=== PATIENT | female | born 1985 | race Two or more races ===

== ENCOUNTER 2023-03-06 15:50 | Outpatient (OUT) | payer OTHER, MEDICAID, SELFPAY ==
--- NOTE | 2023-03-06 16:04 | XR_ITS ---
The [address] [address] Patient Name: AMRIE SHARMA MRN: [id number] date: 1985 Sex: F Assigned Patient Location: [facility] Current Patient Location: [facility] Accession/Order Number: [id number] Exam Date: 03/06/2023 16:05 Report Date: 03/06/2023 16:34 At the request of: [facility] STAFFORD Procedure: XR ankle RT min 3V EXAM: XR ankle RT min 3V HISTORY: RT ANKLE PAIN M25.471 . The patient fell yesterday. COMPARISON: None. TECHNIQUE: 3 views of the right ankle were obtained. FINDINGS: There is no evidence of an acute fracture or dislocation. The mortise is intact and no osteochondral injury is identified. The subtalar joints are intact. A small soft tissue calcification adjacent to the cuboid bone is probably tendinous in nature. Mild soft tissue swelling laterally is noted. IMPRESSION: No acute fracture or dislocation. No significant osseous abnormality is identified. Mild soft tissue swelling laterally is noted. Electronically authenticated by: STEPHANI STEWART Date: 03/06/2023 16:34
== END 2023-03-06 15:51 | disposition home or self-care (01) ==
LOC: RAD 15:56
PROVIDERS: PCP Nurse Practitioner Family; Visit Provider Nurse Practitioner Family
DX: M25.471 Effusion, right ankle (principal); M25.571 Pain in right ankle and joints of right foot; M79.89 Other specified soft tissue disorders
CPT/HCPCS: 73610

== ENCOUNTER 2023-03-07 10:13 | Outpatient (OUT) | payer OTHER, MEDICAID, SELFPAY ==
[2023-03-07 10:36] LABS: Basophils Percent Auto 0.4 % (0.2-2.0); Eosinophils Absolute Auto 0.1 10^3/uL (0.0-0.7); Eosinophils Percent Auto 1.7 % (0.9-7.0); Hemoglobin 12.1 g/dL (12.0-16.0); Lymphocytes Absolute Auto 3.3 10^3/uL (1.2-3.8); Lymphocytes Percent Auto 47.8 % (20.5-60.0); Mean Corpuscular HGB Conc 32.7 g/dL (29.9-35.2); Mean Corpuscular Hemoglobin 31.3 pg (26.7-34.0); Mean Corpuscular Volume 95.6 fL (81.0-99.0); Mean Platelet Volume 9.1 fL (9.5-13.5); Monocytes Absolute Auto 0.9 10^3/uL (0.3-0.8); Monocytes Percent Auto 12.7 % (1.7-12.0); Neutrophils Absolute Auto 2.6 10^3/uL (1.4-6.5); Neutrophils Percent Auto 37.4 % (43.0-75.0); Platelet Count 287 10^3/uL (150-450); Red Blood Count 3.87 10^6/uL (4.20-5.40); Red Cell Distribution Width 12.7 % (11.0-15.0); White Blood Count 6.9 10^3/uL (4.0-11.0)
[2023-03-07 11:44] LABS: Alanine Aminotransferase 26 U/L (14-59); Albumin Globulin Ratio 1.2; Albumin Level 3.8 g/dL (3.4-5.0); Alkaline Phosphatase 73 U/L (46-116); Anion Gap 8.8; Aspartate Amino Transferase 17 U/L (15-37); BUN Creatinine Ratio 13.3; Bilirubin Total 0.2 mg/dL (0.2-1.0); Calcium 9.1 mg/dL (8.5-10.1); Chloride 104 mmol/L (98-107); Chol HDL Ratio 2.8; Cholesterol 216 mg/dL (<=200); Estimated GFR (African America >60 (>=60); Estimated GFR (Non-African Ame >60 (>=60); Globulin 3.3 g/dL; Glucose 92 mg/dL (74-106); HDL Cholesterol 78 mg/dL (40-60); Potassium 3.8 mmol/L (3.5-5.1); Sodium 139 mmol/L (136-145); Total Protein 7.1 g/dL (6.4-8.2); Triglycerides 77 mg/dL (<=150); VLDL CHOLESTEROL 15.4 mg/dL
[2023-03-07 13:28] LABS: Percent Iron Saturation 11.6 %
== END 2023-03-07 10:14 | disposition home or self-care (01) ==
LOC: LAB 10:14
PROVIDERS: PCP Nurse Practitioner Family; Visit Provider Nurse Practitioner Family
DX: R23.3 Spontaneous ecchymoses (principal); E61.1 Iron deficiency; R63.4 Abnormal weight loss; E55.9 Vitamin D deficiency, unspecified; E78.2 Mixed hyperlipidemia
CPT/HCPCS: 36415; 80053; 80061; 82306; 82728; 83540; 83550; 85025

== ENCOUNTER 2023-04-26 02:58 | Emergency (ER) | payer MEDICAID, SELFPAY ==
[2023-04-26 03:02] VITALS: BP 149/89; PULSE 96; RESP 16; TEMP 36.9; O2SAT 99; BMI 21.7
--- NOTE | 2023-04-26 03:21 | CT_ITS ---
The [address] [address] Patient Name: MARIE SHARMA MRN: [id number] date: 1985 Sex: F Assigned Patient Location: ER Current Patient Location: ER Accession/Order Number: [id number] Exam Date: 04/26/2023 03:38 Report Date: 04/26/2023 04:05 At the request of: MONICA RAMOS Procedure: CT abdomen pelvis wo con EXAM: CT abdomen pelvis wo con HISTORY: Right flank pain , also reports nausea and diarrhea. COMPARISON: CT abdomen pelvis 04/24/2017 TECHNIQUE: Multiple axial views CT abdomen pelvis without IV contrast. Coronal sagittal reformats. FINDINGS: Visualized lung bases and cardiac apex are unremarkable. Visualized portions of the liver demonstrate a 1.6 cm oval low density structure at the left hepatic lobe (image 18 series 3), probably a hemangioma. Gallbladder, pancreas, spleen, adrenal glands, kidneys, urinary bladder, and appendix are unremarkable by noncontrast CT exam. Uterus is surgically absent. Moderate amount of liquid stool within the right large bowel and mild amount of liquid within the nondilated right lower quadrant small bowel. Stomach is underdistended. No perigastric inflammatory stranding. No evidence for small bowel obstruction, large ascites, or free air. No acute bony abnormality. CT/CT abdomen pelvis wo con IMPRESSION: No radiopaque renal/ureteral/urinary bladder stone, hydronephrosis, or perinephric fluid collection. No evidence for appendicitis. Appendix is unremarkable. Moderate amount of liquid stool within the right large bowel and mild amount of liquid within the nondilated right lower quadrant small bowel. Constellation of findings likely reflect underlying enteritis/diarrhea in the proper clinical setting. Correlate clinically. 1.6 cm oval low density structure at the left hepatic lobe (image 18 series 3), probably a hemangioma. Nonemergency CT or MRI multiphase contrast can further evaluate to confirm. Electronically authenticated by: OLIVIA TRAN Date: 04/26/2023 04:05
[2023-04-26 03:25] LABS: Bilirubin Urine NEGATIVE (NEGATIVE); Blood Urine NEGATIVE (NEGATIVE); Clarity Urine CLEAR (CLEAR); Color Urine LT. YELLOW (YELLOW); Glucose Urine UA NEGATIVE (NEGATIVE); Ketones Urine NEGATIVE (NEGATIVE); Leukocyte Esterase Urine NEGATIVE (NEGATIVE); Nitrite Urine NEGATIVE (NEGATIVE); Protein Urine NEGATIVE (NEG/TRACE); Specific Gravity Urine <=1.005 (1.005-1.025); Urobilinogen Urine 0.2 EU/dL (0.2-1.0)
[2023-04-26 03:29] LABS: Basophils Percent Auto 0.3 % (0.2-2.0); Eosinophils Percent Auto 0.5 % (0.9-7.0); Hematocrit 39.9 % (36.0-48.0); Hemoglobin 13.3 g/dL (12.0-16.0); Immature Granulocytes Abs Auto 0.03 10^3/uL (0.00-0.03); Immature Granulocytes Pct Auto 0.3 % (0.0-0.5); Lymphocytes Percent Auto 34.1 % (20.5-60.0); Mean Corpuscular HGB Conc 33.3 g/dL (29.9-35.2); Mean Corpuscular Hemoglobin 30.9 pg (26.7-34.0); Mean Corpuscular Volume 92.8 fL (81.0-99.0); Monocytes Absolute Auto 0.6 10^3/uL (0.3-0.8); Monocytes Percent Auto 7.1 % (1.7-12.0); Neutrophils Percent Auto 57.7 % (43.0-75.0); Platelet Count 309 10^3/uL (150-450); Red Cell Distribution Width 12.1 % (11.0-15.0); Urine Microscopic Indicated NO; White Blood Count 8.7 10^3/uL (4.0-11.0)
[2023-04-26 03:32] LABS: HCG Qualitative NEGATIVE (NEGATIVE)
[2023-04-26 03:40] LABS: Alanine Aminotransferase 32 U/L (14-59); Albumin Globulin Ratio 1.4; Albumin Level 4.8 g/dL (3.4-5.0); Alkaline Phosphatase 96 U/L (46-116); Anion Gap 11.3; Aspartate Amino Transferase 25 U/L (15-37); Bilirubin Total 0.5 mg/dL (0.2-1.0); Calcium 9.6 mg/dL (8.5-10.1); Carbon Dioxide 30.1 mmol/L (21.0-32.0); Chloride 102 mmol/L (98-107); Estimated GFR (African America >60 (>=60); Estimated GFR (Non-African Ame >60 (>=60); Globulin 3.5 g/dL; Glucose 108 mg/dL (74-106); Potassium 3.4 mmol/L (3.5-5.1); Sodium 140 mmol/L (136-145); Total Protein 8.3 g/dL (6.4-8.2)
[2023-04-26] MEDS: KETOROLAC TROMETHAMINE 30 MG/ML VIAL 15 MG IVP (03:54)
[2023-04-26] MEDS: 0.9 % SODIUM CHLORIDE 1,000 ML 1000 ML IV (03:54)
--- NOTE | 2023-04-26 04:27 | ED.ABDPAIN1 ---
HPI - Abdominal Pain General Chief Complaint: Abdominal Pain Stated Complaint: ABD BACK PAIN Time Seen by Provider: 04/26/23 03:10 History of Present Illness HPI narrative: Presented to us with right-sided more of mid abdominal pain that is radiating to the flank associated with frequency of urination she did mention that she have a history of kidney stone before although she denies any fever chills or any other concern, the patient also has been feeling tired for the last few hours There was no nausea no vomiting and the patient did not take anything for the pain she was at work when this started The pain was crampy-like and radiating to the flank associated with no other symptoms Related Data Home Medications Medication Instructions Recorded Confirmed cholecalciferol (vitamin D3) 10 10 mcg PO DAILY 04/26/23 04/26/23 mcg (400 unit) capsule iron 18 mg tablet 18 mg PO DAILY 04/26/23 04/26/23 tizanidine 2 mg capsule 2 mg PRN muscle spasticity 04/26/23 venlafaxine 37.5 mg tablet 37.5 mg PO DAILY 04/26/23 04/26/23 Previous Rx's Medication Instructions Recorded dicyclomine 20 mg tablet 20 mg PO QID PRN abdominal pain 04/26/23 #10 tabs Allergies Allergy/AdvReac Type Severity Reaction Status Date / Time pregabalin [From Lyrica] Allergy Verified 04/26/23 03:06 topiramate [From Topamax] Allergy Verified 04/26/23 03:06 Review of Systems ROS Status of ROS 10 or more systems reviewed and unremarkable except as noted in history and below PFSH PFS Social History Smoking status: Former smoker Exam Narrative Exam Narrative: Nurses notes and vital signs reviewed and patient is not hypoxic. General: Well-appearing and in no apparent distress. Skin: Warm, dry, no pallor noted. No rash. Head: Normocephalic, atraumatic. Neck: Supple, non-tender. Eye: Pupils are equal, round and EOMI. No scleral icterus. Ears, Nose, Mouth, and Throat: TM are clear, no nasal mucosal hypertrophy. Oral mucosa is moist, no posterior oropharynx erythema, uvula is mid-line Cardiovascular: Regular Rate and Rhythm without murmur, gallop or rub. Respiratory: No accessory muscle use or respiratory distress. Lungs are clear to auscultation, no wheezing, rales or rhonchi Chest Wall: no tenderness Back: No midline thoracic or lumbar vertebral tenderness. No CVA tenderness Musculoskeletal: normal ROM, no calf or popliteal tenderness, no lower extremity edema/swelling GI: Abdomen is soft, non-distended. Normal bowel sounds. No masses appreciated. Mild tenderness upon palpation of the mid right abdomen there is no right lower quadrant tenderness Neurological: A&O x4. No cranial nerve dysfunction observed. No truncal ataxia. Moves all extremities. Sensation intact. Psychiatric: Cooperative and interactive. Normal mood and affect. Constitutional Vital Signs, click to edit/add: Last Vital Signs Temp 98.4 F 04/26/23 03:02 Pulse 96 H 04/26/23 03:02 Resp 16 04/26/23 03:02 BP 149/89 H 04/26/23 03:02 Pulse Ox 99 04/26/23 03:02 Course Vital Signs Vital signs: Vital Signs Temperature 98.4 F 04/26/23 03:02 Pulse Rate 96 H 04/26/23 03:02 Respiratory Rate 16 04/26/23 03:02 Blood Pressure 149/89 H 04/26/23 03:02 Pulse Oximetry 99 04/26/23 03:02 Temperature 98.4 F 04/26/23 03:02 Pulse Rate 96 H 04/26/23 03:02 Respiratory Rate 16 04/26/23 03:02 Blood Pressure 149/89 H 04/26/23 03:02 Pulse Oximetry 99 04/26/23 03:02 MDM - Abdominal Pain MDM Narrative Medical decision making narrative: The patient CBC and chemistry showed no acute significant pathology her urinalysis also was within normal and her test was negative And the patient CAT scan shows a significant amount of stool in the colon with possible enteritis The patient to continue supportive care at home she was feeling better after being treated with Toradol in the ER She is also was instructed to come back to us in case of any new symptoms including increasing pain The patient is to follow up with primary care physician in next 2-3 days or to return to the emergency department should any of the signs or symptoms worsen or new symptoms develop. The patient agrees with the following Diagnosis and Treatment plan and the patient will be discharged home. Lab Data Labs: Lab Results 04/26/23 Range/Units 03:10 WBC 8.7 (4.0-11.0) 10^3/uL RBC 4.30 (4.20-5.40) 10^6/uL Hgb 13.3 (12.0-16.0) g/dL Hct 39.9 (36.0-48.0) % MCV 92.8 (81.0-99.0) fL MCH 30.9 (26.7-34.0) pg MCHC 33.3 (29.9-35.2) g/dL RDW 12.1 (11.0-15.0) % Plt Count 309 (150-450) 10^3/uL MPV 9.0 L (9.5-13.5) fL Neut % (Auto) 57.7 (43.0-75.0) % Lymph % (Auto) 34.1 (20.5-60.0) % [place] % (Auto) 7.1 (1.7-12.0) % Eos % (Auto) 0.5 L (0.9-7.0) % Baso % (Auto) 0.3 (0.2-2.0) % Neut # (Auto) 5.0 (1.4-6.5) 10^3/uL Lymph # (Auto) 3.0 (1.2-3.8) 10^3/uL [place] # (Auto) 0.6 (0.3-0.8) 10^3/uL Eos # (Auto) 0.0 (0.0-0.7) 10^3/uL Baso # (Auto) 0.0 (0.0-0.1) 10^3/uL Abs Immat Gran (auto) 0.03 (0.00-0.03) 10^3/uL Imm/Tot Granulo (auto) 0.3 (0.0-0.5) % Sodium 140 (136-145) mmol/L Potassium 3.4 L (3.5-5.1) mmol/L Chloride 102 (98-107) mmol/L Carbon Dioxide 30.1 (21.0-32.0) mmol/L Anion Gap 11.3 BUN 7.0 (7.0-18.0) mg/dL Creatinine 0.88 (0.55-1.02) mg/dL Est GFR ( Amer) >60 (>=60) Est GFR (Non-Af Amer) >60 (>=60) BUN/Creatinine Ratio 8.0 Glucose 108 H (74-106) mg/dL Calcium 9.6 (8.5-10.1) mg/dL Total Bilirubin 0.5 (0.2-1.0) mg/dL AST 25 (15-37) U/L ALT 32 (14-59) U/L Alkaline Phosphatase 96 (46-116) U/L Troponin I High Sens 4.0 (4.0-51.3) pg/mL Total Protein 8.3 H (6.4-8.2) g/dL Albumin 4.8 (3.4-5.0) g/dL Globulin 3.5 g/dL Albumin/Globulin Ratio 1.4 Serum HCG, Qual Negative (NEGATIVE) Urine Color Lt. yellow (YELLOW) Urine Clarity Clear (CLEAR) Urine pH 6.0 (5.0-9.0) Ur Specific [place] <=1.005 A (1.005-1.025) Urine Protein Negative (NEG/TRACE) mg/dL Urine Glucose (UA) Negative (NEGATIVE) mg/dL Urine Ketones Negative (NEGATIVE) mg/dL Urine Occult Blood Negative (NEGATIVE) Urine Nitrite Negative (NEGATIVE) Urine Bilirubin Negative (NEGATIVE) Urine Urobilinogen 0.2 (0.2-1.0) EU/dL Ur Leukocyte Esterase Negative (NEGATIVE) Discharge Plan Discharge Chief Complaint: Abdominal Pain Clinical Impression: Gastroenteritis Patient Disposition: Home, Self-Care Time of Disposition Decision: 04:30 Condition: Good Prescriptions / Home Meds: New dicyclomine 20 mg tablet 20 mg PO QID PRN (Reason: abdominal pain) Qty: 10 0RF No Action venlafaxine 37.5 mg tablet 37.5 mg PO DAILY tizanidine 2 mg capsule 2 mg PRN (Reason: muscle spasticity) iron 18 mg tablet 18 mg PO DAILY cholecalciferol (vitamin D3) 10 mcg (400 unit) capsule 10 mcg PO DAILY Instructions: Gastroenteritis (ED) Stand Alone Forms: Portal Instructions Referrals: E[facility] STAFFORD [Primary Care Provider] - 1 week
== END 2023-04-26 04:43 | disposition home or self-care (01) ==
PROVIDERS: Emergency Provider Emergency Medicine; PCP Nurse Practitioner Family
DX: K52.9 Noninfective gastroenteritis and colitis, unspecified (principal); Z87.442 Personal history of urinary calculi; Z79.899 Other long term (current) drug therapy; Z87.891 Personal history of nicotine dependence
CPT/HCPCS: 36415; 74176; 80053; 81003; 84484; 84703; 85025; 96361; 96374; 99285

== ENCOUNTER 2023-07-10 09:42 | Outpatient (REF) | payer MEDICAID, SELFPAY ==
[2023-07-10 10:19] LABS: SARS-CoV-2 Ag NEGATIVE (NEGATIVE)
[2023-07-10 16:20] LABS: SARS-CoV-2 NAA NOT DETECTED (NOT DETECTE)
== END 2023-07-10 09:43 | disposition home or self-care (01) ==
LOC: LAB 09:42
PROVIDERS: PCP Nurse Practitioner Family; Visit Provider Nurse Practitioner Family
DX: Z20.822 Contact with and (suspected) exposure to COVID-19 (principal)
CPT/HCPCS: 87635; 87811

== ENCOUNTER 2023-08-29 07:49 | Emergency (ER) | payer MEDICAID, SELFPAY ==
[2023-08-29 07:52] VITALS: BP 153/79; PULSE 83; RESP 18; TEMP 36.6; O2SAT 100; BMI 20.7
--- NOTE | 2023-08-29 08:03 | ED.DENTAL1 ---
HPI - Dental/Oral General Chief complaint: Dental/Oral Stated complaint: DENTAL PAIN Time Seen by Provider: 08/29/23 07:58 Source: patient Mode of arrival: walk-in Limitations: no limitations History of Present Illness HPI Narrative: 37-year-old female presents for dental pain. She is complaining of pain to the right lower dentition. She is seeing a dentist for this issue. The pain is throbbing in continuous and severe. No fever or difficulty breathing or swallowing. This has been an ongoing issue but worse in the last few days. Related Data Home Medications Medication Instructions Recorded Confirmed cholecalciferol (vitamin D3) 10 10 mcg PO DAILY 04/26/23 04/26/23 mcg (400 unit) capsule iron 18 mg tablet 18 mg PO DAILY 04/26/23 04/26/23 tizanidine 2 mg capsule 2 mg PRN muscle spasticity 04/26/23 venlafaxine 37.5 mg tablet 37.5 mg PO DAILY 04/26/23 04/26/23 Previous Rx's Medication Instructions Recorded dicyclomine 20 mg tablet 20 mg PO QID PRN abdominal pain 04/26/23 #10 tabs acetaminophen 300 mg-codeine 30 mg 1 tab PO Q6H PRN pain #20 tabs 08/29/23 tablet ibuprofen 800 mg tablet 800 mg PO Q8H PRN pain #20 tabs 08/29/23 penicillin V potassium 250 mg 250 mg PO QID 10 days #40 tabs 08/29/23 tablet Allergies Allergy/AdvReac Type Severity Reaction Status Date / Time pregabalin [From Lyrica] Allergy Verified 04/26/23 03:06 topiramate [From Topamax] Allergy Verified 04/26/23 03:06 Review of Systems ROS Narrative A ten point review of systems is negative except as noted above. PFSH PFSH Social History Smoking status: Current every day smoker Exam Narrative Exam Narrative: Nurses note and vital signs reviewed and patient is not hypoxic. General: The patient appears well and in no apparent distress. Patient is resting comfortably on cart. Skin: Warm, dry, no pallor noted. There is no rash noted. Head: Normocephalic, atraumatic Eye: Normal conjunctiva, no drainage Ears, Nose, Mouth, and Throat: oral mucosa is moist. Nares patent. blackened teeth which are quite eroded are present in the right lower dentition. No bleeding or pus present and no swelling to the floor of her mouth. No facial swelling or erythema. Cardiovascular: Regular Rate and Rhythm Respiratory: Patient is in no distress, no accessory muscle use, lungs are clear to auscultation, no wheezing, rales or rhonchi Back: non-tender GI: nontender Musculoskeletal: The patient has no evidence of calf tenderness, no pitting edema, symmetrical pulses noted bilaterally Neurological: A&O, normal speech Psychiatric: Cooperative Constitutional Vital Signs, click to edit/add: Last Vital Signs Temp 97.8 F 08/29/23 07:52 Pulse 83 08/29/23 07:52 Resp 18 08/29/23 07:52 BP 153/79 H 08/29/23 07:52 Pulse Ox 100 08/29/23 07:52 O2 Del Method Room Air 08/29/23 07:52 Course Vital Signs Vital signs: Vital Signs Temperature 97.8 F 08/29/23 07:52 Pulse Rate 83 08/29/23 07:52 Respiratory Rate 18 08/29/23 07:52 Blood Pressure 153/79 H 08/29/23 07:52 Pulse Oximetry 100 08/29/23 07:52 Oxygen Delivery Method Room Air 08/29/23 07:52 Temperature 97.8 F 08/29/23 07:52 Pulse Rate 83 08/29/23 07:52 Respiratory Rate 18 08/29/23 07:52 Blood Pressure 153/79 H 08/29/23 07:52 Pulse Oximetry 100 08/29/23 07:52 Oxygen Delivery Method Room Air 08/29/23 07:52 Discharge Plan Discharge Chief Complaint: Dental/Oral Clinical Impression: Dental caries, Toothache Patient Disposition: Home, Self-Care Time of Disposition Decision: 08:01 Condition: Good Mode of Transportation: Private Vehicle Prescriptions / Home Meds: New penicillin V potassium 250 mg tablet 250 mg PO QID 10 Days Qty: 40 0RF ibuprofen 800 mg tablet 800 mg PO Q8H PRN (Reason: pain) Qty: 20 0RF acetaminophen-codeine 300-30 mg tablet 1 tab PO Q6H PRN (Reason: pain) Qty: 20 0RF No Action venlafaxine 37.5 mg tablet 37.5 mg PO DAILY tizanidine 2 mg capsule 2 mg PRN (Reason: muscle spasticity) iron 18 mg tablet 18 mg PO DAILY cholecalciferol (vitamin D3) 10 mcg (400 unit) capsule 10 mcg PO DAILY dicyclomine 20 mg tablet 20 mg PO QID PRN (Reason: abdominal pain) Qty: 10 0RF Instructions: Toothache (ED) Stand Alone Forms: Portal Instructions Referrals: EH STAFFORD [Primary Care Provider] - 1 week
--- OUTSIDE RECORDS SUMMARY | 2023-08-29 10:32 | XMS_ITS | CCD ---
Author Name Unknown Address [address] [place] [address] Organization [facility] Care Team Providers Care Electric Fan Assembler Name Role Phone Paul Levi Unavailable Ragini Riley Unavailable [phone] GOKUL Riley Primary Care Provider MD Paul Levi Attending Provider GOKUL Riley Attending Provider [phone] GOKUL Riley Primary Care Provider MD Paul Levi Attending Provider Alysa Mariscal Unavailable RAGINI RILEY Primary Care Unavailab le PAY, DR BELLO Admitting Unavailable CHRISTIAN BELL Consulting Unavailable PAY, DR BELLO Attending Unavailable RAGINI RILEY Consulting Unavailab RAGINI Samson Attending Unavailab le RAGINI RILEY Admitting Unavailab SULY Aranda Attending Unavailable SULY CAROLINA Admitting Unavailable MELISSA CALVILLO Consulting Unavailable RAGINI RILEY Primary Care Unavailab KRISTIN Hanson Consulting Unavailable SULY CAROLINA Consulting Unavailable GOKUL Riley Primary Care Provider GOKUL Riley Attending Provider [phone] MD Paul Levi Attending Provider Jyoti Jama Unavailable GOKUL Riley Primary Care Provider MD Paul Levi Attending Provider ANGEL Jama Attending Provider [phone] Luigi Schaefer Unavailable ANGEL Jama Attending Provider [phone] NON STAFF Primary Care Provider Unavailabl e GOKUL Schaefer Attending Provider GOKUL Riley Ragini Primary Care Provider Jyoti Jama Admitting Unavailable Jyoti Jama Attending Unavailable NON STAFF Primary Care Unavailable ScfrancisnerLuigi Admitting Unavailable Scovanner, Luigi M Attending Unavailable Rohrbacher, Ragini Primary Care Unavailable Paul Levi Admitting Unavailable Paul Levi Attending Unavailable Rohrbacher, Ragini Primary Care Unavailable Paul Levi Admitting Unavailable Paul Levi Attending Unavailable Rohrbacher, [facility] Primary Care Unavailable Amita, Paul Attending Unavailable Rohrbacher, Ragini Primary Care Unavailable Paul Levi Admitting Unavailable Paul Levi Attending Unavailable Paul Levi Admitting Unavailable Rohrbacher, Ragini Primary Care Unavailable Rohrbacher, Ragini Primary Care Unavailable Scovanner, Luigi M Admitting Unavailable Scovanner, Luigi M Attending Unavailable Rohrbacher, Ragini Attending Unavailable Rohrbacher, Ragini Admitting Unavailable Rohrbacher, [facility] Primary Care Unavailable Emre Guzman Attending Unavaila ble Emre Guzman Admitting Unavaila ble Rohrbacher, [facility] Primary Care Unavailable Allergies Allergy Classification Reported Allergen(s) Allergy Type Date of Onset Reaction(s) Facility (20 sources) celecoxib; Translations: [celecoxib] Drug Allergy 3 Unknown, Unknown Reaction [facility] (20 sources) pregabalin Drug Allergy 1 dizziness/ headache, Difficulty Breathing, Fatigued [facility] (20 sources) topiramate Drug Allergy 1 Unknown, Shakiness, Fatigued [facility] (2 sources) pregabalin; Translations: [Lyrica] Drug Allergy 2 [facility] Repository (2 sources) topiramate; Translations: [Topamax] Drug Allergy 2 [facility] Repository (1 source) celecoxib Drug Allergy 3 [facility] Repository (1 source) pregabalin Drug Allergy 3 [facility] Repository (1 source) topiramate Drug Allergy 3 [facility] Repository (1 source) flu vaccines; Translations: [flu vaccines] Propensity to adverse reactions to drug (disorder) [facility] Repository Medications Current Medications Medication Drug Class(es) Dates Sig (Normalized) Sig (Original) [id number] actuat albuterol 0.09 mg/actuat metered dose inhaler (20 sources) beta2-Adrenergic Agonist Start: 07-10-2023 take 2 puff(s) by inhalation four times daily as needed Albuterol Sulfate HFA 108 (90 Base) MCG/ACT 2 puffs Inhalation 4 times a day prn Jul, Active Start: 07-10-2023 take 2 puff(s) by in halation four times daily as needed Albuterol Sulfate HFA 108 (90 Base) MCG/ACT 2 puffs Inhalation 4 times a day prn Jul, Active Start: 07-09-2022 take 2 puff(s) by in halation every four hours as needed Albuterol Sulfate HFA 108 (90 Base) MCG/ACT 2 puffs as needed Inhalation every 4 hrs Jun, Active Start: 07-09-2022 Albuterol Sulf ate (2.5 MG/3ML) 0.083% 1 dose as directed Inhalation every 6 hrs Jun, Not-Taking Start: 07-09-2022 take 2 puff(s) by in halation every four hours as needed Albuterol Sulfate HFA 108 (90 Base) MCG/ACT 2 puffs as needed Inhalation every 4 hrs Jun, Not-Taking Start: 11-10-2020 Albuterol Sulf ate Active 1 PUFF INHALATION As Directed November 10, 2020 1:00am Start: 08-08-2020 Albuterol Sulf ate HFA 108 (90 Base) MCG/ACT 1 or 2 puff as needed Inhalation every 4 hrs for 30 day(s) Jul, Active Start: 08-08-2020 Albuterol Sulf ate HFA 108 (90 Base) MCG/ACT 1 or 2 puff as needed Inhalation every 4 hrs for 30 day(s) Jul, Active amoxicillin 875 mg oral tablet (1 source) Penicillin-class Antibacterial Start: 07-25-2021 take 1 tablet by mouth every twelve hours Amoxicillin 875 MG 1 tablet Orally Twice a day for 10 day(s) Jul, Active amoxicillin 875 mg / clavulanate 125 mg oral tablet (7 sources) Penicillin-class Antibacterial Start: 07-10-2023 take 1 tablet by mouth every twelve hours Amoxicillin-Pot Clavulanate 875-125 MG 1 tablet Orally every 12 hrs for 10 day(s) Jul, Active Start: 01-22-2022 take 1 tablet by glen th every twelve hours Amoxicillin-Pot Clavulanate 875-125 MG 1 tablet Orally every 12 hrs for 10 day(s) January, Active amylase 346125 unt / lipase 80282 unt / protease [id number] unt delayed release oral capsule (7 sources) Start: 05-27-2023 Creon 22424-04 4000 UNIT 2 CAPSULES WITH MEALS. 1 WITH SNACKS Orally 5 TIMES DAILY (ALLOW FOR 3 MEALS AND 2 SNACKS. for 30 days May, Active atorvastatin 10 mg oral tablet (20 sources) HMG-CoA Reductase Inhibitor Start: 02-17-2021 take 10 mg by mouth once daily Atorvastatin Active 10 MG PO Daily April 10, 2021 12:00am busPIRone hydrochloride 5 mg oral tablet (20 sources) Start: 06-26-2021 take 10 mg by mouth twice daily Buspirone Active 10 MG PO Twice daily June 26, 2021 12:00am Start: 05-10-2021 take 1 tablet by glen th every twenty-four hours busPIRone HCl 5 MG 1 tablet Orally daily for 30 days May, Active take 1 tablet by glen th every twelve hours busPIRone HCl 10 MG 1 tablet Orally Twice a day for 90 day(s) PRN Active take 1 tablet by glen th every twelve hours busPIRone HCl 15 MG 1 tablet Orally Twice a day for 30 day(s) Active take 1 tablet by glen th every twelve hours busPIRone HCl 5 MG 1 tablet Orally Twice a day for 30 day(s) Active ciprofloxacin 500 mg oral tablet (2 sources) Quinolone Antimicrobial Start: 02-25-2023 take 1 tablet by mouth every twelve hours Cipro 500 MG 1 tablet Orally every 12 hrs for 5 day(s) Feb, Active diclofenac sodium 75 mg delayed release oral tablet (16 sources) Nonsteroidal Anti-inflammatory Drug Start: 06-05-2022 take 75 mg by mouth twice daily Diclofenac Sodium Active 75 MG PO Twice daily June 19, 2022 12:00am Start: 10-03-2020 End: 04-10-2021 take 75 mg by mouth twice daily Diclofenac Sodium Discontinued 75 MG PO Twice daily October 03, 2020 1:00am April 10, 2021 2:53pm doxycycline monohydrate 100 mg oral tablet (9 sources) Tetracycline-class Drug Start: 10-15-2022 take 1 tablet by mouth every twelve hours Doxycycline Monohydrate 100 MG 1 tablet Orally Twice a day for 10 day(s) Oct, Active fluconazole 150 mg oral tablet (2 sources) Azole Antifungal Start: 07-10-2023 Diflucan 150 MG 1 tablet Orally once for 2 days Take the first tablet at the first onset of symptoms of vaginal yeast infection. Take the second tablet in 3 days. Jul, Active fluticasone propionate 0.05 mg/actuat metered dose nasal spray (20 sources) Corticosteroid Start: 07-10-2023 take 2 spray(s) nasal route once daily Fluticasone Propionate 50 MCG/ACT 2 sprays Nasally Once a day for 14 day(s) Jul, Active Start: 07-09-2022 take 2 puff(s) by in halation twice daily Flovent HFA 110 MCG/ACT 2 puffs Inhalation Twice a day Jun, Not-Taking Start: 01-16-2022 take 1 spray(s) nasa l route once daily Fluticasone Propionate 50 MCG/ACT 1 spray in each nostril Nasally Once a day for 30 day(s) January, Active Iron (20 sources) Iron Active methocarbamol 750 mg oral tablet (11 sources) Muscle Relaxant Start: 2021 take 750 mg by mouth twice daily Methocarbamol Active 750 MG PO Twice daily June 19, 2022 12:00am methylPREDNISolone 4 mg oral tablet (19 sources) Corticosteroid Start: 2021 methylPREDNISolone 4 MG as directed Orally daily for 6 days Oct, Active nitrofurantoin, macrocrystals 25 mg / nitrofurantoin, monohydrate 75 mg oral capsule (10 sources) Nitrofuran Antibacterial Start: 2021 take 1 capsule by mouth every twelve hours Macrobid 100 MG 1 capsule Orally Twice a day for 7 days Apr, Active phenazopyridine hydrochloride 200 mg oral tablet (2 sources) Start: 2022 take 1 tablet by mouth every eight hours Pyridium 200 MG 1 tablet after meals Orally Three times a day for 2 day(s) Feb, Active Potassium (20 sources) Potassium Active predniSONE 20 mg oral tablet (2 sources) Start: 2022 take 1 tablet by mouth every twelve hours predniSONE 20 MG 1 tablet Orally bid for 5 day(s) Jul, Active Probiotic (7 sources) Probiotic Active 24 hr venlafaxine 37.5 mg extended release oral capsule (20 sources) Serotonin and Norepinephrine Reuptake Inhibitor Start: 2020 take 37.5 mg by mouth once daily Venlafaxine Active 37.5 MG PO Daily April 10, 2021 12:00am Start: 10-03-2020 End: 02-13-2022 take 75 mg by mouth once daily Venlafaxine Discontinue d 75 MG PO Daily October 03, 2020 1:00am February 13, 2022 7:18am {20 (nirmatrelvir 150 MG Ora l Tablet) / 10 (ritonavir 100 MG Oral Tablet) } Pack [Paxlovid 5-Day] (2 sources) Start: 07-30-2023 Paxlovid (300/ 100) 20 x 150 MG & 10 x 100MG as directed Orally bid for 5 days Jul, Active Completed/Discontinued Medications Medication Drug Class(es) Dates Sig (Normalized) Sig (Original) acetaminophen 500 mg oral tablet (20 sources) Start: 12-14-2018 End: 01-20-2020 take 2 tablets by mouth every eight hours Acetaminophen (Tylenol Extra Strength) 500 mg Tablet Discontinued 1000 MG PO Q8H December 14, 2018 12:00am January 20, 2020 10:42am take 1 tablet by glen th every four hours as needed Tylenol 325 MG 1 tablet as needed Orally prn every 4 hrs Not-Taking acetaminophen 300 mg / codeine phosphate 30 mg oral tablet (7 sources) Opioid Agonist Start: 01-26-2020 End: 10-03-2020 take 1 tablet by mouth every four to six hours Acetaminophen-Codeine (Tylenol-Codeine #3) 300-30 mg tablet Discontinued 1 TAB PO EVERY 4-6 HOURS 30 January 26, 2020 12:00am October 03, 2020 2:04pm acetaminophen 325 mg / HYDROcodone bitartrate 5 mg oral tablet (7 sources) Opioid Agonist Start: 12-16-2018 End: 01-20-2020 take 1 tablet by mouth every four to six hours Hydrocodone-Acetaminophen ([place]) 5-325 mg tablet Discontinued 1 TAB PO EVERY 4-6 HOURS 07 04December 16, 2018 January 20, 2020 10:43am benzonatate 200 mg oral capsule (20 sources) Non-narcotic Antitussive Start: 10-11-2022 take 1 capsule by mouth three times daily as needed Benzonatate 200 MG 1 capsule Orally Three times a day as needed for 10 day(s) Oct, Not-Taking Start: 01-16-2022 take 1 capsule by mo [facility] three times daily as needed Benzonatate 200 MG 1 capsule Orally Three times a day as needed for 10 day(s) January, Active celecoxib 100 mg oral capsule (20 sources) Nonsteroidal Anti-inflammatory Drug Start: 06-26-2021 End: 06-19-2022 take 100 mg by mouth twice daily Celecoxib Discontinued 100 MG PO Twice daily June 26, 2021 12:00am June 19, 2022 10:33am clindamycin 300 mg oral capsule (9 sources) Lincosamide Antibacterial Start: 12-21-2022 take 1 capsule by mouth every eight hours Clindamycin HCl 300 MG 1 cap(s) Orally tid for 10 day(s) January, Not-Taking docusate sodium 100 mg oral capsule (20 sources) Start: 11-10-2020 End: 02-13-2022 take 1 capsule by mouth twice daily Docusate Sodium (Colace) 100 mg Capsule Discontinued 100 MG PO Twice daily November 10, 2020 1:00am February 13, 2022 7:17am Start: 12-14-2018 End: 10-03-2020 take 1 capsule by mouth twice daily Docusate Sodium (Colace) 100 mg capsule Discontinued 100 MG PO Twice daily January 26, 2020 7:45am October 03, 2020 2:04pm escitalopram 20 mg oral tablet (7 sources) Serotonin Reuptake Inhibitor Start: 01-20-2020 End: 10-03-2020 take 20 mg by mouth once daily at bedtime Escitalopram Oxalate Discontinued 20 MG PO Daily at bedtime January 20, 2020 12:00am October 03, 2020 2:04pm ibuprofen 600 mg oral tablet (14 sources) Nonsteroidal Anti-inflammatory Drug Start: 12-16-2018 End: 10-03-2020 take 600 mg by mouth every six hours Ibuprofen Discontinued 600 MG PO Q6H January 26, 2020 12:00am October 03, 2020 2:04pm medroxyPROGESTERone (20 sources) Progestin Start: 04-26-2011 DEPO-PROVERA Apr, 150 mg Start: 01-25-2011 DEPO-PROVERA January, 150mg/ ml meloxicam 15 mg oral tablet (7 sources) Nonsteroidal Anti-inflammatory Drug Start: 04-10-2021 End: 06-26-2021 take 15 mg by mouth once daily Meloxicam Discontinued 15 MG PO Daily April 10, 2021 12:00am June 26, 2021 12:16pm naproxen 500 mg oral tablet (14 sources) Nonsteroidal Anti-inflammatory Drug Start: 11-10-2020 End: 11-14-2020 take 1 tablet by mouth twice daily Naproxen (Naprosyn) 500 mg Tablet Discontinued 500 MG PO Twice daily November 10, 2020 1:00am November 14, 2020 1:29pm Start: 01-20-2020 End: 01-26-2020 take 500 mg by mouth every twelve hours Naproxen Discontinued 500 MG PO Q12H January 20, 2020 12:00am January 26, 2020 7:44am ondansetron 4 mg oral tablet (7 sources) Serotonin-3 Receptor Antagonist Start: 12-14-2018 End: 01-20-2020 Ondansetron Hcl (Zofran) 4 mg Tablet Discontinued 4 MG PO 2-3 TIMES PER DAY December 14, 2018 12:00am January 20, 2020 10:44am Vit No.340-Vtwx-Trvys ( Vitamin) 27 mg iron- 800 mcg Tablet (7 sources) Start: 11-10-2020 End: 11-14-2020 take 1 tablet by mouth once daily Vit No.431-Uyqs-Dssxx ( Vitamin) 27 mg iron- 800 mcg Tablet Discontinued 1 TAB PO Daily November 10, 2020 12:00am November 14, 2020 12:29pm Start: 11-10-2020 End: 11-14-2020 take 1 tablet by mouth once daily Vit No.580-Hrdx-Qbbhc ( Vitamin) 27 mg iron- 800 mcg Tablet Discontinued 1 TAB PO Daily November 10, 2020 1:00am November 14, 2020 1:29pm raNITIdine 150 mg oral tablet (7 sources) Histamine-2 Receptor Antagonist Start: 12-14-2018 End: 01-20-2020 take 1 tablet by mouth once daily at bedtime Ranitidine Hcl (Zantac) 150 mg Tablet Discontinued 150 MG PO Daily at bedtime December 14, 2018 12:00am January 20, 2020 10:44am tiZANidine 4 mg oral tablet (20 sources) Central alpha-2 Adrenergic Agonist Start: 10-03-2020 End: 06-19-2022 take 4 mg by mouth twice daily Tizanidine Discontinued 4 MG PO Twice daily October 03, 2020 1:00am June 19, 2022 10:33am Start: 04-27-2020 take 1 capsule by [facility] every eight hours tiZANidine HCl 2 MG 1 capsule as needed Orally Three times a day for 30 day(s) Apr, Active Toradol 30 mg/ml (20 sources) Start: 02-25-2023 Toradol 30 mg/ ml Feb, 30 mg Problems Active Problems Problem Classification Problem Date Documented Da te Episodic/Chronic Abdominal pain (8 sources) Lower abdominal pain; Translations: [Lower abdominal pain, unspecified] Episodic Allergic reactions (1 source) Unspecified contact dermatitis, unspecified cause Episodic Anxiety disorders (20 sources) Anxiety; Translations: [Anxiety disorder, unspecified] Onset: 06-05-2021 Resolved: 10-25-2021 Chronic Asthma (20 sources) Exacerbation of intermittent asthma; Translations: [Mild intermittent asthma with (acute) exacerbation] Onset: 10-11-2022 Chronic Chronic obstructive pulmonary disease and bronchiectasis (2 sources) Bronchitis, not specified as acute or chronic Episodic Coagulation and hemorrhagic disorders (1 source) Spontaneous ecchymoses Episodic Complications of surgical procedures or medical care (20 sources) Menopausal flushing; Translations: [Symptomatic postprocedural ovarian failure] Chronic Diabetes mellitus without complication (20 sources) Impaired fasting glycemia; Translations: [Impaired fasting glucose] Onset: 05-23-2022 Resolved: 05-23-2022 Episodic Disorders of lipid metabolism (20 sources) Mixed hyperlipidemia; Translations: [Mixed hyperlipidemia] Onset: 08-14-2021 Resolved: 05-23-2022 Chronic Disorders of teeth and jaw (1 source) Dental caries, unspecified Episodic Gastrointestinal hemorrhage (1 source) Hemorrhage of anus and rectum Episodic Immunizations and screening for infectious disease (20 sources) Contact with and (suspected) exposure to other viral communicable diseases; Translations: [Contact with and (suspected) exposure to other viral communicable diseases] Episodic Intestinal infection (1 source) Viral intestinal infection, unspecified; Translations: [VIRAL INTESTINAL INFECTION UNSPEC] Onset: 08-17-2022 Episodic Mood disorders (20 sources) Recurrent major depression in partial remission; Translations: [Major depressive disorder, recurrent, in partial remission] Onset: 06-05-2021 Resolved: 05-15-2022 Chronic Nausea and vomiting (11 sources) Vomiting, unspecified; Translations: [Nausea] Onset: 08-15-2022 Episodic Nutritional deficiencies (20 sources) Vitamin D deficiency; Translations: [Vitamin D deficiency, unspecified] Onset: 04-12-2022 Resolved: 05-23-2022 Chronic Nutritional deficiencies (20 sources) Iron deficiency; Translations: [Iron deficiency] Onset: 05-23-2022 Resolved: 05-23-2022 Episodic Other aftercare (1 source) Other long lines operator (current) drug therapy; Translations: [OTH RESIDENTIAL CURRENT DRUG THERAPY] Onset: 05-30-2022 Episodic Other gastrointestinal disorders (4 sources) Diarrhea, unspecified; Translations: [Diarrhea, unspecified] Onset: 05-24-2023 Episodic Other gastrointestinal disorders (11 sources) Constipation; Translations: [Constipation, unspecified] Episodic Other gastrointestinal disorders (3 sources) Constipation, unspecified; Translations: [Constipation, unspecified] Onset: 05-24-2023 Episodic Other gastrointestinal disorders (7 sources) Constipation alternates with diarrhea; Translations: [Other specified symptoms and signs involving the digestive system and abdomen] Episodic Other gastrointestinal disorders (7 sources) Diarrhea; Translations: [Diarrhea, unspecified] Episodic Other gastrointestinal disorders (1 source) Other specified symptoms and signs involving the digestive system and abdomen Episodic Other hematologic conditions (20 sources) H/O: anemia - iron deficient; Translations: [Personal history of diseases of the blood and blood-forming organs and certain disorders involving the immune mechanism] Episodic Other infections; including parasitic (1 source) Personal history of other infectious and parasitic diseases Episodic Other liver diseases (7 sources) Lesion of liver; Translations: [Liver disease, unspecified] Chronic Other liver diseases (1 source) Liver disease, unspecified Chronic Other lower respiratory disease (20 sources) Cough; Translations: [Cough] Episodic Other nervous system disorders (20 sources) Chronic pain; Translations: [Other chronic pain] Chronic Other nervous system disorders (9 sources) Other chronic pain; Translations: [Other chronic pain G89.29] Onset: 06-01-2021 Resolved: 04-26-2022 Chronic Other nervous system disorders (1 source) Other chronic pain; Translations: [Other chronic pain] Onset: 06-04-2023 Chronic Other non-traumatic joint disorders (1 source) Effusion, right ankle Episodic Other non-traumatic joint disorders (1 source) Pain in right ankle and joints of right foot Episodic Other nutritional; endocrine; and metabolic disorders (20 sources) History of iron deficiency; Translations: [Personal history of other endocrine, nutritional and metabolic disease] Episodic Other nutritional; endocrine; and metabolic disorders (1 source) Abnormal weight loss Episodic Other and delivery including normal (7 sources) Finding of length of gestation; Translations: [36 to 37 weeks gestation of ] 2018 Episodic Other upper respiratory disease (20 sources) Nasal congestion; Translations: [Nasal congestion] Episodic Other upper respiratory infections (4 sources) Acute maxillary sinusitis, unspecified; Translations: [Acute upper respiratory infection, unspecified] Onset: 07-25-2021 Resolved: 01-19-2022 Episodic Pancreatic disorders (not diabetes) (8 sources) Exocrine pancreatic insufficiency; Translations: [Exocrine pancreatic insufficiency] Episodic Polyhydramnios and other problems of amniotic cavity (7 sources) Amniotic membrane finding; Translations: [Rupture of membranes with clear amniotic fluid] 2018 Episodic Screening and history of mental health and substance abuse codes (1 source) Personal history of nicotine dependence; Translations: [PERSONAL HISTORY OF NICOTINE DEPEND] Onset: 05-30-2022 Episodic Spondylosis; intervertebral disc disorders; other back problems (20 sources) Lumbosacral spondylosis without myelopathy; Translations: [Spondylosis without myelopathy or radiculopathy, lumbosacral region] Onset: 06-01-2021 Resolved: 04-26-2022 Chronic Spondylosis; intervertebral disc disorders; other back problems (18 sources) Low back pain; Translations: [Radiculopathy, cervical region] Onset: 06-01-2021 Resolved: 02-20-2022 Episodic Substance-related disorders (20 sources) Nicotine dependence; Translations: [Nicotine dependence, other tobacco product, uncomplicated] Chronic Unclassified (1 source) CONTACT W/AND (SUSP) EXPOS COVID-19; Translations: [CONTACT W/AND (SUSP) EXPOS COVID-19] Onset: 08-17-2022 Unclassified (3 sources) LOW BACK PAIN, UNSPECIFIED; Translations: [LOW BACK PAIN, UNSPECIFIED] Onset: 05-30-2022 Unclassified (1 source) Diarrhea, unspecified; Translations: [Diarrhea, unspecified] Onset: 04-23-2023 Urinary tract infections (3 sources) Acute cystitis with hematuria; Translations: [Urinary tract infection, site not specified] Onset: 05-08-2022 Resolved: 05-08-2022 Episodic Past or Other Problems Problem Classification Problem Date Documented Da te Episodic/Chronic Fever of unknown origin (2 sources) Fever, unspecified; Translations: [Fever, unspecified] Onset: 10-11-2022 Episodic Genitourinary symptoms and ill-defined conditions (4 sources) Frequency of micturition; Translations: [Dysuria] Onset: 05-08-2022 Resolved: 05-08-2022 Episodic Malaise and fatigue (1 source) Other fatigue Onset: 04-12-2022 Resolved: 04-12-2022 Episodic Other connective tissue disease (2 sources) Cramp and spasm; Translations: [CRAMP AND SPASM] Onset: 04-12-2022 Resolved: 04-12-2022 Episodic Other hematologic conditions (2 sources) Personal history of diseases of the blood and blood-forming organs and certain disorders involving the immune mechanism; Translations: [PERS HX DZ BLD/BLD-FRM ORG IMMN MCH] Onset: 04-12-2022 Resolved: 04-12-2022 Episodic Other lower respiratory disease (2 sources) Wheezing; Translations: [Wheezing] Onset: 10-11-2022 Episodic Other upper respiratory disease (1 source) Nasal congestion Onset: 09-11-2021 Resolved: 09-11-2021 Episodic Unclassified (3 sources) Cough R05.9 Onset: 07-25-2021 Resolved: 01-16-2022 Unclassified (4 sources) Other low back pain M54.59 Onset: 01-23-2022 Resolved: 04-26-2022 Unclassified (20 sources) Other low back pain; Translations: [Other low back pain] Unclassified (1 source) LOW BACK PAIN, UNSPECIFIED; Translations: [LOW BACK PAIN, UNSPECIFIED] Onset: 05-28-2022 Unclassified (1 source) Suspected COVID-19 virus infection Z20.822 Viral infection (1 source) COVID-19 Results Test Name Value Interpretation Reference Range Facility COVID + FLU Quick Testingon 07-10-2023 SARS-CoV-2 (COVID-19) RNA NAKIA+probe Ql (Unsp spec) Negative [facility] Other COVID + FLU Quick Testing Negative [facility] Other Lab - Toxicology Resultson 1 Lab - Toxicology Results [id number] Consent Forms [id number][id number] Summary[facility] 2022 ED Clinical Summary [facility] ? [facility] [address] [place] [address] Clinical Summary PERSON INFORMATION Name: JENNA SHARMA Age: 37 Years Sex: FEMALE : 1985 MRN: Acct#: Visit Reason: Medical screening exam; DORON ANDREWS Arrival: 06/03/2023 10:27:58 Discharge: 06/03/2023 11:13:00 LOS: 000 00:46 Check In: 06/03/2023 10:27:58 Checkout: 06/03/2023 11:13:00 Address: [address] [place] [id number] PCP: Ragini Riley CNP PROVIDER INFORMATION Provider Role Assigned Unassigned TapiaJyoti ED Nurse 06/03/2023 10:31:20 Emre Guzman ED PA 06/03/2023 10:31:44 VITALS INFORMATION Vital Sign Triage Latest Temperature Tympanic Temperature Temporal Artery Pulse Rate O2 Sat Respiratory Rate Blood Pressure /50 mmHg /50 mmHg MEDICAL INFORMATION Medications Given: Allergy Information: Lyrica; flu vaccines; Topamax PHYSICIAN DOCUMENTATION DISCHARGE INFORMATION: Discharge Disposition: Home Discharge Location: Home PATIENT EDUCATION INFORMATION Instructions: Follow-Up: DIAGNOSIS: 1:Routine medical exam Patient Understands: Yes - Patient/family/caregiver verbalizes understanding of instructions given Comment: Normal [facility] ED Patient Summaryon 023 ED Patient Summary [facility] ? Urgent Care [address] [place], [place] [id number] PATIENT DISCHARGE INSTRUCTIONS Patient Information Name: JENNA SHARMA Age: 37 Years Date of : 1985 Reason For Visit: Medical screening exam; MARIELAJEANA LLANOSRehana Arrival Time: 06/03/2023 10:27:58 Primary Care Physician: Ragiin Riley CNP Attending Physician: Emre Guzman Comment: Patient Education Medication Information: The exam and treatment you received today in the [facility] Emergency Department were for an urgent problem and are not intended as complete care. It is important for you to follow up with a doctor, nurse practitioner, or physician?s warehouse administrative assistant for ongoing care. If your symptoms become worse or you do not improve as expected and you are unable to reach your usual health care provider, you should return to the Emergency Department, we are available 24 hours a day. For those patients who have received Radiology results, the interpretation of your X-ray as given to you by our Emergency Department physician is only a preliminary report. The Radiologist will review your films and if there is a change in the diagnosis you will be notified by phone. Please make sure you have provided a working phone number so we can reach you if necessary. In the event that you had a lab culture while you were a patient in the Emergency Department, you will be notified by phone if there is a need to change your antibiotic. Please make sure you have provided a working phone number so we can reach you if necessary. [facility] Emergency Department has provided you with a complete list of medications post discharge. Please inform your rough and trueing machine operator/provider of your visit and for further instruction on these medications. Any specific questions regarding your chronic medications and dosages should be discussed with your primary care physician(s) and/or pharmacist. Additional medications on your home medication list not specifically addressed. Please contact the ordering physician if you have questions about these medications. atorvastatin (atorvastatin 10 mg oral tablet) 1 tab(s) Oral every day. take 1 tablet by mouth once daily. celecoxib (CeleBREX 100 mg oral capsule) 1 cap(s) Oral 2 times a day. cholecalciferol (Vitamin D3) 4000 iu Oral every day. ferrous sulfate (ferrous sulfate 325 mg (65 mg elemental iron) oral delayed release tablet) 1 tab(s) Oral every day. ibuprofen (ibuprofen 600 mg oral tablet) 1 tab(s) Oral once. pancrelipase (Creon 36,000 units oral delayed release capsule) 2 cap(s) Oral 3 times a day. tiZANidine (Zanaflex 2 mg oral capsule) 1 cap(s) Oral 3 times a day as needed as needed for muscle spasm for 10 Days. Refills: 0. venlafaxine (Effexor XR 37.5 mg oral capsule, extended release) 1 cap(s) Oral every day. Visit Information Visit Diagnosis: Diagnoses This Visit Medical screening exam ([id number]) Routine medical exam (Z00.00) If you received any narcotics, sedation, or any other medication that causes drowsiness for the next 24 hours, unless otherwise directed: ? Do not drive a car. ? Do not operate machinery such as power tools, lawn mowers, drills, sewing machines, or stoves ? Avoid alcoholic beverages and drugs for allergies, nerves, or sleep ? Do not make important personal or business decisions or sign any legal documents Reason for Visit: here for [place] physical Allergies: Substance Reaction Symptoms Type Comments flu vaccines rash Drug they say it could be due to gear nicker Lyrica Swelling Drug Topamax Low blood pressure.... Drug Vital Signs: Vitals and Measurements this Visit (last charted value for your 06/03/2023 visit) Vital Signs This Visit Temperature Temporal: 36.5 DegC Peripheral Pulse Rate: 76 bpm Respiratory Rate: 16 br/min Systolic Blood Pressure: 112 mmHg Diastolic Blood Pressure: 50 mmHg Blood Pressure Method: Manual Measurements This Visit Height/Length Measured: 146 cm Weight Measured: 46.6 kg Body Mass Index: 21.86 kg/m2 BSA Measured: 1.37 m2 Problems List: Problem Onset Comments Bipolar disorder Disease caused by 2019 novel coronavirus 10/06/21 Problem added by Rule (IC_COVID19_AUTO_PROBLEM) following Respiratory Panel 2.1 ([employer]) from Nasopharyngeal Swab collected on 06-OCT-2021 18:15:00 EST tested positive for COVID-19. Exposure to COVID-19 virus Fibromyalgia High cholesterol Irritable bowel syndrome Lumbar neuritis Migraine Restless leg syndrome Right lumbar pain Sacroiliitis Smoker 11-MAR-2014 12:37:00<$> Added secondary to documentation in Social History. Viral illness Vitamin D deficiency Major Tests and Procedures: The following procedures and tests were performed during your ED visit. Laboratory Radiology Cardiology Viruses or Bacteria What?s got you sick? Antibiotics only treat bacterial infections. Vi (more content not included)... Normal [facility] Triage Panel 10on 06-03-2023 Drug Screen Complete Collected Normal [facility] Comment on above: Performed By: #### 2 [id number] #### [facility] (DEFAULT) [address] [place] [address] Urgent Care [place] 023 Urgent Care Record [facility] ? Urgent Care [address] [place] [address] PATIENT DISCHARGE INSTRUCTIONS Patient Information Name: JENNA SHARMA Age: 37 Years Date of : 1985 Reason For Visit: Medical screening exam; DORON LLANOSRehana Arrival Time: 06/03/2023 10:27:58 Primary Care Physician: Ragini Riley CNP Attending Physician: Emre Guzman Comment: Visit Diagnosis: Diagnoses This Visit Medical screening exam ([id number]) Routine medical exam (Z00.00) If you received any narcotics, sedation, or any other medication that causes drowsiness for the next 24 hours, unless otherwise directed: ? Do not drive a car. ? Do not operate machinery such as power tools, lawn mowers, drills, sewing machines, or stoves ? Avoid alcoholic beverages and drugs for allergies, nerves, or sleep ? Do not make important personal or business decisions or sign any legal documents Medication Information: The exam and treatment you received today in the [facility] Urgent Care were for an urgent problem and are not intended as complete care. It is important for you to follow up with a doctor, nurse practitioner, or physician?s warehouse administrative assistant for ongoing care. If your symptoms become worse or you do not improve as expected and you are unable to reach your usual health care provider, you should return to the Emergency Department, we are available 24 hours a day. For those patients who have received Radiology results, the interpretation of your X-ray as given to you by our Urgent Care physician is only a preliminary report. The Radiologist will review your films and if there is a change in the diagnosis you will be notified by phone. Please make sure you have provided a working phone number so we can reach you if necessary. In the event that you had a lab culture while you were a patient in the Urgent Care, you will be notified by phone if there is a need to change your antibiotic. Please make sure you have provided a working phone number so we can reach you if necessary. [facility] has provided you with a complete list of medications post discharge. Please inform your rough and trueing machine operator/provider of your visit and for further instruction on these medications. Any specific questions regarding your chronic medications and dosages should be discussed with your primary care physician(s) and/or pharmacist. Additional medications on your home medication list not specifically addressed. Please contact the ordering physician if you have questions about these medications. atorvastatin (atorvastatin 10 mg oral tablet) 1 tab(s) Oral every day. take 1 tablet by mouth once daily. celecoxib (CeleBREX 100 mg oral capsule) 1 cap(s) Oral 2 times a day. cholecalciferol (Vitamin D3) 4000 iu Oral every day. ferrous sulfate (ferrous sulfate 325 mg (65 mg elemental iron) oral delayed release tablet) 1 tab(s) Oral every day. ibuprofen (ibuprofen 600 mg oral tablet) 1 tab(s) Oral once. pancrelipase (Creon 36,000 units oral delayed release capsule) 2 cap(s) Oral 3 times a day. tiZANidine (Zanaflex 2 mg oral capsule) 1 cap(s) Oral 3 times a day as needed as needed for muscle spasm for 10 Days. Refills: 0. venlafaxine (Effexor XR 37.5 mg oral capsule, extended release) 1 cap(s) Oral every day. Visit Information Allergies: Substance Reaction Symptoms Type Comments flu vaccines rash Drug they say it could be due to gear nicker Lyrica Swelling Drug Topamax Low blood pressure.... Drug Vital Signs: Vitals and Measurements this Visit (last charted value for your 06/03/2023 visit) Vital Signs This Visit Temperature Temporal: 36.5 DegC Peripheral Pulse Rate: 76 bpm Respiratory Rate: 16 br/min Systolic Blood Pressure: 112 mmHg Diastolic Blood Pressure: 50 mmHg Blood Pressure Method: Manual Measurements This Visit Height/Length Measured: 146 cm Weight Measured: 46.6 kg Body Mass Index: 21.86 kg/m2 BSA Measured: 1.37 m2 Problems List: Problem Onset Comments Bipolar disorder Disease caused by 2019 novel coronavirus 10/06/21 Problem added by Rule (IC_COVID19_AUTO_PROBLEM) following Respiratory Panel 2.1 ([employer]) from Nasopharyngeal Swab collected on 06-OCT-2021 18:15:00 EST tested positive for COVID-19. Exposure to COVID-19 virus Fibromyalgia High cholesterol Irritable bowel syndrome Lumbar neuritis Migraine Restless leg syndrome Right lumbar pain Sacroiliitis Smoker 11-MAR-2014 12:37:00<$> Added secondary to documentation in Social History. Viral illness Vitamin D deficiency Patient Education Viruses or Bacteria What?s got you sick? Antibiotics only treat bacterial infections. Viral illnesses cannot be treated with antibiotics. When an antibiotic is not prescribed, ask your healthcare professional for tips on how to relieve symptoms and feel better. Usual Cause Illness Viruses Bacteria Antib (more content not included)... Normal [facility] CT abdomen pelvis w [place]go CT abdomen pelvis w [facility] [place] [address] [place] [address] CT Scan Report Signed Patient: Jenna Sharma MR#: [id number] 003 : 1985 Acct:[id number] Age/Sex: 37 / F ADM Date: 05/24/23 Loc: CT Room: Type: [facility] Attending Dr: Luigi Schaefer APRN Copies to: Luigi Schaefer APRN Ordering Provider: Luigi Schaefer APRN Date of Service: 05/24/23 CT/CT abdomen pelvis w con: Diarrhea;Constipation, unspecified constipation type CT ABDOMEN AND PELVIS WITH INTRAVENOUS CONTRAST: CLINICAL HISTORY: Mid abdominal pain with diarrhea and constipation. COMPARISON: CT abdomen and pelvis 11/26/2004. TECHNIQUE: Spiral images were obtained through the abdomen and pelvis following the administration of intravenous contrast. This CT exam was performed using one or more following dose reduction techniques: Automated exposure control, adjustment of the mA and/or kV according to patient size, or use of iterative reconstruction technique. FINDINGS: Lung Bases: [No acute findings.] Organs:Liver gallbladder portal vein spleen pancreas adrenal glands kidneys and aorta all appear unremarkable.[ GI: Stomach is grossly unremarkable. Small bowel appears nondilated. No acute colonic abnormality. Pelvis:[Urinary bladder is grossly unremarkable. No adnexal mass. Uterus has been removed.] Peritoneum/Retroperitoneum: No free air, free fluid or lymphadenopathy.[ Abd wall/Bones:Abdominal wall demonstrates no acute findings. Osseous structures demonstrate no acute bony process.[ CT/CT abdomen pelvis w con IMPRESSION: No acute findings. Impression dictated by: Feroz Werner Jr., Raymundo05/24/2023 2:31 PM Dictation Location: [place] [address] Transcribed By: [facility] 05/24/23 1431 Dictated By: Feroz Werner Jr, DO 05/24/23 1428 Signed By: 05/24/23 1431 Normal [facility] Calprotectin [Mass/mass] in StoolOrdered By: Luigi Schaefer on 04-23-2023 Calprotectin (Stl) [Mass/Mass] 9 ug/g 0-120 [facility] Comment on above: Concentration Interp retation Follow-Up< 5 - 50 ug/g Normal None>50 -120 ug/g Borderline Re-evaluate in 4-6 weeks >120 ug/g Abnormal Repeat as clinically indicatedPerformed at: [facility] [id number] Director: Bartolo Mccurdy MD, Phone: [phone] Calprotectin, Fecalon 2022 Calprotectin, Fecal 9 Normal 0-120 [facility] Comment on above: Order Comment: Reaso n for Exam Diarrhea Result Comment: Conc entration Interpretation Follow-Up < 5 - 50 ug/g Normal None >50 -120 ug/g Borderline Re-evaluate in 4-6 weeks >120 ug/g Abnormal Repeat as clinically indicated Performed at: [facility] [id number] Laser Beam Trim Operator: Bartolo Mccurdy MD, Phone: [phone] PERFORMED BY: [place] [address] PATHOLOGIST LAUNDRY ROUTE DRIVER OC KOHLER M.D. Performed By: #### S TCYRPTOAG, ELASTASE STOOL, GIARDIA, STLPH, CALPROTECT #### [facility] , #### CUSTOOL, LACTO SWBC #### [facility] [address] [place] [address] Cryptosporidium Antigen Stoo ryan 04-23-2023 Cryptosporidium Antigen Stool Negative Normal Negative [facility] Comment on above: Order Comment: Reaso n for Exam Diarrhea Result Comment: Perf ormed at: - [facility] [address] [id number] Laser Beam Trim Operator: Will Chapman PhD, Phone: [phone] Performed By: #### S TCYRPTOAG, ELASTASE STOOL, GIARDIA, STLPH, CALPROTECT #### [facility] , #### CUSTOOL, LACTO SWBC #### [facility] [address] [place] [address] Cryptosporidium sp Ag [Prese nce] in Stool by ImmunoassayOrdered By: Luigi Schaefer on 04-23-2023 Cryptosporidium sp Ag IA Ql (Stl) Negative Negative [facility] Comment on above: Performed at: [facility] [address] [id number] Director: Will Chapman PhD, Phone: [phone] Elastase.pancreatic [Mass/ma ss] in StoolOrdered By: Luigi Schaefer on 04-23-2023 Elastase.pancreatic (Stl) [Mass/Mass] 138 >200 [facility] Comment on above: Result Units: ug Lianna st./g Severe Pancreatic Insufficiency: <100 Moderate Pancreatic Insufficiency: 100 - 200 Normal: >200Performed at: [facility] [id number] Director: Bartolo Mccurdy MD, Phone: [phone] Giardia Lamblia Ag EIA Stool on 04-23-2023 Giardia Lamblia Ag EIA Stool Negative Normal Negative [facility] Comment on above: Order Comment: Reaso n for Exam Diarrhea Result Comment: Perf ormed at: [facility] [id number] Laser Beam Trim Operator: Will Chapman PhD, Phone: [phone] PERFORMED BY: [place] [address] PATHOLOGIST LAUNDRY ROUTE DRIVER OC KOHLER M.D. Performed By: #### S TCYRPTOAG, ELASTASE STOOL, GIARDIA, STLPH, CALPROTECT #### [facility] , #### CUSTOOL, LACTO BC #### [address] Giardia lamblia Ag [Presence ] in Stool by ImmunoassayOrdered By: Luigi Schaefer on 04-23-2023 G. lamblia Ag IA Ql (Stl) Negative Negative [facility] Comment on above: Performed at: [facility] [address] [id number] Director: Will Chapman PhD, Phone: [phone] Lactoferrin, Stool WBCon Lactoferrin, Stool WBC Reason for Exam Diarrhea Stool Reason for Exam: Diarrhea : Stool LACTOFERRIN Negative for Fecal Lactoferrin Immune suppression may cause reduced WBC counts, leading to a false negative result. Reference range = Negative PERFORMED BY: [place] [address] PATHOLOGIST LAUNDRY ROUTE DRIVER OC KOHLER M.D. Normal [facility] Comment on above: Performed By: #### S TCYRPTOAG, ELASTASE STOOL, GIARDIA, STLPH, CALPROTECT #### [facility] , #### CUSTOOL, LACTO SWBC #### [facility] [address] [place] [address] [place] PH, stoolon 04-23-2023 PH, stool 7.0 Normal 7.0-7.5 [facility] Comment on above: Order Comment: Reaso n for Exam Diarrhea Result Comment: This test was developed and its performance characteristics determined by [employer]. It has not been cleared or approved by the Food and Drug Administration. Performed at: [address] [id number] Laser Beam Trim Operator: Will Chapman PhD, Phone: [phone] PERFORMED BY: [place] [address] PATHOLOGIST LAUNDRY ROUTE DRIVER OC KOHLER M.D. Performed By: #### S TCYRPTOAG, ELASTASE STOOL, GIARDIA, STLPH, CALPROTECT #### [facility] , #### CUSTOOL, LACTO SWBC #### [facility] [address] [place] [address] [place] Pancreatic Elastase, Stoolon 04-23-2023 Pancreatic Elastase, Stool 138 Low >200 [facility] Comment on above: Order Comment: Reaso n for Exam Diarrhea Result Comment: Resu lt Units: ug Elast./g Severe Pancreatic Insufficiency: <100 Moderate Pancreatic Insufficiency: 100 - 200 Normal: >200 Performed at: [address] [id number] Laser Beam Trim Operator: Bartolo Mccurdy MD, Phone: [phone] Performed By: #### S TCYRPTOAG, ELASTASE STOOL, GIARDIA, STLPH, CALPROTECT #### [facility] , #### CUSTOOL, LACTO SWBC #### [address] Stool Cultureon 04-23-2023 Stool culture Reason for Exam Diar pelon Stool Reason for Exam: Diarrhea : Stool Negative for Shiga Toxin 1 Negative for Shiga Toxin 2 A negative Shiga Toxin result may occur if the antigen level in the specimen is below the detection limit of the assay. Stool culture results No Salmonella, Shigella, Campy or E. coli 0157:H7 Isolated PERFORMED BY: [place] [address] PATHOLOGIST LAUNDRY ROUTE DRIVER OC KOHLER M.D. [facility] Comment on above: Performed By: #### S TCYRPTOAG, ELASTASE STOOL, GIARDIA, STLPH, CALPROTECT #### [facility] , #### CUSTOOL, LACTO SWBC #### [facility] [address] [place] [address] Stool bacteria identificatio n by cultureOrdered By: Luigi Schaefer on 04-23-2023 Bacteria identified Cx Nom (St) [facility] Stool lactoferrin detectionO rdered By: Luigi Schaefer on 04-23-2023 Lactoferrin Ql ([facility] Stool pH measurementOrdered By: Luigi Schaefer on 04-23-2023 pH (Stl) 7.0 7.0-7.5 [facility] Comment on above: This test was develo ped and its performance characteristicsdetermined by [employer]. It has not been cleared orapproved by the Food and Drug Administration.Performed at: [address] [id number] Director: Will Chapman PhD, Phone: [phone] XR ankle RT min 3V*on 2022 XR ankle RT min 3V* [employer] Other Urinalysis - AUTOMATEDon Appearance (U) cloudy [employer] Other Bilirubin Ql (U) Negative [employer] Other Color (U) dark yellow [employer] Other Glucose Ql (U) Negative [employer] Other Hemoglobin Ql (U) Moderate [employer] Other Ketones Ql (U) Negative [employer] Other Leukocyte esterase Test strip Ql (U) Moderate [employer] Other Nitrite Ql (U) Positive [employer] Other pH (U) 7.0 [pH] [employer] Other Protein Ql (U) 100mg [employer] Other Specific gravity (U) [Rel density] 1.025 [employer] Other Urobilinogen (U) [Mass/Vol] 0.2 mg/dL [employer] Other Urinalysis - AUTOMATED [employer] Other Urine Cultureon 02-25-2023 Bacteria identified Cx Nom (U) Reason for Exam Dysuria Urine <9,000 colonies/ml mixed bacterial skin contaminants 2 Days PERFORMED BY: [place] [id number] PATHOLOGIST LAUNDRY ROUTE DRIVER OC KOHLER M.D. [facility] Comment on above: Performed By: #### C UU #### [address] Bacteria identified Cx Nom (U) [facility] [employer] Other Urine culture routineOrdered By: Jyoti Jama on 02-25-2023 Bacteria identified Cx Nom (U) 2 Days [facility] COVID + FLU Quick Testingon 10-11-2022 SARS-CoV-2 (COVID-19) RNA NAKIA+probe Ql (Unsp spec) Negative [facility] Other COVID + FLU Quick Testing Negative [facility] Other XR chest 2V*on 10-11-2022 XR chest 2V* [facility] [place] [address] [place] [address] XRay Report Signed Patient: Jenna Sharma MR#: [id number] 003 : 1985 Acct:[id number] Age/Sex: 36 / F ADM Date: 10/11/22 Loc: ICXD Room: Type: [facility] Attending Dr: Ragini Riley APRN, NP-C Copies to: Ragini Riley APRN, CNP Ordering Provider: Ragini Riley APRN, CNP Date of Service: 10/11/22 XR/XR chest 2V*: Fever, unspecified fever cause;Mild persistent asthma with e Chest 2 views CLINICAL HISTORY: Shortness of breath, fever, cough COMPARISON: None FINDINGS: Heart normal in size. Lungs are clear. No free air. XR/XR chest 2V* IMPRESSION: NO ACUTE CARDIOPULMONARY ABNORMALITY. Impression dictated by: Feroz Werner Jr., D.O.10/11/2022 3:20 PM Dictation Location: [place] [address] Transcribed By: [facility] 10/11/22 1520 Dictated By: Feroz Werner Jr, DO 10/11/22 1520 Signed By: 10/11/22 1520 Normal [facility] XR chest 2V* [facility] Other XR chest 2V* [facility] Other XR chest 2V* [address] [facility] Other XR chest 2V* [place] [id number] [facility] Other XR chest 2V* XRay Report [employer] Other XR chest 2V* Signed [employer] Other XR chest 2V* Patient: Christina Sharma MR#: [id number] [facility] Other XR chest 2V* 003 [employer] Other XR chest 2V* : 1985 Acct:[id number] [facility] Other XR chest 2V* Age/Sex: 36 / F ADM Date: 10/11/22 [employer] Other XR chest 2V* Loc: ICXD Room: Type : [facility] [employer] Other XR chest 2V* Attending Dr: Malachi Riley APRN, TRANSMISSION ENGINEER-C [employer] Other XR chest 2V* Copies to: Ragini Riley APRN, LALI [employer] Other XR chest 2V* Ordering Provider: Christian Riley APRN, LALI [employer] Other XR chest 2V* Date of Service: 10/11/22 [employer] Other XR chest 2V* [address]) XR/XR chest 2V*: Fever, unspecified fever cause;Mild persistent asthma [employer] Other XR chest 2V* with e [employer] Other XR chest 2V* Chest 2 views [employer] Other XR chest 2V* CLINICAL HISTORY: Sh ortness of breath, fever, cough [employer] Other XR chest 2V* COMPARISON: None [employer] Other XR chest 2V* FINDINGS: [employer] Other XR chest 2V* Heart normal in size . Lungs are clear. No free air. [employer] Other XR chest 2V* X R/XR chest 2V* [employer] Other XR chest 2V* IMPRESSION: [employer] Other XR chest 2V* NO ACUTE CARDIOPULMO NARY ABNORMALITY. [employer] Other XR chest 2V* Impression dictated by: Feroz Werner Jr., D.O.10/11/2022 3:20 PM [employer] Other XR chest 2V* Dictation Location: [place] [address] [employer] Other XR chest 2V* Transcribed By: PWS 10/11/22 [facility] [employer] Other XR chest 2V* Dictated By: Feroz Werner Jr DO 10/11/22 [facility] [employer] Other XR chest 2V* Signed By: [employer] Other XR chest 2V* 10/11/22 [facility] [facility] Other CBC AUTO DIFFon 08-15-2022 BASO # 0.0 103/ul Normal 0.0-0.1 [facility] Comment on above: Performed By: #### C BC #### [facility] [address] [address] [address] Napoleon Best Basophils/100 WBC (Bld) 0.3 % Normal 0.2-2.0 [facility] Comment on above: Performed By: #### C BC #### [facility] [address] [address] [address] Napoleon Best EO # 0.1 103/ul Normal 0.0-0.7 [facility] Comment on above: Performed By: #### C BC #### [facility] [address] [place] [address] Dr. Napoleon Best Eosinophils/100 WBC (Bld) 0.8 % Critically low 0.9-7.0 [facility] Comment on above: Performed By: #### C BC #### [facility] [address] [place] [address] Dr. Napoleon Best Erythrocyte distribution width (RBC) [Ratio] 12.7 % Normal 11.0-15.0 [facility] Comment on above: Performed By: #### C BC #### [facility] [address] [place] [address] Dr. Napoleon Best Hematocrit (Bld) [Volume fraction] 38.0 % Normal 36.0-48.0 [facility] Comment on above: Performed By: #### C BC #### [facility] [address] [place] [address] Dr. Napoleon Best Hemoglobin (Bld) [Mass/Vol] 12.4 g/dL Normal 12.0-16.0 [facility] Comment on above: Performed By: #### C BC #### [facility] [address] [place] [address] Dr. Napoleon Best IG # 0.02 10e3/ul Normal 0.00-0.03 [facility] Comment on above: Performed By: #### C BC #### [facility] [address] [place] [address] Dr. Napoleon Best IG % 0.3 % Normal 0.0-0.5 [facility] Comment on above: Performed By: #### C BC #### [facility] [address] [address] [address] Napoleon Best LYMPH # 1.4 103/ul Normal 1.2-3.8 [facility] Comment on above: Performed By: #### C BC #### [facility] [address] [place] [address] Dr. Napoleon Best Lymphocytes/100 WBC (Bld) 17.4 % Critically low 20.5-60.0 [facility] Comment on above: Performed By: #### C BC #### [facility] [address] [place] [address] Dr. Napoleon Best MANUAL DIFF REQ NO Normal [facility] Comment on above: Performed By: #### C BC #### [facility] [address] [place] [address] Dr. Napoleon Best MCH (RBC) [Entitic mass] 30.4 pg Normal 26.7-34.0 [facility] Comment on above: Performed By: #### C BC #### [facility] [address] [place] [address] Dr. Napoleon Best MCHC (RBC) [Mass/Vol] 32.6 g/dL Normal 29.9-35.2 [facility] Comment on above: Performed By: #### C BC #### [facility] [address] [place] [address] Dr. Napoleon Best MCV (RBC) [Entitic vol] 93.1 fL Normal 81.0-99.0 [facility] Comment on above: Performed By: #### C BC #### [facility] [address] [place] [address] Dr. Napoleon Best MONO # 0.8 103/ul Normal 0.3-0.8 [facility] Comment on above: Performed By: #### C BC #### [facility] [address] [place] [address] Dr. Napoleon Best Monocytes/100 WBC (Bld) 10.8 % Normal 1.7-12.0 [facility] Comment on above: Performed By: #### C BC #### [facility] [address] [place] [address] Dr. Napoleon Best NEUT # 5.5 103/ul Normal 1.4-6.5 [facility] Comment on above: Performed By: #### C BC #### [facility] [address] [address] [address] Napoleon Best Neutrophils/100 WBC (Bld) 70.4 % Normal 43.0-75.0 [facility] Comment on above: Performed By: #### C BC #### [facility] [address] [address] [address] Napoleon Best Platelet mean volume (Bld) [Entitic vol] 9.0 fL Critically low 9.5-13.5 [facility] Comment on above: Performed By: #### C BC #### [facility] [address] [place] [address] Dr. Napoleon Best PLT 296 103/ul Normal 150-450 [facility] Comment on above: Performed By: #### C BC #### [facility] [address] [address] [address] Napoleon Best RBC 4.08 106/ul Critically low 4.20-5.40 [facility] Comment on above: Performed By: #### C BC #### [facility] [address] [address] [address] Napoleon Best WBC 7.8 103/ul Normal 4.0-11.0 [facility] Comment on above: Performed By: #### C BC #### [facility] [address] [place] [address] Dr. Napoleon Best Covid-19 PCR ([facility])on SARS-CoV-2 (COVID-19) RNA NAKIA+probe Ql (Unsp spec) Not detected Normal NOT DETECTED [facility] Comment on above: Result Comment: When diagnostic testing is negative, the possibility of a false negative should be considered in the context of a patient's recent exposures and the presence of clinical signs and symptoms consistent with SARS-CoV-2. This test is not yet approved or cleared by the [place] FDA. When there are no FDA-approved or cleared tests available, and other criteria are met, FDA can make tests available under an emergency access mechanism called an Emergency Use Authorization (EUA). The EUA for this test is supported by the [place] of Health and Human Service's declaration that circumstances exist to justify the emergency use of in vitro diagnostics for the detection and/or diagnosis of the virus that causes COVID-19. This EUA will remain in effect for the duration of the COVID-19 declaration justifying emergency of IVDs, unless it is terminated or revoked by the FDA (after which the test may no longer be used). Performed By: #### C VDTB #### [facility] [address] [place] [address] Dr. Napoleon Best INFLUENZA A AND B [facility] 08-15 [facility] SEE BELOW Normal [facility] Comment on above: Result Comment: Nega tive for Flu A protein angiten. Infection due to Flu A cannot be ruled out. Flu A angiten in the sample may be below the detection limit of the test. Performed By: #### I NFLUAB #### [facility] [address] [place] [address] Dr. Napoleon [facility] Normal [facility] Comment on above: Result Comment: Nega tive for Flu B protein antigen. Infection due to Flu B cannot be ruled out. Flu B antigen in the sample may be below the detection limit of the test. Performed By: #### I NFLUAB #### [facility] [address] [place] [address] Dr. Napoleon Best INFLUENZA A AG Negative Normal NEGATIVE SEE COMMENT [facility] Comment on above: Performed By: #### I NFLUAB #### [facility] [address] [place] [address] Dr. Napoleon Best INFLUENZA B AG Negative Normal NEGATIVE SEE COMMENT [facility] Comment on above: Performed By: #### I NFLUAB #### [facility] [address] [place] [address] Dr. Napoleon Best INTERNAL CONTROLS Within Normal Limits Normal Wi thin Normal Limits [facility] Comment on above: Performed By: #### I NFLUAB #### [facility] [address] [place] [address] Dr. Napoleon Best LACTATE/LACTIC ACIDon 2021 Lactate [Moles/Vol] 0.9 mmol/L Normal 0.4-1.9 [facility] Comment on above: Performed By: #### L ACT #### [facility] [address] [address] [address] Napoleon Best PROF 14(COMP METB)on 022 Albumin [Mass/Vol] 4.0 g/dL Normal 3.4-5.0 [facility] Comment on above: Performed By: #### C MP ####[facility] [address] [address]Dr. Napoleon Best Albumin/Globulin [Mass ratio] 1.1 {ratio} Normal [facility] Comment on above: Performed By: #### C MP ####[facility] [address] [address]Dr. Napoleon Best ALP [Catalytic activity/Vol] 92 U/L Normal 46-116 [facility] Comment on above: Performed By: #### C MP ####[facility] [address] [address]Dr. Napoleon Best ALT [Catalytic activity/Vol] 23 U/L Normal 14-59 [facility] Comment on above: Performed By: #### C MP ####[facility] [address] [address]Dr. Napoleon Best Anion gap [Moles/Vol] 13.5 mmol/L Normal [facility] Comment on above: Performed By: #### C MP ####[facility] [address] [address]Dr. Napoleon Best AST [Catalytic activity/Vol] 16 U/L Normal 15-37 [facility] Comment on above: Performed By: #### C MP ####[facility] [address] [address]Dr. Napoleon Best Bilirubin [Mass/Vol] 0.2 mg/dL Normal 0.2-1.0 [facility] Comment on above: Performed By: #### C MP ####[facility] [address] [address]Dr. Napoleon Best Calcium [Mass/Vol] 8.9 mg/dL Normal 8.5-10.[address] [facility] Comment on above: Performed By: #### C MP ####[facility] [address] [address]Dr. Napoleon Best Chloride [Moles/Vol] 103 mmol/L Normal 98-107 [facility] Comment on above: Performed By: #### C MP ####[facility] [address] [address]Dr. Napoleon Best CO2 [Moles/Vol] 28.2 mmol/L Normal 21.0-32.0 [facility] Comment on above: Performed By: #### C MP ####[facility] [address] [place], [place] [address]Dr. Napoleon Best Creatinine [Mass/Vol] 0.72 mg/dL Normal 0.55-1.02 [facility] Comment on above: Performed By: #### C MP ####[facility] [address] [address]Dr. Napoleon Best EGFR-AF CHINESE >60 Normal >=60 [facility] Comment on above: Performed By: #### C MP ####[facility] [address] [address]Dr. Napoleon Best EGFR-NON AF CHINESE >60 Normal >=60 [facility] Comment on above: Performed By: #### C MP ####[facility] [address] [address]Dr. Napoleon Best Globulin (S) [Mass/Vol] 3.5 g/dL Normal [facility] Comment on above: Performed By: #### C MP ####[facility] [address] [address]Dr. Napoleon Best Glucose [Mass/Vol] 91 mg/dL Normal 74-[address] [facility] Comment on above: Performed By: #### C MP ####[facility] [address] [place], [place] [address]Dr. Yilan Best Potassium [Moles/Vol] 3.7 mmol/L Normal 3.5-5.1 [facility] Comment on above: Performed By: #### C MP ####[facility] [address] [address]Dr. Napoleon Best Protein [Mass/Vol] 7.5 g/dL Normal 6.4-8.[address] [facility] Comment on above: Performed By: #### C MP ####[facility] [address] [address]Dr. Napoleon Best Sodium [Moles/Vol] 141 mmol/L Normal 136-[address] [facility] Comment on above: Performed By: #### C MP ####[facility] [address] [address]Dr. Napoleon Best Urea nitrogen [Mass/Vol] 7.0 mg/dL Normal 7.0-18.0 [facility] Comment on above: Performed By: #### C MP ####[facility] [address] [address]Dr. Napoleon Best Urea nitrogen/Creatinine [Mass ratio] 9.7 mg/mg Normal [facility] Comment on above: Performed By: #### C MP ####[facility] [address] [address]Dr. Napoleon Best XR CHEST 1 Von 08-15-2022 XR CHEST 1 V ONE-VIEW CHEST RADIO GRAPH, 08/15/2022 8:20 PM EST COMPARISON: Chest, 1 52,015 CLINICAL HISTORY: COUGH, runny nose, fatigue, headache, diarrhea and vomiting. FINDINGS: No acute cardiopulmonary disease. No pulmonary edema, pneumothorax, or pleural effusion. Normal heart size. No acute osseous abnormality. IMPRESSION: No acute abnormality identified. Electronically authenticated by: Braulio CLIFFORD Date: 2022-08-15 21:31 Normal [facility] COVID Quick Testingon 2021 Result Negative [employer] Other Quick Strepon 07-09-2022 S. pyogenes Org specific cx Ql (Throat) Negative [employer] Other Quick Strep [employer] Other ER URINE PROFILEon 2 Bilirubin Ql (U) Negative Normal NEGATIVE [facility] Comment on above: Performed By: #### E RUR #### [facility] [address] [place] [address] Dr. Napoleon Best Clarity (U) CLEAR Normal CLEAR [facility] Comment on above: Performed By: #### E RUR #### [facility] [address] [place] [address] Dr. Napoleon Best Color (U) LT. YELLOW Normal YELLOW [facility] Comment on above: Performed By: #### E RUR #### [facility] [address] [place] [address] Dr. Napoleon Best ERUAHD A micrscopic examina tion will be performed if indicated. Normal [facility] Comment on above: Performed By: #### E RUR #### [facility] [address] [place] [address] Dr. Napoleon Best Glucose Ql (U) Negative Normal NEGATIVE [facility] Comment on above: Performed By: #### E RUR #### [facility] [address] [place] [address] Dr. Napoleon Best Hemoglobin Ql (U) Negative Normal NEGATIVE [facility] Comment on above: Performed By: #### E RUR #### [facility] [address] [place] [address] Dr. Napoleon Best Ketones Ql (U) Negative Normal NEGATIVE [facility] Comment on above: Performed By: #### E RUR #### [facility] [address] [place] [address] Dr. Napoleon Best LEUKOCYTES Negative Normal NEGATIVE [facility] Comment on above: Performed By: #### E RUR #### [facility] [address] [place] [address] Dr. Napoleon Best Nitrite Ql (U) Negative Normal NEGATIVE [facility] Comment on above: Performed By: #### E RUR #### [facility] [address] [place] [address] Dr. Napoleon Best pH (U) 7.5 [pH] Normal 5-9 [facility] Comment on above: Performed By: #### E RUR #### [facility] [address] [place] [address] Dr. Napoleon Best SPEC GRAVITY 1.020 Normal 1.005-<=1. 025 [facility] Comment on above: Performed By: #### E RUR #### [facility] [address] [address] [address] Napoleon Best UA PROTEIN Negative Normal NEGATIVE/ TRACE [facility] Comment on above: Performed By: #### E RUR #### [facility] [address] [address] [address] Napoleon Best UR MICRO IND NOT INDICATED Normal [facility] Comment on above: Performed By: #### E RUR #### [facility] [address] [place] [address] Dr. Napoleon Best Urobilinogen Qn (U) 0.2 {Elmer'U}/dL Normal 0.2 - 1. 0 [facility] Comment on above: Performed By: #### E RUR #### [facility] [address] [place] [address] Dr. Napoleon Best A1C HEMOGLOBINon 05-23-2022 HbA1c (Bld) [Mass fraction] 5.5 % [employer] Other HbA1c (Bld) [Mass fraction]o n 05-23-2022 A1C HEMOGLOBIN [facility] [employer] Other Urine culture routineOrdered By: Ragini Riley on 05-10-2022 Bacteria identified Cx Nom (U) Escherichia coli [facility] VIT D 25-OH LABCORPon 2021 Vitamin D, 25-Hydroxy 22.4 ng/mL Critically low 30.0-100.0 [facility] Comment on above: Result Comment: Arelis min D deficiency has been defined by the [place] of Medicine and an Endocrine Society practice guideline as a level of serum 25-OH vitamin D less than 20 ng/mL (1,2). The Endocrine Society went on to further define vitamin D insufficiency as a level between 21 and 29 ng/mL (2). 1. IOM ([place] of Medicine). 2010. Dietary reference intakes for calcium and D. [place]: The National Academies Press. 2. Geraldine ROWLEY, Cong MILLER, Alfred BAE, et al. Evaluation, treatment, and prevention of vitamin D deficiency: an Endocrine Society clinical practice guideline. JCEM. 2010; 96(7):1911-30. Performed By: #### V ITADLC #### [facility] [address] [address] [address] Napoleon Best CBC AUTO DIFFon 05-08-2022 BASO # 0.0 103/ul Normal 0.0-0.1 [facility] Comment on above: Performed By: #### C BC ####[facility] [address] [address]DrMarilyn Best Basophils/100 WBC (Bld) 0.2 % Normal 0.2-2.0 [facility] Comment on above: Performed By: #### C BC ####[facility] [address] [phone] Best EO # 0.0 103/ul Normal 0.0-0.7 [facility] Comment on above: Performed By: #### C BC ####[facility] [address] [address]Dr. Napoleon Best Eosinophils/100 WBC (Bld) 0.0 % Critically low 0.9-7.0 [facility] Comment on above: Performed By: #### C BC ####[facility] [address] [phone] Best Erythrocyte distribution width (RBC) [Ratio] 12.6 % Normal 11.0-15.0 [facility] Comment on above: Performed By: #### C BC ####[facility] [address] [address]DrMarilyn Best Hematocrit (Bld) [Volume fraction] 39.4 % Normal 36.0-48.0 [facility] Comment on above: Performed By: #### C BC ####[facility] [address] [address]Dr. Napoleon Best Hemoglobin (Bld) [Mass/Vol] 12.4 g/dL Normal 12.0-16.0 [facility] Comment on above: Performed By: #### C BC ####[facility] [address] [address]Dr. Napoleon Best IG # 0.14 10e3/ul Critically high 0.00-0.03 [facility] Comment on above: Performed By: #### C BC ####[facility] [address] [address]Dr. Napoleon Best IG % 1.1 % Critically high 0.0-0.5 [facility] Comment on above: Performed By: #### C BC ####[facility] [address] [place], [place] [address]Dr. Napoleon Best LYMPH # 1.6 103/ul Normal 1.2-3.8 [facility] Comment on above: Performed By: #### C BC ####[facility] [address] [address]Dr. Napoleon Best Lymphocytes/100 WBC (Bld) 12.2 % Critically low 20.5-60.0 [facility] Comment on above: Performed By: #### C BC ####[facility] [address] [place], [place] [address]Dr. Napoleon Best MANUAL DIFF REQ NO Normal [facility] Comment on above: Performed By: #### C BC ####[facility] [address] [place], [place] [address]Dr. Napoleon Best MCH (RBC) [Entitic mass] 29.4 pg Normal 26.7-34.0 [facility] Comment on above: Performed By: #### C BC ####[facility] [address] [place], [place] [address]Dr. Napoleon Best MCHC (RBC) [Mass/Vol] 31.5 g/dL Normal 29.9-35.2 [facility] Comment on above: Performed By: #### C BC ####[facility] [address] [address]Dr. Napoleon Best MCV (RBC) [Entitic vol] 93.4 fL Normal 81.0-99.0 [facility] Comment on above: Performed By: #### C BC ####[facility] [address] [address]Dr. Napoleon Best MONO # 0.8 103/ul Normal 0.3-0.8 [facility] Comment on above: Performed By: #### C BC ####[facility] [address] [place], [place] [id number]. Napoleon Best Monocytes/100 WBC (Bld) 6.5 % Normal 1.7-12.0 [facility] Comment on above: Performed By: #### C BC ####[facility] [address] [place], [place] [address]Dr. aNpoleon Best NEUT # 10.4 103/ul Critically high 1.4-6.5 [facility] Comment on above: Performed By: #### C BC ####[facility] [facility] [id number] [place], [place] [address]Dr. Napoleon Best Neutrophils/100 WBC (Bld) 80.0 % Critically high 43.0-75.0 [facility] Comment on above: Performed By: #### C BC ####[facility] [address] [place], [place] [address]Dr. Napoleon Best Platelet mean volume (Bld) [Entitic vol] 9.2 fL Critically low 9.5-13.5 [facility] Comment on above: Performed By: #### C BC ####[facility] [address] [place], [place] [id number]. Napoleon Best PLT 340 103/ul Normal 150-450 [facility] Comment on above: Performed By: #### C BC ####[facility] [address] [place], [place] [id number]. Kimrandy Nasir RBC 4.22 106/ul Normal 4.20-5.40 [facility] Comment on above: Performed By: #### C BC ####[facility] [address] [place], [place] [address]Ob. Napoleon Best WBC 13.0 103/ul Critically high 4.0-11.0 [facility] Comment on above: Performed By: #### C BC ####[facility] [address] [place], [place] [address]Qv. Napoleon Best IRON AND TIBCon 05-08-2022 % SATURATION 15.3 % Normal [facility] Comment on above: Performed By: #### V ITB12, FETIBC ####[facility] [address] [place], [place] [address]Oj. Napoleon Best Iron [Mass/Vol] 55.0 ug/dL Normal 50.0-170.0 The [facility] Comment on above: Performed By: #### V ITB12, FETIBC ####[facility] [address] [id number]. Napoleon Best TIBC DIRECT 358.0 ug/dL Normal 250.0-450. 0 [facility] Comment on above: Performed By: #### V ITB12, FETIBC ####[facility] [address] [id number]. Napoleon Best LIPID PROFILEon 05-08-2022 CHOL-HDL RATIO NORM SEE BELOW Normal [facility] Comment on above: Result Comment: 3.3 - 4.4 LOW RISK 4.4 - 7.1 AVERAGE RISK 7.1 - 11.0 MODERATE RISK >11.0 HIGH RISK Performed By: #### M G, CMP, LIPID #### [facility] [id number] Napoleon Best Cholesterol [Mass/Vol] 294 mg/dL Critically high <=200 [facility] Comment on above: Performed By: #### M G, CMP, LIPID #### [facility] [id number] Napoleon Best Cholesterol in HDL [Mass/Vol] 72 mg/dL Critically high 40-60 [facility] Comment on above: Performed By: #### M G, CMP, LIPID #### [facility] [address] [address] [address] Napoleon Best Cholesterol in LDL [Mass/Vol] 179.8 mg/dL Normal [facility] Comment on above: Performed By: #### M Kt, CMP, LIPID #### [facility] [address] [place] [address] Dr. Napoleon Best Cholesterol.total/Ch olesterol in HDL [Mass ratio] 4.1 {ratio} Normal [facility] Comment on above: Performed By: #### M Kt, CMP, LIPID #### [facility] [address] [address] [address] Napoleon Best HDL NORMAL > or = 60 mg/dl - LO W CARDIOVASCULAR RISK <40 mg/dl - HIGH CARDIOVASCULAR RISK Normal [facility] Comment on above: Performed By: #### M Kt, CMP, LIPID #### [facility] [address] [place] [address] Dr. Napoleon Best LDL CALC NORMAL SEE BELOW Normal [facility] Comment on above: Result Comment: <100 mg/dl OPTIMAL 100 - 129 mg/dl NEAR OR ABOVE OPTIMAL 130 - 159 mg/dl BORDERLINE HIGH 160 - 189 mg/dl HIGH >190 mg/dl VERY HIGH Performed By: #### M Kt, CMP, LIPID #### [facility] [address] [place] [address] Dr. Napoleon Best Triglyceride [Mass/Vol] 211 mg/dL Critically high <=150 [facility] Comment on above: Performed By: #### M Kt CMP, LIPID #### [facility] [address] [place] [address] Dr. Napoleon Best VLDL CALC 42.2 mg/dL Normal [facility] Comment on above: Performed By: #### M G, CMP, LIPID #### [facility] [address] [place] [address] Dr. Napoleon Best MAGNESIUMon 05-08-2022 Magnesium [Mass/Vol] 2.1 mg/dL Normal 1.8-2.4 [facility] Comment on above: Performed By: #### M G, CMP, LIPID #### [facility] [address] [place] [address] Dr. Napoleon Best PROF 14(COMP METB)on 022 Albumin [Mass/Vol] 3.6 g/dL Normal 3.4-5.0 [facility] Comment on above: Performed By: #### M G, CMP, LIPID #### [facility] [address] [address] [address] Napoleon Best Albumin/Globulin [Mass ratio] 1.1 {ratio} Normal [facility] Comment on above: Performed By: #### M G, CMP, LIPID #### [facility] [address] [address] [address] Napoleon Best ALP [Catalytic activity/Vol] 107 U/L Normal 46-116 [facility] Comment on above: Performed By: #### M G, CMP, LIPID #### [facility] [address] [address] [address] Napoleon Best ALT [Catalytic activity/Vol] 20 U/L Normal 14-59 [facility] Comment on above: Performed By: #### M G, CMP, LIPID #### [facility] [address] [address] [address] Napoleon Best Anion gap [Moles/Vol] 10.8 mmol/L Normal [facility] Comment on above: Performed By: #### M G, CMP, LIPID #### [facility] [address] [address] [address] Napoleon Best AST [Catalytic activity/Vol] U/L Critically low 15-37 [facility] Comment on above: Performed By: #### M G, CMP, LIPID #### [facility] [address] [address] [address] Napoleon Best Bilirubin [Mass/Vol] 0.1 mg/dL Critically low 0.2-1.0 [facility] Comment on above: Performed By: #### M G, CMP, LIPID #### [facility] [address] [address] [address] Napoleon Best Calcium [Mass/Vol] 8.8 mg/dL Normal 8.5-10.[address] [facility] Comment on above: Performed By: #### M G, CMP, LIPID #### [facility] [address] [address] [address] Napoleon Best Chloride [Moles/Vol] 106 mmol/L Normal 98-107 [facility] Comment on above: Performed By: #### M G, CMP, LIPID #### [facility] [address] [address] [address] Napoleon Best CO2 [Moles/Vol] 28.0 mmol/L Normal 21.0-32.0 [facility] Comment on above: Performed By: #### M G, CMP, LIPID #### [facility] [address] [address] [address] Napoleon Best Creatinine [Mass/Vol] 0.68 mg/dL Normal 0.55-1.02 [facility] Comment on above: Performed By: #### M G, CMP, LIPID #### [facility] [address] [place] [address] Dr. Napoleon Bset EGFR-AF CHINESE >60 Normal >=60 [facility] Comment on above: Performed By: #### M G, CMP, LIPID #### [facility] [address] [place] [address] Dr. Napoleon Best EGFR-NON AF CHINESE >60 Normal >=60 [facility] Comment on above: Performed By: #### M G, CMP, LIPID #### [facility] [address] [place] [address] Dr. Napoleon Best Globulin (S) [Mass/Vol] 3.4 g/dL Normal [facility] Comment on above: Performed By: #### M G, CMP, LIPID #### [facility] [address] [address] [address] Napoleon Best Glucose [Mass/Vol] 122 mg/dL Critically high 74-106 T [facility] Comment on above: Performed By: #### M G, CMP, LIPID #### [facility] [address] [address] [address] Napoleon Best Potassium [Moles/Vol] 3.8 mmol/L Normal 3.5-5.1 [facility] Comment on above: Performed By: #### M G, CMP, LIPID #### [facility] [address] [address] [address] Napoleon Best Protein [Mass/Vol] 7.0 g/dL Normal 6.4-8.2 [facility] Comment on above: Performed By: #### M G, CMP, LIPID #### [facility] [address] [address] [address] Napoleon Best Sodium [Moles/Vol] 141 mmol/L Normal 136-145 [facility] Comment on above: Performed By: #### M G, CMP, LIPID #### [facility] [address] [address] [address] Napoleon Best Urea nitrogen [Mass/Vol] 14.0 mg/dL Normal 7.0-18.0 [facility] Comment on above: Performed By: #### M G, CMP, LIPID #### [facility] [address] [address] [address] Napoleon Best Urea nitrogen/Creatinine [Mass ratio] 20.6 mg/mg Normal [facility] Comment on above: Performed By: #### M G, CMP, LIPID #### [facility] [address] [address] [address] Napoleon Best Urinalysis - DIPSTICKon 04-11 Appearance (U) [employer] Other Bilirubin Ql (U) Negative [employer] Other Color (U) [employer] Other Glucose Ql (U) Negative [employer] Other Hemoglobin Ql (U) Trace [employer] Other Ketones Ql (U) Negative [employer] Other Leukocyte esterase Test strip Ql (U) small [employer] Other Nitrite Ql (U) Negative [employer] Other pH (U) 6.0 [pH] [employer] Other Protein Ql (U) Negative [employer] Other Specific gravity (U) [Rel density] 1.030 [employer] Other Urobilinogen (U) [Mass/Vol] 0.2 mg/dL [employer] Other Urinalysis - DIPSTICK [employer] Other VITAMIN B12on 05-08-2022 Cobalamin (Vitamin B12) [Mass/Vol] 355.0 pg/mL Normal 193.0-986. 0 [facility] Comment on above: Performed By: #### V ITB12, FETIBC ####[facility] [address] [place], [place] [address]Aa. Napoleon Best COVID + FLU Quick Testingon 01-16-2022 SARS-CoV-2 (COVID-19) RNA NAKIA+probe Ql (Unsp spec) Negative [employer] Other COVID + FLU Quick Testing Negative [employer] Other XR Knee Complete Right*on XR Knee Complete Right* CLINICAL HISTORY: Medial pain for two days without specific injury. COMPARISON: None available. TECHNIQUE: AP, lateral, internal and external oblique radiographs of the right knee were obtained. FINDINGS: There is no fracture, significant joint effusion, degenerative changes, dislocation, worrisome bone destruction, radiodense foreign bodies, or pathologic calcifications identified. IMPRESSION: NEGATIVE RIGHT KNEE. Report reported and signed by Cm Escamilla on 01/09/[address] [facility] [employer] Operator COVID Quick Testingon 2020 Result Negative [employer] Other Vital Signs Date Time Vital Sign Value Performing Clinician Facility 07-10-2023 13:55-0400 Body height 147.32 cm Jyoti Jama Other [employer] Other 07-10-2023 13:55-0400 Body mass index (BMI) [Ratio] 22.86 kg/m2 Jyoti Jama Other [facility] [facility] Other 07-10-2023 13:55-0400 Body temperature 99.1 [degF] Jyoti Jama Other [facility] [facility] Other 07-10-2023 13:55-0400 Body weight 49.62 kg Jyoti Jama Other [facility] [facility] Other 07-10-2023 13:55-0400 Respiratory rate 18 /min Jyoti Jama Other [facility] [facility] Other 07-10-2023 13:55-0400 SaO2% (BldA) [Mass fraction] 94 % Jyoti Jama Other [facility] Other 05-27-2023 09:00-0400 Body height 147.32 cm Luigi Schaefer Other [facility] Other 05-27-2023 09:00-0400 Body mass index (BMI) [Ratio] 20.9 kg/m2 Luigi Katelynner Other [facility] [facility] [facility] Other 05-27-2023 09:00-0400 Body weight 45.36 kg Luigi Olive Other [facility] [facility] Other 05-27-2023 09:00-0400 Diastolic blood pressure 71 mm[Hg] Luigi Scovanner Other [facility] [facility] Other 05-27-2023 09:00-0400 Systolic blood pressure 125 mm[Hg] Luigi Scovanner Other [facility] Other 04-15-2023 14:30-0400 Body height 147.32 cm Luigi Scovanner Other [facility] [facility] Other 04-15-2023 14:30-0400 Body mass index (BMI) [Ratio] 21.94 kg/m2 Luigi Scovanner Other [facility] [facility] [facility] Other 04-15-2023 14:30-0400 Body weight 47.63 kg Luigi Sconiel Other [facility] [facility] Other 04-15-2023 14:30-0400 Diastolic blood pressure 80 mm[Hg] Luigi Scovanner Other [facility] Other 04-15-2023 14:30-0400 Systolic blood pressure 116 mm[Hg] Luigi Scovanner Other [facility] [facility] [facility] Other 03-06-2023 14:00-0400 Body height 147.32 cm Ragini Riley Other [facility] [facility] [facility] Other 03-06-2023 14:00-0400 Body mass index (BMI) [Ratio] 21.94 kg/m2 Ragini Riley Other [facility] [facility] Other 03-06-2023 14:00-0400 Body weight 47.63 kg Raigni Riley Other [facility] [facility] Other 03-06-2023 14:00-0400 Diastolic blood pressure 68 mm[Hg] Ragini Riley Other [facility] Other 03-06-2023 14:00-0400 Systolic blood pressure 110 mm[Hg] Ragini Riley Other [facility] [facility] Other 02-25-2023 13:20-0400 Body height 147.32 cm Jyoti Jama Other [facility] Other 02-25-2023 13:20-0400 Body mass index (BMI) [Ratio] 24.03 kg/m2 Jyoti Barajasmond Other [facility] [facility] Other 02-25-2023 13:20-0400 Body temperature 98.1 [degF] Jyoti Jama Other [facility] [facility] [facility] Other 02-25-2023 13:20-0400 Body weight 52.16 kg Jyoti Jama Other [facility] [facility] [facility] Other 02-25-2023 13:20-0400 Diastolic blood pressure 49 mm[Hg] Jyoti Barajasmond Other [facility] Other 02-25-2023 13:20-0400 Respiratory rate 18 /min Jyoti Jama Other [facility] [facility] Other 02-25-2023 13:20-0400 SaO2% (BldA) [Mass fraction] 97 % Jyoti Jama Other [facility] Other 02-25-2023 13:20-0400 Systolic blood pressure 99 mm[Hg] Jyoti Jama Other [employer] Other 02-05-2023 12:23-0400 Diastolic blood pressure 75 mm[Hg] GOKUL Riley Work Phone: [facility] 02-05-2023 12:23-0400 Heart rate 69 /min GOKUL Riley Work Phone: [facility] 02-05-2023 12:23-0400 Respiratory rate 16 /min SYSTEMS OPERATORDestiny Riley Work Phone: [facility] 02-05-2023 12:23-0400 SaO2% (BldA) [Mass fraction] 97 % SYSTEMS OPERATORDestiny Riley Work Phone: [facility] 02-05-2023 12:23-0400 Systolic blood pressure 123 mm[Hg] SYSTEMS OPERATORDestiny Riley Work Phone: [facility] 02-05-2023 11:45-0400 Inhaled oxygen flow rate 3 L/min SYSTEMS OPERATORDestiny Riley Work Phone: [facility] 02-05-2023 10:52-0400 Body height 148.59 cm SYSTEMS OPERATORDestiny Riley Work Phone: [facility] 02-05-2023 10:52-0400 Body weight 50.8 kg SYSTEMS OPERATORDestiny Riley Work Phone: [facility] 02-03-2023 11:30-0400 Body height 147.32 cm Jyoti Jama Other [employer] [facility] [employer] Other 02-03-2023 11:30-0400 Body mass index (BMI) [Ratio] 23.41 kg/m2 Jyoti Jama Other [employer] Other 02-03-2023 11:30-0400 Body temperature 98.6 [degF] Jyoti Jama Other [employer] Other 02-03-2023 11:30-0400 Body weight 50.8 kg Jyoti Jama Other [employer] Other 02-03-2023 11:30-0400 Respiratory rate 18 /min Jyoti Jama Other [facility] [employer] Other 02-03-2023 11:30-0400 SaO2% (BldA) [Mass fraction] 98 % Jyoti Barajasmond Other [employer] [facility] [employer] Other 10-23-2022 09:50-0500 Diastolic blood pressure 64 mm[Hg] SYSTEMS OPERATORDestiny Perkinsacher Work Phone: [facility] 10-23-2022 09:50-0500 Heart rate 80 /min SYSTEMS OPERATORDestiny Perkinsacher Work Phone: [facility] 10-23-2022 09:50-0500 Respiratory rate 16 /min SYSTEMS OPERATORDestiny Perkinsacher Work Phone: [facility] 10-23-2022 09:50-0500 SaO2% (BldA) [Mass fraction] 96 % SYSTEMS OPERATORDestiny Perkinsacher Work Phone: [facility] 10-23-2022 09:50-0500 Systolic blood pressure 93 mm[Hg] SYSTEMS OPERATORDestiny Perkinsacher Work Phone: [facility] 10-23-2022 09:09-0500 Inhaled oxygen flow rate 3 L/min SYSTEMS OPERATORDestiny Perkinsacher Work Phone: [facility] 10-23-2022 07:58-0500 Body height 148.59 cm SYSTEMS OPERATORDestiny Perkinsacher Work Phone: [facility] 10-23-2022 07:58-0500 Body weight 53.97 kg SYSTEMS OPERATORDestiny Perkinsacher Work Phone: [facility] 10-11-2022 11:30-0500 Body height 147.32 cm Ragini Riley Other [facility] [employer] Other 10-11-2022 11:30-0500 Body mass index (BMI) [Ratio] 24.45 kg/m2 Ragini Carmonalarry Other [employer] Other 10-11-2022 11:30-0500 Body weight 53.07 kg Ragini Randlejosie Other [employer] Other 10-11-2022 11:30-0500 Diastolic blood pressure 86 mm[Hg] Ragini Riley Other [employer] Other 10-11-2022 11:30-0500 Systolic blood pressure 132 mm[Hg] Ragini Perkinsmeek Other [employer] Other 07-09-2022 19:40-0400 Body height 147.32 cm Alysa Palomoault Other [employer] Other 07-09-2022 19:40-0400 Body mass index (BMI) [Ratio] 25.7 kg/m2 Alysa Loida Other [employer] Other 07-09-2022 19:40-0400 Body temperature 98.3 [degF] Alysa Loida Other [employer] Other 07-09-2022 19:40-0400 Body weight 55.79 kg Alysa Loida Other [employer] Other 07-09-2022 19:40-0400 Diastolic blood pressure 74 mm[Hg] Alysa Loida Other [employer] Other 07-09-2022 19:40-0400 Respiratory rate 16 /min Alysa Loida Other [employer] Other 07-09-2022 19:40-0400 SaO2% (BldA) [Mass fraction] 99 % Alysa Mariscal Other [employer] Other 07-09-2022 19:40-0400 Systolic blood pressure 128 mm[Hg] Alysa Mariscal Other [employer] Other 06-26-2022 16:00-0400 Body height 147.32 cm Paul Levi Other [employer] Other 06-19-2022 11:47-0400 Diastolic blood pressure 57 mm[Hg] GOKUL Riley Work Phone: [facility] 06-19-2022 11:47-0400 Heart rate 70 /min GOKUL Riley Work Phone: [facility] 06-19-2022 11:47-0400 Respiratory rate 16 /min SYSTEMS OPERATORDestiny Riley Work Phone: [facility] 06-19-2022 11:47-0400 SaO2% (BldA) [Mass fraction] 99 % GOKUL Riley Work Phone: [facility] 06-19-2022 11:47-0400 Systolic blood pressure 103 mm[Hg] GOKUL Riley Work Phone: [facility] 06-19-2022 11:09-0400 Inhaled oxygen flow rate 3 L/min GOKUL Riley Work Phone: [facility] 06-19-2022 10:32-0400 Body height 148.59 cm GOKUL Riley Work Phone: [facility] 06-19-2022 10:32-0400 Body weight 55.79 kg SYSTEMS OPERATOR Ragini Rosemary Work Phone: [facility] 05-23-2022 09:00-0400 Body height 147.32 cm Ragini Rosemary Other [employer] Other 05-23-2022 09:00-0400 Body mass index (BMI) [Ratio] 24.87 kg/m2 Raginicharles Riley Other [employer] Other 05-23-2022 09:00-0400 Body weight 53.98 kg Ragini Rosemary Other [employer] Other 05-23-2022 09:00-0400 Diastolic blood pressure 86 mm[Hg] Raigni Riley Other [employer] Other 05-23-2022 09:00-0400 SaO2% (BldA) [Mass fraction] 99 % Ragini Riley Other [facility] Other 05-23-2022 09:00-0400 Systolic blood pressure 130 mm[Hg] Ragini Riley Other [employer] Other 05-08-2022 15:00-0400 Body height 147.32 cm Ragini Riley Other [facility] Other 05-08-2022 15:00-0400 Body mass index (BMI) [Ratio] 24.87 kg/m2 Ragini Riley Other [facility] Other 05-08-2022 15:00-0400 Body weight 53.98 kg Ragini Riley Other [facility] Other 05-08-2022 15:00-0400 Diastolic blood pressure 80 mm[Hg] Ragini Riley Other [employer] Other 05-08-2022 15:00-0400 SaO2% (BldA) [Mass fraction] 99 % Ragini Riley Other [employer] Other 05-08-2022 15:00-0400 Systolic blood pressure 120 mm[Hg] Ragini Riley Other [facility] [employer] Other 02-13-2022 08:27-0400 Diastolic blood pressure 66 mm[Hg] SYSTEMS OPERATORDestiny Riley Work Phone: [facility] 02-13-2022 08:27-0400 Heart rate 76 /min SYSTEMS OPERATORDestiny Perkinsacher Work Phone: [facility] 02-13-2022 08:27-0400 Respiratory rate 16 /min SYSTEMS OPERATORDestiny Perkinsacher Work Phone: [facility] 02-13-2022 08:27-0400 SaO2% (BldA) [Mass fraction] 97 % SYSTEMS OPERATORDestiny Perkinsacher Work Phone: [facility] 02-13-2022 08:27-0400 Systolic blood pressure 131 mm[Hg] SYSTEMS OPERATORDestiny Perkinsacher Work Phone: [facility] 02-13-2022 07:46-0400 Inhaled oxygen flow rate 3 L/min SYSTEMS OPERATORDestiny Perkinsacher Work Phone: [facility] 02-13-2022 07:26-0400 Body height 147.32 cm SYSTEMS OPERATORDestiny Perkinsacher Work Phone: [facility] 02-13-2022 07:26-0400 Body mass index (BMI) [Ratio] 26.5 kg/m2 SYSTEMS OPERATORDestiny Riley Work Phone: [facility] 02-13-2022 07:26-0400 Body weight 57.6 kg SYSTEMS OPERATORDestiny Riley Work Phone: [facility] 01-23-2022 16:30-0400 Body height 147.32 cm Paul Levi Other [employer] [facility] [employer] Other 01-23-2022 16:30-0400 Body mass index (BMI) [Ratio] 26.54 kg/m2 Paul Caroleeelie Other [employer] Other 01-23-2022 16:30-0400 Body weight 57.61 kg Paul Levi Other [employer] Other 10-25-2021 16:00-0500 Body height 147.32 cm Ragini Riley Other [employer] Other 10-25-2021 16:00-0500 Body mass index (BMI) [Ratio] 26.33 kg/m2 Ragini Riley Other [employer] Other 10-25-2021 16:00-0500 Body temperature 99.4 [degF] Ragini Riley Other [employer] Other 10-25-2021 16:00-0500 Body weight 57.15 kg Ragini Riley Other [employer] Other 10-25-2021 16:00-0500 Diastolic blood pressure 84 mm[Hg] Ragini Riley Other [employer] Other 10-25-2021 16:00-0500 Respiratory rate 18 /min Ragini Riley Other [employer] Other 10-25-2021 16:00-0500 SaO2% (BldA) [Mass fraction] 99 % Ragini Carmonakodimeek Other [employer] Other 10-25-2021 16:00-0500 Systolic blood pressure 132 mm[Hg] Ragini Carmonakodidevendrajosie Other [employer] Other 06-05-2021 14:00-0400 Body height 147.32 cm Ragini Carmonakodidevendrajosie Other [employer] Other 06-05-2021 14:00-0400 Body mass index (BMI) [Ratio] 27.38 kg/m2 Ragini Carmonakodidevendrajosie Other [employer] Other 06-05-2021 14:00-0400 Body weight 59.42 kg Ragini Riley Other [employer] Other 06-05-2021 14:00-0400 Diastolic blood pressure 74 mm[Hg] Ragini Rosemary Other [employer] Other 06-05-2021 14:00-0400 Respiratory rate 16 /min Ragini Maddiedevendrajosie Other [employer] Other 06-05-2021 14:00-0400 SaO2% (BldA) [Mass fraction] 98 % Ragini Rosemary Other [employer] Other 06-05-2021 14:00-0400 Systolic blood pressure 116 mm[Hg] Ragini Riley Other [employer] Other Encounters Encounter Date Encounter Type Care Provider Facility Start: 08-07-2023 End: 08-07-2023 ambulatory Paul Levi Other [employer] Other Start: 08-07-2023 Telephone encounter Paul Levi [facility] Start: 07-30-2023 End: 07-30-2023 ambulatory Ragini Riley Other [employer] Other Start: 07-30-2023 Office outpatient visit 10 minutes Ragini Riley [facility] Start: 07-10-2023 End: 07-10-2023 ambulatory Jyoti Jama Other [employer] Other Start: 07-10-2023 Office outpatient visit 15 minutes Jyoti Jama [facility] Start: 07-10-2023 Telephone encounter Ragini Ahmadi her [facility] Start: 06-04-2023 (Procedure) Short Paul Levi [facility] Start: 06-04-2023 End: 06-04-2023 ambulatory Paul Levi [facility] [employer] Other Start: 06-03-2023 End: 06-03-2023 ambulatory Emre GONZALES Facility:[facility] Start: 05-30-2023 End: 05-30-2023 ambulatory Ragini Riley Other [employer] Other Start: 05-30-2023 Telephone encounter Ragini Ahmadi her [facility] Start: 05-27-2023 End: 05-27-2023 ambulatory Luigi Schaefer Other [employer] Other Start: 05-27-2023 Office outpatient visit 15 minutes [facility] Start: 05-24-2023 End: 05-24-2023 ambulatory Ragini Riley Facility:[facility] Start: 05-24-2023 End: 05-24-2023 ambulatory GOKUL Riley Work Phone: [facility] Work Phone: Start: 05-24-2023 End: 05-24-2023 Patient encounter procedure GOKUL Riley Work Phone: [facility] [place] Work Phone: Start: 05-16-2023 End: 05-16-2023 ambulatory Paul Levi Other [employer] Other Start: 05-16-2023 Office outpatient visit 25 minutes Paul Levi [facility] Start: 05-15-2023 End: 05-15-2023 ambulatory Ragini Riley Other [employer] Other Start: 05-15-2023 Telephone encounter Ragini tolbert [facility] Start: 05-07-2023 End: 05-07-2023 ambulatory Luigi Schaefer Other [employer] Other Start: 05-07-2023 Telephone encounter Luigi [facility] Start: 04-23-2023 End: 04-23-2023 ambulatory Luigi Schaefer Facility:[facility] Start: 04-23-2023 End: 04-23-2023 ambulatory GOKUL Riley Work Phone: [facility] Work Phone: Start: 04-23-2023 End: 04-23-2023 Patient encounter procedure GOKUL Riley Work Phone: [facility] [place] Work Phone: Start: 04-15-2023 End: 04-15-2023 ambulatory Luigi Schaefer Other [employer] Other Start: 04-15-2023 Office outpatient visit 15 minutes Luigi Schaefer [facility] Start: 03-25-2023 End: 03-25-2023 ambulatory Paul Levi Other [employer] Other Start: 03-25-2023 Telephone encounter Paul Levi FP [facility] Start: 03-15-2023 End: 03-15-2023 ambulatory Ragini Carmonarbacher Other [employer] Other Start: 03-15-2023 Telephone encounter Raginicharles Ahmadi her [facility] Start: 03-13-2023 End: 03-13-2023 ambulatory Ragini Rohrbacher Other [employer] Other Start: 03-13-2023 Telephone encounter Ragini Daiana her [facility] [place] Start: 03-08-2023 End: 03-08-2023 ambulatory Ragini Rohrbacher Other [employer] Other Start: 03-08-2023 Telephone encounter Ragini Daiana [facility] Start: 03-07-2023 End: 03-07-2023 ambulatory Ragini Rohrbacher Other [employer] Other Start: 03-07-2023 Telephone encounter Ragini Daiana her [facility] [place] Start: 03-06-2023 End: 03-06-2023 ambulatory Ragini Rohrbacher Other [employer] Other Start: 03-06-2023 Office outpatient visit 25 minutes Ragini [facility] Start: 02-25-2023 Office outpatient visit 15 minutes Jyoti Jama [facility] Start: 02-25-2023 End: 02-25-2023 ambulatory GOKUL Riley Work Phone: [facility] Work Phone: Start: 02-25-2023 End: 02-25-2023 Departed Referred SYSTEMS OPERATORDestiny Riley Work Phone: [facility] [place] Work Phone: Start: 02-05-2023 (Procedure) Short Paul Levi [facility] Start: 02-05-2023 End: 02-05-2023 ambulatory Paul Levi Facility:[facility] Start: 02-05-2023 End: 02-05-2023 Admission to same day surgery center GOKUL Riley Work Phone: [facility] Work Phone: Start: 02-05-2023 End: 02-05-2023 ambulatory GOKUL Riley Work Phone: [facility] Work Phone: Start: 02-03-2023 End: 02-03-2023 ambulatory Jyoti Jama Other [employer] Other Start: 02-03-2023 Office outpatient visit 15 minutes Jyoti Jama [facility] Start: 01-21-2023 End: 01-21-2023 ambulatory Paul Levi Other [employer] Other Start: 01-21-2023 Office outpatient visit 25 minutes Paul Levi [facility] Start: 11-08-2022 End: 11-08-2022 ambulatory Ragini Riley Other [employer] Other Start: 11-08-2022 Encounter by GC Aesthetics r link Ragini Riley [facility] Start: 10-23-2022 (Procedure) Short Paul Levi [facility] Start: 10-23-2022 End: 10-23-2022 ambulatory Paul Levi Facility:[facility] Start: 10-23-2022 End: 10-23-2022 Admission to same day surgery center SYSTEMS OPERATORDestiny Riley Work Phone: [facility] Work Phone: Start: 10-23-2022 End: 10-23-2022 ambulatory GOKUL Riley Work Phone: [facility] Work Phone: Start: 10-15-2022 End: 10-15-2022 ambulatory Ragini Riley Other [employer] Other Start: 10-15-2022 Encounter by GC Aesthetics r link Ragini Riley [facility] Start: 10-12-2022 End: 10-12-2022 ambulatory Ragini Riley Other [employer] Other Start: 10-12-2022 Telephone encounter Ragini Ahmadi [facility] Start: 10-11-2022 End: 10-11-2022 Patient encounter procedure SYSTEMS OPERATOR Ragini Riley Work Phone: [facility] Work Phone: Start: 10-11-2022 End: 10-11-2022 ambulatory Ragini Riley [place] [employer] Other Start: 10-11-2022 Office outpatient visit 15 minutes Ragini Riley [facility] Start: 10-09-2022 End: 10-09-2022 ambulatory Paul Levi Other [employer] Other Start: 10-09-2022 Office outpatient visit 25 minutes Paul Levi [facility] Start: 10-03-2022 End: 10-03-2022 ambulatory Paul Zarcoelie Other [employer] Other Start: 10-03-2022 Encounter by Xplenty Paul Levi [facility] Start: 09-11-2022 End: 09-11-2022 ambulatory Paul Zarcoelie Other [employer] Other Start: 09-11-2022 Telephone encounter [facility] Start: 09-10-2022 End: 09-10-2022 ambulatory Ragini Riley Other [employer] Other Start: 09-10-2022 Encounter by Xplenty Ragini Riley [facility] Start: 08-15-2022 End: 08-16-2022 ambulatory SULY CAROLINA Facility: Start: 07-12-2022 End: 07-12-2022 ambulatory Ragini Riley Other [employer] Other Start: 07-12-2022 Encounter by Xplenty Ragini Riley [facility] Start: 07-09-2022 End: 07-09-2022 ambulatory Alysa Mariscal Other [employer] Other Start: 07-09-2022 Office outpatient visit 15 minutes Alysa Mariscal [facility] [place] Start: 06-26-2022 End: 06-26-2022 ambulatory Paul Caroleeelie Other [employer] Other Start: 06-26-2022 Office outpatient visit 15 minutes Paul Levi [facility] [place] Start: 06-19-2022 (Procedure) Ghassan Levi [facility] Start: 06-19-[address] [facility] Start: 06-19-2022 End: 06-19-2022 ambulatory Paul Levi Facility:[facility] Start: 06-19-2022 End: 06-19-2022 Admission to same day surgery center SYSTEMS OPERATORDestiny Riley Work Phone: [facility] Start: 06-19-2022 End: 06-19-2022 ambulatory SYSTEMS OPERATOR Ragini Riley Work Phone: [facility] Work Phone: Start: 05-28-2022 End: 05-28-2022 ambulatory RAGINI RILEY Facility: Start: 05-25-2022 End: 05-25-2022 ambulatory Ragini Riley Other [employer] Other Start: 05-25-2022 Telephone encounter Ragini Ahmadi her [facility] Start: 05-23-2022 End: 05-23-2022 ambulatory Ragini Riley Other [employer] Other Start: 05-23-2022 Office outpatient visit 15 minutes Ragini Riley [facility] Start: 05-22-2022 End: 05-22-2022 ambulatory Ragini Riley Other [employer] Other Start: 05-22-2022 Encounter by compute r link Ragini Riley [facility] Start: 05-16-2022 End: 05-16-2022 ambulatory Ragini Riely Other [employer] Other Start: 05-16-2022 Telephone encounter Ragini Ahmadi [facility] Start: 05-15-2022 End: 05-15-2022 ambulatory Ragini Riley Other [employer] Other Start: 05-15-2022 Telephone encounter Ragini Daiana her [facility] Start: 05-10-2022 End: 05-10-2022 ambulatory Ragini Rosemary Other [employer] Other Start: 05-10-2022 Telephone encounter Ragini Carmonamorteza her [facility] Start: 05-08-2022 End: 05-08-2022 Departed Referred SYSTEMS OPERATOR Ragini Riley Work Phone: [facility] [place] Start: 05-08-2022 End: 05-09-2022 ambulatory RAGINI RILEY [employer] Other Start: 05-08-2022 Office outpatient visit 15 minutes Ragini Riley [facility] Start: 04-26-2022 End: 04-26-2022 ambulatory Paul Levi Other [employer] Other Start: 04-26-2022 Office outpatient visit 25 minutes Paul Levi [facility] Start: 04-12-2022 End: 04-12-2022 ambulatory Ragini Riley Other [employer] Other Start: 04-12-2022 Office outpatient visit 15 minutes Ragini Riley [facility] Start: 02-20-2022 End: 02-20-2022 ambulatory Paul Lvei Other [employer] Other Start: 02-20-[address] [facility] Start: 02-13-2022 (Procedure) Short Paul Levi [facility] Start: 02-13-2022 End: 02-13-2022 ambulatory Paul Levi Other [employer] Other Start: 02-13-2022 End: 02-13-2022 Admission to same day surgery center SYSTEMS OPERATOR Ragini Riley Work Phone: [facility] Start: 01-23-2022 End: 01-23-2022 ambulatory Paul Levi Other [employer] Other Start: 01-23-2022 Office outpatient visit 25 minutes Paul Levi [facility] Start: 01-19-2022 End: 01-19-2022 ambulatory Ragini Riley Other [employer] Other Start: 01-19-2022 Telephone encounter Ragini Ahmadi her [facility] [place] Start: 01-16-2022 End: 01-16-2022 ambulatory Ragini Riley Other [employer] Other Start: 01-16-2022 Office outpatient visit 15 minutes Ragini Riley [facility] [place] Start: 11-24-2021 End: 11-24-2021 ambulatory Paul Levi Other [employer] Other Start: 11-24-2021 Telephone encounter Paul Levi [facility] Start: 11-22-2021 End: 11-22-2021 ambulatory Ragini Riley Other [employer] Other Start: 11-22-2021 Telephone encounter Ragini Ahmadi her [facility] [place] Start: 10-25-2021 End: 10-25-2021 ambulatory Ragini Riley Other [employer] Other Start: 10-25-2021 Office outpatient visit 15 minutes Ragini Riley [facility] [place] Start: 09-11-2021 End: 09-11-2021 ambulatory Paul Levi Other [employer] Other Start: 09-11-2021 Office outpatient visit 15 minutes Ragini Riley [facility] [place] Start: 09-11-2021 Telephone encounter Paul [facility] Start: 08-14-2021 End: 08-14-2021 ambulatory Ragini Riley Other [employer] Other Start: 08-14-2021 Telephone encounter Ragini Daiana her [facility] [place] Start: 08-10-2021 End: 08-10-2021 ambulatory Paul Caroleeelie Other [employer] Other Start: 08-10-2021 Office outpatient visit 15 minutes Paul Levi [facility] [place] Start: 07-25-2021 End: 07-25-2021 ambulatory Ragini Riley Other [employer] Other Start: 07-25-2021 Office outpatient visit 15 minutes Ragini Riley [facility] Family [facility] [place] Start: 06-30-2021 Telephone encounter Ragini Daiana her [facility] [place] Start: 06-05-2021 Office outpatient visit 15 minutes Ragini Riley [facility] [place] Start: 06-01-2021 Office outpatient visit 25 minutes Paul Levi [facility] [place] Procedures Date Procedure Procedure Detail Performing Clinician Start: 05-24-2023 Computed tomography of abdomen and pelvis with contrast GOKUL Riley Work Phone: Start: 04-23-2023 Lactoferrin measurement SYSTEMS OPERATORDestiny Riley Work Phone: Start: 04-23-2023 Stool culture for bacteria GOKUL Riley Work Phone: Start: 02-25-2023 Urine culture SYSTEM[employer] OPERAT[employer]estiny Riley Work Phone: Start: 02-05-2023 Radiofrequency destruction of peripheral nerve GOKUL Eid Maddiemeek Work Phone: Start: 10-23-2022 Epidural injection of lumbar spine using fluoroscopic guidance GOKUL Eid Maddiemeek Work Phone: Start: 10-11-2022 Plain chest X-ray GOKUL Eid Raziajosie Work Phone: Start: 06-19-2022 Epidural injection of lumbar spine using fluoroscopic guidance GOKUL Eid Maddiemeek Work Phone: Start: 02-13-2022 Radiofrequency destruction of peripheral nerve GOKUL Eid Rosemary Work Phone: H/O: section S/P GOKUL Dongnifer Rosemary Work Phone: H/O: section History of C-sectio n SYSTEMS OPERATORDestiny Eid Rosemary Work Phone: H/O: hysterectomy [facility] Other H/O: hysterectomy S/P laparoscop ic hysterectomy SYSTEMS OPERATORDestiny DongRagini Rosemary Work Phone: Urine culture GOKUL Eid Rosemary Work Phone: Plan of Treatment Date Care Activity Detail Author Start: 02-25-2023 Bacteria identified in Urine by Culture Urine Culture [facility] Start: 02-05-2023 [facility] Start: 10-23-2022 [facility] Start: 06-19-2022 [facility] Start: 02-13-[address] [facility] Work Phone: Calprotectin [Mass/m ass] in Stool [facility] Cryptosporidium sp A g [Presence] in Stool by Immunoassay [facility] Elastase.pancreatic [Mass/mass] in Stool [facility] Giardia lamblia Ag [Presence] in Stool by Immunoassay [facility] Patient Education Felter Non Radha gnostic Block [facility] Work Phone: Patient referral [facility] Work Phone: pH of Stool [facility] Immunizations Immunization Date Immunization Notes Care Provider López jorge 01-20-2021 COVID-19 Vaccine Moderna - Documentation Purposes Only Paul Zarcoelie Other [employer] Other 12-23-2020 COVID-19 Vaccine Moderna - Documentation Purposes Only Paul Caroleeelie Other [facility] [employer] Other 12-15-2018 tetanus toxoid, redu marina diphtheria toxoid, and acellular pertussis vaccine, adsorbed Paul Levi Other [facility] 04-26-2011 DEPO-PROVERA Paul Caroleeelie Other [facility] Other 01-25-2011 DEPO-PROVERA Paul Caroleeelie Other [facility] Other 06-29-2010 influenza virus vaccine, split virus (incl. purified surface antigen) Paul Caroleeelie Other [facility] [employer] Other Payers Date Payer Category Payer Unknown [id number] 2. [id number] 2022 Self-pay [id number] 1985 Unknown [id number] 2.16.84 [id number] 1983 Unknown [id number] 2.16.84 [id number] 1983 Unknown [id number] 2.16.84 [id number] 1959 Unknown [id number] 2.1 [id number] Unknown [id number] 2.16. [id number] Unknown [id number] 2.16.8 [id number] Unknown [id number] 2.16.8 [id number] Unknown [id number] 2.16.8 [id number] Unknown [id number] 2.16.8 [id number] Unknown [id number] 2.16.8 [id number] Unknown [id number] 2.16.8 [id number] Unknown [id number] 2.16.8 [id number] Unknown [id number] 2.16.8 [id number] Social History Date Type Detail Facility Sex Assigned At [facility] [employer] Other Start: 02-13-2022 End: 10-23-2022 Tobacco smoking status [facility] Ex-smoker (finding) [facility] Start: 1985 Sex Assigned At Female F [facility] Start: 06-19-2022 End: 02-05-2023 Tobacco smoking status [facility] Smoker (finding) [facility] Goals Date Patient Goal Desired Activity /State Clinical Notes 06-01-2021 to 08-07-2023 Note Date & Type Note Facility 08-07-2023 Evaluation note Encounter Date Diagnosis Assessment Notes Jul, Lumbosacral spondylosis without myelopathy (ICD-10 - M47.817) Jul, Cervical pain (ICD-10 - M54.2) [facility] Other 11-21-2023 Evaluation note* Encounter Date Diagnosis Assessment Notes Treatment Notes Treatment Clinical Notes Jul, COVID-19 (ICD-10 - U07.1) Covid 19 test is positive. Rapid COVID antigen test performed in today. Advised patient that test was POSITIVE. Instructed patient to isolate per CDC guidelines for 5 days from symptom onset, then 5 days in a mask May return to work/activities outside home after isolation period as long as symptoms have improved and has been afebrile for 24 hours without use of antipyretic. May use OTC ough/cold medicaiton for symptoms. Use Tylenol/Motrin as needed for body aches/fever. Educated about the risks vs benefit of medicine. She understands and would like to start it. Most recent GFR is greater than 60. No history of liver disease. Stop atorovastatin while on the paxlovid. Increase fluids and rest. Encouraged use of cool mist humidifier and other supportive remedies. Immediate eval by ER for SOB, difficulty breathing, chest pain, fevers that do not break with antipyretic, severe headache, neck pain/stiffness, abdominal pain, persistent N/V, severe dehydration, or any other concerning symptoms as reviewed on patient education handout. Patient verbalizes understanding and is agreeable to treatment plan. [employer] Other 11-01-2023 Evaluation note* Encounter Date Diagnosis Assessment Notes Treatment Notes Treatment Clinical Notes Jul, Suspected COVID-19 virus infection (ICD-10 - Z20.822) Jul, Acute sinusitis, recurrence not specified, unspecified location (ICD-10 - J01.90) Drink plenty fluids, get plenty of rest. Take the amoxicillin with clavulanate as prescribed until gone for your sinus infection and bronchitis. Use the fluticasone nasal spray as prescribed until your symptoms of sinus infection improved. Take the prednisone as prescribed until gone for inflammation with your sinus infection and bronchitis as well as swelling of the perineum. Avoid using the soap that she used for 5 days ago. Use the albuterol inhaler as prescribed as needed for cough or shortness of breath. Take the Diflucan as prescribed at the first onset of symptoms of a vaginal yeast infection. Follow-up with your family physician if no improvement in 2 to 3 days. May return to work tomorrow Jul, Bronchitis (ICD-10 - J40) Jul, Contact dermatitis, unspecified contact dermatitis type, unspecified trigger (ICD-10 - L25.9) Jul, History of candidiasis of vagina (ICD-10 - Z86.19) Patient reports she has a history of vaginal yeast infections caused by Augmentin. Diflucan will be prescribed taken if symptoms of yeast infection develop. [employer] Other 09-26-2023 Note [id number]09-25-2023 NotePatient Education Materials [id number] Evaluation note* Encounter Date Diagnosis Assessment Notes Treatment Notes Treatment Clinical Notes May, Lower abdominal pain (ICD-10 - R10.30) May, Alternating constipation and diarrhea (ICD-10 - R19.8) CONSTIPATION HAS BEEN MORE OF AN ISSUE LATELY FOR HER, SHE HAS HAD A 9 DAY SPAN AND 5 DAY SPAN WITH NO BOWEL MOVEMENT. PATIENT ADVISED TO USE MIRALAX DAILY STARTING WITH ONE SCOOP IN THE MORNING AND TITRATING UP TO 2-3 DOSES NEEDED. May, Nausea (ICD-10 - R11.0) May, Exocrine pancreatic insufficiency (ICD-10 - K86.81) WILL START PATIENT ON CREON 36,0000 UNIT DAILY WITH MEALS. May, Liver lesion (ICD-10 - K76.9) US LIVER SHOWED A SMALL 1.6CM LIVER LESION. WILL ORDER MRI TO TAKE A CLOSER LOOK. [employer] Other 09-07-2023 Evaluation note* Encounter Date Diagnosis Assessment Notes Treatment Notes Treatment Clinical Notes May, Other spondylosis with radiculopathy, lumbar region (ICD-10 - M47.26) Patients primary complaint today is pain radiating into her lower extremities. Based on previous positive results, as well as location of pain and exam findings, patient is a candidate for a repeat lumbar epidural steroid injection which we will proceed with. Risks and benefits of procedure explained to patient; patient verbalizes understanding. Risks and benefits of procedure explained to patient; patient verbalizes understanding. In the meantime, patient will continue her current medication regimen. Anatomy of spine discussed in detail with patient in regards to patients condition. May, Osteoarthritis of lumbosacral spine (ICD-10 - M47.817) Tolerable at this time following a previous right lumbar facet radiofrequency ablation. We will continue to monitor and proceed with future treatment as needed. Risks and benefits of procedure explained to patient; patient verbalizes understanding. Anatomy of spine discussed in detail with patient in regards to patients condition. Overall, patient believes their pain in this region is reasonably well controlled and she is in agreement with our treatment plan. May, Cervical radiculopathy (ICD-10 - M54.12) Patient is also voicing complaints of cervical pain radiating into her right upper extremity as well as numbness/tingling and weakness. We will continue to monitor her symptoms and may consider updating her cervical MRI in the future however she would like to focus on her lumbar pain at this time. Anatomy of spine discussed in detail with patient in regards to patients condition. May, Other chronic pain (ICD-10 - G89.29) May, Other Above note writ ten by Wilmer Tapia MA, Gasoline Att[employer]. Edited and approved by Dr. Paul Levi MD. [employer] Other 09-06-2023 Evaluation note* Encounter Date Diagnosis Assessment Notes Treatment Notes Treatment Clinical Notes May, Mild episode of recurrent major depressive disorder (ICD-10 - F33.0) [employer] Other 08-29-2023 Evaluation note* Encounter Date Diagnosis Assessment Notes Treatment Notes Treatment Clinical Notes Apr, Diarrhea (ICD-10 - R19.7) Apr, Constipation, unspecified constipation type (ICD-10 - K59.00) [employer] Other 08-07-2023 Evaluation note* Encounter Date Diagnosis Assessment Notes Treatment Notes Treatment Clinical Notes Apr, Diarrhea (ICD-10 - R19.7) Pt states that since August, she has had diarrhea. Pt will go a couple days without using the restroom and then she has the diarrhea. Labs and Ct scan w/ contrast ordered Apr, Constipation, unspecified constipation type (ICD-10 - K59.00) Pt has taken miralax Pt has taken metamucil powder Pt advised to take a probiotic (Countdown) start one a day Pt advised to try metamucil fiber gummys, three a day Labs and imaging ordered Pt advised to drink plenty of water Pt informed of the low fod map diet Pt RTO in 6 weeks [facility] Other 07-17-2023 Evaluation note* Encounter Date Diagnosis Assessment Notes Treatment Notes Treatment Clinical Notes Mar, Lumbosacral spondylosis without myelopathy (ICD-10 - M47.817) [facility] Other 07-05-2023 Evaluation note* Encounter Date Diagnosis Assessment Notes Treatment Notes Treatment Clinical Notes Mar, Mixed hyperlipidemia (ICD-10 - E78.2) [facility] Other 06-28-2023 Evaluation note* Encounter Date Diagnosis Assessment Notes Treatment Notes Treatment Clinical Notes Feb, Bruises easily (ICD-10 - R23.3) NOtes that she has been brusing easily recently has mutiple bruises. Will recheck her iron levels as she does have a history of iron deficiency. Will call with reults Feb, Iron deficiency (ICD-10 - E61.1) Feb, Weight loss (ICD-10 - R63.4) Discussed with pt concerns for recent signficant weight loss. She does report that she has had diarrhea for the last 4-5 months with rectal bleeding, Does also have iron defciency. Will work-up for this weight loss with labs as well as referral to GI for further evaluation of symptoms. Pt is agreeable and will get labs completed. Feb, Rectal bleeding (ICD-10 - K62.5) referral placed Feb, Diarrhea, unspecified type (ICD-10 - R19.7) referral placed Feb, Right ankle swelling (ICD-10 - M25.471) Will proceed with x-ray, and will call with results. Instructed to RICE ankle. OTC ibuprofen with food as directed. Yoandy wrap applied in clinic. Elevate foot when sitting or lying down. Rest ankle avoiding vigorous physical activity, walking for long distances or periods of time. Further recommendations based upon results. Pt verbalizes understanding and agrees to plan of care. Feb, Acute right ankle pain (ICD-10 - M25.571) Feb, Vitamin D deficiency (ICD-10 - E55.9) Check 25 Hydroxy Vitamin D with next labs. Feb, Mixed hyperlipidemia (ICD-10 - E78.2) Due for repeat labs [facility] Other 06-19-2023 Evaluation note* Encounter Date Diagnosis Assessment Notes Treatment Notes Treatment Clinical Notes Feb, Dysuria (ICD-10 - R30.0) Feb, Acute UTI (ICD-10 - N39.0) Urinary tract infection (UTI) home care material was printed Drink plenty fluids, get plenty of rest. Continue home medications as prescribed. Take the Cipro and Pyridium as prescribed until gone. Follow-up with your family physician if no improvement in 2 to 3 days. Go to the ER for a fever or any worsening of your symptoms. [facility] Other 06-19-2023 Evaluation note* Encounter Date Diagnosis Assessment Notes Treatment Notes Treatment Clinical Notes Feb, Dysuria (ICD-10 - R30.0) Feb, Acute UTI (ICD-10 - N39.0) Urinary tract infection (UTI) home care material was printed Drink plenty fluids, get plenty of rest. Continue home medications as prescribed. Take the Cipro and Pyridium as prescribed until gone. Follow-up with your family physician if no improvement in 2 to 3 days. Go to the ER for a fever or any worsening of your symptoms. Feb, Vaping nicotine dependence, tobacco product (ICD-10 - F17.290) [facility] Other 05-30-2023 Procedure [facility]05-28-2023 Evaluation note* Encounter Date Diagnosis Assessment Notes Treatment Notes Treatment Clinical Notes January, Dental decay (ICD-10 - K02.9) Tooth decay home care material was printed Drink plenty fluids, get plenty of rest. Take the clindamycin as prescribed until gone. Take ibuprofen, 600 to 800 mg with food 3-4 times a day for mild to moderate pain. For severe pain add 2 extra strength Tylenol to your Motrin dose. Follow-up with your dentist as soon as possible [facility] Other 05-15-2023 Evaluation note* Encounter Date Diagnosis Assessment Notes Treatment Notes Treatment Clinical Notes January, Lumbosacral spondylosis without myelopathy (ICD-10 - M47.817) We discussed treatment options for the patient's persistent low back pain. She shows notable pain consistent with degenerative changes of the lumbar spine. We discussed given previously benefit as well as exam findings, patient is a reasonable candidate for repeat right lumbar facet radiofrequency ablation, which we will proceed with. Risks and benefits of procedure explained to patient; patient verbalizes understanding. In the meantime she will continue her current medication regimen. Anatomy of spine discussed in detail with patient in regard to patients condition. January, Cervical pain (ICD-10 - M54.2) We discussed treatment options for the patient's neck pain. Given the recent onset of pain in this region we will start treatment conservatively with an medrol dose pack. We discussed if symptoms persist we can consider injections. Anatomy of spine discussed in detail with patient in regard to patients condition. January, Other spondylosis with radiculopathy, lumbar region (ICD-10 - M47.26) Patient is voicing minimal complaints of pain in her lower extremities at this time. She attributes this to a recent lumbar epidural steroid injection. We will continue to monitor her symptoms in this region. Anatomy of spine discussed in detail with patient in regard to patients condition. Overall, patient believes their pain is reasonably well controlled, and she is in agreement with our treatment plan. January, Other chronic pain (ICD-10 - G89.29) January, Other Above note writ ten by Ida Griffith LPN, Gasoline Attendant. Edited and approved by Dr. Paul Levi MD. [facility] Other 03-02-2023 Evaluation note* Encounter Date Diagnosis Assessment Notes Treatment Notes Treatment Clinical Notes Nov, Mild episode of recurrent major depressive disorder (ICD-10 - F33.0) [facility] Other 02-06-2023 Evaluation note* Encounter Date Diagnosis Assessment Notes Treatment Notes Treatment Clinical Notes Oct, Bronchitis (ICD-10 - J40) [facility] Other 02-02-2023 Evaluation note* Encounter Date Diagnosis Assessment Notes Treatment Notes Treatment Clinical Notes Oct, Fever, unspecified fever cause (ICD-10 - R50.9) Reviewed with pt that COVID and INfluenza A and B are negative. Oct, Mild persistent asthma with exacerbation (ICD-10 - J45.31) Discussed with patient that based upon her symptoms, exam and frequent use of pro air inhaler that she appears to be in a flair. Discussed treatment options including restarting Flovent and prn use of albuterol for symptom management. As well as continuing pro air for rescue inhaler. Due to symptoms and duration of asthma flare discussed oral steriod taper. She would like to proceed. Directed on use of steriod taper. Also will obtain a chest x-ray due to fever and frequent reoccurence of symptoms. Pt verbalizes understanding. Discussed if worsening signs and symptoms to call sooner for a follow-up. Warning signs and symptoms discussed and when to go to the ER. Oct, Wheezing (ICD-10 - R06.2) Use as directed. Nebulizer treatments every four to six hours. Side effects of medications discussed. If symptoms are unrelieved or worsen instructed to go to the ER. Patient verbalizes understanding. [facility] Other 01-31-2023 Evaluation note* Encounter Date Diagnosis Assessment Notes Treatment Notes Treatment Clinical Notes Sep, Other spondylosis with radiculopathy, lumbar region (ICD-10 - M47.26) Patients primary complaint today is returning low lumbar pain radiating into her bilateral lower extremities. Based on previous positive results, as well as location of pain and exam findings, patient is a candidate for a repeat lumbar epidural steroid injection which we will proceed with. Risks and benefits of procedure explained to patient; patient verbalizes understanding. Given her consistent positive benefit from the procedure in the past, we discussed she will follow up 3 months after lumbar epidural, assuming she has no issues. Anatomy of spine discussed in detail with patient in regards to patients condition. Sep, Other low back pain (ICD-10 - M54.59) Patient reports some improvement of her low back pain following a recent right lumbar facet radiofrequency ablation. We will continue to monitor. Sep, Other chronic pain (ICD-10 - G89.29) Sep, Other Above note writ ten by Wilmer Tapia CMA, Gasoline Attendant. Edited and approved by Dr. Paul Levi MD. [facility] Other 01-03-2023 Evaluation note* Encounter Date Diagnosis Assessment Notes Treatment Notes Treatment Clinical Notes Sep, Cervical radiculopathy at C6 (ICD-10 - M54.12) [facility] Other 10-31-2022 Evaluation note* Encounter Date Diagnosis Assessment Notes Treatment Notes Treatment Clinical Notes Jun, Mild intermittent asthma with exacerbation (ICD-10 - J45.21) Take medications as directed with food. Complete all doses of steroids. Use inhaler or nebulizer at least 2-3 times per day for next 48 hours. Increase fluid intake. Follow up with primary care provider is recommended to discuss treatment plan changes to asthma. Seek emergency help if difficulty breathing develops Jun, Contact with and (suspected) exposure to other viral communicable diseases (ICD-10 - Z20.828) [facility] Other 10-18-2022 Evaluation note* Encounter Date Diagnosis Assessment Notes Treatment Notes Treatment Clinical Notes Jun, Other spondylosis with radiculopathy, lumbar region (ICD-10 - M47.26) Patient voices minimal complaints of pain at this time. She attributes this to recent lumbar epidural steroid injection. We will continue to monitor and proceed with future treatment to the area as needed. In the meantime, she will continue her current regimen of Robaxin and Diclofenac Sodium. She does not need a refill at this time. We will follow up with her in three months, sooner if needed. Anatomy of spine discussed in detail with patient in regards to patients condition. Overall, patient believes their pain is reasonably well controlled and she is in agreement with our treatment plan. Jun, Other low back pain (ICD-10 - M54.59) Patient reports some improvement of her low back pain following a recent right lumbar facet radiofrequency ablation. We will continue to monitor. Jun, Other chronic pain (ICD-10 - G89.29) Jun, Other Above note writ ten by Wilmer Tapia CMA, Gasoline Attendant. Edited and approved by Dr. Paul Levi MD. [facility] Other 10-11-2022 Evaluation note* Encounter Date Diagnosis Assessment Notes Treatment Notes Treatment Clinical Notes Jun, Low back pain (ICD-1 0 - M54.5) Jun, Cervical radiculopathy at C7 (ICD-10 - M54.12) Jun, Cervical radiculopathy at C6 (ICD-10 - M54.12) [facility] Encounter Date Diagnosis Assessment Notes Treatment Notes Treatment Clinical Notes May, Impaired fasting glucose (ICD-10 - R73.01) To goal. A1c was 5.5 Sugars reviewed and above normal values of <100. Dx of IFG discussed as well as the risk of progression to to DMII. Tx options reviewed - ADA diet, regular aerobic exercise (150 min weekly) with f/u in 6 months. Goal of A1C <6 % and FBG <100 discussed. Will continue to monitor as her there is family history of diabetes. May, Vitamin D deficiency (ICD-10 - E55.9) Vitamin D level reviewed and subtherapeutic. The importance of Vit D metabolism for bone and muscle health is discussed. Advise supplement as above with recheck in 6 months May, Mixed hyperlipidemia (ICD-10 - E78.2) Lipid panel reviwed with patient. Dicsussed importance of maintaining an LDL level at specified goal. Discussed associated risk factors of hyperlipidemia including stroke and heart attack. Treatment with medications discussed and we have agrees upon appropirate action of treatment and goals. Continue to take Atoravastatin and work on diet changes. Discussed dietary modifications, including decreasing red meat consumption, decreased alcohol consumption, avoiding fried foods, and cake and cookies, and sweets. Encouraged increasing fiber in diet and eat a diet rich in omega-3. Encouraged to exericse at least 150 minutes weekly. Barriers to plan of care have been addressed. Follow-up as directed. May, Iron deficiency (ICD-10 - E61.1) Discussed dietary modfications. Encouraged meat,fruits,vegeatab les.Start either MVI with iron or an iron supplement. pt verbalizes understanding and agrees with plan of care will repeat labs in 3 months. [facility] Other 09-06-2022 Evaluation note* Encounter Date Diagnosis Assessment Notes Treatment Notes Treatment Clinical Notes May, Mild episode of recurrent major depressive disorder (ICD-10 - F33.0) [facility] Other 08-30-2022 Evaluation note* Encounter Date Diagnosis Assessment Notes Treatment Notes Treatment Clinical Notes Apr, Frequency of micturition (ICD-10 - R35.0) Apr, Acute cystitis with hematuria (ICD-10 - N30.01) Reviewed results of urine dipstick with patient, and given both symptoms and physical exam, explained that a urinary tract infection is likely. The patient is encouraged to increased fluid intake, take antibiotics as prescribed, and to finish the entire course of antibiotics. Urine culture to be completed and will call with results in 3- 5 days. Patient instructed to follow up if symptoms are not improving within the next 5-7 days. Signs and symptoms of worsening symptoms (including pyelonephritis, and urosepsis) are reviewed with the patient, and the patient is instructed to go to the ER if this would occur. [facility] Other 08-18-2022 Evaluation note* Encounter Date Diagnosis Assessment Notes Treatment Notes Treatment Clinical Notes Apr, Other spondylosis with radiculopathy, lumbar region (ICD-10 - M47.26) Patient is voicing complaints of increasing pain in the posterior aspect of her right lower extremity. We have exhausted multiple treatment options without relief of these symptoms. I will order an updated EMG of her ema lower extremities for further evaluation. Pending the results, we can consider ordering an updated MRI. In the meantime, patient will continue on her current medication regimen. Anatomy of spine discussed in detail with patient in regards to patients condition. Apr, Other low back pain (ICD-10 - M54.59) Patient reports some improvement of her low back pain following a recent right lumbar facet radiofrequency ablation. We will continue to monitor. Apr, Other chronic pain (ICD-10 - G89.29) Apr, Other Above note writ ten by Wilmer Tapia CMA, Gasoline Attendant. Edited and approved by Dr. Paul Levi MD. [facility] Other 08-04-2022 Evaluation note* Encounter Date Diagnosis Assessment Notes Treatment Notes Treatment Clinical Notes Apr, Mixed hyperlipidemia (ICD-10 - E78.2) Will repeat labs. Apr, Fatigue, unspecified type (ICD-10 - R53.83) Explained to pt that conditions such as anemia or vitamin deficiencies can cause fatigue. Strongly encouraged patient to get adequate sleep at night. Pt verbalized understanding and agreement with tx plan. She does historically have issues with Vitamin D levels and iron levels being low. Labs ordered. will call with results. Apr, Muscle cramps (ICD-10 - R25.2) Discussed with patient possible causes with check electrolyte and vitmain levels for a cause. Labs ordered. Will call with results and further recommendations. Apr, Vitamin D deficiency (ICD-10 - E55.9) Apr, History of iron deficiency anemia (ICD-10 - Z86.2) [facility] Other 06-14-2022 Evaluation note* Encounter Date Diagnosis Assessment Notes Treatment Notes Treatment Clinical Notes Feb, Low back pain (ICD-10 - M54.5) [facility] Other 05-17-2022 Evaluation note* Encounter Date Diagnosis Assessment Notes Treatment Notes Treatment Clinical Notes January, Lumbosacral spondylosis without myelopathy (ICD-10 - M47.817) Patieints primary complaint today is increasing right sided low lumbar pain. She shows notable pain consistent with the facet region upon exam which is supported by previous imaging. Based on previous positive results, as well as location of pain and exam findings, patient is a candidate for repeat right lumbar facet radiofrequency ablation which we will proceed with. Risks and benefits of procedure explained to patient; patient verbalizes understanding. In the meantime, patient will continue on her current medication regimen. Anatomy of spine discussed in detail with patient in regards to patients condition. January, Other low back pain (ICD-10 - M54.59) January, Other chronic pain (ICD-10 - G89.29) January, Other Above note writ ten by Wilmer Tapia CMA, Gasoline Attendant. Edited and approved by Dr. Paul Levi MD. [facility] Other 05-13-2022 Evaluation note* Encounter Date Diagnosis Assessment Notes Treatment Notes Treatment Clinical Notes January, Acute non-recurrent maxillary sinusitis (ICD-10 - J01.00) [facility] Other 05-10-2022 Evaluation note* Encounter Date Diagnosis Assessment Notes Treatment Notes Treatment Clinical Notes January, Cough (ICD-10 - R05.9) Advised patient that COVID rapid antigen test and Influenza A and B wer negative in office today. Advised patient that does not mean that you will not develop COVID or do not currently have a low viral count of COVID. The rapid test works best if symptoms have been over 72 hours and the results can vary if you are asymptomatic There is a higher chance of false negative results to occur if testing is performed too soon. Viral supportive care as directed. Increase fluids/rest, Tylenol/Motrin as needed for aches/fever, OTC cough/cold medications as needed as directed, cool mist humidifier, throat lozenges. If symptoms persist or worsen follow up . Immediate eval for warning s/sx as discussed, including but not limited to SOB, severe wheezing, difficulty breathing, chest pain, palpitations, fever <103, persistent fevers not reduced by antipyretic, severe headache, neck pain/stiffness, abdominal pain, persistent N/V, severe dehydration. Patient verbalizes understanding and is agreeable to treatment plan. January, Viral upper respiratory infection (ICD-10 - J06.9) Discussed dx with patient. Will treat as viral based on PE and duration of symptoms. Advised patient that viral syndromes last 7-10 days, antibiotics are not indicated. Take Mucinex as directed. Direcetd on use the Tessalon and add FLonse. Tylenol/Motrin as needed for aches/fever. Supportive care as directed, push fluids/rest, cool mist humidification, nasal saline irrigation/spray. Follow up if symptoms persist or change, immediate eval for warning s/sx as discussed. Patient verbalizes understanding and is agreeable to treatment plan. [facility] Other 03-18-2022 Evaluation note* Encounter Date Diagnosis Assessment Notes Treatment Notes Treatment Clinical Notes Nov, Low back pain (ICD-10 - M54.5) [facility] Other 02-16-2022 Evaluation note* Encounter Date Diagnosis Assessment Notes Treatment Notes Treatment Clinical Notes Oct, Mild episode of recurrent major depressive disorder (ICD-10 - F33.0) Remains stable on current therapeutic dose. Patient is encouraged to stay active and remain involved. Try to keep themselves busy. Take medication as directed and we will continue to monitor. Oct, Anxiety (ICD-10 - F41.9) Slightly improved, but worsens as the day goes on, Patient is not suicidal or homicidal at this time. Discussed treatment options with patient today. It was decided in collaboration with the patient to increase Buspar to 15mg twice per day for management with anxiety. Medication profile and possible SE reviewed with patient today. Patient to take medication as directed and prescribed. Do not skip/miss doses and do not stop abruptly. Patient is not interested in counseling at this time. Warning s/s reviewed with patient today. Patient to go immediately to the ER should patient experience any of these. Follow up in # month s to assess symptoms and medication effectiveness or sooner if worsening or no change. Patient verbalizes understanding and agrees to treatment plan. Oct, Mixed hyperlipidemia (ICD-10 - E78.2) Stable [facility] Other 01-03-2022 Evaluation note* Encounter Date Diagnosis Assessment Notes Treatment Notes Treatment Clinical Notes Sep, Low back pain (ICD-10 - M54.5) [facility] Other 01-03-2022 Evaluation note* Encounter Date Diagnosis Assessment Notes Treatment Notes Treatment Clinical Notes Sep, Mild episode of recurrent major depressive disorder (ICD-10 - F33.0) Remains stable on current therapeutic dose. Patient is encouraged to stay active and remain involved. Try to keep themselves busy. Take medication as directed and we will continue to monitor. Sep, Anxiety (ICD-10 - F41.9) Slightly improved, but worsens as the day goes on, Patient is not suicidal or homicidal at this time. Discussed treatment options with patient today. It was decided in collaboration with the patient to increase Buspar to twice per day for management with anxiety. Medication profile and possible SE reviewed with patient today. Patient to take medication as directed and prescribed. Do not skip/miss doses and do not stop abruptly. Patient is not interested in counseling at this time. Warning s/s reviewed with patient today. Patient to go immediately to the ER should patient experience any of these. Follow up in # month s to assess symptoms and medication effectiveness or sooner if worsening or no change. Patient verbalizes understanding and agrees to treatment plan. Sep, Mixed hyperlipidemia (ICD-10 - E78.2) Needs to have labs completed, pt will get these done Sep, Nasal congestion (ICD-10 - R09.81) Advised patient that COVID rapid antigen test was negative in office today. Advised patient that does not mean that you will not develop COVID or do not currently have a low viral count of COVID. The rapid test works best if symptoms have been over 72 hours and the results can vary if you are asymptomatic There is a higher chance of false negative results to occur if testing is performed too soon. Viral supportive care as directed. Increase fluids/rest, Tylenol/Motrin as needed for aches/fever, OTC cough/cold medications as needed as directed, cool mist humidifier, throat lozenges. If symptoms persist or worsen follow up with PCP. Immediate eval for warning s/sx as discussed, including but not limited to SOB, severe wheezing, difficulty breathing, chest pain, palpitations, fever less [id number], persistent fevers not reduced by antipyretic, severe headache, neck pain/stiffness, abdominal pain, persistent N/V, severe dehydration. Patient verbalizes understanding and is agreeable to treatment plan. Sep, Cough (ICD-10 - R05.9) Sep, Other The patient was seen per video virtual visit through [employer] and my location (provider) is in the office setting. The specifics of the virtual visit were discussed with patient. This video call is considered video virtual visit, which is to help assess current healthcare needs and to determine the appropriate care patient may require. This visit is a billable service through patient insurance [employer]. Patient is in agreement to have their insurance billed for this video virtual visit and consents to video virtual visit. The staff involved in visit was myself, Ragini Riley DNP, SYSTEMS OPERATOR, JUNIOR MANUFACTURING ENGINEER (provider). Time spent with patient was approximately 15 minutes. [facility] Other 12-06-2021 Evaluation note* Encounter Date Diagnosis Assessment Notes Treatment Notes Treatment Clinical Notes Aug, Mixed hyperlipidemia (ICD-10 - E78.2) [facility] Other 12-02-2021 Evaluation note* Encounter Date Diagnosis Assessment Notes Treatment Notes Treatment Clinical Notes Aug, Low back pain (ICD-10 - M54.5) Aug, Lumbosacral spondylosis without myelopathy (ICD-10 - M47.817) Patient's axial back pain is tolerable since the recent right lumbar facet radiofrequency ablations we performed. We will continues to monitor these symptoms. We will follow up with the patient in 3-6 months. Anatomy of spine discussed in detail with patient in regards to patients condition. Overall, patient believes their pain is reasonably well controlled and she is in agreement with our treatment plan. Aug, Other chronic pain (ICD-10 - G89.29) Aug, Other Above note writ ten by Desiree Cano CMA, Gasoline Attendant. Edited and approved by Dr. Paul Levi MD [employer] Other 11-16-2021 Evaluation note* Encounter Date Diagnosis Assessment Notes Treatment Notes Treatment Clinical Notes Jul, Cough (ICD-10 - R05.9) Jul, Acute non-recurrent maxillary sinusitis (ICD-10 - J01.00) Will tx tody for bacterial sinusitis based on physical exam and duration of symptoms. Take antibiotic as prescribed, complete entire course of therapy even if symptoms resolve. may take OTC medications for cough as needed. Supportive care as directed, push fluids and rest, Tylenol/Motrin as directed for aches/fever, warm moist compress over sinuses several times a day, cool mist humidifier, nasal saline spray as directed. Symptoms should improve in the next 3 days, if symptoms persist follow-up. Immediate eval for warning s/sx as discussed. Patient verbalizes understanding and is agreeable to treatment plan. [employer] Other 10-22-2021 Evaluation note* Encounter Date Diagnosis Assessment Notes Treatment Notes Treatment Clinical Notes Jun, Mild episode of recurrent major depressive disorder (ICD-10 - F33.0) [employer] Other 09-27-2021 Evaluation note* Encounter Date Diagnosis Assessment Notes Treatment Notes Treatment Clinical Notes May, Mild episode of recurrent major depressive disorder (ICD-10 - F33.0) Remains stable on current therapeutic dose. Patient is encouraged to stay active and remain involved. Try to keep themselves busy. Take medication as directed and we will continue to monitor. May, Anxiety (ICD-10 - F41.9) Slightly improved, but worsens as the day goes on, Patient is not suicidal or homicidal at this time. Discussed treatment options with patient today. It was decided in collaboration with the patient to increase Buspar to twice per day for management with anxiety. Medication profile and possible SE reviewed with patient today. Patient to take medication as directed and prescribed. Do not skip/miss doses and do not stop abruptly. Patient is not interested in counseling at this time. Warning s/s reviewed with patient today. Patient to go immediately to the ER should patient experience any of these. Follow up in # month s to assess symptoms and medication effectiveness or sooner if worsening or no change. Patient verbalizes understanding and agrees to treatment plan. [employer] Other 09-23-2021 Evaluation note* Encounter Date Diagnosis Assessment Notes Treatment Notes Treatment Clinical Notes May, Low back pain (ICD-10 - M54.5) We will increase the Celebrex to 100 mg twice daily. Risks and side effects of this medication was discussed in detail with the patient who voiced understanding. Anatomy of spine discussed in detail with patient in regards to patients condition. May, Lumbosacral spondylosis without myelopathy (ICD-10 - M47.817) Patient's main complaint is her right sided axial back pain symptoms. Lumbar MRI was without significant findings. Patient's symptoms appear more consistent with facet arthritis which is supported with imaging. Patient has failed several conservative treatment options and notes most benefit with previous right lumbar facet radiofrequency ablations. Based on these results and returning pain symptoms, patient is a candidate for repeat right lumbar facet radiofrequency ablations which we will proceed with. Risks and benefits of procedure explained to patient; patient verbalizes understanding. Anatomy of spine discussed in detail with patient in regards to patients condition. May, Other chronic pain (ICD-10 - G89.29) May, Other Above note writ ten by Karina BARBOUR, Gasoline Attendant. Edited and approved by Dr. Paul Levi MD [facility] Other Evaluation [facility]No [facility] Other Evaluation noteNo assessment information available [facility] Work Phone: Hisisyt general Narrative - Reported* Type Description Date Medical History Anemia Medical History asthma Medical History kidney stones Medical History fibromyalgia Medical History bipolar Medical History Candidal vulvovaginitis Medical History with history of aborti on Medical History Abnormal Pap smear o f cervix with low-grade squamous intraepithelial lesion Medical History HX of Drug Abuse Surgical History Diagnostic Lap 2002 Surgical History Diagnostic Lap 2007 Surgical History wisdom teeth 2000 Surgical History dilation of urethra-done 2 time s 2008 Surgical History 11/23/10 Surgical History 2019 Surgical History Hysterectomy/ Partial 01/2020 Hospitalization History 2006 Hospitalization History 2006 [employer] Other Hislrxe general Narrative - Reported* Type Description Date Medical History Anemia Medical History asthma Medical History kidney stones Medical History fibromyalgia Medical History bipolar Medical History Candidal vulvovaginitis Medical History with history of aborti on Medical History Abnormal Pap smear o f cervix with low-grade squamous intraepithelial lesion Medical History HX of Drug Abuse Medical History COVID-09/2021 Surgical History Diagnostic Lap 2001 Surgical History Diagnostic Lap 2007 Surgical History wisdom teeth 2000 Surgical History dilation of urethra-done 2 time s 2009 Surgical History 11/23/10 Surgical History 2019 Surgical History Hysterectomy/ Partial 01/2020 Hospitalization History 2006 Hospitalization History 2006 [employer] Other Summary Purpose Family History Relationship Condition Age at Onset Recorded Date/T sandoval Not Specified Chronic obstructive pulmonary disease Un known Hypertension Unknown Diabetes mellitus Unknown Advance Directives Advance Directive Response Recorded Date/ Time Advance Directives No January 06 11:36am Advance Directive Response Recorded Date/ Time Advance Directives No January 06 10:36am Reason for Referral Reason *Waiting for appt evaluate Diagnosis 1 Rectal bleeding (K62 .5) Diagnosis 2 Diarrhea, unspecifie d type (R19.7) Referral Organization [facility] Referring Provider First Name Ragini Referring Provider Last Name Rohrbachejosie Referring Provider Specialty Nurse Mary florenceionejosie Referred Organization [facility] Gastroenterolo gy Referred Provider Halle London Referred Address [address] ,[address] ,[place], [place],[address] Referred Provider Specialty Gastroentero logy Referral Priority Routine General Notes Mony Madrigal 04:39:42 PM >received today, sent P2P Reason *FU 05/03 EM[facility] OF B LE Diagnosis 1 Other spondylosis wi th radiculopathy, lumbar region (M47.26) Referral Organization [facility] Referring Provider First Name Paul Referring Provider Last Name Amita Referring Provider Specialty Pain Medici ne Referred Organization [facility] Referred Provider Cm Terry Referred Address [address] [place], [place],[address] Referred Provider Specialty Neurology Referral Priority Routine General Notes Ragini Rosenberg 09:29:11 AM >attached OTTO referral form, p2p sent out for scheduling Chief Complaint and Reason for Visit Chief Complaint Back Pain N30.01 Chief Complaint N30.01 Back Pain Chief Complaint R50.9 J45.31 R06.2 Back Pain Chief Complaint Back Pain Chief Complaint Back Pain Dysuria Chief Complaint Back Pain r30.0 R19.7 Chief Complaint R19.7 R19.7 K59.00 Additional Source Comments INFORMATION SOURCE (unrecogn ized section and content) DATE CREATED AUTHOR 01/11/2022 [facility] Me dical Specialist DATE CREATED AUTHOR AUTHOR'S ORGANIZ ATION 08/18/2022 [facility] DATE CREATED AUTHOR AUTHOR'S ORGANIZ ATION 06/12/2023 [facility] DATE CREATED AUTHOR AUTHOR'S ORGANIZ ATION 06/21/2023 [facility] REASON FOR VISIT (unrecogniz ed section and content) MRI RESULTS6 month Follow up No InformationDOXIMITY [phone] SORE THROAT, COUGH, EAR PAINPROCEDURE FUREFILLNo InformationDoximity [phone] month Follow upNo InformationBP COVID + issues 3 weeks Out)er sana updoximity [phone] cough, sinus congestion will be coming to office for testingNo InformationRIGHT LUMBAR FACET RFA L3 L4 L5/DSF/U LUMBARRefillsNo Informationdoximity [phone] discuss potassium and vit d levelsFOLLOW UP FROM PROCEDUREUTI/Vaginal bleedingUrine culture resultsrefilllab resultsAppt.GO OVER LABSNo InformationLUMBAR EPIDURAL STEROID INJECTION L4 L5/VWNo InformationF/U LUMBAR EOIDURAL STEROID INJECTIONSINUS CONGESTION, EARACHE, COUGH, CONGESTIONAppt 11-3Jasmynne Miley InformationReschedule appointments3 MONTH F/UXR resultscongestion (possible bronchitis)AntibioticsLUMBAR EPIDURAL STEROID INJECTION L5 S1 /VWMedicine refillF/U LUMBAR EPIDURAL STEROID INJECTIONright side jaw/teeth painRIGHT LUMBAR FACET JOINT RFA L4 L5 /VWKIDNEY STONE, KIDNEY INFECTION OR UTIKIDNEY STONE, KIDNEY INFECTION OR UTIclyde uc follow up (patient is aware of location)No Informationx-ra resultsxray reportNo InformationLab resultsNo InformationPatient is here for diarrheanew orderLUMBAR PAINRefillPatient is here for a 6 week follow up for diarrheaConsult noteLUMBAR EPIDURAL STEROID INJECTION /VWCOUGH, CONGESTION, HEADACHE X11 DAYSNo InformationCOVID +No Information Care Teams (unrecognized sec tion and content) Team Status: Active Member Role Status Dates Ragini Riley APRN TRANSMISSION ENGINEER-C Primary Care Provider Active Team Status: Inactive Member Role Status Dates Ragini Riley APRN NP-Patric Primary Care Provider Active Paul Levi MD Attending Provider Active Team Status: Inactive Member Role Status Dates Ragini Riley APRN TRANSMISSION ENGINEER-Patric Primary Care Provider, Attending Provider Active Team Status: Inactive Member Role Status Dates ANGEL Pedraza Attending Provider Active Team Status: Inactive Member Role Status Dates ANGEL Pedraza Attending Provider Active NON STAFF Primary Care Provider Active Team Status: Inactive Member Role Status Dates Ragini Riley APRN TRANSMISSION ENGINEER-Patric Primary Care Provider Active Luiig Schaefer APRN Attending Provider Active Team Status: Inactive Member Role Status Dates Luigi Schaefer APRN Attending Provider Active Ragini Riley APRN TRANSMISSION ENGINEER-C Primary Care Provider Active Goals (unrecognized section and content) Goals may be documented in a n alternate section FOR RECORDS PERTAINING TO PATIENTS WHO ARE OR HAVE BEEN ENROLLED IN A CHEMICAL DEPENDENCY/SUBSTANCEABUSE PROGRAM, SOME INFORMATION MAY BE OMITTED. This clinical summary was aggregated from multiple sources. Caution should be exercised in using it in the provision of clinical care. This summary normalizes information from multiple sources, and as a consequence, information in this document may materially change the coding, format and clinical context of patient data. In addition, data may be omitted in some cases. CLINICAL DECISIONS SHOULD BE BASED ON THE PRIMARY CLINICAL RECORDS. [facility] [employer], [facility]. provides no warranty or guarantee of the accuracy or completeness of information in this document.
== END 2023-08-29 08:15 | disposition home or self-care (01) ==
PROVIDERS: Emergency Provider Emergency Medicine; PCP Nurse Practitioner Family
DX: K02.9 Dental caries, unspecified (principal); K08.89 Other specified disorders of teeth and supporting structures; Z79.899 Other long term (current) drug therapy; F17.210 Nicotine dependence, cigarettes, uncomplicated
CPT/HCPCS: 99283

== ENCOUNTER 2024-03-23 11:44 | Inpatient (IN) | payer OTHER, SELFPAY ==
[2024-03-23] VITALS (8 sets, daily range): BP systolic 93–133; BP diastolic 58–81; PULSE 97–130; TEMP 36.2–39.3; O2SAT 96–100; BMI 25.1; BMI 24.3
--- NOTE | 2024-03-23 12:14 | CT_ITS ---
[address] [address] Patient Name: MARIE Costa [facility] MRN: [id number] date: 1985 Sex: F Assigned Patient Location: ER Current Patient Location: ER Accession/Order Number: [id number] Exam Date: 03/23/2024 12:58 Report Date: 03/23/2024 13:22 At the request of: ERIBERTO LANDON Procedure: CT abdomen pelvis w con EXAMINATION: CT abdomen pelvis w con HISTORY: flank pain/ lower abd pain COMPARISON: No relevant comparison available. TECHNIQUE: CT images were created with IV contrast. Axial, Coronal, and Sagittal images. Dose reduction techniques were achieved by using automated exposure control and/or adjustment of mA and/or kV according to patient size and/or use of iterative reconstruction technique. FINDINGS: LUNG BASES: No visible pulmonary or pleural disease. LIVER: Focal hypodensity at the falciform ligament likely representing fatty infiltration BILIARY: No visible dilatation or calcification. PANCREAS: No lesion, fluid collection, ductal dilatation, or atrophy. SPLEEN: No enlargement or focal lesion. ADRENALS: Focal area of hypodensity in the left kidney measuring 2.6 cm. No hydronephrosis or definite obstructing stone KIDNEYS: No mass, obstruction, or calcification. BOWEL/MESENTERY: No visible mass, obstruction, or bowel wall thickening. Normal appendix AORTA/VASCULAR: No aneurysm or dissection. RETROPERITONEUM: No mass or adenopathy. LYMPH NODES: No adenopathy. URINARY BLADDER: No visible focal wall thickening, lesion, or calculus. PELVIC ORGANS: Hysterectomy ABDOMINAL WALL: No mass or hernia. BONES: No bony lesion or fracture. OTHER: Negative. CT/CT abdomen pelvis w con IMPRESSION: Focal hypodensity with delayed cortical enhancement left lateral upper to mid pole kidney. Consider pyelonephritis Electronically authenticated by: CHRIST GARCIA Date: 03/23/2024 13:22
[2024-03-23] MEDS: 0.9 % SODIUM CHLORIDE 1,000 ML 999 ML IV ×2 (12:24→13:45)
[2024-03-23] MEDS: KETOROLAC TROMETHAMINE 30 MG/ML VIAL 15 MG IVP (12:24)
[2024-03-23] MEDS: MORPHINE SULFATE 4 MG/ML VIAL IV (12:25)
[2024-03-23] MEDS: ONDANSETRON PF 4 MG/2 ML VIAL IV ×2 (12:25→21:39)
[2024-03-23 12:37] LABS: Bilirubin Urine NEGATIVE (NEGATIVE); Blood Urine LARGE (NEGATIVE); Clarity Urine CLOUDY (CLEAR); Color Urine LT. YELLOW (YELLOW); Glucose Urine UA NEGATIVE (NEGATIVE); Ketones Urine TRACE mg/dL (NEGATIVE); Leukocyte Esterase Urine MODERATE (NEGATIVE); Nitrite Urine POSITIVE (NEGATIVE); Protein Urine >=300 mg/dL (NEG/TRACE)
[2024-03-23 12:43] LABS: Hematocrit 38.5 % (36.0-48.0); Hemoglobin 12.7 g/dL (12.0-16.0); Mean Corpuscular Hemoglobin 30.8 pg (26.7-34.0); Mean Corpuscular Volume 93.4 fL (81.0-99.0); Platelet Count 234 10^3/uL (150-450); Red Blood Count 4.12 10^6/uL (4.20-5.40); White Blood Count 23.3 10^3/uL (4.0-11.0)
[2024-03-23 12:48] LABS: Urine Microscopic Indicated YES
[2024-03-23 12:56] LABS: Bacteria Urine MODERATE #/HPF (NONE SEEN); Mucus Urine MODERATE (NONE SEEN); Squamous Epithelial Cell Urine FEW #/LPF (NONE/RARE); Transitional Epi Cells Urine RARE #/LPF (NONE SEEN); WBC Urine >100 #/HPF (NONE SEEN)
[2024-03-23 12:57] LABS: Cast Seen? NONE SEEN #/LPF (NONE SEEN); Crystals Seen? None Seen #/HPF (None Seen); Urine Culture Indicated YES
[2024-03-23 13:01] LABS: Alanine Aminotransferase 19 U/L (14-59); Albumin Globulin Ratio 0.8; Albumin Level 3.5 g/dL (3.4-5.0); Alkaline Phosphatase 113 U/L (46-116); Anion Gap 17.1; Aspartate Amino Transferase 14 U/L (15-37); BUN Creatinine Ratio 10.9; Bilirubin Total 0.7 mg/dL (0.2-1.0); Calcium 8.9 mg/dL (8.5-10.1); Carbon Dioxide 24.4 mmol/L (21.0-32.0); Chloride 95 mmol/L (98-107); Estimated GFR (African America >60 (>=60); Estimated GFR (Non-African Ame >60 (>=60); Globulin 4.3 g/dL; Glucose 118 mg/dL (74-106); Potassium 3.5 mmol/L (3.5-5.1); Sodium 133 mmol/L (136-145); Total Protein 7.8 g/dL (6.4-8.2)
[2024-03-23 13:13] LABS: Segmented Neut Absolute Manual 20.27 10^3/uL (1.4-6.5)
[2024-03-23 13:14] LABS: Lymphocytes Absolute Manual 1.16 10^3/uL (1.20-3.80); Monocytes Absolute Manual 1.86 10^3/uL (0.30-0.80)
[2024-03-23 13:37] LABS: Lactate/Lactic Acid 3.9 mmol/L (0.4-2.0)
[2024-03-23] MEDS: CEFTRIAXONE 1,000 MG in 0.9 % SODIUM CHLORIDE 50 ML 100 MG IV (13:42)
--- NOTE | 2024-03-23 14:11 | ED.GENADUL1 ---
HPI HPI - General Adult General Chief complaint: Back Pain/Injury Stated complaint: LEFT FLANK PAIN Time Seen by Provider: 03/23/24 11:55 Source: patient Mode of arrival: walk-in History of Present Illness HPI narrative: 38-year-old female to the emergency department chief complaint of left flank pain. Patient reports it has been ongoing for the last 2 weeks. Started with dysuria urgency frequency and some blood in the urine. Has progressed to fever, chills and left flank pain. She reports severe lethargy and fatigue that began last night. She reports headache, fever overnight. She has a history of kidney stones. She denies . Has history of hysterectomy Related Data Home Medications ?Medication ?Instructions ?Recorded ?Confirmed tizanidine 2 mg capsule 2 mg PO Q6H PRN muscle spasticity 04/26/23 03/23/24 venlafaxine 37.5 mg tablet 37.5 mg PO DAILY 04/26/23 04/26/23 venlafaxine 37.5 mg 37.5 mg PO DAILY 03/23/24 03/23/24 capsule,extended release 24 hr Allergies Allergy/AdvReac Type Severity Reaction Status Date / Time pregabalin [From Lyrica] Allergy Verified 04/26/23 03:06 topiramate [From Topamax] Allergy Verified 04/26/23 03:06 Opioid HPI Opioid Management Most Recent Opioid Data: Last Pain Scale 5 03/23/24 13:18 Last ED Pain Assessment 03/23/24 13:18 Last MAR Pain Assessment 03/23/24 12:25 Last ORT Total Score 5 03/23/24 14:35 Last ORT Risk Category Moderate Risk 03/23/24 14:35 Review of Systems ROS Status of ROS 10 or more systems reviewed and unremarkable except as noted in history and below [facility] Social History Smoking status: Current every day smoker Exam Narrative Exam Narrative: VITALS: I have reviewed the triage vital signs. GENERAL: Well developed, well appearing adult in no acute distress. NEURO: Alert and oriented. Moves all extremities. Face is symmetric and expressive. EYES: PERRL. No scleral icterus or conjunctival injection. No discharge. HENT: Normocephalic, atraumatic. Hearing is grossly intact. Nares grossly patent and without discharge. Mucous membranes moist. NECK: No JVD. Patient moves neck without restriction. CARDIO: Rhythm regular. Normal rate. No murmur, rub, or gallop. Pulses equal bilaterally in the upper and lower extremity. No lower extremity edema. PULM: Lungs clear to auscultation in all flores. No wheezes, rales, or rhonchi. No conversational dyspnea. No splinting, stridor, or accessory muscle use. GI/: Abdomen is soft and non-tender. Normoactive bowel sounds. Left flank tenderness. EXTREMITIES: Symmetric muscle bulk. No joint swelling. No clubbing, cyanosis, or deformity. SKIN: Warm and dry. Normal turgor. No rash or lesions appreciated. PSYCH: Mood, affect, and interaction is appropriate to the setting. Constitutional Vital Signs, click to edit/add: Last Vital Signs Temp 98.4 F 03/23/24 11:51 Pulse 108 H 03/23/24 13:16 Resp 16 03/23/24 13:16 BP 120/63 03/23/24 13:16 Pulse Ox 99 03/23/24 13:16 O2 Del Method Room Air 03/23/24 13:16 Course Vital Signs Vital signs: Vital Signs Temperature 98.4 F 03/23/24 11:51 Pulse Rate 111 H 03/23/24 11:51 Respiratory Rate 18 03/23/24 11:51 Blood Pressure 103/58 03/23/24 11:51 Pulse Oximetry 99 03/23/24 11:51 Oxygen Delivery Method Room Air 03/23/24 11:51 Temperature 98.4 F 03/23/24 11:51 Pulse Rate 108 H 03/23/24 13:16 Respiratory Rate 16 03/23/24 13:16 Blood Pressure 120/63 03/23/24 13:16 Pulse Oximetry 99 03/23/24 13:16 Oxygen Delivery Method Room Air 03/23/24 13:16 Medical Decision Making MDM Narrative Medical decision making narrative: 38-year-old female to the emergency department with flank pain, fever, chills. She is tachycardic, otherwise stable vitals. Patient is afebrile. CT scan is ordered to evaluate for kidney stone. Basic lab work and urinalysis. Morphine, Zofran, Toradol, fluids ordered for symptom control. Patient agrees with this plan. Patient has a significant leukocytosis. Chemistry without major abnormality. Blood cultures and lactate were ordered. CT scan concerning for pyelonephritis. Her urinalysis is concerning for acute urinary tract infection. She is SIRS positive with her leukocytosis and tachycardia. Source is pyelonephritis Rocephin was ordered. Blood cultures and lactate ordered, her lactate was significantly elevated. She does not meet the criteria for septic shock. Sepsis fluid bolus is not indicated. Tissue perfusion exam was performed. Case discussed with the hospitalist who agreed admit this patient to his service. Medical Records Medical records reviewed: Yes I reviewed the patient's medical records Lab Data Lab results reviewed: Yes I reviewed the patient's lab results Labs: Lab Results 03/23/24 03/23/24 Range/Units 11:45 12:00 WBC 23.3 H (4.0-11.0) 10^3/uL RBC 4.12 L (4.20-5.40) 10^6/uL Hgb 12.7 (12.0-16.0) g/dL Hct 38.5 (36.0-48.0) % MCV 93.4 (81.0-99.0) fL MCH 30.8 (26.7-34.0) pg MCHC 33.0 (29.9-35.2) g/dL RDW 12.0 (11.0-15.0) % Plt Count 234 (150-450) 10^3/uL MPV 10.0 (9.5-13.5) fL Seg Neuts % (Manual) 87.0 Lymphocytes % (Manual) 5.0 L (20.5-60.0) % Monocytes % (Manual) 8.0 (1.7-12.0) % Eosinophils % (Manual) 0.0 L (0.9-7.0) % Basophils % (Manual) 0.0 L (0.2-2.0) % Neutrophils # (Manual) 20.27 H (1.4-6.5) 10^3/uL Lymphocytes # (Manual) 1.16 L (1.20-3.80) 10^3/uL Monocytes # (Manual) 1.86 H (0.30-0.80) 10^3/uL Eosinophils # (Manual) 0.00 (0.00-0.70) 10^3/uL Basophils # (Manual) 0.00 (0.00-0.10) 10^3/uL Sodium 133 L (136-145) mmol/L Potassium 3.5 (3.5-5.1) mmol/L Chloride 95 L (98-107) mmol/L Carbon Dioxide 24.4 (21.0-32.0) mmol/L Anion Gap 17.1 BUN 11.0 (7.0-18.0) mg/dL Creatinine 1.01 (0.55-1.02) mg/dL Est GFR ( Amer) >60 (>=60) Est GFR (Non-Af Amer) >60 (>=60) BUN/Creatinine Ratio 10.9 Glucose 118 H (74-106) mg/dL Lactate 3.9 H* (0.4-2.0) mmol/L Calcium 8.9 (8.5-10.1) mg/dL Total Bilirubin 0.7 (0.2-1.0) mg/dL AST 14 L (15-37) U/L ALT 19 (14-59) U/L Alkaline Phosphatase 113 (46-116) U/L Total Protein 7.8 (6.4-8.2) g/dL Albumin 3.5 (3.4-5.0) g/dL Globulin 4.3 g/dL Albumin/Globulin Ratio 0.8 Lipase 13.0 L (16.0-77.0) U/L Urine Color Lt. yellow (YELLOW) Urine Clarity Cloudy A (CLEAR) Urine pH 6.0 (5.0-9.0) Ur Specific [place] 1.020 (1.005-1.025) Urine Protein >=300 A (NEG/TRACE) mg/dL Urine Glucose (UA) Negative (NEGATIVE) mg/dL Urine Ketones Trace A (NEGATIVE) mg/dL Urine Occult Blood Large A (NEGATIVE) Urine Nitrite Positive A (NEGATIVE) Urine Bilirubin Negative (NEGATIVE) Urine Urobilinogen 1.0 (0.2-1.0) EU/dL Ur Leukocyte Esterase Moderate A (NEGATIVE) Urine RBC 2-5 A (0-2) #/HPF Urine WBC >100 A (NONE SEEN) #/HPF Ur Squamous Epith Cells Few A (NONE/RARE) #/LPF Ur Transition Epith Cell Rare A (NONE SEEN) #/LPF Urine Crystals None seen (None Seen) #/HPF Urine Bacteria Moderate A (NONE SEEN) #/HPF Urine Casts None seen (NONE SEEN) #/LPF Urine Mucus Moderate A (NONE SEEN) Ur Culture Indicated? Yes Imaging Data CT scan - abdomen: Attestation: I have reviewed the pertinent imaging results. Radiologist's impression: ITS Impressions Abdomen/Pelvis CT 03/23/24 12:14 IMPRESSION: Focal hypodensity with delayed cortical enhancement left lateral upper to mid pole kidney. Consider pyelonephritis Electronically authenticated by: CHRIST GARCIA Date: 03/23/2024 13:22 Critical Care Time Critical Care Time Critical Care Time: Yes Total Critical Care Time: 35 Attestation: Critical Care Procedure Note Authorized and Performed by: Cornell Tabares DO Total critical care time: 35 min Due to a high probability of clinically significant, life threatening deterioration, the patient required my highest level of preparedness to intervene emergently and I personally spent this critical care time directly and personally managing the patient. This critical care time included obtaining a history; examining the patient; pulse oximetry; ordering and review of studies; arranging urgent treatment with development of a management plan; evaluation of patient's response to treatment; frequent reassessment; and, discussions with other providers. This critical care time was performed to assess and manage the high probability of imminent, life-threatening deterioration that could result in multi-organ failure. It was exclusive of separately billable procedures and treating other patients and teaching time. Please see MDM section and the rest of the note for further information on patient assessment and treatment. Discharge Plan Discharge Chief Complaint: Back Pain/Injury Clinical Impression: Sepsis, Pyelonephritis Patient Disposition: Admitted As Inpatient Time of Disposition Decision: 14:35 Condition: Fair Discharge Date/Time: 03/23/24 14:34
--- NOTE | 2024-03-23 14:50 | P.HP_ITS ---
HPI H&P: HPI History of Present Illness Chief complaint: LEFT FLANK PAIN, SEPSIS, PYELONEPHRITIS Narrative: Patient with a history of nephrolithiasis presented to the emergency room with increasing flank pain. Suspect that she had a kidney stone. Evaluation in the emergency room found no kidney stone or pyelonephritis, patient with significant fever, she has had the symptoms for the last 3 days. When I saw the patient up on the medical surgical floor, she was resting in bed. Uncomfortable from a just general fatigue and somewhat with the pain standpoint. Denies chest pain or shortness of breath, just had a recent spike in her fevers but she states she felt worse. Opioid HPI Opioid Management Most Recent Pain and Opioid Data: Last Pain Scale 9 03/23/24 15:00 Last Pain Assessment 03/23/24 18:00 Last ED Pain Assessment 03/23/24 13:18 Last MAR Pain Assessment 03/23/24 18:12 Last ORT Total Score 5 03/23/24 14:35 Last ORT Risk Category Moderate Risk 03/23/24 14:35 PFSH PFSH Medical History (Updated 03/23/24 @ 14:49 by Micheline Delgadillo) Depression ?F32.A - Depression, unspecified (ICD-10) Social History Smoking status: Current every day smoker Highest level of school completed/degree received: high school graduate Meds Home Medications and Allergies Home Medications ?Medication ?Instructions ?Recorded ?Confirmed ?Type tizanidine 2 mg capsule 2 mg PO Q6H PRN muscle spasticity 04/26/23 03/23/24 History [id number] 2 cap PO TIDWM 03/23/24 03/23/24 History 36,000-114,000-180,000 unit capsule,delay rel (Creon) venlafaxine 37.5 mg 37.5 mg PO DAILY 03/23/24 03/23/24 History capsule,extended release 24 hr Allergies Allergy/AdvReac Type Severity Reaction Status Date / Time pregabalin [From Lyrica] Allergy Verified 04/26/23 03:06 topiramate [From Topamax] Allergy Verified 04/26/23 03:06 Exam Constitutional Vital Signs, click to edit/add: Last Vital Signs Temp 98.4 F 03/23/24 11:51 Pulse 100 H 03/23/24 14:14 Resp 16 03/23/24 14:14 BP 131/81 03/23/24 14:14 Pulse Ox 100 03/23/24 14:14 O2 Del Method Room Air 03/23/24 14:35 Documenting provider has reviewed patient's vital signs: yes Common normals: apparent distress (Looks very fatigued, uncomfortable secondary to pain) Chest Common normals: inspection of chest normal Respiratory Common normals: normal respiratory effort, no retractions and clear to auscultation bilaterally Cardio Common normals: regular rate and regular rhythm GI Common normals: Normal to inspection, nondistended, normoactive bowel sounds present and soft to palpation; tender (Left-sided CVA tenderness) Results Labs Labs: Short CBC 03/23/24 Range/Units 12:00 WBC 23.3 H (4.0-11.0) 10^3/uL Hgb 12.7 (12.0-16.0) g/dL Hct 38.5 (36.0-48.0) % Plt Count 234 (150-450) 10^3/uL BMP 03/23/24 12:00 Sodium 133 L Potassium 3.5 Chloride 95 L Carbon Dioxide 24.4 BUN 11.0 Creatinine 1.01 Glucose 118 H Calcium 8.9 Liver Function 03/23/24 Range/Units 12:00 Total Bilirubin 0.7 (0.2-1.0) mg/dL AST 14 L (15-37) U/L ALT 19 (14-59) U/L Alkaline Phosphatase 113 (46-116) U/L Albumin 3.5 (3.4-5.0) g/dL Urine 03/23/24 Range/Units 11:45 Urine Color Lt. yellow (YELLOW) Urine Clarity Cloudy A (CLEAR) Urine pH 6.0 (5.0-9.0) Ur Specific [place] 1.020 (1.005-1.025) Urine Protein >=300 A (NEG/TRACE) mg/dL Urine Glucose (UA) Negative (NEGATIVE) mg/dL Assessment and Plan Assessment and Plan (1) Pyelonephritis: Plan Admission findings: Fever, sinus tachycardia, leukocytosis, positive lactic acidosis secondary to acute pyelonephritis resulting in severe sepsis.. Blood cultures, urine culture, IV antibiotics. Fluid resuscitation Hyponatremia secondary to dehydration secondary to the above-monitor daily Heartburn-add IV Protonix Hyperglycemia in a nondiabetic-monitor daily Depression-continue with home medications Admission status: Patient was a 3-day history of progressive flank pain developing into fever-significant leukocytosis and lactic acidosis resulting from severe sepsis. Medically necessary treatment will span 2 midnights patient high risk for sepsis with shock. Inpatient status.
[2024-03-23 16:05] LABS: Lactate/Lactic Acid 2.6 mmol/L (0.4-2.0)
[2024-03-23] MEDS: LEVOFLOXACIN IN DEXTROSE 5 % 750 MG/150 ML IV.SOLN 100 MG IV (16:11)
[2024-03-23] MEDS: 0.9 % SODIUM CHLORIDE 1,000 ML 125 ML IV (16:11)
[2024-03-23] MEDS: ACETAMINOPHEN 500 MG TABLET 1000 MG PO (16:55)
[2024-03-23 18:20] LABS: Lactate/Lactic Acid 1.6 mmol/L (0.4-2.0)
[2024-03-23] MEDS: TIZANIDINE HCL 4 MG TABLET 2 MG PO (21:39)
[2024-03-23] MEDS: PANTOPRAZOLE SODIUM 40 MG VIAL IV (21:39)
[2024-03-23] MEDS: KETOROLAC TROMETHAMINE 30 MG/ML VIAL IVP (21:39)
[2024-03-23] MEDS: VENLAFAXINE HCL ER 37.5 MG CAPSULE PO (21:39)
[2024-03-23] MEDS: HYOSCYAMINE SULFATE 0.125 MG TAB.SUBL SL (21:39)
[2024-03-24] VITALS (7 sets, daily range): BP systolic 77–124; BP diastolic 46–77; PULSE 65–87; TEMP 36.4–36.8; O2SAT 93–98
[2024-03-24] MEDS: 0.9 % SODIUM CHLORIDE 1,000 ML 125 ML IV ×3 (00:42→17:58)
[2024-03-24 01:20] LABS: A. calcoaceticus-baumannii Cpx NOT DETECTED (NOT DETECTE); Bacteroides fragilis NOT DETECTED (NOT DETECTE); Candida albicans NOT DETECTED (NOT DETECTE); Candida auris NOT DETECTED (NOT DETECTE); Candida glabrata NOT DETECTED (NOT DETECTE); Candida krusei NOT DETECTED (NOT DETECTE); Candida parapsilosis NOT DETECTED (NOT DETECTE); Candida tropicalis NOT DETECTED (NOT DETECTE); Cryptococcus neoformans/gattii NOT DETECTED (NOT DETECTE); Enterobacter cloacae complex NOT DETECTED (NOT DETECTE); Enterococcus faecalis NOT DETECTED (NOT DETECTE); Enterococcus faecium NOT DETECTED (NOT DETECTE); Haemophilus influenzae NOT DETECTED (NOT DETECTE); Klebsiella aerogenes NOT DETECTED (NOT DETECTE); Klebsiella pneumoniae group NOT DETECTED (NOT DETECTE); Listeria monocytogenes NOT DETECTED (NOT DETECTE); Neisseria meningitidis NOT DETECTED (NOT DETECTE); Proteus spp. NOT DETECTED (NOT DETECTE); Pseudomonas aeruginosa NOT DETECTED (NOT DETECTE); Salmonella spp. NOT DETECTED (NOT DETECTE); Serratia marcescens NOT DETECTED (NOT DETECTE); Staphylococcus epidermidis NOT DETECTED (NOT DETECTE); Staphylococcus lugdunensis NOT DETECTED (NOT DETECTE); Staphylococcus spp. NOT DETECTED (NOT DETECTE); Stenotrophomonas maltophilia NOT DETECTED (NOT DETECTE); Streptococcus agalactiae NOT DETECTED (NOT DETECTE); Streptococcus pneumoniae NOT DETECTED (NOT DETECTE); Streptococcus pyogenes NOT DETECTED (NOT DETECTE); Streptococcus spp. NOT DETECTED (NOT DETECTE)
[2024-03-24 02:40] LABS: CTX-M NOT DETECTED (NOT DETECTE); IMP NOT DETECTED (NOT DETECTE); KPC NOT DETECTED (NOT DETECTE); mcr-1 NOT DETECTED (NOT DETECTE)
[2024-03-24 02:41] LABS: NDM NOT DETECTED (NOT DETECTE); OXA-48-like NOT DETECTED (NOT DETECTE); Source BLOOD; VIM NOT DETECTED (NOT DETECTE)
[2024-03-24 02:44] LABS: Enterobacterales DETECTED (NOT DETECTE)
[2024-03-24] MEDS: 0.9 % SODIUM CHLORIDE 1,000 ML 500 ML IV (04:05)
[2024-03-24] MEDS: HYOSCYAMINE SULFATE 0.125 MG TAB.SUBL SL ×2 (04:33→15:24)
[2024-03-24] MEDS: KETOROLAC TROMETHAMINE 30 MG/ML VIAL IVP ×3 (04:33→22:10)
[2024-03-24 06:11] LABS: Basophils Percent Auto 0.2 % (0.2-2.0); Eosinophils Percent Auto 0.1 % (0.9-7.0); Hematocrit 29.7 % (36.0-48.0); Hemoglobin 9.2 g/dL (12.0-16.0); Immature Granulocytes Abs Auto 0.15 10^3/uL (0.00-0.03); Immature Granulocytes Pct Auto 0.9 % (0.0-0.5); Mean Corpuscular Hemoglobin 30.2 pg (26.7-34.0); Mean Corpuscular Volume 97.4 fL (81.0-99.0); Mean Platelet Volume 10.1 fL (9.5-13.5); Monocytes Absolute Auto 1.6 10^3/uL (0.3-0.8); Monocytes Percent Auto 9.7 % (1.7-12.0); Neutrophils Absolute Auto 12.9 10^3/uL (1.4-6.5); Neutrophils Percent Auto 77.1 % (43.0-75.0); Platelet Count 153 10^3/uL (150-450); Red Blood Count 3.05 10^6/uL (4.20-5.40); Red Cell Distribution Width 12.2 % (11.0-15.0); White Blood Count 16.8 10^3/uL (4.0-11.0)
[2024-03-24 06:21] LABS: Alanine Aminotransferase 29 U/L (14-59); Albumin Globulin Ratio 0.7; Albumin Level 2.2 g/dL (3.4-5.0); Alkaline Phosphatase 104 U/L (46-116); Aspartate Amino Transferase 32 U/L (15-37); BUN Creatinine Ratio 16.4; Bilirubin Total 0.8 mg/dL (0.2-1.0); Calcium 7.3 mg/dL (8.5-10.1); Carbon Dioxide 20.8 mmol/L (21.0-32.0); Chloride 106 mmol/L (98-107); Estimated GFR (African America >60 (>=60); Estimated GFR (Non-African Ame >60 (>=60); Glucose 96 mg/dL (74-106); Potassium 3.8 mmol/L (3.5-5.1); Sodium 138 mmol/L (136-145); Total Protein 5.2 g/dL (6.4-8.2)
--- NOTE | 2024-03-24 08:31 | P.PN_ITS ---
Progress Note: Subjective Subjective Interval history: Better than the previous day, still with significant myalgias. Exam Constitutional Vital Signs, click to edit/add: Last Vital Signs Temp 97.5 F L 03/24/24 07:53 Pulse 65 03/24/24 07:53 Resp 16 03/24/24 07:53 BP 89/49 03/24/24 07:53 Pulse Ox 93 L 03/24/24 07:53 O2 Del Method Room Air 03/24/24 07:53 O2 Flow Rate 2 03/24/24 00:00 Documenting provider has reviewed patient's vital signs: yes Common normals: apparent distress (looks very fatigued but improved from previous day) Chest Common normals: inspection of chest normal Respiratory Common normals: normal respiratory effort, no retractions and clear to auscultation bilaterally Cardio Common normals: regular rate and regular rhythm GI Common normals: Normal to inspection, nondistended, normoactive bowel sounds present and soft to palpation; tender (Left-sided CVA tenderness) Progress Note: Objective Labs Labs: Short CBC 03/23/24 03/24/24 Range/Units 12:00 05:25 WBC 23.3 H 16.8 H (4.0-11.0) 10^3/uL Hgb 12.7 9.2 L (12.0-16.0) g/dL Hct 38.5 29.7 L (36.0-48.0) % Plt Count 234 153 (150-450) 10^3/uL BMP 03/23/24 03/24/24 12:00 05:25 Sodium 133 L 138 Potassium 3.5 3.8 Chloride 95 L 106 Carbon Dioxide 24.4 20.8 L BUN 11.0 12.0 Creatinine 1.01 0.73 Glucose 118 H 96 Calcium 8.9 7.3 L Liver Function 03/23/24 03/24/24 Range/Units 12:00 05:25 Total Bilirubin 0.7 0.8 (0.2-1.0) mg/dL AST 14 L 32 (15-37) U/L ALT 19 29 (14-59) U/L Alkaline Phosphatase 113 104 (46-116) U/L Albumin 3.5 2.2 L (3.4-5.0) g/dL Urine 03/23/24 Range/Units 11:45 Urine Color Lt. yellow (YELLOW) Urine Clarity Cloudy A (CLEAR) Urine pH 6.0 (5.0-9.0) Ur Specific [place] 1.020 (1.005-1.025) Urine Protein >=300 A (NEG/TRACE) mg/dL Urine Glucose (UA) Negative (NEGATIVE) mg/dL Progress Note: A&P Assessment and Plan (1) Pyelonephritis: Plan Admission findings: Fever, sinus tachycardia, leukocytosis, positive lactic acidosis secondary to acute pyelonephritis resulting in gram-negative severe sepsis due to E. coli.. Blood culture positive for what is listed as E. coli and Enterobacter, based on history this is likely just the E. coli. Continue with current antibiotics his white blood cell count is improving. With pyelonephritis with positive blood culture and severe sepsis she needs at least 2 more days of IV antibiotics. Hyponatremia secondary to dehydration secondary to the above-improved to baseline today. Heartburn-add IV Protonix Hyperglycemia in a nondiabetic-monitor daily Depression-continue with home medications Admission status: Patient was a 3-day history of progressive flank pain developing into fever-significant leukocytosis and lactic acidosis resulting from severe sepsis. Medically necessary treatment will span 2 midnights patient high risk for sepsis with shock. Inpatient status due to positive blood cultures for E. coli so gram-negative severe sepsis. ?
--- NOTE | 2024-03-24 08:38 | CM.NOTE ---
Rounds made with Dr. Celeste. Dr. Celeste encouraged to move in room. No plan for discharge today.
[2024-03-24] MEDS: CEFTRIAXONE 1,000 MG in 0.9 % SODIUM CHLORIDE 50 ML 100 MG IV (09:27)
[2024-03-24] MEDS: LIPASE PROTEASE AMYLASE PO ×2 (09:28→16:39)
[2024-03-24] MEDS: [UNRECOGNIZED DRUG - OTHER] PO ×2 (09:28→16:39)
[2024-03-24] MEDS: ACETAMINOPHEN 500 MG TABLET 1000 MG PO ×2 (09:29→20:16)
[2024-03-24 12:08] LABS: Internal Control Within Normal Limits; Occult Blood Negative
[2024-03-24] MEDS: LEVOFLOXACIN IN DEXTROSE 5 % 750 MG/150 ML IV.SOLN 100 MG IV (16:38)
[2024-03-24] MEDS: ONDANSETRON PF 4 MG/2 ML VIAL IV (17:58)
[2024-03-24] MEDS: VENLAFAXINE HCL ER 37.5 MG CAPSULE PO (22:10)
[2024-03-24] MEDS: TIZANIDINE HCL 4 MG TABLET 2 MG PO (22:10)
[2024-03-24] MEDS: PANTOPRAZOLE SODIUM 40 MG VIAL IV (22:10)
[2024-03-25] VITALS: BP 90/56; PULSE 67; TEMP 36.7; O2SAT 92
[2024-03-25] MEDS: 0.9 % SODIUM CHLORIDE 1,000 ML 125 ML IV (02:17)
[2024-03-25 04:00] VITALS: BP 125/81; PULSE 76; TEMP 36.6; O2SAT 95
[2024-03-25] MEDS: KETOROLAC TROMETHAMINE 30 MG/ML VIAL IVP (04:58)
[2024-03-25 05:39] LABS: Basophils Percent Auto 0.3 % (0.2-2.0); Eosinophils Percent Auto 0.4 % (0.9-7.0); Hematocrit 31.7 % (36.0-48.0); Hemoglobin 9.7 g/dL (12.0-16.0); Immature Granulocytes Abs Auto 0.08 10^3/uL (0.00-0.03); Immature Granulocytes Pct Auto 0.7 % (0.0-0.5); Lymphocytes Absolute Auto 1.6 10^3/uL (1.2-3.8); Lymphocytes Percent Auto 14.4 % (20.5-60.0); Mean Corpuscular HGB Conc 30.6 g/dL (29.9-35.2); Mean Corpuscular Hemoglobin 30.2 pg (26.7-34.0); Mean Corpuscular Volume 98.8 fL (81.0-99.0); Mean Platelet Volume 9.9 fL (9.5-13.5); Monocytes Absolute Auto 1.2 10^3/uL (0.3-0.8); Monocytes Percent Auto 10.7 % (1.7-12.0); Neutrophils Percent Auto 73.5 % (43.0-75.0); Platelet Count 208 10^3/uL (150-450); Red Blood Count 3.21 10^6/uL (4.20-5.40); Red Cell Distribution Width 12.4 % (11.0-15.0); White Blood Count 10.9 10^3/uL (4.0-11.0)
[2024-03-25 05:54] LABS: Alanine Aminotransferase 39 U/L (14-59); Albumin Globulin Ratio 0.6; Albumin Level 2.2 g/dL (3.4-5.0); Alkaline Phosphatase 125 U/L (46-116); Anion Gap 9.4; Aspartate Amino Transferase 26 U/L (15-37); BUN Creatinine Ratio 12.2; Bilirubin Total 0.4 mg/dL (0.2-1.0); Calcium 7.7 mg/dL (8.5-10.1); Carbon Dioxide 23.9 mmol/L (21.0-32.0); Chloride 110 mmol/L (98-107); Estimated GFR (African America >60 (>=60); Estimated GFR (Non-African Ame >60 (>=60); Globulin 3.5 g/dL; Glucose 83 mg/dL (74-106); Potassium 3.3 mmol/L (3.5-5.1); Sodium 140 mmol/L (136-145); Total Protein 5.7 g/dL (6.4-8.2)
[2024-03-25 07:21] VITALS: BP 145/82; PULSE 79; TEMP 36.8; O2SAT 96
[2024-03-25 07:29] VITALS: PULSE 79
--- NOTE | 2024-03-25 08:35 | CM.NOTE ---
Rounds made with Dr. Celeste. Plan for discharge today after IV antibiotics and tolerates diet. Understanding verbalized.
[2024-03-25] MEDS: [UNRECOGNIZED DRUG - OTHER] PO (08:42)
[2024-03-25] MEDS: LIPASE PROTEASE AMYLASE PO (08:42)
--- NOTE | 2024-03-25 08:46 | P.DS_ITS ---
DS: Providers Provider Date of admission: 03/23/24 14:17 Primary care physician: RAGINI RILEY Consults: 03/23/24 14:50 Consult to Pharmacy Routine Consulting Provider: Reason for consultation: Please [place] me when Med Rec is Updated Has provider been notified: No DS: Diagnosis Discharge Diagnosis (1) Pyelonephritis: Plan Admission findings: Fever, sinus tachycardia, leukocytosis, positive lactic acidosis secondary to acute pyelonephritis resulting in gram-negative severe se psis due to E. coli.. Blood culture positive for what is listed as E. coli and Enterobacter, based on history this is likely just the E. coli. Continue with current antibiotics his white blood cell count is improving. With pyelonephritis with positive blood culture and severe sepsis she needs at least 2 more days of IV antibiotics. Hyponatremia secondary to dehydration secondary to the above-improved to baseline today. Heartburn-add IV Protonix Hyperglycemia in a nondiabetic-monitor daily Depression-continue with home medications Admission status: Patient was a 3-day history of progressive flank pain developing into fever-significant leukocytosis and lactic acidosis resulting from severe sepsis. Medically necessary treatment will span 2 midnights patient high risk for sepsis with shock. Inpatient status due to positive blood cultures for E. coli so gram-negative severe sepsis. ? ? DS: Summary Hospital Course Hospital Course: Patient admitted with fevers, leukocytosis, evidence for pyelonephritis, blood culture came back positive for E. coli. The patient was treated for gram- negative sepsis. Her white blood cell count has been improving with the levofloxacin and Rocephin. She has been able to eat in the last 12 hours. With white blood cell count returning to normal, able to eat, gram-negative sepsis but apparently sensitive to levofloxacin and/or Rocephin. Final cultures are pending but does not need to stay for those. Will send patient home with on oral levofloxacin and cefdinir. Follow-up with PCP within the next week. Otherwise medications see list. Status at Discharge Overall status at discharge: patient is not back to baseline Time Spent with Patient Time attestation: Total time spent providing and/or coordinating discharge services: Time spent: greater than 30 minutes Exam Constitutional Vital Signs, click to edit/add: Last Vital Signs Temp 98.2 F 03/25/24 07:21 Pulse 79 03/25/24 07:29 Resp 16 03/25/24 04:00 BP 145/82 H 03/25/24 07:21 Pulse Ox 96 03/25/24 07:21 O2 Del Method Room Air 03/25/24 07:21 O2 Flow Rate 2 03/24/24 00:00 Documenting provider has reviewed patient's vital signs: yes Common normals: apparent distress (looks very fatigued but improved from previous day) Chest Common normals: inspection of chest normal Respiratory Common normals: normal respiratory effort, no retractions and clear to auscultation bilaterally Cardio Common normals: regular rate and regular rhythm GI Common normals: Normal to inspection, nondistended, normoactive bowel sounds present and soft to palpation; tender (Left-sided CVA tenderness) DS: Data Data Completed and Pending Labs on day of discharge: Labs from last 24 hours 03/25/24 03/24/24 05:08 11:30 WBC 10.9 RBC 3.21 L Hgb 9.7 L Hct 31.7 L MCV 98.8 MCH 30.2 MCHC 30.6 RDW 12.4 Plt Count 208 MPV 9.9 Neut % (Auto) 73.5 Lymph % (Auto) 14.4 L [place] % (Auto) 10.7 Eos % (Auto) 0.4 L Baso % (Auto) 0.3 Neut # (Auto) 8.0 H Lymph # (Auto) 1.6 [place] # (Auto) 1.2 H Eos # (Auto) 0.0 Baso # (Auto) 0.0 Abs Immat Gran (auto) 0.08 H Imm/Tot Granulo (auto) 0.7 H Sodium 140 Potassium 3.3 L Chloride 110 H Carbon Dioxide 23.9 Anion Gap 9.4 BUN 9.0 Creatinine 0.74 Est GFR ( Amer) >60 Est GFR (Non-Af Amer) >60 BUN/Creatinine Ratio 12.2 Glucose 83 Calcium 7.7 L Total Bilirubin 0.4 AST 26 ALT 39 Alkaline Phosphatase 125 H Total Protein 5.7 L Albumin 2.2 L Globulin 3.5 Albumin/Globulin Ratio 0.6 Stool Occult Blood Negative Discharge Plan Discharge Disposition: Home, Self-Care Condition: Fair Discharge Medications: New ondansetron 4 mg tablet,disintegrating 4 mg PO Q6H PRN (Reason: nausea and vomiting) Qty: 20 1RF cefdinir 300 mg capsule 600 mg PO DAILY 10 Days Qty: 20 0RF levofloxacin 750 mg tablet 750 mg PO DAILY 10 Days Qty: 10 0RF Continued tizanidine 2 mg capsule 2 mg PO Q6H PRN (Reason: muscle spasticity) venlafaxine 37.5 mg capsule,extended release 24hr 37.5 mg PO DAILY Creon 36,000-114,000- 180,000 unit capsule,delayed release(DR/EC) 2 cap PO TIDWM Patient Comments: and one capsule with snacks - total of 5 times a day Print Language: [place] Forms: Portal Instructions Follow Up Appointments: [place]. March 31 @ 10am with Ragini Riley NP [phone]
[2024-03-25] MEDS: CEFTRIAXONE 1,000 MG in 0.9 % SODIUM CHLORIDE 50 ML 100 MG IV (08:50)
[2024-03-25] MEDS: ONDANSETRON PF 4 MG/2 ML VIAL IV (08:53)
[2024-03-25] MEDS: ACETAMINOPHEN 500 MG TABLET 1000 MG PO (09:59)
--- NOTE | 2024-03-26 14:18 | CM.DCFOLLOWU ---
Person spoke with:patient How are you feeling? better How is your pain? still just exhausted and trying to take it east. Minimal pain, ate a full meal last night Did you understand your discharge instructions? yes Do you have any questions about your discharge instructions? asked where she would get work excuse, advised her to call Dr. Celeste's office since he saw her at hospital and they will direct her from there Were you given any prescriptions at discharge? yes Were you able to get your prescriptions filled? yes Do you understand how to take your medications as ordered? yes Do you have any questions about your follow up appointment and do you plan to keep your follow up appointment? no questions, follow up reviewed Is there anything else that you would like to discuss? no Questions/Comments/Concerns/Other: none
== END 2024-03-25 11:13 | disposition home or self-care (01) | DRG 872 ==
LOC: ER 14:04 → MS 14:24
PROVIDERS: Admitting Provider Family Medicine; Emergency Provider Student in an Organized Health Care Education/Training Program; PCP Nurse Practitioner Family; Visit Provider Family Medicine
DX: A41.51 Sepsis due to Escherichia coli [E. coli] (principal); E87.20 Acidosis, unspecified; N10 Acute pyelonephritis; E87.1 Hypo-osmolality and hyponatremia; E86.0 Dehydration; R65.20 Severe sepsis without septic shock; R12 Heartburn; R73.9 Hyperglycemia, unspecified; F32.A Depression, unspecified; Z87.442 Personal history of urinary calculi; F17.200 Nicotine dependence, unspecified, uncomplicated; Z79.899 Other long term (current) drug therapy
CPT/HCPCS: 36415; 74177; 80053; 81001; 83605; 83690; 85007; 85025; 85027; 87040; 87086; 87150; 87186; 94761; 96365; 96366; 96367; 96368; 96375; 96376; 99285; G0328; J0696; J1885; J2270; J2405; Q9967

== ENCOUNTER 2024-03-30 15:05 | Outpatient (OUT) | payer OTHER, SELFPAY ==
[2024-03-30 15:24] LABS: Basophils Percent Auto 0.4 % (0.2-2.0); Eosinophils Absolute Auto 0.2 10^3/uL (0.0-0.7); Eosinophils Percent Auto 1.6 % (0.9-7.0); Hematocrit 35.7 % (36.0-48.0); Hemoglobin 11.5 g/dL (12.0-16.0); Immature Granulocytes Abs Auto 0.22 10^3/uL (0.00-0.03); Immature Granulocytes Pct Auto 2.2 % (0.0-0.5); Lymphocytes Absolute Auto 2.8 10^3/uL (1.2-3.8); Lymphocytes Percent Auto 28.9 % (20.5-60.0); Mean Corpuscular HGB Conc 32.2 g/dL (29.9-35.2); Mean Corpuscular Hemoglobin 30.6 pg (26.7-34.0); Mean Corpuscular Volume 94.9 fL (81.0-99.0); Mean Platelet Volume 8.3 fL (9.5-13.5); Monocytes Percent Auto 10.3 % (1.7-12.0); Neutrophils Absolute Auto 5.5 10^3/uL (1.4-6.5); Neutrophils Percent Auto 56.6 % (43.0-75.0); Platelet Count 449 10^3/uL (150-450); Red Blood Count 3.76 10^6/uL (4.20-5.40); Red Cell Distribution Width 12.6 % (11.0-15.0); White Blood Count 9.8 10^3/uL (4.0-11.0)
[2024-03-30 16:11] LABS: Alanine Aminotransferase 29 U/L (14-59); Albumin Globulin Ratio 0.9; Albumin Level 3.4 g/dL (3.4-5.0); Alkaline Phosphatase 106 U/L (46-116); Anion Gap 11.2; Aspartate Amino Transferase 16 U/L (15-37); BUN Creatinine Ratio 18.1; Bilirubin Total 0.3 mg/dL (0.2-1.0); Calcium 9.2 mg/dL (8.5-10.1); Carbon Dioxide 30.9 mmol/L (21.0-32.0); Chloride 102 mmol/L (98-107); Estimated GFR (African America >60 (>=60); Estimated GFR (Non-African Ame >60 (>=60); Globulin 3.7 g/dL; Glucose 74 mg/dL (74-106); Potassium 4.1 mmol/L (3.5-5.1); Sodium 140 mmol/L (136-145); Total Protein 7.1 g/dL (6.4-8.2)
== END 2024-03-30 15:06 | disposition home or self-care (01) ==
PROVIDERS: PCP Nurse Practitioner Family; Visit Provider Nurse Practitioner Family
DX: A41.9 Sepsis, unspecified organism (principal); N39.0 Urinary tract infection, site not specified
CPT/HCPCS: 36415; 80053; 85025

== ENCOUNTER 2024-07-22 15:55 | Outpatient (OUT) | payer OTHER, SELFPAY ==
[2024-07-22 16:12] LABS: Basophils Percent Auto 0.3 % (0.2-2.0); Eosinophils Absolute Auto 0.1 10^3/uL (0.0-0.7); Eosinophils Percent Auto 0.8 % (0.9-7.0); Hematocrit 36.2 % (36.0-48.0); Hemoglobin 12.3 g/dL (12.0-16.0); Immature Granulocytes Abs Auto 0.06 10^3/uL (0.00-0.03); Immature Granulocytes Pct Auto 0.5 % (0.0-0.5); Lymphocytes Absolute Auto 3.4 10^3/uL (1.2-3.8); Lymphocytes Percent Auto 26.2 % (20.5-60.0); Mean Corpuscular Hemoglobin 31.3 pg (26.7-34.0); Mean Corpuscular Volume 92.1 fL (81.0-99.0); Mean Platelet Volume 8.9 fL (9.5-13.5); Monocytes Percent Auto 7.8 % (1.7-12.0); Neutrophils Absolute Auto 8.3 10^3/uL (1.4-6.5); Neutrophils Percent Auto 64.4 % (43.0-75.0); Platelet Count 322 10^3/uL (150-450); Red Blood Count 3.93 10^6/uL (4.20-5.40); Red Cell Distribution Width 12.5 % (11.0-15.0); White Blood Count 12.9 10^3/uL (4.0-11.0)
[2024-07-22 17:10] LABS: Percent Iron Saturation 14.4 %
[2024-07-24 04:07] LABS: Vitamin B12 636 pg/mL (232-1245)
== END 2024-07-22 15:56 | disposition home or self-care (01) ==
LOC: LAB 15:57
PROVIDERS: PCP Nurse Practitioner Family; Visit Provider Nurse Practitioner Family
DX: R42 Dizziness and giddiness (principal); R53.83 Other fatigue; E55.9 Vitamin D deficiency, unspecified; E53.8 Deficiency of other specified B group vitamins
CPT/HCPCS: 36415; 82306; 82607; 83540; 83550; 84443; 85025

== ENCOUNTER 2024-12-19 21:16 | Emergency (ER) | payer OTHER, SELFPAY ==
[2024-12-19 21:21] VITALS: BP 122/89; PULSE 83; TEMP 36.4; O2SAT 99; BMI 25.7
--- OUTSIDE RECORDS SUMMARY | 2024-12-19 21:23 | XMS_ITS | CCD ---
Author Organization [facility] CliniSyil Care Team Providers Care Custom [employer] Stair Builder Name Role Phone Paul Levi Unavailable Ragini Riley Unavailable [phone] GOKUL Riley Primary Care Provider MD Paul Levi Attending Provider GOKUL Riley Attending Provider [phone] GOKUL Riley Primary Care Provider MD Paul Levi Attending Provider Alysa Mariscal Unavailable RAGINI RILEY Primary Care Unavailab le SALOME, DR BELLO Admitting Unavailable CHRISTIAN BELL Consulting Unavailable SALOME, DR BELLO Attending Unavailable RAGINI RILEY Consulting Unavailab le RAGINI RILEY Attending Unavailab le RAGINI RILEY Admitting Unavailab SULY Aranda Attending Unavailable SULY CAROLINA Admitting Unavailable MELISSA CALVILLO Consulting Unavailable RAGINI RILEY Primary Care Unavailab KRISTIN Hanson Consulting Unavailable SULY CAROLINA Consulting Unavailable GOKUL Riley Primary Care Provider GOKUL Riley Attending Provider [phone] MD Paul Levi Attending Provider [phone] Jyoti Jama Unavailable GOKUL Riley Primary Care Provider MD Paul Levi Attending Provider [phone] ANGEL Jama Attending Provider Luigi Schaefer Unavailable ANGEL Jama Attending Provider NON STAFF Primary Care Provider Unavailabl e GOKUL Schaefer Attending Provider GOKUL Riley [facility] Care Provider Emre Guzman Attending Unavaila ble Emre Guzman Admitting Unavaila ble [facility] Unavailable GOKUL Riley [facility] Primary Care Provider MD Paul Levi Attending Provider Rosemary SALEEM, Ragini Ponce Primary Care Provider YNES ARCOS Attending Unavailab YNES Hendricks Referring Unavailab YNES Hendricks Referring Unavailab YNES Hendricks Attending Unavailab YNES Hendricks Attending Unavailab le GOKUL Riley [facility] Primary Care Provider MD Paul Levi [facility] Levi MD Attending Provider Ynes Arcos NP Unavailable Rosemary HODGSON [facility] Care Provider Paul Levi MD Attending Provider Paul Levi Attending Unavailable [facility] Paul Levi Admitting Unavailable Paul Levi Attending Unavailable [facility] Unavailable Paul Levi Admitting Unavailable Paul Levi Attending Unavailable Paul Levi Admitting Unavailable [facility] Unavailable Paul Levi Attending Unavailable [facility] Unavailable Paul Levi Admitting Unavailable Allergies Allergy Classification Reported Allergen(s) Allergy Type Date of Onset Reaction(s) Facility Anti-Epileptic Agents (1 source) topiramate Drug Allergy 4 Fatigued [facility] pregabalin (1 source) pregabalin Drug Allergy 4 Fatigued, dizziness/ headache [facility] (20 sources) celecoxib; Translations: [celecoxib] Drug Allergy 3 Unknown, Unknown Reaction [facility] (20 sources) pregabalin Drug Allergy 1 dizziness/ headache, Difficulty Breathing, Fatigued, Fatigued, dizziness/ headache [facility] (20 sources) topiramate Drug Allergy 1 Unknown, Shakiness, Fatigued [facility] (2 sources) pregabalin; Translations: [Lyrica] Drug Allergy 2 [facility] (2 sources) topiramate; Translations: [Topamax] Drug Allergy 2 [facility] (1 source) flu vaccines; Translations: [flu vaccines] Propensity to adverse reactions to drug (disorder) [facility] Repository (3 sources) Pregabalin Propensity to adverse reactions 7 Swelling [facility] Work Phone: (3 sources) Topiramate Propensity to adverse reactions 7 [facility] (1 source) pregabalin Drug Allergy 5 [facility] Repository (1 source) topiramate Drug Allergy 5 [facility] Rep[facility] Medications Current Medications Medication Drug Class(es) Dates Sig (Normalized) Sig (Original) [id number] 200 actuat albuterol 0.09 mg/actuat metered dose inhaler (20 sources) beta2-Adrenergic Agonist Start: 07-10-2023 take 2 puff(s) by inhalation every six hours Ventolin HFA 108 (90 Base) MCG/ACT inhaler Inhale 2 puffs every 6 (six) hours if needed 07/10/2023 Active Start: 07-10-2023 take 2 puff(s) by [...] Jun, Not-Taking Start: 11-10-2020 Albuterol Sulf ate 90 mcg/actuation HFA aerosol inhaler Active 1 PUFF INHALATION As Directed as needed for Shortness Of Breath November 10, 2020 1:00am Start: 08-08-2020 Albuterol [...] hrs for 10 day(s) January, Active amylase 113558 unt / lipase 92777 unt / protease 403268 unt delayed release oral capsule (20 sources) Start: 07-07-2024 End: 07-07-2024 Cevklw-Tjcjljta-Btalaru (Cre on) 36,000-114,000- 180,000 unit capsule,delayed release(DR/EC) Active 89892 CAP PO .COMPLEX 240 30 July 07, 2024 2:12pm 36,000 caps orally take 2 with meals and 1 with snacks; Start: 02-09-2024 Creon 84136-41 4000 units capsule delayed-release particles capsule Take 1 capsule by mouth if needed 02/09/2024 Active Start: 06-04-2023 End: 07-07-2024 take 66447-882498 capsules by mouth five times daily Fypyqj-Lmikzezs-Eimfovd (Creon) 36,000-114,000- 180,000 unit capsule,delayed release(DR/EC) Discontinued 89084 CAP PO 5 times per day June 04, 2023 12:00am July 07, 2024 2:11pm Start: 05-27-2023 End: 06-04-2023 Zvdwum-Wxtcdiuz-Nusibfk (Cre on) 36,000-114,000- 180,000 unit capsule,delayed release(DR/EC) Discontinued CAP PO June 04, 2023 12:00am June 04, 2023 9:08am atorvastatin 10 mg oral tablet (20 sources) HMG-CoA Reductase Inhibitor Start: 02-17-2021 take 1 tablet by mouth once daily Atorvastatin 10 mg tablet Active 10 MG PO Daily April 10, 2021 12:00am ciprofloxacin 500 mg oral tablet (2 sources) Quinolone Antimicrobial Start: 02-25-2023 take 1 tablet by mouth every twelve hours Cipro 500 MG 1 tablet Orally every 12 hrs for 5 day(s) Feb, Active doxycycline monohydrate 100 mg oral tablet (9 [...] dose nasal spray (20 sources) Corticosteroid Start: 06-22-2024 take 1 spray(s) nasal route every twelve hours Fluticasone Propionate (Flonase Allergy Relief) 50 mcg/actuation spray,suspension Active 1 SPRAY INTRANASAL Every 12 hours June 22, 2024 12:00am administer into each nostril Start: 03-19-2024 End: 06-22-2024 Fluticasone Propionate 50 mcg/actuation spray,suspension Discontinued 2 SPRAY INTRANASAL Daily March 19, 2024 12:00am June 22, 2024 3:52pm Start: 07-10-2023 take 2 spray(s) nasa l route once daily Fluticasone [...] January, Active Iron (20 sources) Iron Active meloxicam 15 mg oral tablet (16 sources) Nonsteroidal Anti-inflammatory Drug Start: 11-17-2024 take 1 tablet by mouth once daily Meloxicam 15 mg tablet Active 15 MG PO Daily November 17, 2024 12:00am Start: 04-10-2021 End: 06-26-2021 take 1 tablet by mouth once daily Meloxicam 15 mg tablet Discontinued 15 MG PO Daily April 10, 2021 12:00am June 26, 2021 12:16pm methylPREDNISolone 4 mg oral tablet (19 sources) Corticosteroid Start: 07-09-2022 methylPREDNISolone 4 MG as directed Orally daily for 6 days Oct, Active nitrofurantoin, macrocrystals 25 mg / nitrofurantoin, monohydrate 75 mg oral capsule (10 sources) Nitrofuran Antibacterial Start: 05-08-2022 take 1 capsule by mouth every twelve hours Macrobid 100 MG 1 capsule Orally Twice a day for 7 days Apr, Active phenazopyridine hydrochloride 200 mg oral tablet (2 sources) Start: 02-25-2023 take 1 tablet by mouth every eight hours Pyridium 200 MG 1 tablet after meals Orally Three times a day for 2 day(s) Feb, Active Potassium (20 sources) Potassium Active predniSONE 20 mg oral tablet (2 sources) Start: 07-10-2023 take 1 tablet by mouth every twelve hours predniSONE 20 MG 1 tablet Orally bid for 5 day(s) Jul, Active Probiotic (7 sources) Probiotic Active rimegepant 75 mg disintegrating oral tablet (3 sources) Start: 01-14-2024 End: 01-13-2025 take 1 tablet by mouth once Rimegepant Sulfate (Nurtec) 75 MG tablet dispersible Indications: Migraine without aura and without status migrainosus, not intractable (CMS/HCC) Take 1 tablet by mouth if needed (once at onset of migraine) 16 tablet 11 01/14/2024 01/13/2025 Active tiZANidine 2 mg oral capsule (20 sources) Central alpha-2 Adrenergic Agonist Start: 12-11-2023 End: 09-17-2024 take 1 capsule by mouth three times daily as needed Tizanidine 2 mg capsule Active 2 MG PO Three times daily as needed for muscle spasticity 90 September 17, 2024 10:31am Start: 10-03-2020 End: 06-19-2022 take 1 tablet by mouth twice daily as needed for muscle spasms Tizanidine 4 mg tablet Discontinued 4 MG PO Twice daily as needed for Muscle Spasm October 03, 2020 1:00am June 19, 2022 10:33am Start: 04-27-2020 take 1 capsule by mo [facility] every eight hours tiZANidine HCl 2 MG 1 capsule as needed Orally Three times a day for 30 day(s) Apr, Active take 1 tablet by glen th in the morning, then take 1 tablet by mouth in the evening, then take 1 tablet by mouth at bedtime tiZANidine (Zanaflex) 2 MG tablet Take 2 mg by mouth in the morning and 2 mg in the evening and 2 mg before bedtime. Active 24 hr venlafaxine 37.5 mg extended release oral tablet (20 sources) Serotonin and Norepinephrine Reuptake Inhibitor Start: 11-11-2024 take 1 capsule by mouth once daily Venlafaxine 37.5 mg capsule,extended release 24hr Active 0 .ROUTE .COMPLEX November 11, 2024 4:11pm TAKE 1 CAPSULE BY MOUTH ONCE DAILY Start: 04-10-2021 End: 11-11-2024 take 1 capsule by mouth once daily Venlafaxine 37.5 mg capsule,extended release 24hr Discontinued 37.5 MG PO Daily 90 May 18, 2024 2:19pm November 11, 2024 4:11pm Start: 10-03-2020 End: 02-13-2022 take 1 capsule by mouth once daily Venlafaxine 75 mg capsule,extended release 24hr Discontinued 75 MG PO Daily October 03, 2020 1:00am February 13, 2022 7:18am take 1 tablet by glen th in the morning venlafaxine (Effexor) 37.5 MG tablet Take 37.5 mg by mouth in the morning. Active {20 (nirmatrelvir 150 MG Ora l Tablet) [...] 2 tablets by mouth every eight hours as needed for pain Acetaminophen (Tylenol Extra Strength) 500 mg Tablet Discontinued 1000 MG PO Q8H as needed for Pain December 14, 2018 12:00am January 20, 2020 10:42am take 1 tablet by glen th every four hours as needed Tylenol 325 MG 1 tablet as needed Orally prn every 4 hrs Not-Taking acetaminophen 300 mg / codeine phosphate 30 mg oral tablet (15 sources) Opioid Agonist Start: 01-26-2020 End: 10-03-2020 take 1 tablet by mouth every four to six hours as needed for pain Acetaminophen-Codeine (Tylenol-Codeine #3) 300-30 mg tablet Discontinued 1 TAB PO EVERY 4-6 HOURS as needed for pain 30 7 January 26, 2020 12:00am October 03, 2020 2:04pm acetaminophen 325 mg / HYDROcodone bitartrate 5 mg oral tablet (15 sources) Opioid Agonist Start: 12-16-2018 End: 01-20-2020 take 1 tablet by mouth every four to six hours as needed for pain Hydrocodone-Acetaminophen ([place]iviera) 5-325 mg tablet Discontinued 1 TAB PO EVERY 4-6 HOURS as needed for pain 30 7 December 16, 2018 January 20, 2020 10:43am benzonatate 200 mg oral capsule (20 sources) Non-narcotic Antitussive Start: 10-11-2022 take 1 capsule by mouth three times daily as needed Benzonatate 200 MG 1 capsule Orally Three times a day as needed for 10 day(s) Oct, Not-Taking Start: 01-16-2022 take 1 capsule by mo [facility] three times daily as needed Benzonatate 200 MG 1 capsule Orally Three times a day as needed for 10 day(s) January, Active bupivacaine hydrochloride 5 mg/ml injectable solution (2 sources) Amide Local Anesthetic Start: 05-27-2024 End: 05-27-2024 bupivacaine (Marcaine) 0.5 % injection 5 mg Start: 05-27-2024 End: 05-27-2024 5 mg (1 mL), Injection, Once , On Sat05/27/24 at 1515, For 1 dose busPIRone hydrochloride 5 mg oral tablet (20 sources) Start: 06-26-2021 End: 12-17-2023 take 2 tablets by mouth twice daily Buspirone 5 mg tablet Discontinued 10 MG PO Twice daily June 26, 2021 12:00am December 17, 2023 9:12am Start: 06-26-2021 End: 12-17-2023 take 10 mg by mouth twice daily Buspirone Discontinued 10 MG PO Twice daily June 25, 2021 11:00pm December 17, 2023 8:12am Start: 05-10-2021 take 1 tablet by glen every twenty-four hours busPIRone HCl 5 MG 1 tablet Orally daily for 30 days May, Active take 1 tablet by glen every twelve hours busPIRone HCl 10 MG 1 tablet Orally Twice a day for 90 day(s) PRN Active take 1 tablet by glen every twelve hours busPIRone HCl 15 MG 1 tablet Orally Twice a day for 30 day(s) Active take 1 tablet by glen th every twelve hours busPIRone HCl 5 MG 1 tablet Orally Twice a day for 30 day(s) Active cefdinir 300 mg oral capsule (5 sources) Cephalosporin Antibacterial Start: 06-22-2024 End: 07-14-2024 take 1 capsule by mouth twice daily Cefdinir 300 mg capsule Discontinued 300 MG PO Twice daily 20 June 22, 2024 12:00am July 14, 2024 9:38am celecoxib 100 mg oral capsule (20 sources) Nonsteroidal Anti-inflammatory Drug Start: 12-11-2023 End: 11-17-2024 take 1 capsule by mouth twice daily Celecoxib (Celebrex) 100 mg capsule Discontinued 100 MG PO Twice daily 60 December 11, 2023 12:00am November 17, 2024 4:01pm Start: 06-26-2021 End: 06-19-2022 take 1 capsule by mouth twice daily Celecoxib 100 mg capsule Discontinued 100 MG PO Twice daily June 26, 2021 12:00am June 19, 2022 10:33am clindamycin 300 mg oral capsule (9 sources) Lincosamide Antibacterial Start: 12-21-2022 take 1 capsule by mouth every eight hours Clindamycin HCl 300 MG 1 cap(s) Orally tid for 10 day(s) January, Not-Taking dexamethasone phosphate 4 mg/ml injectable solution (2 sources) Corticosteroid Start: 05-27-2024 End: 05-27-2024 dexAMETHasone sod phos (Decadron) injection 4 mg Start: 05-27-2024 End: 05-27-2024 4 mg (1 mL), Injection, Once , On Sat05/27/24 at 1515, For 1 dose diclofenac sodium 75 mg delayed release oral tablet (20 sources) Nonsteroidal Anti-inflammatory Drug Start: 06-05-2022 End: 03-19-2024 take 1 tablet by mouth twice daily Diclofenac Sodium 75 mg tablet,delayed release (DR/EC) Discontinued 75 MG PO Twice daily June 19, 2022 12:00am March 19, 2024 9:35am Start: 10-03-2020 End: 04-10-2021 take 1 tablet by mouth twice daily Diclofenac Sodium 75 mg tablet,delayed release (DR/EC) Discontinued 75 MG PO Twice daily October 03, 2020 1:00am April 10, 2021 2:53pm docusate sodium 100 mg oral capsule (20 sources) Start: 11-10-2020 End: 02-13-2022 take 1 capsule by mouth twice daily as needed for constipation Docusate Sodium (Colace) 100 mg Capsule Discontinued 100 MG PO Twice daily as needed for Constipation November 10, 2020 1:00am February 13, 2022 7:17am Start: 12-14-2018 End: 10-03-2020 take 1 capsule by mouth twice daily as needed for constipation Docusate Sodium (Colace) 100 mg capsule Discontinued 100 MG PO Twice daily as needed for constipation January 26, 2020 7:45am October 03, 2020 2:04pm escitalopram 20 mg oral tablet (15 sources) Serotonin Reuptake Inhibitor Start: 01-20-2020 End: 10-03-2020 take 1 tablet by mouth once daily at bedtime Escitalopram Oxalate 20 mg tablet Discontinued 20 MG PO Daily at bedtime January 20, 2020 12:00am October 03, 2020 2:04pm ibuprofen 600 mg oral tablet (20 sources) Nonsteroidal Anti-inflammatory Drug Start: 12-16-2018 End: 10-03-2020 take 1 tablet by mouth every six hours as needed for pain Ibuprofen 600 mg tablet Discontinued 600 MG PO Q6H as needed for pain January 26, 2020 12:00am October 03, 2020 2:04pm lamoTRIgine 25 mg oral tablet (2 sources) Mood Stabilizer, Anti-epileptic Agent End: 05-27-2024 take 2 tablets by mouth once daily lamoTRIgine (LaMICtal) 25 MG tablet Take 50 mg by mouth Daily 05/27/2024 Discontinued (Therapy completed) medroxyPROGESTERone (20 sources) Progestin Start: 04-26-2011 DEPO-PROVERA Apr, 150 mg Start: 01-25-2011 DEPO-PROVERA 1 January, 150mg/ ml methocarbamol 750 mg oral tablet (19 sources) Muscle Relaxant Start: 06-05-2022 End: 06-04-2023 take 1 tablet by mouth twice daily as needed for pain Methocarbamol 750 mg tablet Discontinued 750 MG PO Twice daily as needed for Pain June 19, 2022 12:00am June 04, 2023 9:10am naproxen 500 mg oral tablet (20 sources) Nonsteroidal Anti-inflammatory Drug Start: 11-10-2020 End: 11-14-2020 take 1 tablet by mouth twice daily Naproxen (Naprosyn) 500 mg Tablet Discontinued 500 MG PO Twice daily November 10, 2020 1:00am November 14, 2020 1:29pm Start: 01-20-2020 End: 01-26-2020 take 1 tablet by mouth every twelve hours Naproxen 500 mg tablet Discontinued 500 MG PO Q12H January 20, 2020 12:00am January 26, 2020 7:44am ondansetron 4 mg oral tablet (15 sources) Serotonin-3 Receptor Antagonist Start: 12-14-2018 End: 01-20-2020 Ondansetron Hcl (Zofran) 4 mg Tablet Discontinued 4 MG PO 2-3 TIMES PER DAY as needed for Nausea And Vomiting December 14, 2018 12:00am January 20, 2020 10:44am Vit No.134-Iois-Vxxyk ( Vitamin) 27 mg iron- 800 mcg Tablet (15 sources) Start: 11-10-2020 End: 11-14-2020 take 1 tablet by mouth once daily Vit No.133-Dlpg-Ktogu ( Vitamin) 27 mg iron- 800 mcg Tablet Discontinued 1 TAB PO Daily November 10, 2020 12:00am November 14, 2020 12:29pm Start: 11-10-2020 End: 11-14-2020 take 1 tablet by mouth once daily Vit No.609-Ysnr-Xnyvg ( Vitamin) 27 mg iron- 800 mcg Tablet Discontinued 1 TAB PO Daily November 10, 2020 1:00am November 14, 2020 1:29pm raNITIdine 150 mg oral tablet (15 sources) Histamine-2 Receptor Antagonist Start: 12-14-2018 End: 01-20-2020 take 1 tablet by mouth once daily at bedtime Ranitidine Hcl (Zantac) 150 mg Tablet Discontinued 150 MG PO Daily at bedtime December 14, 2018 12:00am January 20, 2020 10:44am Toradol 30 mg/ml (20 sources) Start: 02-25-2023 Toradol 30 mg/ ml Feb, 30 mg Problems Active Problems Problem Classification Problem Date Documented Da te Episodic/Chronic Abdominal pain (8 sources) Lower abdominal pain; Translations: [Lower abdominal pain, unspecified] Episodic Allergic reactions (1 source) Unspecified contact dermatitis, unspecified cause Episodic Anxiety disorders (20 sources) Anxiety; Translations: [Anxiety disorder, unspecified] Onset: 1 Resolved: 2 Chronic Asthma (20 sources) Exacerbation of intermittent asthma; Translations: [Mild intermittent asthma with (acute) exacerbation] Chronic Chronic obstructive pulmonary disease and bronchiectasis (2 sources) Bronchitis, not specified as acute or chronic Episodic Coagulation and hemorrhagic disorders (1 source) Spontaneous ecchymoses Episodic Complications of surgical procedures or medical care (20 sources) Menopausal flushing; Translations: [Symptomatic postprocedural ovarian failure] Chronic Conditions associated with dizziness or vertigo (3 sources) Dizziness; Translations: [Dizziness and giddiness] 07-20-2024 Episodic Diabetes mellitus without complication (20 sources) Impaired fasting glycemia; Translations: [Impaired fasting glucose] Onset: 2 Resolved: 2 Episodic Disorders of lipid metabolism (20 sources) Mixed hyperlipidemia; Translations: [Mixed hyperlipidemia] Onset: 1 Resolved: 2 Chronic Disorders of teeth and jaw (1 source) Dental caries, unspecified Episodic Endometriosis (2 sources) Endometriosis (clinical); Translations: [Endometriosis, unspecified] Onset: 4 05-27-2024 Chronic Fever of unknown origin (1 source) Fever, unspecified Episodic Gastrointestinal hemorrhage (1 source) Hemorrhage of anus and rectum Episodic Genitourinary symptoms and ill-defined conditions (3 sources) Frequency of micturition; Translations: [Dysuria] Onset: 2 Resolved: 2 Episodic Headache; including migraine (3 sources) Migraine without aura, not refractory ; Translations: [Migraine without aura, not intractable, without status migrainosus] Onset: 4 01-02-2024 Chronic Immunizations and screening for infectious disease (20 sources) Contact with and (suspected) exposure to other viral communicable diseases; Translations: [Contact with and (suspected) exposure to other viral communicable diseases] Episodic Intestinal infection (1 source) Viral intestinal infection, unspecified; Translations: [VIRAL INTESTINAL INFECTION UNSPEC] Onset: 2 Episodic Malaise and fatigue (4 sources) Other fatigue; Translations: [Fatigue] Onset: 2 Resolved: 2 Episodic Menstrual disorders (6 sources) Dysmenorrhea; Translations: [Dysmenorrhea, unspecified] Onset: 4 05-27-2024 Chronic Mood disorders (20 sources) Recurrent major depression in partial remission; Translations: [Major depressive disorder, recurrent, in partial remission] Onset: 1 Resolved: 2 Chronic Nausea and vomiting (11 sources) Vomiting, unspecified; Translations: [Nausea] Onset: 2 Episodic Nutritional deficiencies (20 sources) Vitamin D deficiency; Translations: [Vitamin D deficiency, unspecified] Onset: 2 Resolved: 2 Chronic Nutritional deficiencies (20 sources) Iron deficiency; Translations: [Iron deficiency] Onset: 2 Resolved: 2 Episodic Other aftercare (1 source) Other fpc (current) drug therapy; 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] Onset: 2 Episodic Other aftercare (8 sources) Post-discharge follow-up; Translations: [Encounter for follow-up examination after completed treatment for conditions other than malignant neoplasm] Onset: 4 03-30-2024 Episodic Other aftercare (3 sources) Encounter for follow-up examination after completed treatment for conditions other than malignant neoplasm; Translations: [Other follow-up examination] 03-30-2024 Episodic Other gastrointestinal disorders (3 sources) Diarrhea, unspecified Episodic Other gastrointestinal disorders (11 sources) Constipation; Translations: [Constipation, unspecified] Episodic Other gastrointestinal disorders (2 sources) Constipation, unspecified Episodic Other gastrointestinal disorders (7 sources) Constipation [...] (20 sources) Cough; Translations: [Cough] Episodic Other lower respiratory disease (1 source) Wheezing Episodic Other nervous system disorders (20 sources) Chronic pain; Translations: [Other chronic pain] Onset: 4 11-14-2023 Chronic Other nervous system disorders (16 sources) Other chronic pain; Translations: [Other chronic pain] Onset: 1 Resolved: 2 Chronic Other nervous system disorders (4 sources) Carpal tunnel syndrome of right wrist; Translations: [Carpal tunnel syndrome, right upper limb] Onset: 4 01-16-2024 Chronic Other nervous system disorders (10 sources) Paresthesia of hand ; Translations: [Anesthesia of skin] Onset: 4 11-26-2023 Episodic Other nervous system disorders (2 sources) Anesthesia of skin; Translations: [Disturbance of skin sensation] 11-26-2023 Episodic Other non-traumatic joint disorders (1 source) Effusion, [...] loss Episodic Other and delivery including normal (17 sources) Finding of length of gestation; Translations: [36 to 37 weeks gestation of ] Onset: 4 2018 Episodic Other upper respiratory disease (20 sources) Nasal congestion; Translations: [Nasal congestion] Episodic Other upper respiratory infections (7 sources) Maxillary sinusitis; Translations: [Chronic maxillary sinusitis] 06-23-2024 Chronic Other upper respiratory infections (4 sources) Acute maxillary sinusitis, unspecified; Translations: [Acute upper respiratory infection, unspecified] Onset: 1 Resolved: 2 Episodic Otitis media and related conditions (9 sources) Otitis media; Translations: [Otitis media, unspecified, unspecified ear] 06-22-2024 Episodic Pancreatic disorders (not diabetes) (8 sources) Exocrine pancreatic insufficiency; Translations: [Exocrine pancreatic insufficiency] Episodic Polyhydramnios and other problems of amniotic cavity (17 sources) Amniotic membrane finding; Translations: [Rupture of membranes with clear amniotic fluid] Onset: 4 2018 Episodic Screening and history of mental health and substance abuse codes (1 source) Personal history of nicotine dependence; Translations: [PERSONAL HISTORY OF NICOTINE DEPEND] Onset: 2 Episodic Septicemia (except in labor) (11 sources) Sepsis; Translations: [Sepsis, unspecified organism] Onset: 4 03-30-2024 Episodic Sexually transmitted infections (not HIV or hepatitis) (2 sources) Human papillomavirus deoxyribonucleic acid test positive, high risk on cervical specimen; Translations: [Cervical high risk human papillomavirus (HPV) DNA test positive] Onset: 4 05-27-2024 Episodic Spondylosis; intervertebral disc disorders; other back problems (20 sources) Lumbosacral spondylosis without myelopathy; Translations: [Spondylosis without myelopathy or radiculopathy, lumbosacral region] Onset: 1 Resolved: 2 Chronic Spondylosis; intervertebral disc disorders; other back problems (20 sources) Low back pain; Translations: [Radiculopathy, cervical region] Onset: 1 Resolved: 2 Episodic Substance-related disorders (20 sources) Nicotine dependence; Translations: [Nicotine dependence, other tobacco product, uncomplicated] Chronic Unclassified (1 source) CONTACT W/AND (SUSP) EXPOS COVID-19; Translations: [CONTACT W/AND (SUSP) EXPOS COVID-19] Onset: 2 Unclassified (3 sources) LOW BACK PAIN, UNSPECIFIED; Translations: [LOW BACK PAIN, UNSPECIFIED] Onset: 2 Urinary tract infections (14 sources) Acute cystitis with hematuria; Translations: [Urinary tract infection, site not specified] Onset: 2 Resolved: 2 Episodic Past or Other Problems Problem Classification Problem Date Documented Da te Episodic/Chronic Headache; including migraine (3 sources) Cervicogenic headache; Translations: [Cervicogenic headache] Onset: 01-02-2024 01-02-2024 Episodic Other connective tissue disease (2 sources) Cramp and spasm; Translations: [CRAMP AND SPASM] Onset: 04-12-2022 Resolved: 04-12-2022 Episodic Other connective tissue disease (3 sources) Spasm of cervical paraspinous muscle; Translations: [Other muscle spasm] Onset: 01-02-2024 01-02-2024 Episodic Other hematologic conditions (2 sources) Personal history of diseases of the blood and blood-forming organs and certain disorders involving the immune mechanism; Translations: [PERS HX DZ BLD/BLD-FRM ORG IMMN MCH] Onset: 04-12-2022 Resolved: 04-12-2022 Episodic Other nervous system disorders (3 sources) Numbness and tingling sensation of skin; Translations: [Anesthesia of skin] Onset: 01-02-2024 01-02-2024 Episodic Other upper respiratory disease (1 source) Nasal congestion Onset: 09-11-2021 Resolved: 09-11-2021 Episodic Ovarian cyst (2 sources) Complex cyst of left ovary; Translations: [Other ovarian cyst, left side] Onset: 05-27-2017 05-27-2024 Episodic Unclassified (3 sources) Cough R05.9 Onset: [...] Test Name Value Interpretation Reference Range Facility MR lumbar spine wo [facility] MR lumbar spine wo [facility] [place] [address] MRI Report Signed Patient: Jenna Mora MR#: [id number] : 1985 Acct:[id number] Age/Sex: 38 / F ADM Date: 12/09/24 Loc: [facility] Room: Type: [facility] CL Attending Dr: Paul Levi MD Copies to: Paul Levi MD Ordering Provider: Paul Levi MD Date of Service: 12/09/24 MR/MR lumbar spine wo con: M47.26 - Other spondylosis with radiculopathy, lumbar region MRI lumbar spine performed without contrast INDICATION: Back pain, right lower extremity radiculopathy COMPARISON: Fluoroscopic examination 12/17/2023 FINDINGS: Lumbar vertebral heights, alignment and bone marrow signal is unremarkable. Disc space heights and signal preserved. No focal disc protrusion central canal or neural foraminal narrowing narrowing identified. The conus medullaris terminates normally at T12-L1. Paraspinal soft tissues are unremarkable. There are multilevel degenerative changes identified involving the facet joints. There is moderate facet arthropathy L4-S1, with small right-sided joint effusion involving L5-S1. There is mild facet arthropathy at L3-4. MR/MR lumbar spine wo con Impression: Multilevel predominantly posterior element degenerative changes greatest lower lumbar spine. No central canal or neural foraminal narrowing identified. Impression dictated by: Danny De La Vega M.D.12/09/2024 3:57 PM Dictation Location: [place] [address] Transcribed By: [facility] 12/09/24 1557 Dictated By: Danny De La Vega MD 12/09/24 1550 Signed By: 12/09/24 1557 Normal [facility] Magnetic resonance imaging r eportOrdered By: Danny De La Vega on 12-09-2024 Study report [facility] [place] [address] MRI Report Signed Patient: Jenna Mora MR#: [id number] : 1985 Acct:[id number] Age/Sex: 38 / F ADM Date: 5 Loc: [facility] Room: Type: [facility] Attending Dr: Paul Levi MD Copies to: Paul Levi MD~ Ordering Provider: Paul Levi MD Date of Service: 12/09/24 MR/MR lumbar spine wo con: M47.26 - Other spondylosiswith radiculopathy, lumbar region MRI lumbar spine performed without contrast INDICATION: Back pain, right lower extremity radiculopathy COMPARISON: Fluoroscopic examination 12/17/2023 FINDINGS: Lumbar vertebral heights, alignment and bone marrow signal is unremarkable. Disc space heights and signal preserved. No focal disc protrusion central canalor neural foraminal narrowing narrowing identified. The conus medullaris terminates normally at T12-L1. Paraspinal soft tissues are unremarkable. There are multilevel degenerative changes identified involving the facet joints. There is moderate facet arthropathy L4-S1, with small right-sided joint effusion involving L5-S1. There is mild facet arthropathy at L3-4. MR/MR lumbar spine wo con Impression: Multilevel predominantly posterior element degenerative changes greatest lower lumbar spine. No central canal or neural foraminal narrowing identified. Impression dictated by: Danny De La Vega M.D.12/09/2024 3:57 PM Dictation Location: [employer] Transcribed By: LUCR[facility] 12/09/241556 Dictated By: Danny De La Vega MD 12/09/241549 Signed By: 12/09/241556 [facility] Work Phone: No Panel InformationOrdered By: Ragini Riley on 06-22-2024 Quick Strep (POC) [facility] Quick Strep (POC) [facility] Basophils Auto (Bld) [#/Vol] on 03-30-2024 Basophils (Bld) [#/Vol] 0.0 10 3/uL 0.0-0.1 [facility] Basophils/100 WBC Auto (Bld) on 03-30-2024 Basophils/100 WBC (Bld) 0.4 % 0.2-2.0 [facility] Eosinophils/100 WBC Auto (Bl d)on 03-30-2024 Eosinophils/100 WBC (Bld) 1.6 % 0.9-7.0 [facility] Erythrocyte distribution wid th Auto (RBC) [Ratio]on 03-30-2024 Erythrocyte distribution width (RBC) [Ratio] 12.6 % 11.0-15.0 [facility] Estimated glomerular filtrat ion rate (GFR) non- Americanon 03-30-2024 GFR/1.73 sq M.predicted among non-blacks MDRD (S/P/Bld) [Vol rate/Area] mL/min/{1.73_m2} >=60 [facility] Globulin Calc (S) [Mass/Vol] on 03-30-2024 Globulin (S) [Mass/Vol] 3.7 g/dL [facility] Hematocrit Auto (Bld) [Volum e fraction]on 03-30-2024 Hematocrit (Bld) [Volume fraction] 35.7 % Low 36.0-48.0 [facility] Hemoglobin [Mass/volume] in Bloodon 03-30-2024 Hemoglobin (Bld) [Mass/Vol] 11.5 g/dL Low 12.0-16.0 [facility] Laboratory - Chemistry and C hemistry - challengeon 03-30-2024 Albumin [Mass/Vol] 3.4 g/dL 3.4-5.0 [facility] ALP [Catalytic activity/Vol] 106 U/L 46-116 [facility] ALT [Catalytic activity/Vol] 29 U/L 14-59 [facility] AST [Catalytic activity/Vol] 16 U/L 15-37 [facility] Bilirubin [Mass/Vol] 0.3 mg/dL 0.2-1.0 [facility] Calcium [Mass/Vol] 9.2 mg/dL 8.5-10.1 [facility] Chloride [Moles/Vol] 102 mmol/L 98-107 [facility] CO2 [Moles/Vol] 30.9 mmol/L 21.0-32.0 [facility] Creatinine [Mass/Vol] 0.72 mg/dL 0.55-1.02 [facility] GFR/1.73 sq M.predicted MDRD (S/P/Bld) [Vol rate/Area] mL/min/{1.73_m2} >=60 [facility] Glucose [Mass/Vol] 74 mg/dL 74-106 [facility] Potassium [Moles/Vol] 4.1 mmol/L 3.5-5.1 [facility] Protein [Mass/Vol] 7.1 g/dL 6.4-8.2 [facility] Sodium [Moles/Vol] 140 mmol/L 136-145 [facility] Urea nitrogen [Mass/Vol] 13.0 mg/dL 7.0-18.0 [facility] Urea nitrogen/Creatinine [Mass ratio] 18.1 mg/mg [facility] Laboratory - Hematology and Cell countson 03-30-2024 Immature granulocytes/100 WBC (Bld) 2.2 % High 0.0-0.5 [facility] Leukocytes [#/volume] correc juanita for nucleated erythrocytes in Blood by Automated counon 03-30-2024 WBC corrected for nucl RBC Auto (Bld) [#/Vol] 9.8 10 3/uL 4.0-11.0 [facility] Lymphocytes Auto (Bld) [#/Vo l]on 03-30-2024 Lymphocytes (Bld) [#/Vol] 2.8 10 3/uL 1.2-3.8 [facility] Lymphocytes/100 WBC Auto (Bl d)on 03-30-2024 Lymphocytes/100 WBC (Bld) 28.9 % 20.5-60.0 [facility] MCH Auto (RBC) [Entitic mass ]on 03-30-2024 MCH (RBC) [Entitic mass] 30.6 pg 26.7-34.0 [facility] MCHC Auto (RBC) [Mass/Vol]on 03-30-2024 MCHC (RBC) [Mass/Vol] 32.2 g/dL 29.9-35.2 [facility] MCV Auto (RBC) [Entitic vol] on 03-30-2024 MCV (RBC) [Entitic vol] 94.9 fL 81.0-99.0 [facility] Monocytes Auto (Bld) [#/Vol] on 03-30-2024 Monocytes (Bld) [#/Vol] 1.0 10 3/uL High 0.3-0.8 [facility] Monocytes/100 WBC Auto (Bld) on 03-30-2024 Monocytes/100 WBC (Bld) 10.3 % 1.7-12.0 [facility] Neutrophils Auto (Bld) [#/Vo l]on 03-30-2024 Neutrophils (Bld) [#/Vol] 5.5 10 3/uL 1.4-6.5 [facility] Neutrophils/100 WBC Auto (Bl d)on 03-30-2024 Neutrophils/100 WBC (Bld) 56.6 % 43.0-75.0 [facility] No Panel Informationon 03-30 Eosinophils # (Auto) 0.2 10 3/uL 0.0-0.7 [facility] Immature Granulocyte # (Auto) 0.22 10 3/uL High 0.00-0.03 [facility] Platelet mean volume Auto (B ld) [Entitic vol]on 03-30-2024 Platelet mean volume (Bld) [Entitic vol] 8.3 fL Low 9.5-13.5 [facility] Platelets Auto (Bld) [#/Vol] on 03-30-2024 Platelets (Bld) [#/Vol] 449 10 3/uL 150-450 [facility] RBC Auto (Bld) [#/Vol]on RBC (Bld) [#/Vol] 3.76 10 6/uL Low 4.20-5.40 [facility] Serum or plasma albumin/glob ulin mass ratioon 03-30-2024 Albumin/Globulin [Mass ratio] 0.9 {ratio} [facility] Serum or plasma anion gap de terminationon 03-30-2024 Anion gap [Moles/Vol] 11.2 mmol/L [facility] Basophils Auto (Bld) [#/Vol] on 03-25-2024 Basophils (Bld) [#/Vol] 0.0 10 3/uL 0.0-0.1 [facility] Basophils/100 WBC Auto (Bld) on 03-25-2024 Basophils/100 WBC (Bld) 0.3 % 0.2-2.0 [facility] Eosinophils/100 WBC Auto (Bl d)on 03-25-2024 Eosinophils/100 WBC (Bld) 0.4 % Low 0.9-7.0 [facility] Erythrocyte distribution wid th Auto (RBC) [Ratio]on 03-25-2024 Erythrocyte distribution width (RBC) [Ratio] 12.4 % 11.0-15.0 [facility] Estimated glomerular filtrat ion rate (GFR) non- Americanon 03-25-2024 GFR/1.73 sq M.predicted among non-blacks MDRD (S/P/Bld) [Vol rate/Area] mL/min/{1.73_m2} >=60 [facility] Globulin Calc (S) [Mass/Vol] on 03-25-2024 Globulin (S) [Mass/Vol] 3.5 g/dL [facility] Hematocrit Auto (Bld) [Volum e fraction]on 03-25-2024 Hematocrit (Bld) [Volume fraction] 31.7 % Low 36.0-48.0 [facility] Hemoglobin [Mass/volume] in Bloodon 03-25-2024 Hemoglobin (Bld) [Mass/Vol] 9.7 g/dL Low 12.0-16.0 [facility] Laboratory - Chemistry and C hemistry - challengeon 03-25-2024 Albumin [Mass/Vol] 2.2 g/dL Low 3.4-5.0 [facility] ALP [Catalytic activity/Vol] 125 U/L High 46-116 [facility] ALT [Catalytic activity/Vol] 39 U/L 14-59 [facility] AST [Catalytic activity/Vol] 26 U/L 15-37 [facility] Bilirubin [Mass/Vol] 0.4 mg/dL 0.2-1.0 [facility] Calcium [Mass/Vol] 7.7 mg/dL Low 8.5-10.1 [facility] Chloride [Moles/Vol] 110 mmol/L High 98-107 [facility] CO2 [Moles/Vol] 23.9 mmol/L 21.0-32.0 [facility] Creatinine [Mass/Vol] 0.74 mg/dL 0.55-1.02 [facility] GFR/1.73 sq M.predicted MDRD (S/P/Bld) [Vol rate/Area] mL/min/{1.73_m2} >=60 [facility] Glucose [Mass/Vol] 83 mg/dL 74-106 [facility] Potassium [Moles/Vol] 3.3 mmol/L Low 3.5-5.1 [facility] Protein [Mass/Vol] 5.7 g/dL Low 6.4-8.2 [facility] Sodium [Moles/Vol] 140 mmol/L 136-145 [facility] Urea nitrogen [Mass/Vol] 9.0 mg/dL 7.0-18.0 [facility] Urea nitrogen/Creatinine [Mass ratio] 12.2 mg/mg [facility] Laboratory - Hematology and Cell countson 03-25-2024 Immature granulocytes/100 WBC (Bld) 0.7 % High 0.0-0.5 [facility] Leukocytes [#/volume] correc juanita for nucleated erythrocytes in Blood by Automated counon 03-25-2024 WBC corrected for nucl RBC Auto (Bld) [#/Vol] 10.9 10 3/uL 4.0-11.0 [facility] Lymphocytes Auto (Bld) [#/Vo l]on 03-25-2024 Lymphocytes (Bld) [#/Vol] 1.6 10 3/uL 1.2-3.8 [facility] Lymphocytes/100 WBC Auto (Bl d)on 03-25-2024 Lymphocytes/100 WBC (Bld) 14.4 % Low 20.5-60.0 [facility] MCH Auto (RBC) [Entitic mass ]on 03-25-2024 MCH (RBC) [Entitic mass] 30.2 pg 26.7-34.0 [facility] MCHC Auto (RBC) [Mass/Vol]on 03-25-2024 MCHC (RBC) [Mass/Vol] 30.6 g/dL 29.9-35.2 [facility] MCV Auto (RBC) [Entitic vol] on 03-25-2024 MCV (RBC) [Entitic vol] 98.8 fL 81.0-99.0 [facility] Monocytes Auto (Bld) [#/Vol] on 03-25-2024 Monocytes (Bld) [#/Vol] 1.2 10 3/uL High 0.3-0.8 [facility] Monocytes/100 WBC Auto (Bld) on 03-25-2024 Monocytes/100 WBC (Bld) 10.7 % 1.7-12.0 [facility] Neutrophils Auto (Bld) [#/Vo l]on 03-25-2024 Neutrophils (Bld) [#/Vol] 8.0 10 3/uL High 1.4-6.5 [facility] Neutrophils/100 WBC Auto (Bl d)on 03-25-2024 Neutrophils/100 WBC (Bld) 73.5 % 43.0-75.0 [facility] No Panel Informationon 03-25 Eosinophils # (Auto) 0.0 10 3/uL 0.0-0.7 [facility] Immature Granulocyte # (Auto) 0.08 10 3/uL High 0.00-0.03 [facility] Platelet mean volume Auto (B ld) [Entitic vol]on 03-25-2024 Platelet mean volume (Bld) [Entitic vol] 9.9 fL 9.5-13.5 [facility] Platelets Auto (Bld) [#/Vol] on 03-25-2024 Platelets (Bld) [#/Vol] 208 10 3/uL 150-450 [facility] RBC Auto (Bld) [#/Vol]on RBC (Bld) [#/Vol] 3.21 10 6/uL Low 4.20-5.40 [facility] Serum or plasma albumin/glob ulin mass ratioon 03-25-2024 Albumin/Globulin [Mass ratio] 0.6 {ratio} [facility] Serum or plasma anion gap de terminationon 03-25-2024 Anion gap [Moles/Vol] 9.4 mmol/L [facility] Basophils Auto (Bld) [#/Vol] on 03-24-2024 Basophils (Bld) [#/Vol] 0.0 10 3/uL 0.0-0.1 [facility] Basophils/100 WBC Auto (Bld) on 03-24-2024 Basophils/100 WBC (Bld) 0.2 % 0.2-2.0 [facility] Eosinophils/100 WBC Auto (Bl d)on 03-24-2024 Eosinophils/100 WBC (Bld) 0.1 % Low 0.9-7.0 [facility] Erythrocyte distribution wid th Auto (RBC) [Ratio]on 03-24-2024 Erythrocyte distribution width (RBC) [Ratio] 12.2 % 11.0-15.0 [facility] Estimated glomerular filtrat ion rate (GFR) non- Americanon 03-24-2024 GFR/1.73 sq M.predicted among non-blacks MDRD (S/P/Bld) [Vol rate/Area] mL/min/{1.73_m2} >=60 [facility] Globulin Calc (S) [Mass/Vol] on 03-24-2024 Globulin (S) [Mass/Vol] 3.0 g/dL [facility] Hematocrit Auto (Bld) [Volum e fraction]on 03-24-2024 Hematocrit (Bld) [Volume fraction] 29.7 % Low 36.0-48.0 [facility] Hemoglobin [Mass/volume] in Bloodon 03-24-2024 Hemoglobin (Bld) [Mass/Vol] 9.2 g/dL Low 12.0-16.0 [facility] Laboratory - Chemistry and C hemistry - challengeon 03-24-2024 Albumin [Mass/Vol] 2.2 g/dL Low 3.4-5.0 [facility] ALP [Catalytic activity/Vol] 104 U/L 46-116 [facility] ALT [Catalytic activity/Vol] 29 U/L 14-59 [facility] AST [Catalytic activity/Vol] 32 U/L 15-37 [facility] Bilirubin [Mass/Vol] 0.8 mg/dL 0.2-1.0 [facility] Calcium [Mass/Vol] 7.3 mg/dL Low 8.5-10.1 [facility] Chloride [Moles/Vol] 106 mmol/L 98-107 [facility] CO2 [Moles/Vol] 20.8 mmol/L Low 21.0-32.0 [facility] Creatinine [Mass/Vol] 0.73 mg/dL 0.55-1.02 [facility] GFR/1.73 sq M.predicted MDRD (S/P/Bld) [Vol rate/Area] mL/min/{1.73_m2} >=60 [facility] Glucose [Mass/Vol] 96 mg/dL 74-106 [facility] Potassium [Moles/Vol] 3.8 mmol/L 3.5-5.1 [facility] Protein [Mass/Vol] 5.2 g/dL Low 6.4-8.2 [facility] Sodium [Moles/Vol] 138 mmol/L 136-145 [facility] Urea nitrogen [Mass/Vol] 12.0 mg/dL 7.0-18.0 [facility] Urea nitrogen/Creatinine [Mass ratio] 16.4 mg/mg [facility] Laboratory - Hematology and Cell countson 03-24-2024 Immature granulocytes/100 WBC (Bld) 0.9 % High 0.0-0.5 [facility] Leukocytes [#/volume] correc juanita for nucleated erythrocytes in Blood by Automated counon 03-24-2024 WBC corrected for nucl RBC Auto (Bld) [#/Vol] 16.8 10 3/uL High 4.0-11.0 [facility] Lymphocytes Auto (Bld) [#/Vo l]on 03-24-2024 Lymphocytes (Bld) [#/Vol] 2.0 10 3/uL 1.2-3.8 [facility] Lymphocytes/100 WBC Auto (Bl d)on 03-24-2024 Lymphocytes/100 WBC (Bld) 12.0 % Low 20.5-60.0 [facility] MCH Auto (RBC) [Entitic mass ]on 03-24-2024 MCH (RBC) [Entitic mass] 30.2 pg 26.7-34.0 [facility] MCHC Auto (RBC) [Mass/Vol]on 03-24-2024 MCHC (RBC) [Mass/Vol] 31.0 g/dL 29.9-35.2 [facility] MCV Auto (RBC) [Entitic vol] on 03-24-2024 MCV (RBC) [Entitic vol] 97.4 fL 81.0-99.0 [facility] Monocytes Auto (Bld) [#/Vol] on 03-24-2024 Monocytes (Bld) [#/Vol] 1.6 10 3/uL High 0.3-0.8 [facility] Monocytes/100 WBC Auto (Bld) on 03-24-2024 Monocytes/100 WBC (Bld) 9.7 % 1.7-12.0 [facility] Neutrophils Auto (Bld) [#/Vo l]on 03-24-2024 Neutrophils (Bld) [#/Vol] 12.9 10 3/uL High 1.4-6.5 [facility] Neutrophils/100 WBC Auto (Bl d)on 03-24-2024 Neutrophils/100 WBC (Bld) 77.1 % High 43.0-75.0 [facility] No Panel Informationon 03-24 Stool Occult Blood Negative [facility] Eosinophils # (Auto) 0.0 10 3/uL 0.0-0.7 [facility] Immature Granulocyte # (Auto) 0.15 10 3/uL High 0.00-0.03 [facility] Platelet mean volume Auto (B ld) [Entitic vol]on 03-24-2024 Platelet mean volume (Bld) [Entitic vol] 10.1 fL 9.5-13.5 [facility] Platelets Auto (Bld) [#/Vol] on 03-24-2024 Platelets (Bld) [#/Vol] 153 10 3/uL 150-450 [facility] RBC Auto (Bld) [#/Vol]on RBC (Bld) [#/Vol] 3.05 10 6/uL Low 4.20-5.40 [facility] Serum or plasma albumin/glob ulin mass ratioon 03-24-2024 Albumin/Globulin [Mass ratio] 0.7 {ratio} [facility] Serum or plasma anion gap de terminationon 03-24-2024 Anion gap [Moles/Vol] 15.0 mmol/L [facility] Basophils/100 WBC Manual cnt (Bld)on 03-23-2024 Basophils/100 WBC (Bld) 0.0 % Low 0.2-2.0 [facility] Eosinophils/100 WBC Manual c nt (Bld)on 03-23-2024 Eosinophils/100 WBC (Bld) 0.0 % Low 0.9-7.0 [facility] Erythrocyte distribution wid th Auto (RBC) [Ratio]on 03-23-2024 Erythrocyte distribution width (RBC) [Ratio] 12.0 % 11.0-15.0 [facility] Estimated glomerular filtrat ion rate (GFR) non- Americanon 03-23-2024 GFR/1.73 sq M.predicted among non-blacks MDRD (S/P/Bld) [Vol rate/Area] mL/min/{1.73_m2} >=60 [facility] Globulin Calc (S) [Mass/Vol] on 03-23-2024 Globulin (S) [Mass/Vol] 4.3 g/dL [facility] Hematocrit Auto (Bld) [Volum e fraction]on 03-23-2024 Hematocrit (Bld) [Volume fraction] 38.5 % 36.0-48.0 [facility] Hemoglobin [Mass/volume] in Bloodon 03-23-2024 Hemoglobin (Bld) [Mass/Vol] 12.7 g/dL 12.0-16.0 [facility] Laboratory - Chemistry and C hemistry - challengeon 03-23-2024 Lactate [Moles/Vol] 1.6 mmol/L 0.4-2.0 [facility] Albumin [Mass/Vol] 3.5 g/dL 3.4-5.0 [facility] ALP [Catalytic activity/Vol] 113 U/L 46-116 [facility] ALT [Catalytic activity/Vol] 19 U/L 14-59 [facility] AST [Catalytic activity/Vol] 14 U/L Low 15-37 [facility] Bilirubin [Mass/Vol] 0.7 mg/dL 0.2-1.0 [facility] Calcium [Mass/Vol] 8.9 mg/dL 8.5-10.1 [facility] Chloride [Moles/Vol] 95 mmol/L Low 98-107 [facility] CO2 [Moles/Vol] 24.4 mmol/L 21.0-32.0 [facility] Creatinine [Mass/Vol] 1.01 mg/dL 0.55-1.02 [facility] GFR/1.73 sq M.predicted MDRD (S/P/Bld) [Vol rate/Area] mL/min/{1.73_m2} >=60 [facility] Glucose [Mass/Vol] 118 mg/dL High 74-106 [facility] Lipase [Catalytic activity/Vol] 13.0 U/L Low 16.0-77.0 [facility] Potassium [Moles/Vol] 3.5 mmol/L 3.5-5.1 [facility] Protein [Mass/Vol] 7.8 g/dL 6.4-8.2 [facility] Sodium [Moles/Vol] 133 mmol/L Low 136-145 [facility] Urea nitrogen [Mass/Vol] 11.0 mg/dL 7.0-18.0 [facility] Urea nitrogen/Creatinine [Mass ratio] 10.9 mg/mg [facility] Bilirubin Ql (U) Negative NEGATIVE [facility] Glucose (U) [Mass/Vol] Negative NEGATIVE [facility] Ketones Ql (U) TRACE mg/dL Abnormal NEGATIVE [facility] pH (U) 6.0 [pH] 5.0-9.0 [facility] Specific gravity (U) [Rel density] 1.020 1.005-1.02 5 [facility] Urobilinogen Qn (U) 1.0 {Elmer'U}/dL 0.2-1.0 [facility] Laboratory - Hematology and Cell countson 03-23-2024 Lymphocytes/100 WBC (Bld) 5.0 % Low 20.5-60.0 [facility] Monocytes/100 WBC (Bld) 8.0 % 1.7-12.0 [facility] Laboratory - Microbiology an d Antimicrobial susceptibilityon 03-23-2024 S. agalactiae Org specific cx Ql (Vag fld) Not detected NOT DETECTE [facility] Laboratory - Specimen inform ationon 03-23-2024 Appearance (U) CLOUDY Abnormal CLEAR [facility] Color (U) LT. YELLOW YELLOW [facility] Laboratory - Urinalysison Leukocyte esterase Test strip Ql (U) MODERATE Abnormal NEGATIVE [facility] Mucus Ql (Urine sed) MODERATE Abnormal NONE SEEN [facility] Nitrite Ql (U) Positive Abnormal NEGATIVE [facility] Protein Ql (U) >=300 mg/dL Abnormal NEG/TRACE [facility] Leukocytes [#/volume] correc juanita for nucleated erythrocytes in Blood by Automated counon 03-23-2024 WBC corrected for nucl RBC Auto (Bld) [#/Vol] 23.3 10 3/uL High 4.0-11.0 [facility] MCH Auto (RBC) [Entitic mass ]on 03-23-2024 MCH (RBC) [Entitic mass] 30.8 pg 26.7-34.0 [facility] MCHC Auto (RBC) [Mass/Vol]on 03-23-2024 MCHC (RBC) [Mass/Vol] 33.0 g/dL 29.9-35.2 [facility] MCV Auto (RBC) [Entitic vol] on 03-23-2024 MCV (RBC) [Entitic vol] 93.4 fL 81.0-99.0 [facility] No Panel InformationOrdered By: Yosef Celeste on 03-23-2024 Blood Culture 2 [facility] Blood Culture 1 [facility] No Panel InformationOrdered By: Ragini Riley on 03-23-2024 Blood Culture 2 [facility] No Panel Informationon 03-23 A.calcoaceticus-brijesh annii cmplx PCR Not detected NOT DETECTE [facility] Bacteroides fragilis (PCR) Not detected NOT DETECTE [facility] Blood Culture Source BLOOD [facility] Amy albicans (PCR) Not detected NOT DETECTE [facility] Amy auris (PCR) Not detected NOT DETECTE [facility] Amy glabrata (PCR) Not detected NOT DETECTE [facility] Amy krusei (PCR) Not detected NOT DETECTE [facility] Amy parapsilosis (PCR) Not detected NOT DETECTE [facility] Amy tropicalis (PCR) Not detected NOT DETECTE [facility] Crypto neoformans/gattii (PCR)(LAB) Not detected NOT DETECTE [facility] CTX-M ESBL (PCR) Not detected NOT DETECTE [facility] Enterobacter cloacae complex (PCR) Not detected NOT DETECTE [facility] Enterobacterales (PCR) Detected Abnormal NOT DETECTE [facility] Comment on above: RESULTS CALLED TO Onesimo BELLA)@BY Ragini Frederick MLT at 0242 Enterococcus faecalis PCR Not detected NOT DETECTE [facility] Enterococcus faecium PCR Not detected NOT DETECTE [facility] Escherichia coli Result Detected Abnormal NOT DETECTE [facility] Comment on above: RESULTS CALLED TO Onesimo MensahRN)@BY Ragini Frederick MLT at 0242 Haemophilus influenzae DNA Not detected NOT DETECTE [facility] IMP (blaIMP) Carbap Res Gene (PCR) Not detected NOT DETECTE [facility] Klebsiella aerogenes (PCR) Not detected NOT DETECTE [facility] Klebsiella oxytoca (PCR) Not detected NOT DETECTE [facility] Klebsiella pneumoniae group (PCR) Not detected NOT DETECTE [facility] KPC (blaKPC) Detection (PCR) Not detected NOT DETECTE [facility] Listeria monocytogenes (PCR) Not detected NOT DETECTE [facility] MCR-1 Resistance Gene Not detected NOT DETECTE [facility] mecA/C & MREJ Antimicrob Resist Gen NOT APPLICABLE NOT DETECTE [facility] mecA/C-Methicillin Resistance Gene NOT APPLICABLE NOT DETECTE [facility] NDM (blaNDM) Detection (PCR) Not detected NOT DETECTE [facility] Neisseria meningitidis (PCR) Not detected NOT DETECTE [facility] Proteus species (PCR) Not detected NOT DETECTE [facility] Pseudomonas aeruginosa (PCR) Not detected NOT DETECTE [facility] Salmonella spp. (PCR) Not detected NOT DETECTE [facility] Serratia marcescens (PCR) Not detected NOT DETECTE [facility] Staphylococcus aureus (PCR)(LAB) Not detected NOT DETECTE [facility] Staphylococcus epidermidis (PCR) Not detected NOT DETECTE [facility] Staphylococcus lugdunensis (TEM-PCR Not detected NOT DETECTE [facility] Staphylococcus species (PCR) Not detected NOT DETECTE [facility] Stenotroph. maltophilia (PCR) Not detected NOT DETECTE [facility] Streptococcus pneumoniae (PCR) Not detected NOT DETECTE [facility] Streptococcus pyogenes (PCR)(LAB) Not detected NOT DETECTE [facility] Streptococcus species (PCR) Not detected NOT DETECTE [facility] Syn OXA-48-like Carb Res Gene (PCR) Not detected NOT DETECTE [facility] Shayna/B-Vancomycin Resistance Genes NOT APPLICABLE NOT DETECTE [facility] VIM (blaVIM) Carbap Res Gene (PCR) Not detected NOT DETECTE [facility] Absolute Basophils (Manual) 0.00 10 3/uL 0.00-0.10 [facility] Eosinophils # (Manual) 0.00 10 3/uL 0.00-0.70 [facility] Lymphocytes # (Manual) 1.16 10 3/uL Low 1.20-3.80 [facility] Monocytes # (Manual) 1.86 10 3/uL High 0.30-0.80 [facility] Segmented Neutrophils # (Manual) 20.27 10 3/uL High 1.4-6.5 [facility] Reference Lab Order Code See comment [facility] Comment on above: SEE SCANNED REPORT Urine Bacteria MODERATE #/HPF Abnormal NONE SEEN [facility] Urine Culture Reflexed YES [facility] Urine Microscopic Review YES [facility] Urine Occult Blood LARGE Abnormal NEGATIVE [facility] Urine Other Casts NONE SEEN #/LPF NONE SEEN [facility] Urine Other Crystals None Seen #/HPF None Seen [facility] Urine RBC 2-5 #/HPF Abnormal 0-2 [facility] Urine Squamous Epithelial Cells FEW #/LPF Abnormal NONE/RARE [facility] Urine Transitional Epithelial Cells RARE #/LPF Abnormal NONE SEEN [facility] Urine WBC >100 #/HPF Abnormal NONE SEEN [facility] Platelet mean volume Auto (B ld) [Entitic vol]on 03-23-2024 Platelet mean volume (Bld) [Entitic vol] 10.0 fL 9.5-13.5 [facility] Platelets Auto (Bld) [#/Vol] on 03-23-2024 Platelets (Bld) [#/Vol] 234 10 3/uL 150-450 [facility] RBC Auto (Bld) [#/Vol]on RBC (Bld) [#/Vol] 4.12 10 6/uL Low 4.20-5.40 [facility] Segmented neutrophils/100 WB C Manual cnt (Bld)on 03-23-2024 Segmented neutrophils/100 WBC (Bld) 87.0 % [facility] Serum or plasma albumin/glob ulin mass ratioon 03-23-2024 Albumin/Globulin [Mass ratio] 0.8 {ratio} [facility] Serum or plasma anion gap de terminationon 03-23-2024 Anion gap [Moles/Vol] 17.1 mmol/L [facility] XR CERVICAL SPINE COMPLETE 4 -5 VIEWSon 01-16-2024 XR CERVICAL SPINE COMPLETE 4-5 VIEWS FINDINGS: Normal disc space heights. No significant osteophyte formation. Mild facet arthropathy, no significant osseous neuroforaminal stenosis. IMPRESSION: 1. Mild arthritis. 2. Normal alignment. TRANSCRIBED BY: ELECTRONICALLY SIGNED BY: Feroz Wilks MD Normal Not Available COVID + FLU Quick Testingon 07-10-2023 SARS-CoV-2 (COVID-19) RNA NAKIA+probe Ql (Unsp spec) Negative [facility] [employer] Other COVID + FLU Quick Testing Negative [facility] [employer] Other Lab - Toxicology Resultson Lab - Toxicology Results [id number][facility]-2023 Consent Forms [id number]#1.00[facility] Clinical Summaryon 2022 ED Clinical Summary [facility] ? Urgent Care [address] [place], [place] [id number] Clinical Summary PERSON INFORMATION Name: JENNA SHARMA Age: 37 Years Sex: FEMALE : 1985 MRN: Acct#: Visit Reason: Medical screening exam; DORON ANDREWS Arrival: 06/03/2023 10:27:58 Discharge: 06/03/2023 11:13:00 LOS: 000 00:46 Check In: 06/03/2023 10:27:58 Checkout: 06/03/2023 11:13:00 Address: [address] [place] [id number] PCP: Ragini Riley CNP PROVIDER INFORMATION Provider Role Assigned Unassigned Jyoti Tapia ED Nurse 06/03/2023 10:31:20 Emre Guzman ED [...] verbalizes understanding of instructions given Comment: Normal [facility] ED Patient Summaryon 023 ED Patient Summary [facility] ? Urgent Care [address] [place] [address] PATIENT DISCHARGE INSTRUCTIONS Patient Information Name: JENNA SHARMA Age: 37 Years Date of : 1985 Reason For Visit: Medical screening exam; DORON ANDREWS Arrival Time: 06/03/2023 10:27:58 Primary Care Physician: Ragini Riley CNP Attending Physician: Emre Guzman Comment: Patient Education Medication Information: The exam and treatment you received today in the [facility] Emergency Department were for an urgent problem and are not intended as complete care. It is important for you to follow up with a doctor, nurse practitioner, or physician?s surgeon's assistant for ongoing care. If your symptoms [...] so we can reach you if necessary. [facility] Emergency Department has provided you with a complete list of medications post discharge. 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 [...] infections. Vi (more content not included)... Normal [facility] Triage Panel 10on 06-03-2023 Drug Screen Complete Collected Normal [facility] Comment on above: Performed By: #### 2 [id number] #### [facility] (DEFAULT) [address] [place] [address] Urgent Care Recordon 023 Urgent Care Record [facility] ? Urgent Care [address] [place] [address] PATIENT DISCHARGE INSTRUCTIONS Patient Information Name: JENNA SHARMA Age: 37 Years Date of : 1985 Reason For Visit: Medical screening exam; DORON ANDREWS Arrival Time: 06/03/2023 10:27:58 Primary Care Physician: Ragini Riley CNP Attending Physician: Emre Guzman Comment: Visit Diagnosis: Diagnoses This Visit Medical screening exam ([id number]) Routine medical exam (Z00.00) If you received [...] and treatment you received today in the [facility] Care were for an urgent problem and are not intended as complete care. It is important for you to follow up with a doctor, nurse practitioner, or physician?s surgeon's assistant for ongoing care. If your symptoms [...] so we can reach you if necessary. [facility] Care has provided you with a complete list of medications post discharge. 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 [...] Bacteria Antib (more content not included)... Normal [facility] Calprotectin [Mass/mass] in StoolOrdered By: Luigi Schaefer on 04-23-2023 Calprotectin (Stl) [Mass/Mass] 9 ug/g 0-120 [facility] Comment on above: Concentration Interp retation Follow-Up< 5 - 50 ug/g Normal None>50 -120 ug/g Borderline Re-evaluate in 4-6 weeks >120 ug/g Abnormal Repeat as clinically indicatedPerformed at: [facility] [id number] Director: Bartolo Mccurdy MD, Phone: [phone] Cryptosporidium sp Ag [Prese nce] in Stool by ImmunoassayOrdered By: Luigi Schaefer on 04-23-2023 Cryptosporidium sp Ag IA Ql (Stl) Negative Negative [facility] Comment on above: Performed at: [facility] [employer] [address] [id number] Director: Will Chapman PhD, Phone: [phone] Elastase.pancreatic [Mass/ma ss] in StoolOrdered By: Luigi Schaefer on 04-23-2023 Elastase.pancreatic (Stl) [Mass/Mass] 138 >200 [facility] Comment on above: Result Units: ug Lianna st./g Severe Pancreatic Insufficiency: <100 Moderate Pancreatic Insufficiency: 100 - 200 Normal: >200Performed at: [facility] [employer] [id number] Director: Bartolo Mccurdy MD, Phone: [phone] Giardia lamblia Ag [Presence ] in Stool by ImmunoassayOrdered By: Luigi Schaefer on 04-23-2023 G. lamblia Ag IA Ql (Stl) Negative Negative [facility] Comment on above: Performed at: [facility] [address] [id number] Director: Will Chapman PhD, Phone: [phone] Stool bacteria identificatio n by cultureOrdered By: Luigi Schaefer on 04-23-2023 Bacteria identified Cx Nom (Stl) [facility] Stool lactoferrin detectionO rdered By: Luigi Schaefer on 04-23-2023 Lactoferrin Ql (Stl) [facility] Stool pH measurementOrdered By: Luigi Schaefer on 04-23-2023 pH (Stl) 7.0 7.0-7.5 [facility] Comment on above: This test was develo ped and its performance characteristicsdetermined by [employer]. It has not been cleared orapproved by the Food and Drug Administration.Performed at: [address] [id number] Director: Will Chapman PhD, Phone: [phone] XR ankle RT min 3V*on 2022 XR ankle RT min 3V* [facility] Other Urinalysis - AUTOMATEDon Appearance (U) cloudy [employer] Other Bilirubin Ql (U) Negative [facility] [place] Other Color (U) dark yellow [facility] Other Glucose Ql (U) Negative [employer] Other Hemoglobin Ql (U) Moderate [employer] Other Ketones Ql (U) Negative [employer] Other Leukocyte esterase Test strip Ql (U) Moderate [facility] Other Nitrite Ql (U) Positive [employer] Other pH (U) 7.0 [pH] [facility] Other Protein Ql (U) 100mg [employer] Other Specific gravity (U) [Rel density] 1.025 [facility] Other Urobilinogen (U) [Mass/Vol] 0.2 mg/dL [facility] Other Urinalysis - AUTOMATED [facility] Other Urine Cultureon 02-25-2023 Bacteria identified Cx Nom (U) [facility] Other Urine culture routineOrdered By: Jyoti Jama on 02-25-2023 Bacteria identified Cx Nom (U) 2 Days [facility] COVID + FLU Quick Testingon 10-11-2022 SARS-CoV-2 (COVID-19) RNA NAKIA+probe Ql (Unsp spec) Negative [facility] Other COVID + FLU Quick Testing Negative [facility] Other XR chest 2V*on 10-11-2022 XR chest 2V* [facility] [employer] Other XR chest 2V* [facility] [employer] Other XR chest 2V* [facility] [facility] [employer] Other XR chest 2V* [place] [address] [facility] [employer] Other XR chest 2V* XRay Report [facility] Other XR chest 2V* Signed [facility] Other XR chest 2V* Patient: Christina Sharma MR#: [id number] [place] [employer] Other XR chest 2V* 003 [facility] Other XR chest 2V* : 1985 Acct:[id number] [facility] Other XR chest 2V* Age/Sex: 36 / F ADM Date: 10/11/22 [facility] Other XR chest 2V* Loc: ICXD Room: Type : [facility] [employer] Other XR chest 2V* Attending Dr: Malachi Riley APRN, RETORT FIRER-C [facility] Other XR chest 2V* Copies to: Ragini Riley APRN, LALI [facility] Other XR chest 2V* Ordering Provider: Christian Riley APRN, LALI [facility] Other XR chest 2V* Date of Service: 10/11/22 [facility] Other XR chest 2V* [address]) XR/XR chest 2V*: Fever, unspecified fever cause;Mild persistent asthma [facility] Other XR chest 2V* with e [facility] Other XR chest 2V* Chest 2 views [employer] Other XR chest 2V* CLINICAL HISTORY: Sh ortness of breath, fever, cough [facility] Other XR chest 2V* COMPARISON: None [facility] Other XR chest 2V* FINDINGS: [facility] Other XR chest 2V* Heart normal in size . Lungs are clear. No free air. [facility] Other XR chest 2V* X R/XR chest 2V* [facility] Other XR chest 2V* IMPRESSION: [facility] Other XR chest 2V* NO ACUTE CARDIOPULMO NARY ABNORMALITY. [facility] Other XR chest 2V* Impression dictated by: Feroz Werner Jr., D.OMarilyn10/11/2022 3:20 PM [facility] Other XR chest 2V* Dictation Location: [facility]- [facility] Other XR chest 2V* Transcribed By: PWS 10/11/22 [facility] [employer] Other XR chest 2V* Dictated By: Feroz Werner Jr, DO 10/11/22 [facility] [employer] Other XR chest 2V* Signed By: [facility] Other XR chest 2V* 10/11/22 [facility] [employer] Other CBC AUTO DIFFon 08-15-2022 BASO # 0.0 103/ul Normal 0.0-0.1 [facility] Comment on above: Performed By: #### C BC #### [facility] [address] [place] [address] Dr. Napoleon Best Basophils/100 WBC (Bld) 0.3 % Normal 0.2-2.0 [facility] Comment on above: Performed By: #### C BC #### [facility] [address] [place] [address] Dr. Napoleon Best EO # 0.1 103/ul Normal 0.0-0.7 [facility] Comment on above: Performed By: #### C BC #### [facility] [address] [place] [address] Dr. Napoleon Best Eosinophils/100 WBC (Bld) 0.8 % Critically low 0.9-7.0 [facility] Comment on above: Performed By: #### C BC #### [facility] [address] [place] [address] Dr. Napoleon Best Erythrocyte distribution width (RBC) [Ratio] 12.7 % Normal 11.0-15.0 [facility] Comment on above: Performed By: #### C BC #### [facility] [address] [place] [address] Dr. Napoleon Best Hematocrit (Bld) [Volume fraction] 38.0 % Normal 36.0-48.0 [facility] Comment on above: Performed By: #### C BC #### [facility] [address] [place] [address] Dr. Napoleon Best Hemoglobin (Bld) [Mass/Vol] 12.4 g/dL Normal 12.0-16.0 [facility] Comment on above: Performed By: #### C BC #### [facility] [address] [place] [address] Dr. Napoleon Best IG # 0.02 10e3/ul Normal 0.00-0.03 [facility] Comment on above: Performed By: #### C BC #### [facility] [address] [place] [address] Dr. Napoleon Best IG % 0.3 % Normal 0.0-0.5 [facility] Comment on above: Performed By: #### C BC #### [facility] [address] [place] [address] Dr. Napoleon Best LYMPH # 1.4 103/ul Normal 1.2-3.8 [facility] Comment on above: Performed By: #### C BC #### [facility] [address] [place] [address] Dr. Napoleon Best Lymphocytes/100 WBC (Bld) 17.4 % Critically low 20.5-60.0 [facility] Comment on above: Performed By: #### C BC #### [facility] [address] [place] [address] Dr. Napoleon Best MANUAL DIFF REQ NO Normal [facility] Comment on above: Performed By: #### C BC #### [facility] [address] [place] [address] Dr. Napoleon Best MCH (RBC) [Entitic mass] 30.4 pg Normal 26.7-34.0 [facility] Comment on above: Performed By: #### C BC #### [facility] [address] [place] [address] Dr. Napoleon Best MCHC (RBC) [Mass/Vol] 32.6 g/dL Normal 29.9-35.2 [facility] Comment on above: Performed By: #### C BC #### [facility] [address] [place] [address] Dr. Napoleon Best MCV (RBC) [Entitic vol] 93.1 fL Normal 81.0-99.0 [facility] Comment on above: Performed By: #### C BC #### [facility] [address] [place] [address] Dr. Napoleon Best MONO # 0.8 103/ul Normal 0.3-0.8 [facility] Comment on above: Performed By: #### C BC #### [facility] [address] [place] [address] Dr. Napoleon Best Monocytes/100 WBC (Bld) 10.8 % Normal 1.7-12.0 [facility] Comment on above: Performed By: #### C BC #### [facility] [address] [address] [address] Napoleon Best NEUT # 5.5 103/ul Normal 1.4-6.5 [facility] Comment on above: Performed By: #### C BC #### [facility] [address] [address] [address] Napoleon Best Neutrophils/100 WBC (Bld) 70.4 % Normal 43.0-75.0 [facility] Comment on above: Performed By: #### C BC #### [facility] [address] [place] [address] Dr. Napoleon Best Platelet mean volume (Bld) [Entitic vol] 9.0 fL Critically low 9.5-13.5 [facility] Comment on above: Performed By: #### C BC #### [facility] [address] [place] [address] Dr. Napoleon Best PLT 296 103/ul Normal 150-450 [facility] Comment on above: Performed By: #### C BC #### [facility] [address] [place] [address] Dr. Napoleon Best RBC 4.08 106/ul Critically low 4.20-5.40 [facility] Comment on above: Performed By: #### C BC #### [facility] [address] [place] [address] Dr. Napoleon Best WBC 7.8 103/ul Normal 4.0-11.0 [facility] Comment on above: Performed By: #### C BC #### [facility] [address] [place] [address] Dr. Napoleon Best [facility] SARS-CoV-2 (COVID-19) RNA NAKIA+probe Ql (Unsp spec) Not detected Normal NOT DETECTED [facility] Comment on above: Result Comment: When [...] for this test is supported by the Line Leader of Health and Human Service's declaration that [...] used). Performed By: #### C VDTB #### [facility] [address] [place] [address] Dr. Napoleon Best INFLUENZA A AND B [facility] 08-15 [facility] SEE BELOW Normal [facility] Comment on above: Result Comment: Nega tive for Flu A protein angiten. Infection due to Flu A cannot be ruled out. Flu A angiten in the sample may be below the detection limit of the test. Performed By: #### I NFLUAB #### [facility] [address] [place] [address] Dr. Napoleon Best [facility] SEE BELOW Normal [facility] Comment on above: Result Comment: Nega tive for Flu B protein antigen. Infection due to Flu B cannot be ruled out. Flu B antigen in the sample may be below the detection limit of the test. Performed By: #### I NFLUAB #### [facility] [address] [place] [address] Dr. Napoleon Best INFLUENZA A AG Negative Normal NEGATIVE SEE COMMENT [facility] Comment on above: Performed By: #### I NFLUAB #### [facility] [address] [place] [address] Dr. Napoleon Best INFLUENZA B AG Negative Normal NEGATIVE SEE COMMENT [facility] Comment on above: Performed By: #### I NFLUAB #### [facility] [address] [place] [address] Dr. Napoleon Best INTERNAL CONTROLS Within Normal Limits Normal Wi thin Normal Limits [facility] Comment on above: Performed By: #### I NFLUAB #### [facility] [address] [address] [address] Napoleon Best LACTATE/LACTIC ACIDon 2021 Lactate [Moles/Vol] 0.9 mmol/L Normal 0.4-1.9 [facility] Comment on above: Performed By: #### L ACT #### [facility] [address] [address] [address] Napoleon Best PROF 14(COMP METB)on 022 Albumin [Mass/Vol] 4.0 g/dL Normal 3.4-5.0 [facility] Comment on above: Performed By: #### C MP ####[facility] [address] [address]DrMarilyn Best Albumin/Globulin [Mass ratio] 1.1 {ratio} Normal [facility] Comment on above: Performed By: #### C MP ####[facility] [address] [address]Dr. Napoleon Best ALP [Catalytic activity/Vol] 92 U/L Normal 46-116 [facility] Comment on above: Performed By: #### C MP ####[facility] [address] [address]Dr. Napoleon Best ALT [Catalytic activity/Vol] 23 U/L Normal 14-59 [facility] Comment on above: Performed By: #### C MP ####[facility] [address] [address]DrMarilyn Best Anion gap [Moles/Vol] 13.5 mmol/L Normal [facility] Comment on above: Performed By: #### C MP ####[facility] [address] [address]Dr. Napoleon Best AST [Catalytic activity/Vol] 16 U/L Normal 15-37 [facility] Comment on above: Performed By: #### C MP ####[facility] [address] [address]DrMarilyn Best Bilirubin [Mass/Vol] 0.2 mg/dL Normal 0.2-1.0 [facility] Comment on above: Performed By: #### C MP ####[facility] [address] [address]Dr. Napoleon Best Calcium [Mass/Vol] 8.9 mg/dL Normal 8.5-10.1 [facility] Comment on above: Performed By: #### C MP ####[facility] [address] [address]Dr. Napoleon Best Chloride [Moles/Vol] 103 mmol/L Normal 98-107 [facility] Comment on above: Performed By: #### C MP ####[facility] [address] [place], [place] [address]Dr. Napoleon Best CO2 [Moles/Vol] 28.2 mmol/L Normal 21.0-32.0 [facility] Comment on above: Performed By: #### C MP ####[facility] [address] [place], [place] [address]Dr. Napoleon Best Creatinine [Mass/Vol] 0.72 mg/dL Normal 0.55-1.02 [facility] Comment on above: Performed By: #### C MP ####[facility] [address] [place], [place] [address]Dr. Napoleon Best EGFR-AF PALESTINIAN >60 Normal >=60 [facility] Comment on above: Performed By: #### C MP ####[facility] [address] [place], [place] [address]Dr. Napoleon Best EGFR-NON AF PALESTINIAN >60 Normal >=60 [facility] Comment on above: Performed By: #### C MP ####[facility] [address] [place], [place] [address]Dr. Napoleon Best Globulin (S) [Mass/Vol] 3.5 g/dL Normal [facility] Comment on above: Performed By: #### C MP ####[facility] [address] [place], [place] [address]Dr. Napoleon Best Glucose [Mass/Vol] 91 mg/dL Normal 74-106 [facility] Comment on above: Performed By: #### C MP ####[facility] [address] [id number]. Napoleon Best Potassium [Moles/Vol] 3.7 mmol/L Normal 3.5-5.1 [facility] Comment on above: Performed By: #### C MP ####[facility] [address] [id number]. Napoleon Best Protein [Mass/Vol] 7.5 g/dL Normal 6.4-8.2 [facility] Comment on above: Performed By: #### C MP ####[facility] [address] [id number]. Napoleon Best Sodium [Moles/Vol] 141 mmol/L Normal 136-145 [facility] Comment on above: Performed By: #### C MP ####[facility] [address] [id number]. Napoleon Best Urea nitrogen [Mass/Vol] 7.0 mg/dL Normal 7.0-18.0 [facility] Comment on above: Performed By: #### C MP ####[facility] [address] [id number]. Napoleon Best Urea nitrogen/Creatinine [Mass ratio] 9.7 mg/mg Normal [facility] Comment on above: Performed By: #### C MP ####[facility] [address] [id number]. Napoleon Best XR CHEST 1 Von 08-15-2022 [...] Braulio CLIFFORD Date: 2022-08-15 21:31 Normal [facility] COVID Quick Testingon 2021 Result Negative [employer] Other Quick Strepon 07-09-2022 S. pyogenes Org specific cx Ql (Throat) Negative [facility] [place] Other Quick Strep [facility] Other ER URINE PROFILEon 2 Bilirubin Ql (U) Negative Normal NEGATIVE [facility] Comment on above: Performed By: #### E RUR #### [facility] [address] [place] [address] Dr. Napoleon Best Clarity (U) CLEAR Normal CLEAR [facility] Comment on above: Performed By: #### E RUR #### [facility] [address] [place] [address] Dr. Napoleon Best Color (U) LT. YELLOW Normal YELLOW [facility] Comment on above: Performed By: #### E RUR #### [facility] [address] [place] [address] Dr. Napoleon Best ERUTERESSA A micrscopic examina tion will be performed if indicated. Normal [facility] Comment on above: Performed By: #### E RUR #### [facility] [address] [place] [address] Dr. Napoleon Best Glucose Ql (U) Negative Normal NEGATIVE [facility] Comment on above: Performed By: #### E RUR #### [facility] [address] [place] [address] Dr. Napoleon Best Hemoglobin Ql (U) Negative Normal NEGATIVE [facility] Comment on above: Performed By: #### E RUR #### [facility] [address] [address] [address] Napoleon Best Ketones Ql (U) Negative Normal NEGATIVE [facility] Comment on above: Performed By: #### E RUR #### [facility] [address] [place] [address] Dr. Napoleon Best LEUKOCYTES Negative Normal NEGATIVE [facility] Comment on above: Performed By: #### E RUR #### [facility] [address] [place] [address] Dr. Napoleon Best Nitrite Ql (U) Negative Normal NEGATIVE [facility] Comment on above: Performed By: #### E RUR #### [facility] [address] [address] [address] Napoleon Best pH (U) 7.5 [pH] Normal 5-9 [facility] Comment on above: Performed By: #### E RUR #### [facility] [address] [address] [address] Napoleon Best SPEC GRAVITY 1.020 Normal 1.005-<=1. 025 [facility] Comment on above: Performed By: #### E RUR #### [facility] [address] [address] [address] Napoleon Best UA PROTEIN Negative Normal NEGATIVE/ TRACE [facility] Comment on above: Performed By: #### E RUR #### [facility] [address] [place] [address] Dr. Napoleon Best UR MICRO IND NOT INDICATED Normal [facility] Comment on above: Performed By: #### E RUR #### [facility] [address] [address] [address] Napoleon Best Urobilinogen Qn (U) 0.2 {Elmer'U}/dL Normal 0.2 - 1. 0 [facility] Comment on above: Performed By: #### E RUR #### [facility] [address] [place] [address] Dr. Napoleon Best A1C HEMOGLOBINon 05-23-2022 HbA1c (Bld) [Mass fraction] 5.5 % [employer] Other HbA1c (Bld) [Mass fraction]o n 05-23-2022 A1C HEMOGLOBIN [facility] Other Urine culture routineOrdered By: Ragini Riley on 05-10-2022 Bacteria identified Cx Nom (U) Escherichia coli [facility] VIT D 25-OH LABCORPon 2021 Vitamin D, 25-Hydroxy 22.4 ng/mL Critically low 30.0-100.0 [facility] Comment on above: Result Comment: Arelis min D deficiency has been defined by the [place]iefer of Medicine and an Endocrine Society practice guideline as a level of serum 25-OH vitamin D less than 20 ng/mL (1,2). The Endocrine Society went on to further define vitamin D insufficiency as a level between 21 and 29 ng/mL (2). 1. IOM ([place]fer of Medicine). 2010. Dietary reference intakes for calcium and D. [place]: The National Academies Press. 2. Geraldine MF, Cong MILLER, Alfred BAE, et al. Evaluation, treatment, and prevention of vitamin D deficiency: an Endocrine Society clinical practice guideline. JCEM. 2010; 96(7):1911-30. Performed By: #### V ITADLC #### [facility] [address] [place], [place] [address] Dr. Napoleon Best CBC AUTO DIFFon 05-08-2022 BASO # 0.0 103/ul Normal 0.0-0.1 [facility] Comment on above: Performed By: #### C BC ####[facility] [address] [address]Dr. Napoleon Best Basophils/100 WBC (Bld) 0.2 % Normal 0.2-2.0 [facility] Comment on above: Performed By: #### C BC ####[facility] [address] [id number]. Napoleon Best EO # 0.0 103/ul Normal 0.0-0.7 [facility] Comment on above: Performed By: #### C BC ####[facility] [address] [id number]. Napoleon Best Eosinophils/100 WBC (Bld) 0.0 % Critically low 0.9-7.0 [facility] Comment on above: Performed By: #### C BC ####[facility] [address] [id number]. Napoleon Best Erythrocyte distribution width (RBC) [Ratio] 12.6 % Normal 11.0-15.0 [facility] Comment on above: Performed By: #### C BC ####[facility] [address] [address]Dr. Napoleon Best Hematocrit (Bld) [Volume fraction] 39.4 % Normal 36.0-48.0 [facility] Comment on above: Performed By: #### C BC ####[facility] [address] [address]DrMarilyn Best Hemoglobin (Bld) [Mass/Vol] 12.4 g/dL Normal 12.0-16.0 [facility] Comment on above: Performed By: #### C BC ####[facility] [address] [place], [place] [address]DrMarilyn Best IG # 0.14 10e3/ul Critically high 0.00-0.03 [facility] Comment on above: Performed By: #### C BC ####[facility] [address] [place], [place] [address]DrMarilyn Best IG % 1.1 % Critically high 0.0-0.5 [facility] Comment on above: Performed By: #### C BC ####[facility] [address] [place], [place] [address]DrMarilyn Best LYMPH # 1.6 103/ul Normal 1.2-3.8 [facility] Comment on above: Performed By: #### C BC ####[facility] [address] [place], [place] [address]DrMarilyn Best Lymphocytes/100 WBC (Bld) 12.2 % Critically low 20.5-60.0 [facility] Comment on above: Performed By: #### C BC ####[facility] [address] [place], [place] [address]DrMarilyn Best MANUAL DIFF REQ NO Normal [facility] Comment on above: Performed By: #### C BC ####[facility] Dr[address] [place], [place] [address]DrMarilyn Best MCH (RBC) [Entitic mass] 29.4 pg Normal 26.7-34.0 [facility] Comment on above: Performed By: #### C BC ####[facility] [address] [place], [place] [address]DrMarilyn Best MCHC (RBC) [Mass/Vol] 31.5 g/dL Normal 29.9-35.2 [facility] Comment on above: Performed By: #### C BC ####[facility] [address] [address]DrMarilyn Best MCV (RBC) [Entitic vol] 93.4 fL Normal 81.0-99.0 [facility] Comment on above: Performed By: #### C BC ####[facility] [address] [address]DrMarilyn Best MONO # 0.8 103/ul Normal 0.3-0.8 [facility] Comment on above: Performed By: #### C BC ####[facility] [address] [address]DrMarilyn Best Monocytes/100 WBC (Bld) 6.5 % Normal 1.7-12.0 [facility] Comment on above: Performed By: #### C BC ####[facility] [address] [place], [place] [address]DrMarilyn Best NEUT # 10.4 103/ul Critically high 1.4-6.5 [facility] Comment on above: Performed By: #### C BC ####[facility] [address] [place], [place] [address]DrMarilyn Best Neutrophils/100 WBC (Bld) 80.0 % Critically high 43.0-75.0 [facility] Comment on above: Performed By: #### C BC ####[facility] [address] [place], [place] [address]DrMarilyn Best Platelet mean volume (Bld) [Entitic vol] 9.2 fL Critically low 9.5-13.5 [facility] Comment on above: Performed By: #### C BC ####[facility] [address] [place], [place] [address]DrMarilyn Best PLT 340 103/ul Normal 150-450 [facility] Comment on above: Performed By: #### C BC ####[facility] [address] [place], [place] [address]DrMarilyn Best RBC 4.22 106/ul Normal 4.20-5.40 [facility] Comment on above: Performed By: #### C BC ####[facility] [address] [id number]. Napoleon Best WBC 13.0 103/ul Critically high 4.0-11.0 [facility] Comment on above: Performed By: #### C BC ####[facility] [address] [id number]. Napoleon Best IRON AND TIBCon 05-08-2022 % SATURATION 15.3 % Normal [facility] Comment on above: Performed By: #### V ITB12, FETIBC ####[facility] [address] [address]Dr. Napoleon Best Iron [Mass/Vol] 55.0 ug/dL Normal 50.0-170.0 [facility] Comment on above: Performed By: #### V ITB12, FETIBC ####[facility] [address] [address]Dr. Napoleon Best TIBC DIRECT 358.0 ug/dL Normal 250.0-450. 0 [facility] Comment on above: Performed By: #### V ITB12, FETIBC ####[facility] [address] [id number]. Napoleon Best LIPID PROFILEon 05-08-2022 CHOL-HDL RATIO NORM SEE BELOW Normal [facility] Comment on above: Result Comment: 3.3 - 4.4 LOW RISK 4.4 - 7.1 AVERAGE RISK 7.1 - 11.0 MODERATE RISK >11.0 HIGH RISK Performed By: #### M G, CMP, LIPID #### [facility] [address] [address] [address] Napoleon Best Cholesterol [Mass/Vol] 294 mg/dL Critically high <=200 [facility] Comment on above: Performed By: #### M G, CMP, LIPID #### [facility] [address] [address] [address] Napoleon Best Cholesterol in HDL [Mass/Vol] 72 mg/dL Critically high 40-60 [facility] Comment on above: Performed By: #### M G, CMP, LIPID #### [facility] [address] [address] [address] Napoleon Best Cholesterol in LDL [Mass/Vol] 179.8 mg/dL Normal [facility] Comment on above: Performed By: #### M G, CMP, LIPID #### [facility] [address] [address] [address] Napoleon Best Cholesterol.total/Ch olesterol in HDL [Mass ratio] 4.1 {ratio} Normal [facility] Comment on above: Performed By: #### M G, CMP, LIPID #### [facility] [address] [address] [address] Napoleon Best HDL NORMAL > or = 60 mg/dl - LO W CARDIOVASCULAR RISK <40 mg/dl - HIGH CARDIOVASCULAR RISK Normal [facility] Comment on above: Performed By: #### M G, CMP, LIPID #### [facility] [address] [address] [address] Napoleon Best LDL CALC NORMAL SEE BELOW Normal [facility] Comment on above: Result Comment: <100 mg/dl OPTIMAL 100 - 129 mg/dl NEAR OR ABOVE OPTIMAL 130 - 159 mg/dl BORDERLINE HIGH 160 - 189 mg/dl HIGH >190 mg/dl VERY HIGH Performed By: #### M G, CMP, LIPID #### [facility] [address] [address] [address] Napoleon Best Triglyceride [Mass/Vol] 211 mg/dL Critically high <=150 [facility] Comment on above: Performed By: #### M G, CMP, LIPID #### [facility] [address] [address] [address] Napoleon Best VLDL CALC 42.2 mg/dL Normal [facility] Comment on above: Performed By: #### M G, CMP, LIPID #### [facility] [address] [address] [address] Napoleon Best MAGNESIUMon 05-08-2022 Magnesium [Mass/Vol] 2.1 mg/dL Normal 1.8-2.4 [facility] Comment on above: Performed By: #### M G, CMP, LIPID #### [facility] [address] [address] [address] Napoleon Best PROF 14(COMP METB)on 022 Albumin [Mass/Vol] 3.6 g/dL Normal 3.4-5.0 [facility] Comment on above: Performed By: #### M G, CMP, LIPID #### [facility] [address] [place] [address] Dr. Napoleon Best Albumin/Globulin [Mass ratio] 1.1 {ratio} Normal [facility] Comment on above: Performed By: #### M G, CMP, LIPID #### [facility] [address] [place] [address] Dr. Napoleon Best ALP [Catalytic activity/Vol] 107 U/L Normal 46-116 [facility] Comment on above: Performed By: #### M G, CMP, LIPID #### [facility] [address] [place] [address] Dr. Napoleon Best ALT [Catalytic activity/Vol] 20 U/L Normal 14-59 [facility] Comment on above: Performed By: #### M G, CMP, LIPID #### [facility] [address] [place] [address] Dr. Napoleon Best Anion gap [Moles/Vol] 10.8 mmol/L Normal [facility] Comment on above: Performed By: #### M G, CMP, LIPID #### [facility] [address] [place] [address] Dr. Napoleon Best AST [Catalytic activity/Vol] U/L Critically low 15-37 [facility] Comment on above: Performed By: #### M G, CMP, LIPID #### [facility] [address] [place] [address] Dr. Napoleon Best Bilirubin [Mass/Vol] 0.1 mg/dL Critically low 0.2-1.0 [facility] Comment on above: Performed By: #### M G, CMP, LIPID #### [facility] [address] [place] [address] Dr. Napoleon Best Calcium [Mass/Vol] 8.8 mg/dL Normal 8.5-10.1 [facility] Comment on above: Performed By: #### M G, CMP, LIPID #### [facility] [address] [place] [address] Dr. Napoleon Best Chloride [Moles/Vol] 106 mmol/L Normal 98-107 [facility] Comment on above: Performed By: #### M G, CMP, LIPID #### [facility] [address] [place] [address] Dr. Napoleon Best CO2 [Moles/Vol] 28.0 mmol/L Normal 21.0-32.0 [facility] Comment on above: Performed By: #### M G, CMP, LIPID #### [facility] [address] [place] [address] Dr. Napoleon Best Creatinine [Mass/Vol] 0.68 mg/dL Normal 0.55-1.02 [facility] Comment on above: Performed By: #### M G, CMP, LIPID #### [facility] [address] [place] [address] Dr. Napoleon Best EGFR-AF PALESTINIAN >60 Normal >=60 [facility] Comment on above: Performed By: #### M G, CMP, LIPID #### [facility] [address] [place] [address] Dr. Napoleon Best EGFR-NON AF PALESTINIAN >60 Normal >=60 [facility] Comment on above: Performed By: #### M G, CMP, LIPID #### [facility] [address] [place] [address] Dr. Napoleon Best Globulin (S) [Mass/Vol] 3.4 g/dL Normal [facility] Comment on above: Performed By: #### M G, CMP, LIPID #### [facility] [address] [place] [address] Dr. Napoleon Best Glucose [Mass/Vol] 122 mg/dL Critically high 74-106 [facility] Comment on above: Performed By: #### M G, CMP, LIPID #### [facility] [address] [place] [address] Dr. Napoleon Bets Potassium [Moles/Vol] 3.8 mmol/L Normal 3.5-5.1 [facility] Comment on above: Performed By: #### M G, CMP, LIPID #### [facility] [address] [address] [address] Napoleon Best Protein [Mass/Vol] 7.0 g/dL Normal 6.4-8.2 [facility] Comment on above: Performed By: #### M G, CMP, LIPID #### [facility] [address] [address] [address] Napoleon Best Sodium [Moles/Vol] 141 mmol/L Normal 136-145 [facility] Comment on above: Performed By: #### M G, CMP, LIPID #### [facility] [address] [address] [address] Napoleon Best Urea nitrogen [Mass/Vol] 14.0 mg/dL Normal 7.0-18.0 [facility] Comment on above: Performed By: #### M G, CMP, LIPID #### [facility] [address] [address] [address] Napoleon Best Urea nitrogen/Creatinine [Mass ratio] 20.6 mg/mg Normal [facility] Comment on above: Performed By: #### M G, CMP, LIPID #### [facility] [address] [address] [address] Napoleon Best Urinalysis - DIPSTICKon 08-3 Appearance (U) [employer] Other Bilirubin Ql (U) Negative [employer] Other Color (U) [employer] Other Glucose Ql (U) Negative [employer] Other Hemoglobin Ql (U) Trace [employer] Other Ketones Ql (U) Negative [employer] Other Leukocyte esterase Test strip Ql (U) small [employer] Other Nitrite Ql (U) Negative [employer] Other pH (U) 6.0 [pH] [employer] Other Protein Ql (U) Negative [employer] Other Specific gravity (U) [Rel density] 1.030 [employer] Other Urobilinogen (U) [Mass/Vol] 0.2 mg/dL [employer] Other Urinalysis - DIPSTICK [employer] Other VITAMIN B12on 05-08-2022 Cobalamin (Vitamin B12) [Mass/Vol] 355.0 pg/mL Normal 193.0-986. 0 [facility] Comment on above: Performed By: #### V ITB12, FETIBC ####[facility] [address] [address]Dr. Napoleon [facility] COVID + FLU Quick Testingon 01-16-2022 SARS-CoV-2 (COVID-19) RNA NAKIA+probe Ql (Unsp spec) Negative [facility] Other COVID + FLU Quick Testing Negative [facility] Other XR Knee Complete Right*on XR Knee [...] reported and signed by Cm Escamilla on 01/09/20222004 Normal [facility] [employer] COVID Quick Testingon 2020 Result Negative [facility] Other Vital Signs Date Time Vital Sign Value Performing Clinician Facility 07-20-2024 16:01-0500 Body height 148.59 cm Ragini Riley APRN Work Phone: [facility] 07-20-2024 16:01-0500 Body mass index (BMI) [Ratio] 25.2 kg/m2 Ragini Rosemary RESEARCH ADMINISTRATOR Work Phone: [facility] 07-20-2024 16:01-0500 Body temperature 95.9 [degF] Ragini Rosemary RESEARCH ADMINISTRATOR Work Phone: [facility] 07-20-2024 16:01-0500 Body weight 55.79 kg Ragini Rosemary RESEARCH ADMINISTRATOR Work Phone: [facility] 07-20-2024 16:01-0500 Diastolic blood pressure 60 mm[Hg] Ragini Riley RESEARCH ADMINISTRATOR Work Phone: [facility] 07-20-2024 16:01-0500 Heart rate 91 /min Ragini Riley RESEARCH ADMINISTRATOR Work Phone: [facility] 07-20-2024 16:01-0500 SaO2% (BldA) [Mass fraction] 100 % Ragini Riley RESEARCH ADMINISTRATOR Work Phone: [facility] 07-20-2024 16:01-0500 Systolic blood pressure 104 mm[Hg] Ragini Riley RESEARCH ADMINISTRATOR Work Phone: [facility] 07-14-2024 09:42-0500 Diastolic blood pressure 64 mm[Hg] RESEARCH ADMINISTRATOR Ragini Riley Work Phone: [facility] 07-14-2024 09:42-0500 Heart rate 81 /min RESEARCH ADMINISTRATOR Ragini Riley Work Phone: [facility] 07-14-2024 09:42-0500 Respiratory rate 16 /min RESEARCH ADMINISTRATOR Ragini Perkinsacher Work Phone: [facility] 07-14-2024 09:42-0500 SaO2% (BldA) [Mass fraction] 96 % RESEARCH ADMINISTRATOR Ragini Riley Work Phone: [facility] 07-14-2024 09:42-0500 Systolic blood pressure 103 mm[Hg] GOKUL Ragini Rosemary Work Phone: [facility] 07-14-2024 09:02-0500 Inhaled oxygen flow rate 3 L/min RESEARCH ADMINISTRATORDestiny Eid Rosemary Work Phone: [facility] 07-14-2024 08:34-0500 Body height 148.59 cm RESEARCH ADMINISTRATORDestiny Eid Raziar Work Phone: [facility] 07-14-2024 08:34-0500 Body weight 53.52 kg RESEARCH ADMINISTRATORDestiny Eid Roseamry Work Phone: [facility] 06-22-2024 15:47-0400 Body height 147.32 cm [facility] 06-22-2024 15:47-0400 Body mass index (BMI) [Ratio] 25 kg/m2 [facility] 06-22-2024 15:47-0400 Body temperature 96.8 [degF] [facility] 06-22-2024 15:47-0400 Body weight 54.2 kg [facility] 06-22-2024 15:47-0400 Diastolic blood pressure 78 mm[Hg] [facility] 06-22-2024 15:47-0400 Heart rate 88 /min [facility] 06-22-2024 15:47-0400 SaO2% (BldA) [Mass fraction] 99 % [facility] 06-22-2024 15:47-0400 Systolic blood pressure 118 mm[Hg] [facility] 05-27-2024 12:29-0400 Body mass index (BMI) [Ratio] 23.01 kg/m2 Ynes Arcos RETORT FIRER Work Phone: [facility] 05-27-2024 12:29-0400 Body weight 50.8 kg Ynes Arcos RETORT FIRER Work Phone: [facility] 05-27-2024 12:29-0400 Diastolic blood pressure 72 mm[Hg] Ynes Russpatricia RETORT FIRER Work Phone: [facility] 05-27-2024 12:29-0400 Systolic blood pressure 112 mm[Hg] Ynes Arcos RETORT FIRER Work Phone: [facility] 03-30-2024 14:21-0400 Body height 147.32 cm [facility] 03-30-2024 14:21-0400 Body mass index (BMI) [Ratio] 23.6 kg/m2 [facility] 03-30-2024 14:210400 Body weight 51.25 kg [facility] 03-30-2024 14:21-0400 Diastolic blood pressure 64 mm[Hg] [facility] 03-30-2024 14:21-0400 Heart rate 78 /min [facility] 03-30-2024 14:21-0400 SaO2% (BldA) [Mass fraction] 98 % [facility] 03-30-2024 14:21-0400 Systolic blood pressure 114 mm[Hg] [facility] 12-17-2023 10:40-0400 Diastolic blood pressure 66 mm[Hg] GOKUL Riley Work Phone: [facility] 12-17-2023 10:40-0400 Heart rate 61 /min GOKUL Riley Work Phone: [facility] 12-17-2023 10:40-0400 Respiratory rate 16 /min GOKUL Riley Work Phone: [facility] 12-17-2023 10:40-0400 SaO2% (BldA) [Mass fraction] 100 % GOKUL Riley Work Phone: [facility] 12-17-2023 10:40-0400 Systolic blood pressure 108 mm[Hg] GOKUL Riley Work Phone: [facility] 12-17-2023 10:03-0400 Inhaled oxygen flow rate 3 L/min GOKUL Riley Work Phone: [facility] 12-17-2023 09:07-0400 Body height 147.32 cm GOKUL Riley Work Phone: [facility] 12-17-2023 09:07-0400 Body weight 54.43 kg GOKUL Riley Work Phone: [facility] 07-10-2023 13:55-0400 Body height 147.32 cm Jyoti Jama Other [facility] Other 07-10-2023 13:55-0400 Body mass index (BMI) [Ratio] 22.86 kg/m2 Jyoti Barajasmond Other [facility] Other 07-10-2023 13:55-0400 Body temperature 99.1 [degF] Jyoti Jama Other [facility] Other 07-10-2023 13:55-0400 Body weight 49.62 kg Jyoti Jama Other [facility] Other 07-10-2023 13:55-0400 Respiratory rate 18 /min Jyoti Jama Other [facility] Other 07-10-2023 13:55-0400 SaO2% (BldA) [Mass fraction] 94 % Jyoti Jama Other [facility] Other 05-27-2023 09:00-0400 Body height 147.32 cm Luigi Schaefer Other [facility] Other 05-27-2023 09:00-0400 Body mass index (BMI) [Ratio] 20.9 kg/m2 Luigi Schaefer Other [facility] Other 05-27-2023 09:00-0400 Body weight 45.36 kg Luigi Scovanner Other [facility] Other 05-27-2023 09:00-0400 Diastolic blood pressure 71 mm[Hg] Luigi Scovanner Other [facility] Other 05-27-2023 09:00-0400 Systolic blood pressure 125 mm[Hg] Luigi Scovanner Other [facility] Other 04-15-2023 14:30-0400 Body height 147.32 cm Luigi Scovanner Other [facility] Other 04-15-2023 14:30-0400 Body mass index (BMI) [Ratio] 21.94 kg/m2 Luigi Scovanner Other [facility] Other 04-15-2023 14:30-0400 Body weight 47.63 kg Luigi Scovanner Other [facility] Other 04-15-2023 14:30-0400 Diastolic blood pressure 80 mm[Hg] Luigi Scovanner Other [facility] Other 04-15-2023 14:30-0400 Systolic blood pressure 116 mm[Hg] Luigi Scovanner Other [facility] Other 03-06-2023 14:00-0400 Body height 147.32 cm Ragini Rliey Other [facility] Other 03-06-2023 14:00-0400 Body mass index (BMI) [Ratio] 21.94 kg/m2 Ragini Riley Other [facility] Other 03-06-2023 14:00-0400 Body weight 47.63 kg Ragini Rosemary Other [facility] Other 03-06-2023 14:00-0400 Diastolic blood pressure 68 mm[Hg] Ragini Rosemary Other [facility] Other 03-06-2023 14:00-0400 Systolic blood pressure 110 mm[Hg] Ragini Rosemary Other [facility] Other 02-25-2023 13:20-0400 Body height 147.32 cm Jyoti Jama Other [facility] Other 02-25-2023 13:20-0400 Body mass index (BMI) [Ratio] 24.03 kg/m2 Jyoti Jama Other [facility] Other 02-25-2023 13:20-0400 Body temperature 98.1 [degF] Jyoti Jama Other [facility] Other 02-25-2023 13:20-0400 Body weight 52.16 kg Jyoti Barajasmond Other [facility] Other 02-25-2023 13:20-0400 Diastolic blood pressure 49 mm[Hg] Jyoti Barajasmond Other [facility] Other 02-25-2023 13:20-0400 Respiratory rate 18 /min Jyoti Barajasmond Other [facility] Other 02-25-2023 13:20-0400 SaO2% (BldA) [Mass fraction] 97 % Jyoti Evita Other [facility] Other 02-25-2023 13:20-0400 Systolic blood pressure 99 mm[Hg] Jyoti Evita Other [facility] Other 02-05-2023 12:23-0400 Diastolic blood pressure 75 mm[Hg] RESEARCH ADMINISTRATORDestiny Riley Work Phone: [facility] 02-05-2023 12:23-0400 Heart rate 69 /min RESEARCH ADMINISTRATORDestiny Riley Work Phone: [facility] 02-05-2023 12:23-0400 Respiratory rate 16 /min RESEARCH ADMINISTRATORDestiny Perkinsacher Work Phone: [facility] 02-05-2023 12:23-0400 SaO2% (BldA) [Mass fraction] 97 % RESEARCH ADMINISTRATORDestiny Perkinsacher Work Phone: [facility] 02-05-2023 12:23-0400 Systolic blood pressure 123 mm[Hg] RESEARCH ADMINISTRATORDestiny Perkinsacher Work Phone: [facility] 02-05-2023 11:45-0400 Inhaled oxygen flow rate 3 L/min RESEARCH ADMINISTRATORDestiny Randler Work Phone: [facility] 02-05-2023 10:52-0400 Body height 148.59 cm RESEARCH ADMINISTRATORDestiny Perkinsacher Work Phone: [facility] 02-05-2023 10:52-0400 Body weight 50.8 kg GOKUL Perkinsacher Work Phone: [facility] 02-03-2023 11:30-0400 Body height 147.32 cm Jyoti Evita Other [facility] [place] Other 02-03-2023 11:30-0400 Body mass index (BMI) [Ratio] 23.41 kg/m2 Jyoti Jama Other [facility] Other 02-03-2023 11:30-0400 Body temperature 98.6 [degF] Jyoti Jama Other [facility] Other 02-03-2023 11:30-0400 Body weight 50.8 kg Jyoti Jama Other [facility] Other 02-03-2023 11:30-0400 Respiratory rate 18 /min Jyoti Jama Other [facility] Other 02-03-2023 11:30-0400 SaO2% (BldA) [Mass fraction] 98 % Jyoti Jama Other [facility] Other 10-23-2022 09:50-0500 Diastolic blood pressure 64 mm[Hg] GOKUL Riley Work Phone: [facility] 10-23-2022 09:50-0500 Heart rate 80 /min GOKUL Riley Work Phone: [facility] 10-23-2022 09:50-0500 Respiratory rate 16 /min GOKUL Riley Work Phone: [facility] 10-23-2022 09:50-0500 SaO2% (BldA) [Mass fraction] 96 % GOKUL Riley Work Phone: [facility] 10-23-2022 09:50-0500 Systolic blood pressure 93 mm[Hg] GOKUL Riley Work Phone: [facility] 10-23-2022 09:09-0500 Inhaled oxygen flow rate 3 L/min RESEARCH ADMINISTRATOR Ragini Riley Work Phone: [facility] 10-23-2022 07:58-0500 Body height 148.59 cm RESEARCH ADMINISTRATOR Ragini Riley Work Phone: [facility] 10-23-2022 07:58-0500 Body weight 53.97 kg RESEARCH ADMINISTRATOR Ragini Riley Work Phone: [facility] 10-11-2022 11:30-0500 Body height 147.32 cm Ragini Carmonakodimeek Other [facility] Other 10-11-2022 11:30-0500 Body mass index (BMI) [Ratio] 24.45 kg/m2 Ragini Carmonalarry Other [facility] Other 10-11-2022 11:30-0500 Body weight 53.07 kg Ragini Riley Other [facility] Other 10-11-2022 11:30-0500 Diastolic blood pressure 86 mm[Hg] Ragini Rosemary Other [facility] Other 10-11-2022 11:30-0500 Systolic blood pressure 132 mm[Hg] Ragini Rosemary Other [facility] Other 07-09-2022 19:40-0400 Body height 147.32 cm Alysa Mariscal Other [facility] Other 07-09-2022 19:40-0400 Body mass index (BMI) [Ratio] 25.7 kg/m2 Alysa Mariscal Other [facility] Other 07-09-2022 19:40-0400 Body temperature 98.3 [degF] Alysa Mariscal Other [facility] Other 07-09-2022 19:40-0400 Body weight 55.79 kg Alysa Mariscal Other [facility] Other 07-09-2022 19:40-0400 Diastolic blood pressure 74 mm[Hg] Alysa Mariscal Other [facility] Other 07-09-2022 19:40-0400 Respiratory rate 16 /min Alysa Mariscal Other [facility] Other 07-09-2022 19:40-0400 SaO2% (BldA) [Mass fraction] 99 % Alysa Mariscal Other [facility] Other 07-09-2022 19:40-0400 Systolic blood pressure 128 mm[Hg] Alysa Mariscal Other [facility] Other 06-26-2022 16:00-0400 Body height 147.32 cm Paul Caroleeelie Other [facility] Other 06-19-2022 11:47-0400 Diastolic blood pressure 57 mm[Hg] GOKUL Riley Work Phone: [facility] 06-19-2022 11:47-0400 Heart rate 70 /min GOKUL Riley Work Phone: [facility] 06-19-2022 11:47-0400 Respiratory rate 16 /min GOKUL Riley Work Phone: [facility] 06-19-2022 11:47-0400 SaO2% (BldA) [Mass fraction] 99 % RESEARCH ADMINISTRATOR Ragini Rosemary Work Phone: [facility] 06-19-2022 11:47-0400 Systolic blood pressure 103 mm[Hg] RESEARCH ADMINISTRATOR Ragini Raziar Work Phone: [facility] 06-19-2022 11:09-0400 Inhaled oxygen flow rate 3 L/min RESEARCH ADMINISTRATOR Ragini Rosemary Work Phone: [facility] 06-19-2022 10:32-0400 Body height 148.59 cm RESEARCH ADMINISTRATOR Ragini Maddiedevendrar Work Phone: [facility] 06-19-2022 10:32-0400 Body weight 55.79 kg RESEARCH ADMINISTRATOR Ragini Carmonakodiacheeddie Work Phone: [facility] 05-23-2022 09:00-0400 Body height 147.32 cm Ragini Riley Other [facility] Other 05-23-2022 09:00-0400 Body mass index (BMI) [Ratio] 24.87 kg/m2 Ragini Rosemary Other [facility] Other 05-23-2022 09:00-0400 Body weight 53.98 kg Ragini Rosemary Other [facility] Other 05-23-2022 09:00-0400 Diastolic blood pressure 86 mm[Hg] Ragini Riley Other [facility] Other 05-23-2022 09:00-0400 SaO2% (BldA) [Mass fraction] 99 % Ragini Riley Other [facility] Other 05-23-2022 09:00-0400 Systolic blood pressure 130 mm[Hg] Ragini Riley Other [facility] Other 05-08-2022 15:00-0400 Body height 147.32 cm Ragini Rosemary Other [facility] Other 05-08-2022 15:00-0400 Body mass index (BMI) [Ratio] 24.87 kg/m2 Ragini Rosemary Other [facility] Other 05-08-2022 15:00-0400 Body weight 53.98 kg Ragini Rosemary Other [facility] Other 05-08-2022 15:00-0400 Diastolic blood pressure 80 mm[Hg] Ragini Riley Other [facility] Other 05-08-2022 15:00-0400 SaO2% (BldA) [Mass fraction] 99 % Ragini Rosemary Other [facility] Other 05-08-2022 15:00-0400 Systolic blood pressure 120 mm[Hg] Ragini Riley Other [facility] Other 02-13-2022 08:27-0400 Diastolic blood pressure 66 mm[Hg] RESEARCH ADMINISTRATOR Ragini Riley Work Phone: [facility] 02-13-2022 08:27-0400 Heart rate 76 /min RESEARCH ADMINISTRATOR Ragini Riley Work Phone: [facility] 02-13-2022 08:27-0400 Respiratory rate 16 /min RESEARCH ADMINISTRATORDestiny Riley Work Phone: [facility] 02-13-2022 08:27-0400 SaO2% (BldA) [Mass fraction] 97 % RESEARCH ADMINISTRATORDestiny Riley Work Phone: [facility] 02-13-2022 08:27-0400 Systolic blood pressure 131 mm[Hg] GOKUL Correiafer Maddiedevendraeddie Work Phone: [facility] 02-13-2022 07:46-0400 Inhaled oxygen flow rate 3 L/min RESEARCH ADMINISTRATORDestiny Riley Work Phone: [facility] 02-13-2022 07:26-0400 Body height 147.32 cm RESEARCH ADMINISTRATORDestiny CorreiaRagini Maddiedevendraeddie Work Phone: [facility] 02-13-2022 07:26-0400 Body mass index (BMI) [Ratio] 26.5 kg/m2 GOKUL Riley Work Phone: [facility] 02-13-2022 07:26-0400 Body weight 57.6 kg GOKUL Dongnifer Maddiemeek Work Phone: [facility] 01-23-2022 16:30-0400 Body height 147.32 cm Paul Levi Other [facility] Other 01-23-2022 16:30-0400 Body mass index (BMI) [Ratio] 26.54 kg/m2 Paul Levi Other [facility] Other 01-23-2022 16:30-0400 Body weight 57.61 kg Paul Levi Other [facility] Other 10-25-2021 16:00-0500 Body height 147.32 cm Ragini Riley Other [facility] Other 10-25-2021 16:00-0500 Body mass index (BMI) [Ratio] 26.33 kg/m2 Ragini Carmonakodidevendraeddie Other [facility] Other 10-25-2021 16:00-0500 Body temperature 99.4 [degF] Ragini Carmonakodidevendraeddie Other [facility] Other 10-25-2021 16:00-0500 Body weight 57.15 kg Ragini Carmonakodidevendraeddie Other [facility] Other 10-25-2021 16:00-0500 Diastolic blood pressure 84 mm[Hg] Ragini Carmonakodidevendraeddie Other [facility] Other 10-25-2021 16:00-0500 Respiratory rate 18 /min Ragini Rosemary Other [facility] Other 10-25-2021 16:00-0500 SaO2% (BldA) [Mass fraction] 99 % Ragini Carmonakodidevendraeddie Other [facility] Other 10-25-2021 16:00-0500 Systolic blood pressure 132 mm[Hg] Ragini Carmonakodidevendraeddie Other [facility] Other 06-05-2021 14:00-0400 Body height 147.32 cm Ragini Rosemary Other [facility] Other 06-05-2021 14:00-0400 Body mass index (BMI) [Ratio] 27.38 kg/m2 Ragini Carmonakodidevendraeddie Other [facility] Other 06-05-2021 14:00-0400 Body weight 59.42 kg Ragini Rosemary Other [facility] Other 06-05-2021 14:00-0400 Diastolic blood pressure 74 mm[Hg] Ragini Rosemary Other [facility] Other 06-05-2021 14:00-0400 Respiratory rate 16 /min Ragini Rosemary Other [facility] Other 06-05-2021 14:00-0400 SaO2% (BldA) [Mass fraction] 98 % Ragini Rosemary Other [facility] Other 06-05-2021 14:00-0400 Systolic blood pressure 116 mm[Hg] Ragini Rosemary Other [facility] Other Encounters Encounter Date Encounter Type Care Provider Facility Start: 12-09-2024 End: 12-09-2024 Patient encounter procedure Ragini Rosemary RESEARCH ADMINISTRATOR Work Phone: [facility] [address] [facility] Work Phone: Start: 12-09-2024 End: 12-09-2024 ambulatory Ragini Riley RESEARCH ADMINISTRATOR Work Phone: [facility] Work Phone: Start: 11-17-2024 End: 11-17-2024 Patient encounter procedure Ragini Rosemary RESEARCH ADMINISTRATOR Work Phone: [facility] Work Phone: Start: 07-28-2024 End: 07-28-2024 ambulatory Paul aZrcoer Facility:[facility] Start: 07-20-2024 End: 07-20-2024 ambulatory Ragini Riley RESEARCH ADMINISTRATOR Work Phone: [facility] Work Phone: Start: 07-20-2024 End: 07-20-2024 Patient encounter procedure Raginidre Riley RESEARCH ADMINISTRATOR Work Phone: [facility] Work Phone: Start: 07-14-2024 Non-patient / Non-visit RESEARCH ADMINISTRATOR Ragini Rosemary Work Phone: [facility] Work Phone: Start: 07-14-2024 End: 07-14-2024 Admission to same day surgery center RESEARCH ADMINISTRATOR Ragini Rosemary Work Phone: [facility] Work Phone: Start: 07-14-2024 End: 07-14-2024 ambulatory RESEARCH ADMINISTRATOR Ragini Rosemary Work Phone: [facility] Work Phone: Start: 06-25-2024 End: 06-25-2024 ambulatory [facility] Work Phone: Start: 06-25-2024 End: 06-25-2024 Patient encounter procedure [facility] Work Phone: Start: 06-24-2024 End: 06-24-2024 Bamboo flowsheet Ynes Arcos RETORT FIRER Work Phone: [facility] Start: 06-24-2024 End: 06-24-2024 Bamboo flowsheet Ynes Arcos RETORT FIRER Work Phone: [facility] Start: 06-22-2024 End: 06-22-2024 ambulatory [facility] Work Phone: Start: 06-22-2024 End: 06-22-2024 Patient encounter procedure [facility] Work Phone: Start: 05-27-2024 End: 05-27-2024 Bamboo flowsheet Ynes Arcos RETORT FIRER Work Phone: [facility] Start: 05-27-2024 End: 05-27-2024 Bamboo flowsheet Ynes Julissa Russpatricia RETORT FIRER Work Phone: [facility] Start: 05-27-2024 End: 05-27-2024 ambulatory YNES OTOOLERODY [facility] Comment on above: Carpal tunnel syndro me on right (Primary Dx) Start: 03-30-2024 End: 03-30-2024 ambulatory [facility] Work Phone: Start: 03-30-2024 End: 03-30-2024 Patient encounter procedure [facility] Work Phone: Start: 03-25-2024 Non-patient / Non-visit [facility] Work Phone: Start: 03-25-2024 Non-patient / Non-visit [facility] Work Phone: Start: 03-24-2024 Non-patient / Non-visit [facility] Work Phone: Start: 03-23-2024 Non-patient / Non-visit [facility] Work Phone: Start: 02-18-2024 End: 02-18-2024 ambulatory YNES Julissa ISRRAEL Not Available Start: 01-16-2024 End: 01-16-2024 ambulatory YNES Costa ISRRAEL Not Available Start: 01-01-2024 End: 01-01-2024 ambulatory YNES Costa ISRRAEL Not Available Start: 12-17-2023 Non-patient / Non-visit GOKUL Riley Work Phone: [facility] Work Phone: Start: 12-17-2023 End: 12-17-2023 Admission to same day surgery center GOKUL Riley Work Phone: [facility] Work Phone: Start: 12-17-2023 End: 12-17-2023 ambulatory RESEARCH ADMINISTRATOR Ragini Riley Work Phone: [facility] Work Phone: Start: 11-26-2023 End: 11-26-2023 ambulatory [facility] Work Phone: Start: 11-26-2023 End: 11-26-2023 Patient encounter procedure [facility] Work Phone: Start: 08-07-2023 End: 08-07-2023 ambulatory Paul Levi Other [facility] Other Start: 08-07-2023 Telephone encounter Paul Levi [facility] [place] Start: 07-30-2023 End: 07-30-2023 ambulatory Ragini Riley Other [facility] Other Start: 07-30-2023 Office outpatient visit 10 minutes Ragini Riley [facility] Start: 07-10-2023 End: 07-10-2023 ambulatory Jyoti Jama Other [facility] Other Start: 07-10-2023 Office outpatient visit 15 minutes Jyoti Jama [facility] Start: 07-10-2023 Telephone encounter Ragini Ahmadi [facility] Start: 06-04-2023 (Procedure) Short Paul Levi [facility] Start: 06-04-2023 End: 06-04-2023 ambulatory Paul Levi Other [facility] Other Start: 06-03-2023 End: 06-03-2023 ambulatory Emre GONZALES Facility:[facility] Start: 05-30-2023 End: 05-30-2023 ambulatory Ragini Riley Other [facility] Other Start: 05-30-2023 Telephone encounter Ragini Ahmadi her [facility] Start: 05-27-2023 End: 05-27-2023 ambulatory Luigi Schaefer Other [facility] Other Start: 05-27-2023 Office outpatient visit 15 minutes [facility]igi [facility] Start: 05-24-2023 End: 05-24-2023 ambulatory RESEARCH ADMINISTRATORDestiny Riley Work Phone: [facility] Work Phone: Start: 05-24-2023 End: 05-24-2023 Patient encounter procedure GOKUL Riley Work Phone: [facility] [place] Work Phone: Start: 05-16-2023 End: 05-16-2023 ambulatory Paul Levi Other [facility] Other Start: 05-16-2023 Office outpatient visit 25 minutes Paul Levi [facility] [place] Start: 05-15-2023 End: 05-15-2023 ambulatory Ragini Riley Other [facility] Other Start: 05-15-2023 Telephone encounter Ragini Ahmadi her [facility] Start: 05-07-2023 End: 05-07-2023 ambulatory Luigi Schaefer Other [facility] Other Start: 05-07-2023 Telephone encounter Luigi [facility] Start: 04-23-2023 End: 04-23-2023 ambulatory GOKUL Riley Work Phone: [facility] Work Phone: Start: 04-23-2023 End: 04-23-2023 Patient encounter procedure RESEARCH ADMINISTRATOR Ragini Riley Work Phone: [facility] [place] Work Phone: Start: 04-15-2023 End: 04-15-2023 ambulatory Luigi Schaefer Other [facility] Other Start: 04-15-2023 Office outpatient visit 15 minutes Luigi Schaefer [facility] Start: 03-25-2023 End: 03-25-2023 ambulatory Paul Levi Other [facility] Other Start: 03-25-2023 Telephone encounter Paul Levi [facility] [place] Start: 03-15-2023 End: 03-15-2023 ambulatory Ragini Perkinsacher Other [facility] Other Start: 03-15-2023 Telephone encounter Ragini Carmonamorteza her [facility] Start: 03-13-2023 End: 03-13-2023 ambulatory Ragini Mathewrbacher Other [facility] Other Start: 03-13-2023 Telephone encounter Ragini Daiana her [facility] Start: 03-08-2023 End: 03-08-2023 ambulatory Ragini Perkinsacher Other [facility] Other Start: 03-08-2023 Telephone encounter Ragini Carmonamorteza her [facility] Start: 03-07-2023 End: 03-07-2023 ambulatory Ragini Carmonarbacher Other [facility] Other Start: 03-07-2023 Telephone encounter Ragini Daiana her [facility] Start: 03-06-2023 End: 03-06-2023 ambulatory Ragini Carmonarbacher Other [facility] Other Start: 03-06-2023 Office outpatient visit 25 minutes Ragini Riley [facility] Start: 02-25-2023 Office outpatient visit 15 minutes Jyoti Evita [facility] Start: 02-25-2023 End: 02-25-2023 ambulatory RESEARCH ADMINISTRATORDestiny Riley Work Phone: [facility] Work Phone: Start: 02-25-2023 End: 02-25-2023 Departed Referred RESEARCH ADMINISTRATOR Ragini Riley Work Phone: [facility] [place] Work Phone: Start: 02-05-2023 (Procedure) Short Paul Levi [facility] Start: 02-05-2023 End: 02-05-2023 Admission to same day surgery center RESEARCH ADMINISTRATORDestiny Riley Work Phone: [facility] Work Phone: Start: 02-05-2023 End: 02-05-2023 ambulatory RESEARCH ADMINISTRATORDestiny Riley Work Phone: [facility] Work Phone: Start: 02-03-2023 End: 02-03-2023 ambulatory Jyoti Jama Other [facility] Other Start: 02-03-2023 Office outpatient visit 15 minutes Jyoti Jama [facility] Start: 01-21-2023 End: 01-21-2023 ambulatory Paul Levi Other [facility] Other Start: 01-21-2023 Office outpatient visit 25 minutes Paul Levi [facility] [place] Start: 11-08-2022 End: 11-08-2022 ambulatory Ragini Riley Other [facility] Other Start: 11-08-2022 Encounter by [employer] zhouwu Ragini Riley [facility] Start: 10-23-2022 (Procedure) Short Paul Levi [facility] Start: 10-23-2022 End: 10-23-2022 Admission to same day surgery center RESEARCH ADMINISTRATOR Ragini Riley Work Phone: [facility] Work Phone: Start: 10-23-2022 End: 10-23-2022 ambulatory RESEARCH ADMINISTRATOR Ragini Riley Work Phone: [facility] Work Phone: Start: 10-15-2022 End: 10-15-2022 ambulatory Ragini Riley Other [facility] Other Start: 10-15-2022 Encounter by [employer] Ragini Riley [facility] Start: 10-12-2022 End: 10-12-2022 ambulatory Ragini Riley Other [facility] Other Start: 10-12-2022 Telephone encounter Ragini Ahmadi her [facility] Start: 10-11-2022 End: 10-11-2022 Patient encounter procedure RESEARCH ADMINISTRATOR Ragini Riley Work Phone: [facility] [address] Work Phone: Start: 10-11-2022 End: 10-11-2022 ambulatory Ragini Riley Other [facility] Other Start: 10-11-2022 Office outpatient visit 15 minutes Ragini Riley [facility] Start: 10-09-2022 End: 10-09-2022 ambulatory Paul Levi Other [facility] Other Start: 10-09-2022 Office outpatient visit 25 minutes Paul Levi [facility] [place] Start: 10-03-2022 End: 10-03-2022 ambulatory Paul Levi Other [facility] Other Start: 10-03-2022 Encounter by [employer] Paul Caroleeelie [facility] [place] Start: 09-11-2022 End: 09-11-2022 ambulatory Paul Amita Other [facility] Other Start: 09-11-2022 Telephone encounter Paul [facility] Start: 09-10-2022 End: 09-10-2022 ambulatory Ragini Riley Other [facility] Other Start: 09-10-2022 Encounter by [employer] Ragini Riley [facility] Start: 08-15-2022 End: 08-16-2022 ambulatory SULY CAROLINA Facility: Start: 07-12-2022 End: 07-12-2022 ambulatory Ragini Riley Other [facility] Other Start: 07-12-2022 Encounter by [employer] Ragini Riley [facility] Start: 07-09-2022 End: 07-09-2022 ambulatory Alysa Mariscal Other [facility] Other Start: 07-09-2022 Office outpatient visit 15 minutes Alysa Mariscal [facility] [place] Start: 06-26-2022 End: 06-26-2022 ambulatory Paul Caroleeelie Other [facility] Other Start: 06-26-2022 Office outpatient visit 15 minutes Paul Levi [facility] [place] Start: 06-19-2022 (Procedure) Short Paul Levi [facility] Start: 06-19-2022 Telephone encounter Paul [facility] Start: 06-19-2022 End: 06-19-2022 Admission to same day surgery center RESEARCH ADMINISTRATOR Ragini Rosemary Work Phone: [facility] Start: 06-19-2022 End: 06-19-2022 ambulatory RESEARCH ADMINISTRATOR Ragini Rosemayr Work Phone: [facility] Work Phone: Start: 05-28-2022 End: 05-28-2022 ambulatory RAGINI RILEY Facility: Start: 05-25-2022 End: 05-25-2022 ambulatory Ragini Riley Other [facility] Other Start: 05-25-2022 Telephone encounter Ragini Daiana her [facility] [place] Start: 05-23-2022 End: 05-23-2022 ambulatory Ragini Riley Other [facility] Other Start: 05-23-2022 Office outpatient visit 15 minutes Ragini Riley [facility] [place] Start: 05-22-2022 End: 05-22-2022 ambulatory Ragini Riley Other [facility] Other Start: 05-22-2022 Encounter by lebron r sabino Riley [facility] [place] Start: 05-16-2022 End: 05-16-2022 ambulatory Ragini Riley Other [facility] Other Start: 05-16-2022 Telephone encounter Ragini Daiana her [facility] Start: 05-15-2022 End: 05-15-2022 ambulatory Ragini Riley Other [facility] Other Start: 05-15-2022 Telephone encounter Raginicharles Carmonamorteza her [facility] [place] Start: 05-10-2022 End: 05-10-2022 ambulatory Ragini Riley Other [facility] Other Start: 05-10-2022 Telephone encounter Ragini Daiana her [facility] Start: 05-08-2022 End: 05-08-2022 Departed Referred RESEARCH ADMINISTRATOR Ragini Riley Work Phone: [facility] [place] Start: 05-08-2022 End: 05-09-2022 ambulatory RAGINI RILEY [place] [employer] Other Start: 05-08-2022 Office outpatient visit 15 minutes Ragini Riley [facility] Start: 04-26-2022 End: 04-26-2022 ambulatory Paul Levi Other [facility] Other Start: 04-26-2022 Office outpatient visit 25 minutes Paul Levi [facility] [place] Start: 04-12-2022 End: 04-12-2022 ambulatory Ragini Riley Other [facility] Other Start: 04-12-2022 Office outpatient visit 15 minutes Ragini Riley [facility] Start: 02-20-2022 End: 02-20-2022 ambulatory Paul Levi Other [facility] Other Start: 02-20-2022 Telephone encounter Paul [facility] Start: 02-13-2022 (Procedure) Short Paul Levi [facility] Start: 02-13-2022 End: 02-13-2022 ambulatory Paul Levi Other [facility] Other Start: 02-13-2022 End: 02-13-2022 Admission to same day surgery center RESEARCH ADMINISTRATOR Ragini Riley Work Phone: [facility] Start: 01-23-2022 End: 01-23-2022 ambulatory Paul Levi Other [facility] Other Start: 01-23-2022 Office outpatient visit 25 minutes Paul Levi [facility] [place] Start: 01-19-2022 End: 01-19-2022 ambulatory Ragini Riley Other [facility] Other Start: 01-19-2022 Telephone encounter Ragini Ahmadi her [facility] [place] Start: 01-16-2022 End: 01-16-2022 ambulatory Ragini Riley Other [facility] Other Start: 01-16-2022 Office outpatient visit 15 minutes Ragini Riley [facility] Start: 11-24-2021 End: 11-24-2021 ambulatory Paul Levi Other [facility] Other Start: 11-24-2021 Telephone encounter Paul Levi [facility] Start: 11-22-2021 End: 11-22-2021 ambulatory Ragini Riley Other [facility] Other Start: 11-22-2021 Telephone encounter Ragini Ahmadi her [facility] [place] Start: 10-25-2021 End: 10-25-2021 ambulatory Ragini Riley Other [facility] Other Start: 10-25-2021 Office outpatient visit 15 minutes Ragini Riley [facility] Start: 09-11-2021 End: 09-11-2021 ambulatory Paul Levi Other [facility] Other Start: 09-11-2021 Office outpatient visit 15 minutes Ragini Riley [facility] Start: 09-11-2021 Telephone encounter Paul Levi [facility] Start: 08-14-2021 End: 08-14-2021 ambulatory Ragini Rliey Other [facility] Other Start: 08-14-2021 Telephone encounter Ragini Daiana her [facility] Start: 08-10-2021 End: 08-10-2021 ambulatory Paul Levi Other [facility] Other Start: 08-10-2021 Office outpatient visit 15 minutes Paul Levi [facility] [place] Start: 07-25-2021 End: 07-25-2021 ambulatory Ragini Riley Other [facility] Other Start: 07-25-2021 Office outpatient visit 15 minutes Ragini Riley [facility] Start: 06-30-2021 Telephone encounter Ragini Daiana her [facility] [place] Start: 06-05-2021 Office outpatient visit 15 minutes Ragini Riley [facility] Start: 06-01-2021 Office outpatient visit 25 minutes Paul Levi [facility] [place] Procedures Date Procedure Procedure Detail Performing Clinician Start: 12-09-2024 MR lumbar spine wo con Ragini Fletcher er RESEARCH ADMINISTRATOR Work Phone: Start: 07-14-2024 Radiofrequency destruction of peripheral nerve RESEARCH ADMINISTRATOR Ragini Riley Work Phone: Start: 06-22-2024 Quick Strep (POC) Start: 05-27-2024 H/O: section History of section Ynes Arcos [employer] Work Phone: Start: 05-27-2024 H/O: hysterectomy S/P laparoscopic hysterectomy Ynes Arcos [employer] Work Phone: Start: 03-23-2024 Blood Culture 1 Start: 03-23-2024 Blood Culture 2 Start: 12-17-2023 Radiofrequency destruction of peripheral nerve GOKUL Riley Work Phone: Start: 05-24-2023 Computed tomography of abdomen and pelvis with contrast GOKUL Riley Work Phone: Start: 04-23-2023 Lactoferrin measurement GOKUL Riley Work Phone: Start: 04-23-2023 Stool culture for bacteria GOKUL Riley Work Phone: Start: 02-25-2023 Urine culture GOKUL Riley Work Phone: Start: 02-05-2023 Radiofrequency destruction of peripheral nerve GOKUL Riley Work Phone: Start: 10-23-2022 Epidural injection of lumbar spine using fluoroscopic guidance GOKUL Riley Work Phone: Start: 10-11-2022 Plain chest X-ray GOKUL Riley Work Phone: Start: 06-19-2022 Epidural injection of lumbar spine using fluoroscopic guidance GOKUL Riley Work Phone: Start: 02-13-2022 Radiofrequency destruction of peripheral nerve GOKUL Riley Work Phone: H/O: section S/P RESEARCH ADMINISTRATORDestiny Riley Work Phone: H/O: section History of C-sectio n RESEARCH ADMINISTRATORDestiny Riley Work Phone: H/O: hysterectomy Paul Fel ter Other H/O: hysterectomy S/P laparoscop ic hysterectomy GOKUL Carmonakodidevendraeddie Work Phone: Urine culture GOKUL Riley Work Phone: Plan of Treatment Date Care Activity Detail Author Start: 03-08-2025 Influenza vaccination Influenz a Vaccine (#1) [facility] Comment on above: Postponed from 05/10 (Patient Refused) Start: 09-29-2024 Screening for malign ant neoplasm of cervix [facility] Start: 07-14-2024 [facility] Start: 07-08-2024 End: 07-08-2024 Clinical Support 07/08/2024 3:00 PM EDT Clinical Support [facility] [id number] [place] [address], [place] [id number] Ynes Arcos [employer]ORT FIRER [address] [place] [address], [place] [id number] [facility] [address] Start: 06-24-2024 End: 06-24-2024 [facility]med[facility] Comment on above: Arrived Start: 05-27-2024 End: 05-27-2024 Clinical Support 05/27/2024 12:30 PM EDT Clinical Support [facility] [address] [place] [address], [place] [address] Ynes Arcos [employer] [address] [place] [address], [place] [address] Arrived [facility] Comment on above: Arrived Start: 05-10-2024 Influenza vaccination Influenz a Vaccine (#1) [facility] Start: 2023 Screening for malign ant neoplasm of breast Mammogram [facility] Start: 12-17-2023 [facility] Start: 11-26-2023 Patient referral [facility] Work Phone: Start: 02-25-2023 Bacteria identified in Urine by Culture Urine Culture [facility] Start: 02-05-2023 [facility] Start: 10-23-2022 [facility] Start: 06-19-2022 [facility] Start: 02-13-2022 [facility] Work Phone: Start: 12-28-2004 Screening for malign ant neoplasm of cervix Pap Smear [facility] Calprotectin [Mass/m ass] in Stool [facility] Comprehensive metabo lic 2000 panel - Serum or Plasma [facility] Cryptosporidium sp A g [Presence] in Stool by Immunoassay [facility] Elastase.pancreatic [Mass/mass] in Stool [facility] Giardia lamblia Ag [Presence] in Stool by Immunoassay [facility] Patient Education [facility] Work Phone: Patient referral [facility] Work Phone: pH of Stool [facility] Immunizations Immunization Date Immunization Notes Care Provider Fa cility 01-20-2021 COVID-19 Vaccine Moderna - Documentation Purposes Only Paul Levi Other [facility] 12-23-2020 COVID-19 Vaccine Moderna - Documentation Purposes Only Paul Levi Other [facility] 12-15-2018 tetanus and diphther ia toxoids, adsorbed, preservative free, for adult use (5 Lf of tetanus toxoid and 2 Lf of diphtheria toxoid) [facility] 12-15-2018 tetanus toxoid, reduced diphtheria toxoid, and acellular pertussis vaccine, adsorbed Paul Levi Other [facility] 06-24-2015 influenza, seasonal, injectable, preservative free Ynes Arcos [employer] Work Phone: [facility] 06-24-2015 influenza virus vaccine, unspecified formulation Ynes Arcos [employer] Work Phone: [facility] 04-26-2011 DEPO-PROVERA Paul Levi Other [facility] Other 01-25-2011 DEPO-PROVERA Paul Levi Other [facility] Other 06-29-2010 influenza virus vaccine, split virus (incl. purified surface antigen) Paul Levi Other [facility] Other 06-29-2010 influenza virus vaccine, unspecified formulation [facility] Payers Date Payer Category Payer Self-pay [id number] 2023 Private Health Insurance [employer] [id number] 2023 Unknown [employer] [id number] 2023-Present [address] [place] [address] [id number] 2023 Unknown [id number] 1983 Unknown [id number] [id number]. 593 1983 Unknown [id number] 2.16.840.1.701263.3.579.2. 593 1983 Unknown [id number] 2.16.840.1.085052.3.579.2. 593 1983 Unknown [id number] 2.16.840.1.118134.3.579.2. 1259 1983 Unknown [id number] 2.16.840.1.678220.3.579.2. 1259 1983 Unknown [id number] 2.16.840.1.002543.3.579.2. 1259 1983 Unknown [id number] 2.16.840.1.030910.3.579.2. 1259 1983 Unknown [id number] 2.16.840.1.290609.3.579.2. 1259 1959 Unknown [id number] 2.16.840.1.136229.19 Unknown [id number] 2.16.840.1.851292.19 Unknown [id number] 2.16.840.1.512540.19 Unknown [id number] 2.16.840.1.744278.3.579.2. 531 Unknown [id number] 2.16.840.1.353594.3.579.2. 531 Unknown [id number] 2.16.840.1.452941.3.579.2. 531 Unknown [id number] 2.16.840.1.002349.3.579.2. 531 Social History Date Type Detail Facility Start: 02-18-2024 End: 05-27-2024 Sex Assigned At [facility] Other Start: 02-13-2022 End: 10-23-2022 Tobacco smoking status WAIS Ex-smoker (finding) [facility] Start: 1985 Sex Assigned At Female F [facility] Start: 06-19-2022 End: 07-14-2024 Tobacco smoking status WAIS Smoker (finding) [facility] Start: 01-01-2024 Tobacco smoking stat us WAIS Never smoked tobacco [facility] Start: 01-01-2024 Tobacco use and exposure Smokeless tobacco non-user [facility] Start: 02-18-2024 End: 05-27-2024 Alcoholic beverage intake Ex-drinker (finding) [facility] Start: 02-18-2024 End: 05-27-2024 History of Social function [facility] Start: 12-09-2023 Gender identity Identifies as female gender (finding) [facility] Start: 07-20-2024 End: 12-10-2024 Sex Female (finding) [facility] Goals Date Patient Goal Desired Activity /State Clinical Notes 06-01-2021 to 11-17-2024 Note Date & Type Note Facility 11-17-2024 Evaluation note Diagnosis Onset Date Resolution Other chronic pain acute November 17, 2024 3:23pm Other spondylosis with radiculopathy, lumbar region acute November 17, 2024 3:23pm [facility] Work Phone: 1(688) 775-284411-05-2024 [facility] Evaluation note* Diagnosis Onset Date Resolution Status Admit Date Maxillary sinusitis acute Octob er 2023 3:41pm Otitis media acute June 3:41pm Arthritis of lumbosacral spine acute June 25, 2024 2:52pm Other chronic pain acute Octobe r 2023 2:52pm Other spondylosis with radiculopathy, lumbar region acute Oct jerman 2023 2:52pm Dizziness acute July 20, 2024 3:52pm Fatigue acute July 20, 2024 3:52pm Vitamin D deficiency acute Nove [facility] 2023 3:52pm [facility] Work Phone: 1(673) 361-781609-18-2024 History of Present illness Narrative* Ynes Arcos, STIVEN - 05/27/2024 12:30 PM EDT Images from the original note were not included. CHIEF COMPLAINT REASON FOR VISIT : Neuro Injection HPI: Jenna Sharma is a 38 y.o. female who presents for right CTS injections and neck pain. She can not use right arm sometimes. 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 She reports neck pain which causes her headaches. Medications tried: tizanidine, celebrex, tylenol, Ibuprofen, lyrica, topamax, imitrex and PRN opioids Migraines occur once a week. Weather changes increase symptoms. Duration of migraines 4-6 hours. CURRENT MEDICATIONS: ALLERGIES/DISCONTINUE MEDICATIONS Current Outpatient Medications Medication Instructions atorvastatin (LIPITOR) 10 mg, Oral, Daily celecoxib (CELEBREX) 100 mg, Oral, 2 times daily Creon [id number] units capsule delayed-release particles capsule 1 capsule, Oral, As needed lamoTRIgine (LAMICTAL) 50 mg, Oral, Daily Rimegepant Sulfate (Nurtec) 75 MG tablet dispersible 1 tablet, Oral, As needed tiZANidine (ZANAFLEX) 2 mg, Oral, 3 times daily venlafaxine (EFFEXOR) 37.5 mg, Oral, Daily RT venlafaxine XR (EFFEXOR XR) 37.5 mg, Oral, Daily Ventolin HFA 108 (90 Base) MCG/ACT inhaler 2 puffs, Inhalation, Every 6 hours PRN Allergies Allergen Reactions Pregabalin Swelling Other Reaction(s): Fatigued, dizziness/ headache, Unknown, Weight Changes-wt gain Topiramate Other Reaction(s): Fatigued, Fatigue-extreme, Other (See Comments), Unknown Fatigue; states she was bedridden There are no discontinued medications. PAST MEDICAL HISTORY: SURGICAL/SOCIAL/FAMILY HISTORY DEPRESSION SCREEN: Past Medical History: Diagnosis Date Anxiety Cluster headache Depression (CMS/HCC) Fibromyalgia, primary Headache, tension-type Hypercholesterolemia (CMS/HCC) Past Surgical History: Procedure Laterality Date HYSTERECTOMY Social History Tobacco Use Smoking status: Never Smokeless tobacco: Never Substance Use Topics Alcohol use: Not Currently Drug use: Never Family History Problem Relation Name Age of Onset Hypertension Mother Leona Diabetes Mother Leona Depression Mother Leona Migraines Mother Leona Restless legs syndrome Mother Leona Depression: Not on file REVIEW OF SYMPTOMS: Review of Systems Constitutional: Negative for chills, diaphoresis, fatigue and fever. HENT: Negative for ear pain, tinnitus and trouble swallowing. Eyes: Negative for photophobia and visual disturbance. Respiratory: Negative for cough and shortness of breath. Cardiovascular: Negative for palpitations and leg swelling. Gastrointestinal: Negative for abdominal pain and nausea. Genitourinary: Negative for difficulty urinating and urgency. Musculoskeletal: Positive for back pain, neck pain and neck stiffness. Negative for arthralgias andmyalgias. Neurological: Positive for headaches. Negative for tremors, weakness, light- headedness and numbness. Psychiatric/Behavioral: Negative for agitation, confusion and suicidal ideas. OBJECTIVE: 01/01/2024 2:52 PM 01/09/2022 12:00 PM 03/10/2020 12:00 PM Vitals BMI 23.22 kg/m2 25.87 kg/m2 25.08 kg/m2 BSA (m2) 1.46 m2 1.52 m2 1.49 m2 Systolic 110 124 108 Diastolic 80 76 66 Height (in) 4' 10.5 4' 10 4' 10 Weight (lb) 113 123.8 120 Visit Report Report EXAM: Neurological Exam PROCEDURE: Carpal Tunnel Injection After explaining the risks, complications, and benefits of the procedure, the patient was seated inthe chair. Allergies were reviewed, the consent was signed. The right wrist was marked for injections and cleaned using sterile technique, after identifying the palmaris tendon, a 30 gauge 1/2 needle was slowly inserted into the right carpal tunnel region. The patient received 0.5 cc Bupivacaine 0.50% and 0.5 cc Dexamethasone 4mg. The needle was removed. The patient tolerated the procedure well and without complications. A Band-Aid dressing was applied on the injection site. ASSESSMENT AND PLAN: Diagnoses and all orders for this visit: Carpal tunnel syndrome on right 38 year old female here for first right carpal tunnel injections. She has a wrist splint she even wears at work sometimes. She is on Celebrex. documented in this encounterP[facility] [id number] [facility] Evaluation note* Encounter Date Diagnosis Assessment Notes Treatment Notes Treatment Clinical Notes Jul, Lumbosacral spondylosis without myelopathy (ICD-10 - M47.817) Jul, Cervical pain (ICD-10 - M54.2) [facility] Other 11-21-2023 Evaluation note* Encounter Date Diagnosis [...] understanding and is agreeable to treatment plan. [facility] Other 11-01-2023 Evaluation note* Encounter Date Diagnosis [...] taken if symptoms of yeast infection develop. [facility] Other 09-26-2023 Note [id number]09-25-2023 NotePatient Education Materials [id number] Evaluation note* Encounter Date Diagnosis Assessment Notes [...] ORDER MRI TO TAKE A CLOSER LOOK. [facility] Other 09-07-2023 Evaluation note* Encounter Date Diagnosis [...] note writ ten by Wilmer Tapia MA, Seismology Technical Officer. Edited and approved by Dr. Paul Levi MD. [facility] Other 09-06-2023 Evaluation note* Encounter Date Diagnosis Assessment Notes Treatment Notes Treatment Clinical Notes May, Mild episode of recurrent major depressive disorder (ICD-10 - F33.0) [facility] Other 08-29-2023 Evaluation note* Encounter Date Diagnosis Assessment Notes Treatment Notes Treatment Clinical Notes Apr, Diarrhea (ICD-10 - R19.7) Apr, Constipation, unspecified constipation type (ICD-10 - K59.00) [facility] Other 08-07-2023 Evaluation note* Encounter Date Diagnosis [...] powder Pt advised to take a probiotic ([employer]) start one a day Pt advised to try metamucil fiber gummys, three a day Labs and imaging ordered Pt advised to drink plenty of water Pt informed of the low fod map diet Pt RTO in 6 weeks [facility] Other 07-17-2023 Evaluation note* Encounter Date Diagnosis Assessment Notes Treatment Notes Treatment Clinical Notes Mar, Lumbosacral spondylosis without myelopathy (ICD-10 - M47.817) [facility] Other 07-05-2023 Evaluation note* Encounter Date Diagnosis Assessment Notes Treatment Notes Treatment Clinical Notes Mar, Mixed hyperlipidemia (ICD-10 - E78.2) [facility] Other 06-28-2023 Evaluation note* Encounter Date Diagnosis [...] (ICD-10 - E78.2) Due for repeat labs [facility] Other 06-19-2023 Evaluation note* Encounter Date Diagnosis [...] fever or any worsening of your symptoms. [facility] Other 06-19-2023 Evaluation note* Encounter Date Diagnosis [...] nicotine dependence, tobacco product (ICD-10 - F17.290) [facility] 05-30-2023 [facility]* Encounter Date Diagnosis Assessment Notes [...] with your dentist as soon as possible [facility] Other 05-15-2023 Evaluation note* Encounter Date Diagnosis [...] note writ ten by Ida Griffith LPN, Seismology Technical Officer. Edited and approved by Dr. Paul Levi MD. [facility] Other 03-02-2023 Evaluation note* Encounter Date Diagnosis Assessment Notes Treatment Notes Treatment Clinical Notes Nov, Mild episode of recurrent major depressive disorder (ICD-10 - F33.0) [facility] Other 02-06-2023 Evaluation note* Encounter Date Diagnosis Assessment Notes Treatment Notes Treatment Clinical Notes Oct, Bronchitis (ICD-10 - J40) [facility] Other 02-02-2023 Evaluation note* Encounter Date Diagnosis [...] go to the ER. Patient verbalizes understanding. [facility] Other 01-31-2023 Evaluation note* Encounter Date Diagnosis [...] note writ ten by Wilmer Tapia CMA, Seismology Technical Officer. Edited and approved by Dr. Paul Levi MD. [facility] Other 01-03-2023 Evaluation note* Encounter Date Diagnosis Assessment Notes Treatment Notes Treatment Clinical Notes Sep, Cervical radiculopathy at C6 (ICD-10 - M54.12) [facility] Other 10-31-2022 Evaluation note* Encounter Date Diagnosis [...] other viral communicable diseases (ICD-10 - Z20.828) [facility] Other 10-18-2022 Evaluation note* Encounter Date Diagnosis [...] note writ ten by Wilmer Tapia CMA, Seismology Technical Officer. Edited and approved by Dr. Paul Levi MD. [facility] Other 10-11-2022 Evaluation note* Encounter Date Diagnosis Assessment Notes Treatment Notes Treatment Clinical Notes Jun, Low back pain (ICD-1 0 - M54.5) Jun, Cervical radiculopathy at C7 (ICD-10 - M54.12) Jun, Cervical radiculopathy at C6 (ICD-10 - M54.12) [facility] 10-11-2022 [facility]* Encounter Date Diagnosis Assessment Notes [...] care will repeat labs in 3 months. [facility] Other 09-06-2022 Evaluation note* Encounter Date Diagnosis Assessment Notes Treatment Notes Treatment Clinical Notes May, Mild episode of recurrent major depressive disorder (ICD-10 - F33.0) [facility] 08-30-2022 Evaluation note* Encounter Date Diagnosis [...] to the ER if this would occur. [facility] 08-18-2022 Evaluation note* Encounter Date Diagnosis [...] note writ ten by Wilmer Tapia CMA, Seismology Technical Officer. Edited and approved by Dr. Paul Levi MD. [facility] Other 08-04-2022 Evaluation note* Encounter Date Diagnosis [...] of iron deficiency anemia (ICD-10 - Z86.2) [facility] Other 06-14-2022 Evaluation note* Encounter Date Diagnosis Assessment Notes Treatment Notes Treatment Clinical Notes Feb, Low back pain (ICD-10 - M54.5) [facility] 05-17-2022 Evaluation note* Encounter Date Diagnosis [...] note writ ten by Wilmer Tapia CMA, Seismology Technical Officer. Edited and approved by Dr. Paul Levi MD. [facility] Other 05-13-2022 Evaluation note* Encounter Date Diagnosis Assessment Notes Treatment Notes Treatment Clinical Notes January, Acute non-recurrent maxillary sinusitis (ICD-10 - J01.00) [facility] Other 05-10-2022 Evaluation note* Encounter Date Diagnosis [...] understanding and is agreeable to treatment plan. [facility] Other 03-18-2022 Evaluation note* Encounter Date Diagnosis Assessment Notes Treatment Notes Treatment Clinical Notes Nov, Low back pain (ICD-10 - M54.5) [facility] Other 02-16-2022 Evaluation note* Encounter Date Diagnosis [...] Oct, Mixed hyperlipidemia (ICD-10 - E78.2) Stable [facility] Other 01-03-2022 Evaluation note* Encounter Date Diagnosis Assessment Notes Treatment Notes Treatment Clinical Notes Sep, Low back pain (ICD-10 - M54.5) [facility] Other 01-03-2022 Evaluation note* Encounter Date Diagnosis [...] difficulty breathing, chest pain, palpitations, fever less [id number], persistent fevers not reduced by antipyretic, severe headache, neck pain/stiffness, abdominal pain, persistent N/V, severe dehydration. Patient verbalizes understanding and is agreeable to treatment plan. Sep, Cough (ICD-10 - R05.9) Sep, Other The patient was seen per video virtual visit through [employer] platform and my location (provider) is in the office setting. The specifics of the virtual visit were discussed with patient. This video call is considered video virtual visit, which is to help assess current healthcare needs and to determine the appropriate care patient may require. This visit is a billable service through patient insurance [employer]. Patient is in agreement to have their insurance billed for this video virtual visit and consents to video virtual visit. The staff involved in visit was myself, Ragini Riley DNP, RESEARCH ADMINISTRATOR, VISUAL DESIGNER (provider). Time spent with patient was approximately 15 minutes. [facility] Other 12-06-2021 Evaluation note* Encounter Date Diagnosis Assessment Notes Treatment Notes Treatment Clinical Notes Aug, Mixed hyperlipidemia (ICD-10 - E78.2) [facility] Other 12-02-2021 Evaluation note* Encounter Date Diagnosis [...] note writ ten by Desiree Cano CMA, Seismology Technical Officer. Edited and approved by Dr. Paul Levi MD [facility] 11-16-2021 Evaluation note* Encounter Date Diagnosis [...] understanding and is agreeable to treatment plan. [facility] Other 10-22-2021 Evaluation note* Encounter Date Diagnosis Assessment Notes Treatment Notes Treatment Clinical Notes Jun, Mild episode of recurrent major depressive disorder (ICD-10 - F33.0) [facility] Other 09-27-2021 Evaluation note* Encounter Date Diagnosis [...] verbalizes understanding and agrees to treatment plan. [facility] Other 09-23-2021 Evaluation note* Encounter Date Diagnosis [...] Above note writ ten by Karina BARBOUR, Seismology Technical Officer. Edited and approved by Dr. Paul Levi MD [facility] Other Evaluation noteNo InformationNort [employer] Other Evaluation noteNo assessment information available [facility] Work Phone: evaluxtbml note* Diagnosis Onset Date Resolution Status Cervical radiculopathy acute DJD (degenerative joint disease), lumbosacral acute Other chronic pain acute Other spondylosis with radiculopathy, lumbar region acute [facility] Work Phone: evaluation note* Diagnosis Onset Date Resolution Status Arthritis of lumbosacral spine acute Numbness and tingling in right hand acute Other chronic pain acute Other spondylosis with radiculopathy, lumbar region acute [facility] Work Phone: evaluation note* Diagnosis Onset Date Resolution Status Hospital discharge follow-up acute Sepsis acute UTI (urinary tract infection) [facility] Work Phone: evaluation note* Diagnosis Onset Date Resolution Status Hospital discharge follow-up acute Sepsis acute UTI (urinary tract infection) acute Otitis media acute [facility] Work Phone: evaluation note* Diagnosis Onset Date Resolution Status Hospital discharge follow-up acute Sepsis acute UTI (urinary tract infection) acute Maxillary sinusitis acute Otitis media acute Arthritis of lumbosacral spine acute Numbness and tingling in right hand acute Other chronic pain acute Other spondylosis with radiculopathy, lumbar region acute [facility] Work Phone: evaluation note* Diagnosis Onset Date Resolution Status Maxillary sinusitis acute Otitis media acute Arthritis of lumbosacral spine acute Other chronic pain acute Other spondylosis with radiculopathy, lumbar region acute [facility] Work Phone: evaluwcknn note* Diagnosis Carpal tunnel syndrome on right- Primary Carpal tunnel syndrome documented in this encounter [facility] N[facility]ative - Reported* Type Description Date Medical History Anemia Medical History asthma Medical History kidney stones Medical History fibromyalgia Medical History bipolar Medical History Candidal vulvovaginitis Medical History with history of aborti on Medical History Abnormal Pap smear o f cervix with low-grade squamous intraepithelial lesion Medical History HX of Drug Abuse Surgical History Diagnostic Lap 2001 Surgical History Diagnostic Lap 2007 Surgical History wisdom teeth 2000 Surgical History dilation of urethra-done 2 time s 2009 Surgical History 11/23/10 Surgical History 2019 Surgical History Hysterectomy/ Partial 01/2020 Hospitalization History 2006 Hospitalization History 2006 [facility] Other History general Narrative - Reported* Type Description Date [...] Surgical History Hysterectomy/ Partial 01/2020 Hospitalization History 2005 Hospitalization History 2006 [facility] Other Summary Purpose Family History No Family History Records Found Relationship Condition Age at Onset Recorded Date/T sandoval Not Specified Chronic obstructive pulmonary disease Un known Hypertension Unknown Diabetes mellitus Unknown Relationship Condition Age at Onset Recorded Date/T sandoval Not Specified Chronic obstructive pulmonary disease Un known Hypertension Unknown Diabetes mellitus Unknown family member Unknown family member History of malignant neoplasm of prostate Unknown grandparent Heart disease Unknown Unknown grandparent Unknown Not Specified Diabetes mellitus Unknown Relationship Condition Age at Onset Recorded Date/T sandoval mother Chronic obstructive pulmonary disease Unk nown Hypertension Unknown Diabetes mellitus Unknown aunt Unknown aunt History of malignant neoplasm of prostate Unknown grandparent Heart disease Unknown Unknown grandparent Unknown mother Diabetes mellitus Unknown Relationship Condition Age at Onset Recorded Date/T sandoval mother Diabetes mellitus Unknown Chronic obstructive pulmonary disease Unk nown Hypertension Unknown aunt Unknown aunt History of malignant neoplasm of prostate Unknown grandparent Heart disease Unknown Unknown grandparent Unknown Advance Directives No Advanced Directives Records Found Advance Directive Response Recorded Date/ Time Advance Directives No January 06 11:36am Advance Directive Response Recorded Date/ Time Advance Directives No January 06 10:36am Reason for Referral Reason *Waiting for appt evaluate Diagnosis 1 Rectal bleeding (K62 .5) Diagnosis 2 Diarrhea, unspecifie d type (R19.7) Referral Organization [facility] [place] Referring Provider First Name Ragini Referring Provider Last Name Maddieacheeddie Referring Provider Specialty Nurse Pract itioner Referred Organization [facility] Gastroenterolo gy Referred Provider Halle London Referred Address [address] ,[facility] [address] ,[place], [place],[address] Referred Provider Specialty Gastroentero logy Referral Priority Routine General Notes HarjitNico delgadilloya 04:39:42 PM >received today, sent P2P Reason *FU 05/03 EMG OF B LE Diagnosis 1 Other spondylosis wi th radiculopathy, lumbar region (M47.26) Referral Organization [facility] Ortho pedics Referring Provider First Name Paul Referring Provider Last Name Amita Referring Provider Specialty Pain Medici ne Referred Organization [facility] Referred Provider Cm Terry Referred Address [address],[place], [place],[address] Referred Provider Specialty Neurology Referral Priority Routine General Notes RosenbergRagini orr 09:29:11 AM >attached OTTO referral form, p2p sent out for scheduling Chief Complaint and Reason for Visit Chief Complaint Back Pain N30.01 Chief Complaint N30.01 Back Pain Chief Complaint R50.9 J45.31 R06.2 Back Pain Chief Complaint Back Pain Chief Complaint Back Pain Dysuria Chief Complaint Back Pain r30.0 R19.7 Chief Complaint R19.7 R19.7 K59.00 Chief Complaint BACK PAIN Reason for Visit Cervical radiculopat hy DJD (degenerative joint disease), lumbosacral Other chronic pain Other spondylosis with radiculopathy, lumbar region Chief Complaint BACK PAIN LUMBAR PAIN LUMBAR PAIN Reason for Visit Arthritis of lumbosa cral spine Numbness and tingling in right hand Other chronic pain Other spondylosis with radiculopathy, lumbar region Chief Complaint Amb Documentation TBH f/u, sepsis, phelonephritis Reason for Visit Hospital discharge f ollow-up Sepsis UTI (urinary tract infection) Chief Complaint Amb Documentation TBH f/u, sepsis, phelonephritis Headache, sore throat, white pockets in throat Reason for Visit Hospital discharge f ollow-up Sepsis UTI (urinary tract infection) Otitis media Chief Complaint TBH f/u, sepsis, phe lonephritis Headache, sore throat, white pockets in throat BACK PAIN Reason for Visit Hospital discharge f ollow-up Sepsis UTI (urinary tract infection) Maxillary sinusitis Otitis media Arthritis of lumbosacral spine Numbness and tingling in right hand Other chronic pain Other spondylosis with radiculopathy, lumbar region Chief Complaint Headache, sore throa t, white pockets in throat BACK PAIN Back Pain Back Pain Reason for Visit Maxillary sinusitis Otitis media Arthritis of lumbosacral spine Other chronic pain Other spondylosis with radiculopathy, lumbar region Chief Complaint Admit Date Headache, sore throat, white pockets in throat June 22, 2024 3:41pm BACK PAIN June 25, 2024 2 :52pm Back Pain July 14, 2024 8 :23am Back Pain July 14, 2024 8 :54am Discuss FMLA July 20, 2024 3:52pm Reason for Visit Admit Date Maxillary sinusitis June 22, 2024 3 :41pm Otitis media June 22, 2024 3 :41pm Arthritis of lumbosacral spine June 092023 2:52pm Other chronic pain June 25, 2024 2 :52pm Other spondylosis with radiculopathy, thaddeus mbar region June 25, 2024 2:52pm Dizziness July 20, 2024 3:52pm Fatigue July 20, 2024 3:52pm Vitamin D deficiency July 20, 2024 3:52pm Chief Complaint Admit Date OP/SP BACK PAIN November 17, 2024 3:2 3pm M47.26 December 09, 2024 3:01 pm Reason for Visit Admit Date Other chronic pain November 17, 2024 3:2 3pm Other spondylosis with radiculopathy, thaddeus mbar region November 17, 2024 3:23pm Additional Source Comments INFORMATION SOURCE (unrecogn ized section and content) DATE CREATED AUTHOR 01/11/2022 [facility] dical Specialist DATE CREATED AUTHOR AUTHOR'S ORGANIZ ATION 08/18/2022 [facility] DATE CREATED AUTHOR AUTHOR'S ORGANIZ ATION 06/21/2023 [facility] DATE CREATED AUTHOR AUTHOR'S ORGANIZ ATION 06/26/2024 [facility] dical Specialists EPIC DATE CREATED AUTHOR AUTHOR'S ORGANIZ ATION 12/12/2024 [facility] y[facility] REASON FOR VISIT (unrecogniz ed section and content) MRI RESULTS6 month Follow up No InformationDOXIMITY [phone] SORE THROAT, COUGH, EAR PAINPROCEDURE FUREFILLNo InformationDoximity [phone] month Follow upNo InformationBP COVID + issues 3 weeks Out)elie hood updoximity [phone] cough, sinus congestion will be coming to office for testingNo InformationRIGHT LUMBAR FACET RFA L3 L4 L5/DSF/U LUMBARRefillsNo Informationdoximity [phone] discuss potassium and vit d levelsFOLLOW UP FROM PROCEDUREUTI/Vaginal bleedingUrine culture resultsrefilllab resultsAppt.GO OVER LABSNo InformationLUMBAR EPIDURAL STEROID INJECTION L4 L5/VWNo InformationF/U LUMBAR EOIDURAL STEROID INJECTIONSINUS CONGESTION, EARACHE, COUGH, CONGESTIONAppt 11-3Jasmynne dupuisNo InformationReschedule appointments3 MONTH F/UXR resultscongestion (possible bronchitis)AntibioticsLUMBAR [...] Member Role Status Dates Ragini Riley APRN RETORT FIRER-Patric Primary Care Provider Active Team Status: Inactive Member Role Status Dates Ragini Riley APRN RETORT FIRER-C Primary Care Provider Active Paul Levi MD Attending Provider Active Team Status: Inactive Member Role Status Dates GOKUL Dickson Primary Care Provider, Attending Provider Active Team Status: Inactive Member Role Status Dates ANGEL Pedraza Attending Provider Active Team Status: Inactive Member Role Status Dates ANGEL Pedraza Attending Provider Active NON STAFF Primary Care Provider Active Team Status: Inactive Member Role Status Dates Ragini Riley APRN NP-C Primary Care Provider Active Luigi Schaefer APRN Attending Provider Active Team Status: Inactive Member Role Status Dates Luigi Schaefer APRN Attending Provider Active Ragini Riley APRN RETORT FIRER-C Primary Care Provider Active Team Status: Inactive Member Role Status Dates Ragini Riley APRN RETORT FIRER-C Primary Care Provider Active Start: November 26, 2023 End: November 26, 2023 Paul Levi MD Attending Provider Active Sta rt: November 26, 2023 End: November 26, 2023 Team Status: Inactive Member Role Status Dates Ragini Riley APRN RETORT FIRER-C Primary Care Provider Active Start: December 17, 2023 End: December 17, 2023 Paul Levi MD Attending Provider Active Sta rt: December 17, 2023 End: December 17, 2023 Team Status: Active Member Role Status Dates Ragini Riley APRN RETORT FIRER-C Primary Care Provider Active Start: December 17, 2023 Paul Levi MD Attending Provider, Other Provider Active Start: December 17, 2023 Team Status: Active Member Role Status Dates Ragini Riley APRN RETORT FIRER-C Primary Care Provider, Attending Provider Active Start: March 23, 2024 Team Status: Active Member Role Status Dates Ragini Riley APRN RETORT FIRER-C Primary Care Provider Active Start: March 24, 2024 Yosef Celeste MD Attending Provider Active Sta rt: March 24, 2024 Team Status: Active Member Role Status Dates Ragini Riley APRN RETORT FIRER-C Primary Care Provider Active Start: March 25, 2024 Yosef Celeste MD Attending Provider Active Sta rt: March 25, 2024 Team Status: Active Member Role Status Dates Ragini Riley APRN RETORT FIRER-C Primary Care Provider Active Start: March 25, 2024 Jina Waters LPN Attending Provider Active St art: March 25, 2024 Team Status: Inactive Member Role Status Dates Ragini Riley APRN RETORT FIRER-C Primary Care Provider, Attending Provider Active Start: March 30, 2024 End: March 30, 2024 Team Status: Inactive Member Role Status Dates Ragini Riley APRN RETORT FIRER-C Primary Care Provider, Attending Provider Active Start: June 22, 2024 End: June 22, 2024 Custom Wood Stair Builder Relationship Specialty Start Date End Date Ragini Riley NP [address] [place] [id number] PCP - General Family Medicine 05/27/24 Team Status: Inactive Member Role Status Dates Ragini Riley APRN RETORT FIRER-C Primary Care Provider Active Start: June End: June 25, 2024 Paul Levi MD Attending Provider Active Sta rt: June 25, 2024 End: June 25, 2024 Team Status: Inactive Member Role Status Dates Ragini Riley APRN RETORT FIRER-C Primary Care Provider Active Start: July End: July 14, 2024 Paul Levi MD Attending Provider Active Sta rt: July 14, 2024 End: July 14, 2024 Team Status: Active Member Role Status Dates Ragini Riley APRN RETORT FIRER-C Primary Care Provider Active Start: July Paul Levi MD Attending Provider, Other Provider Active Start: July 14, 2024 Team Status: Inactive Member Role Status Dates Ragini Riley APRN RETORT FIRER-C Primary Care Provider, Attending Provider Active Start: July 20, 2024 End: July 20, 2024 Custom Wood Stair Builder Relationship Specialty Start Date End Date Ynes Arcos NP [address] [place] [id number] PCP - Medical [place] [employer] 09/09/23 09/08/99 Custom Wood Stair Builder Relationship Specialty Start Date End Date Ynes Arcos NP [address] [place] [id number] PCP - Medical [place] [employer] 09/09/23 09/08/99 Ragini Riley NP [address] [place] [id number] PCP - General Family Medicine 05/27/24 Team Status: Inactive Member Role Status Dates GOKUL Dickson Primary Care Provider Active Start: November 17, 2024 End: November 17, 2024 Paul Levi MD Attending Provider Active Sta rt: November 17, 2024 End: November 17, 2024 Team Status: Inactive Member Role Status Dates GOKUL Dickson Primary Care Provider Active Start: December 09, 2024 End: December 09, 2024 Paul Levi MD Attending Provider Active Sta rt: December 09, 2024 End: December 09, 2024 Goals (unrecognized section and content) Goals may [...] BE BASED ON THE PRIMARY CLINICAL RECORDS. [facility] CORD:USE [employer] [facility]. provides no warranty or guarantee of the accuracy or completeness of information in this document.
--- NOTE | 2024-12-19 21:36 | PC.NURSE ---
this patient complains of left lower tooth pain onset for a while , this patient adds I am having all my teeth removed in January at [facility]
--- NOTE | 2024-12-19 22:30 | ED.DENTAL1 ---
HPI - Dental/Oral General Chief complaint: Dental/Oral Stated complaint: DENTAL ISSUE Time Seen by Provider: 12/19/24 21:27 Source: patient Mode of arrival: walk-in Limitations: no limitations History of Present Illness HPI Narrative: cc - left jaw and tooth pain Pt with widespread dental decay and loss of numerous teeth developed increased pain along the left jaw a few days ago. It worsened tonight so she came to the ED for evaluation. She is working with a dentist on getting her teeth removed and replaced and has an appt in [place] in January. No fever or chills. No jaw swelling or cheek redness although pain is starting to migrate into the left cheek Related Data Home Medications ?Medication ?Instructions ?Recorded ?Confirmed tizanidine 2 mg capsule 2 mg PO Q6H PRN muscle spasticity 04/26/23 12/19/24 eydpsv-[id number] 2 cap PO TIDWM 03/23/24 12/19/24 36,000-114,000-180,000 unit capsule,delay rel (Creon) venlafaxine 37.5 mg 37.5 mg PO DAILY 03/23/24 12/19/24 capsule,extended release 24 hr Previous Rx's ?Medication ?Instructions ?Recorded cefdinir 300 mg capsule 600 mg (2 x 300 mg) PO DAILY 10 03/25/24 days #20 caps levofloxacin 750 mg tablet 750 mg PO DAILY 10 days #10 tabs 03/25/24 ondansetron 4 mg disintegrating 4 mg PO Q6H PRN nausea and 03/25/24 tablet vomiting #20 tabs clindamycin HCl 150 mg capsule 450 mg (3 x 150 mg) PO TID 7 days 12/19/24 #63 caps Allergies Allergy/AdvReac Type Severity Reaction Status Date / Time topiramate (From Topamax) Allergy Migraines Verified 12/19/24 21:25 pregabalin (From Lyrica) AdvReac Mild lethargic Verified 12/19/24 21:25 PFSH PFSH Medical History (Updated 12/19/24 @ 22:29 by Bhupinder Jaramillo) Pyelonephritis ?N12 - Tubulo-interstitial nephritis, not specified as acute or chronic (ICD-10) Sepsis ?A41.9 - Sepsis, unspecified organism (ICD-10) Depression ?F32.A - Depression, unspecified (ICD-10) Social History Smoking status: Current every day smoker Highest level of school completed/degree received: high school graduate Little interest or pleasure in doing things: not at all Feeling down, depressed, or hopeless: not at all Exam Narrative Exam Narrative: General: The patient is comfortable, alert and oriented x3, well appearing, non toxic in no apparent distress. Head: Atraumatic and normocephalic. Eyes: Normal conjunctiva ENT: The oropharynx is normal. No pharyngeal erythema, uvular edema, tonsillar exudates, asymmetry or trismus. Uvula is midline. Mouth is normal to inspection with the exception of a pain on percussion of the broken and carious remnant of tooth #19 & 20 and evidence of widespread dental caries with numerous missing teeth. There is no evidence of facial asymmetry or abscess formation although there is tenderness along the left jaw. Floor of the mouth is soft. No tenderness in the submental or submandibular space. No tongue elevation or deviation. The patient has no evidence of periapical abscess, gingivitis or other acute pathology. Airway is patent. Neck: The neck demonstrates normal range of motion. No meningeals signs are present. No stridor. No masses or lymphadenopathy noted. Respiratory: No acute distress, lungs are clear to auscultation, no wheezing, rhonchi, or rales noted. No stridor or retractions are noted. Cardiovascular: Regular rate and rhythm Skin: The skin exam shows no evidence of rashes Neuro: Alert and oriented x4, normal speech Lymphatic: No cervical lymphadenopathy Constitutional Vital Signs, click to edit/add: Last Vital Signs Temp 97.6 F 12/19/24 21:21 Pulse 83 12/19/24 21:21 Resp 18 12/19/24 21:21 BP 122/89 12/19/24 21:21 Pulse Ox 99 12/19/24 21:21 O2 Del Method Room Air 12/19/24 21:21 Course Vital Signs Vital signs: Vital Signs Temperature 97.6 F 12/19/24 21:21 Pulse Rate 83 12/19/24 21:21 Respiratory Rate 18 12/19/24 21:21 Blood Pressure 122/89 12/19/24 21:21 Pulse Oximetry 99 12/19/24 21:21 Oxygen Delivery Method Room Air 12/19/24 21:21 Temperature 97.6 F 12/19/24 21:21 Pulse Rate 83 04/12/25 21:21 Respiratory Rate 18 12/19/24 21:21 Blood Pressure 122/89 12/19/24 21:21 Pulse Oximetry 99 12/19/24 21:21 Oxygen Delivery Method Room Air 12/19/24 21:21 MDM - Dental/Oral MDM Narrative Medical decision making narrative: The patient was given a dose of oral clindamycin in the emergency department and was also given topical dental paste to apply to the area of discomfort. She was discharged home with a prescription for additional clindamycin. She needs to call her dentist for short-term follow-up and keep her appointment in January to get her surgery, as scheduled. Discharge Plan Discharge Chief Complaint: Dental/Oral Clinical Impression: Dental caries, Toothache Patient Disposition: Home, Self-Care Time of Disposition Decision: 22:29 Prescriptions / Home Meds: New clindamycin HCl 150 mg capsule 450 mg PO TID 7 Days Qty: 63 0RF No Action tizanidine 2 mg capsule 2 mg PO Q6H PRN (Reason: muscle spasticity) venlafaxine 37.5 mg capsule,extended release 24hr 37.5 mg PO DAILY Creon 36,000-114,000- 180,000 unit capsule,delayed release(DR/EC) 2 cap PO TIDWM Patient Comments: and one capsule with snacks - total of 5 times a day ondansetron 4 mg tablet,disintegrating 4 mg PO Q6H PRN (Reason: nausea and vomiting) Qty: 20 1RF cefdinir 300 mg capsule 600 mg PO DAILY 10 Days Qty: 20 0RF levofloxacin 750 mg tablet 750 mg PO DAILY 10 Days Qty: 10 0RF Print Language: [place] Instructions: Toothache (ED) Referrals: [facility] [Primary Care Provider] - 1 week
[2024-12-19] MEDS: BENZOCAINE 30 ML, lidocaine HCL 15 ML MM (22:44)
[2024-12-19] MEDS: CLINDAMYCIN HCL 150 MG CAPSULE 450 MG PO (22:45)
--- NOTE | 2024-12-19 22:49 | PC.NURSE ---
i gave this patient verbal and written discharge orders along with take home medication and 1 e-script, this patient voices yes to understanding these . at time of discharge this patient voices no concerns and shows no signs of distress
== END 2024-12-19 22:48 | disposition home or self-care (01) ==
PROVIDERS: Emergency Provider Emergency Medicine; PCP Nurse Practitioner Family
DX: K02.9 Dental caries, unspecified (principal); K08.89 Other specified disorders of teeth and supporting structures; R68.84 Jaw pain
CPT/HCPCS: 99283

== ENCOUNTER 2024-12-22 19:25 | Emergency (ER) | payer OTHER, SELFPAY ==
[2024-12-22 19:31] VITALS: BP 154/89; PULSE 86; TEMP 36.6; O2SAT 99; BMI 24.2
--- OUTSIDE RECORDS SUMMARY | 2024-12-22 19:38 | XMS_ITS | CCD ---
Author Organization [facility] CliniSyct Care Team Providers Care Kiln Remover Name Role Phone Paul Levi Unavailable Ragini Riley Unavailable [phone] GOKUL Riley Primary Care Provider MD Paul Levi Attending Provider [phone] GOKUL Riley Attending Provider [phone] GOKUL Riley Primary Care Provider MD Paul Levi Attending Provider Alysa Mariscal Unavailable RAGINI IRLEY Primary Care Unavailab le SALOME, DR BELLO [...] Care Provider GOKUL Riley Attending Provider [phone] MD Paul Levi Attending Provider Jyoti Jama Unavailable GOKUL Riley Primary Care Provider MD Paul Levi Attending Provider [phone] ANGEL Jama Attending Provider [phone] Luigi Schaefer Unavailable ANGEL Jama Attending Provider NON STAFF Primary Care Provider Unavailabl e GOKUL Schaefer Attending Provider GOKUL Riley [facility] Care Provider Emre Guzman Attending Unavaila ble Emre Guzman Admitting Unavaila ble Rosemary [facility] Unavailable GOKUL Riley [facility] Primary Care Provider MD Paul Levi Attending Provider [phone] Rosemary SALEEM, Ragiin Ponce Primary Care Provider YNES ARCOS Attending Unavailab YNES Hendricks Referring Unavailab YNES Hendricks Referring Unavailab YNES Hendricks Attending Unavailab YNES Hendricks Attending Unavailab le GOKUL Riley [facility] Primary Care Provider MD Paul Levi [facility] Paul Levi MD Attending Provider Ynes Arcos NP Unavailable Rosemary HODGSON [facility] Care Provider Paul Levi MD Attending Provider [phone] Paul Levi Attending [facility]available [facility] Unavailable Paul Levi Admitting Unavailable Paul Levi Attending Unavailable [facility] Unavailable Paul Levi Admitting Unavailable Paul Levi Attending Unavailable Paul Levi Admitting Unavailable [facility] Unavailable Paul Levi Attending Unavailable [facility] Unavailable Paul Levi Admitting Unavailable Allergies Allergy Classification Reported Allergen(s) Allergy Type Date of Onset Reaction(s) Facility Anti-Epileptic Agents (1 source) topiramate Drug Allergy 4 Fatigued [facility] pregabalin (1 source) pregabalin Drug Allergy 4 Fatigued, dizziness/ headache [facility] (20 sources) celecoxib; Translations: [celecoxib] Drug Allergy 3 Unknown, Unknown Reaction [facility] (20 sources) pregabalin Drug Allergy 1 dizziness/ headache, Difficulty Breathing, Fatigued, Fatigued, dizziness/ headache [facility] (20 sources) topiramate Drug Allergy 1 Unknown, Shakiness, Fatigued [facility] (2 sources) pregabalin; Translations: [Lyrica] Drug Allergy 2 [facility] Repository (2 sources) topiramate; Translations: [Topamax] Drug Allergy 2 [facility] (1 source) flu vaccines; Translations: [flu vaccines] Propensity to adverse reactions to drug (disorder) [facility] Repository (3 sources) Pregabalin Propensity to adverse reactions 7 Swelling [facility] Healthcare Work Phone: (3 sources) Topiramate Propensity to adverse reactions 7 [facility] Healthcare (1 source) pregabalin Drug Allergy 5 [facility] Repository (1 source) topiramate Drug Allergy 5 [facility] Repository Medications Current Medications Medication Drug Class(es) Dates Sig (Normalized) Sig (Original) [id number] 200 actuat albuterol 0.09 mg/actuat metered dose [...] hrs for 10 day(s) January, Active amylase 217819 unt / lipase 11082 unt / protease 561982 unt delayed release oral capsule (20 sources) Start: 07-07-2024 End: 07-07-2024 Eednoo-Uidmvhke-Evynmdu (Cre on) 36,000-114,000- 180,000 unit capsule,delayed release(DR/EC) Active 19590 CAP PO .COMPLEX 240 30 July 07, 2024 2:12pm 36,000 caps orally take 2 with meals and 1 with snacks; Start: 02-09-2024 Creon 31739-67 4000 units capsule delayed-release particles capsule Take 1 capsule by mouth if needed 02/09/2024 Active Start: 06-04-2023 End: 07-07-2024 take 83213-528240 capsules by mouth five times daily Hcfmje-Flxfwjzn-Yjlsuuw (Creon) 36,000-114,000- 180,000 unit capsule,delayed release(DR/EC) Discontinued 27725 CAP PO 5 times per day June 04, 2023 12:00am July 07, 2024 2:11pm Start: 05-27-2023 End: 06-04-2023 Zmwibj-Pnzypmdu-Onrmnql (Cre on) 36,000-114,000- 180,000 unit capsule,delayed release(DR/EC) [...] Start: 04-27-2020 take 1 capsule by mo [facility] every eight hours tiZANidine HCl 2 MG [...] six hours as needed for pain Hydrocodone-Acetaminophen ([place]) 5-325 mg tablet Discontinued 1 TAB PO [...] Start: 01-16-2022 take 1 capsule by mo [facility] three times daily as [...] 2018 12:00am January 20, 2020 10:44am Vit No.876-Tzno-Uppkx ( Vitamin) 27 mg iron- 800 mcg Tablet (15 sources) Start: 11-10-2020 End: 11-14-2020 take 1 tablet by mouth once daily Vit No.914-Afbt-Rjabf ( Vitamin) 27 mg iron- 800 mcg Tablet Discontinued 1 TAB PO Daily November 10, 2020 12:00am November 14, 2020 12:29pm Start: 11-10-2020 End: 11-14-2020 take 1 tablet by mouth once daily Vit No.763-Tkrh-Lrvgd ( Vitamin) 27 mg iron- 800 mcg [...] 2 Episodic Other aftercare (1 source) Other fci (current) drug therapy; 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] Onset: 2 Episodic Other [...] Reference Range Facility MR lumbar spine wo [facility] MR lumbar spine wo [facility] [place] [address] MRI Report Signed Patient: Jenna Mora MR#: [id number] : 1985 Acct:[id number] Age/Sex: 38 / F ADM Date: 12/09/24 Loc: [facility] Room: Type: [facility] CL Attending Dr: Paul Levi MD [...] La Vega M.D.12/09/2024 3:57 PM Dictation Location: [place] [address] Transcribed By: [facility] 12/09/24 1557 Dictated By: Danny De La Vega MD 12/09/24 1550 Signed By: 12/09/24 1557 Normal [facility] Magnetic resonance imaging r eportOrdered By: Danny De La Vega on 12-09-2024 Study report [facility] [place] [address] MRI Report Signed Patient: Jenna Mora MR#: [id number] : 1985 Acct:[id number] Age/Sex: 38 / F ADM Date: 5 Loc: [facility] Room: Type: [facility] Attending Dr: Paul Levi MD Copies [...] La Vega M.D.12/09/2024 3:57 PM Dictation Location: [place] [facility] Transcribed By: LUCRECIA 12/09/241556 Dictated By: Danny De La Vega MD 12/09/241549 Signed By: 12/09/241556 [facility] Work Phone: No Panel InformationOrdered By: Ragini Riley on 06-22-2024 Quick Strep (POC) [facility] Quick Strep (POC) [facility] Basophils Auto (Bld) [#/Vol] on 03-30-2024 Basophils (Bld) [#/Vol] 0.0 10 3/uL 0.0-0.1 [facility] Basophils/100 WBC Auto (Bld) on 03-30-2024 Basophils/100 WBC (Bld) 0.4 % 0.2-2.0 [facility] Eosinophils/100 WBC Auto (Bl d)on 03-30-2024 Eosinophils/100 WBC (Bld) 1.6 % 0.9-7.0 [facility] Erythrocyte distribution wid th Auto (RBC) [Ratio]on 03-30-2024 Erythrocyte distribution width (RBC) [Ratio] 12.6 % 11.0-15.0 [facility] Estimated glomerular filtrat ion rate (GFR) non- Americanon 03-30-2024 GFR/1.73 sq M.predicted among non-blacks MDRD (S/P/Bld) [Vol rate/Area] mL/min/{1.73_m2} >=60 [facility] Globulin Calc (S) [Mass/Vol] on 03-30-2024 Globulin (S) [Mass/Vol] 3.7 g/dL [facility] Hematocrit Auto (Bld) [Volum e fraction]on 03-30-2024 Hematocrit (Bld) [Volume fraction] 35.7 % Low 36.0-48.0 [facility] Hemoglobin [Mass/volume] in Bloodon 03-30-2024 Hemoglobin (Bld) [Mass/Vol] 11.5 g/dL Low 12.0-16.0 [facility] Laboratory - Chemistry and C hemistry - challengeon 03-30-2024 Albumin [Mass/Vol] 3.4 g/dL 3.4-5.0 [facility] ALP [Catalytic activity/Vol] 106 U/L 46-116 [facility] ALT [Catalytic activity/Vol] 29 U/L 14-59 [facility] AST [Catalytic activity/Vol] 16 U/L 15-37 [facility] Bilirubin [Mass/Vol] 0.3 mg/dL 0.2-1.0 [facility] Calcium [Mass/Vol] 9.2 mg/dL 8.5-10.1 [facility] Chloride [Moles/Vol] 102 mmol/L 98-107 [facility] CO2 [Moles/Vol] 30.9 mmol/L 21.0-32.0 [facility] Creatinine [Mass/Vol] 0.72 mg/dL 0.55-1.02 [facility] GFR/1.73 sq M.predicted MDRD (S/P/Bld) [Vol rate/Area] mL/min/{1.73_m2} >=60 [facility] Glucose [Mass/Vol] 74 mg/dL 74-106 [facility] Potassium [Moles/Vol] 4.1 mmol/L 3.5-5.1 [facility] Protein [Mass/Vol] 7.1 g/dL 6.4-8.2 [facility] Sodium [Moles/Vol] 140 mmol/L 136-145 [facility] Urea nitrogen [Mass/Vol] 13.0 mg/dL 7.0-18.0 [facility] Urea nitrogen/Creatinine [Mass ratio] 18.1 mg/mg [facility] Laboratory - Hematology and Cell countson 03-30-2024 Immature granulocytes/100 WBC (Bld) 2.2 % High 0.0-0.5 [facility] Leukocytes [#/volume] correc juanita for nucleated erythrocytes in Blood by Automated counon 03-30-2024 WBC corrected for nucl RBC Auto (Bld) [#/Vol] 9.8 10 3/uL 4.0-11.0 [facility] Lymphocytes Auto (Bld) [#/Vo l]on 03-30-2024 Lymphocytes (Bld) [#/Vol] 2.8 10 3/uL 1.2-3.8 [facility] Lymphocytes/100 WBC Auto (Bl d)on 03-30-2024 Lymphocytes/100 WBC (Bld) 28.9 % 20.5-60.0 [facility] MCH Auto (RBC) [Entitic mass ]on 03-30-2024 MCH (RBC) [Entitic mass] 30.6 pg 26.7-34.0 [facility] MCHC Auto (RBC) [Mass/Vol]on 03-30-2024 MCHC (RBC) [Mass/Vol] 32.2 g/dL 29.9-35.2 [facility] MCV Auto (RBC) [Entitic vol] on 03-30-2024 MCV (RBC) [Entitic vol] 94.9 fL 81.0-99.0 [facility] Monocytes Auto (Bld) [#/Vol] on 03-30-2024 Monocytes (Bld) [#/Vol] 1.0 10 3/uL High 0.3-0.8 [facility] Monocytes/100 WBC Auto (Bld) on 03-30-2024 Monocytes/100 WBC (Bld) 10.3 % 1.7-12.0 [facility] Neutrophils Auto (Bld) [#/Vo l]on 03-30-2024 Neutrophils (Bld) [#/Vol] 5.5 10 3/uL 1.4-6.5 [facility] Neutrophils/100 WBC Auto (Bl d)on 03-30-2024 Neutrophils/100 WBC (Bld) 56.6 % 43.0-75.0 [facility] No Panel Informationon 03-30 Eosinophils # (Auto) 0.2 10 3/uL 0.0-0.7 [facility] Immature Granulocyte # (Auto) 0.22 10 3/uL High 0.00-0.03 [facility] Platelet mean volume Auto (B ld) [Entitic vol]on 03-30-2024 Platelet mean volume (Bld) [Entitic vol] 8.3 fL Low 9.5-13.5 [facility] Platelets Auto (Bld) [#/Vol] on 03-30-2024 Platelets (Bld) [#/Vol] 449 10 3/uL 150-450 [facility] RBC Auto (Bld) [#/Vol]on RBC (Bld) [#/Vol] 3.76 10 6/uL Low 4.20-5.40 [facility] Serum or plasma albumin/glob ulin mass ratioon 03-30-2024 Albumin/Globulin [Mass ratio] 0.9 {ratio} [facility] Serum or plasma anion gap de terminationon 03-30-2024 Anion gap [Moles/Vol] 11.2 mmol/L [facility] Basophils Auto (Bld) [#/Vol] on 03-25-2024 Basophils (Bld) [#/Vol] 0.0 10 3/uL 0.0-0.1 [facility] Basophils/100 WBC Auto (Bld) on 03-25-2024 Basophils/100 WBC (Bld) 0.3 % 0.2-2.0 [facility] Eosinophils/100 WBC Auto (Bl d)on 03-25-2024 Eosinophils/100 WBC (Bld) 0.4 % Low 0.9-7.0 [facility] Erythrocyte distribution wid th Auto (RBC) [Ratio]on 03-25-2024 Erythrocyte distribution width (RBC) [Ratio] 12.4 % 11.0-15.0 [facility] Estimated glomerular filtrat ion rate (GFR) non- Americanon 03-25-2024 GFR/1.73 sq M.predicted among non-blacks MDRD (S/P/Bld) [Vol rate/Area] mL/min/{1.73_m2} >=60 [facility] Globulin Calc (S) [Mass/Vol] on 03-25-2024 Globulin (S) [Mass/Vol] 3.5 g/dL [facility] Hematocrit Auto (Bld) [Volum e fraction]on 03-25-2024 Hematocrit (Bld) [Volume fraction] 31.7 % Low 36.0-48.0 [facility] Hemoglobin [Mass/volume] in Bloodon 03-25-2024 Hemoglobin (Bld) [Mass/Vol] 9.7 g/dL Low 12.0-16.0 [facility] Laboratory - Chemistry and C hemistry - challengeon 03-25-2024 Albumin [Mass/Vol] 2.2 g/dL Low 3.4-5.0 [facility] ALP [Catalytic activity/Vol] 125 U/L High 46-116 [facility] ALT [Catalytic activity/Vol] 39 U/L 14-59 [facility] AST [Catalytic activity/Vol] 26 U/L 15-37 [facility] Bilirubin [Mass/Vol] 0.4 mg/dL 0.2-1.0 [facility] Calcium [Mass/Vol] 7.7 mg/dL Low 8.5-10.1 [facility] Chloride [Moles/Vol] 110 mmol/L High 98-107 [facility] CO2 [Moles/Vol] 23.9 mmol/L 21.0-32.0 [facility] Creatinine [Mass/Vol] 0.74 mg/dL 0.55-1.02 [facility] GFR/1.73 sq M.predicted MDRD (S/P/Bld) [Vol rate/Area] mL/min/{1.73_m2} >=60 [facility] Glucose [Mass/Vol] 83 mg/dL 74-106 [facility] Potassium [Moles/Vol] 3.3 mmol/L Low 3.5-5.1 [facility] Protein [Mass/Vol] 5.7 g/dL Low 6.4-8.2 [facility] Sodium [Moles/Vol] 140 mmol/L 136-145 [facility] Urea nitrogen [Mass/Vol] 9.0 mg/dL 7.0-18.0 [facility] Urea nitrogen/Creatinine [Mass ratio] 12.2 mg/mg [facility] Laboratory - Hematology and Cell countson 03-25-2024 Immature granulocytes/100 WBC (Bld) 0.7 % High 0.0-0.5 [facility] Leukocytes [#/volume] correc juanita for nucleated erythrocytes in Blood by Automated counon 03-25-2024 WBC corrected for nucl RBC Auto (Bld) [#/Vol] 10.9 10 3/uL 4.0-11.0 [facility] Lymphocytes Auto (Bld) [#/Vo l]on 03-25-2024 Lymphocytes (Bld) [#/Vol] 1.6 10 3/uL 1.2-3.8 [facility] Lymphocytes/100 WBC Auto (Bl d)on 03-25-2024 Lymphocytes/100 WBC (Bld) 14.4 % Low 20.5-60.0 [facility] MCH Auto (RBC) [Entitic mass ]on 03-25-2024 MCH (RBC) [Entitic mass] 30.2 pg 26.7-34.0 [facility] MCHC Auto (RBC) [Mass/Vol]on 03-25-2024 MCHC (RBC) [Mass/Vol] 30.6 g/dL 29.9-35.2 [facility] MCV Auto (RBC) [Entitic vol] on 03-25-2024 MCV (RBC) [Entitic vol] 98.8 fL 81.0-99.0 [facility] Monocytes Auto (Bld) [#/Vol] on 03-25-2024 Monocytes (Bld) [#/Vol] 1.2 10 3/uL High 0.3-0.8 [facility] Monocytes/100 WBC Auto (Bld) on 03-25-2024 Monocytes/100 WBC (Bld) 10.7 % 1.7-12.0 [facility] Neutrophils Auto (Bld) [#/Vo l]on 03-25-2024 Neutrophils (Bld) [#/Vol] 8.0 10 3/uL High 1.4-6.5 [facility] Neutrophils/100 WBC Auto (Bl d)on 03-25-2024 Neutrophils/100 WBC (Bld) 73.5 % 43.0-75.0 [facility] No Panel Informationon 03-25 Eosinophils # (Auto) 0.0 10 3/uL 0.0-0.7 [facility] Immature Granulocyte # (Auto) 0.08 10 3/uL High 0.00-0.03 [facility] Platelet mean volume Auto (B ld) [Entitic vol]on 03-25-2024 Platelet mean volume (Bld) [Entitic vol] 9.9 fL 9.5-13.5 [facility] Platelets Auto (Bld) [#/Vol] on 03-25-2024 Platelets (Bld) [#/Vol] 208 10 3/uL 150-450 [facility] RBC Auto (Bld) [#/Vol]on RBC (Bld) [#/Vol] 3.21 10 6/uL Low 4.20-5.40 [facility] Serum or plasma albumin/glob ulin mass ratioon 03-25-2024 Albumin/Globulin [Mass ratio] 0.6 {ratio} [facility] Serum or plasma anion gap de terminationon 03-25-2024 Anion gap [Moles/Vol] 9.4 mmol/L [facility] Basophils Auto (Bld) [#/Vol] on 03-24-2024 Basophils (Bld) [#/Vol] 0.0 10 3/uL 0.0-0.1 [facility] Basophils/100 WBC Auto (Bld) on 03-24-2024 Basophils/100 WBC (Bld) 0.2 % 0.2-2.0 [facility] Eosinophils/100 WBC Auto (Bl d)on 03-24-2024 Eosinophils/100 WBC (Bld) 0.1 % Low 0.9-7.0 [facility] Erythrocyte distribution wid th Auto (RBC) [Ratio]on 03-24-2024 Erythrocyte distribution width (RBC) [Ratio] 12.2 % 11.0-15.0 [facility] Estimated glomerular filtrat ion rate (GFR) non- Americanon 03-24-2024 GFR/1.73 sq M.predicted among non-blacks MDRD (S/P/Bld) [Vol rate/Area] mL/min/{1.73_m2} >=60 [facility] Globulin Calc (S) [Mass/Vol] on 03-24-2024 Globulin (S) [Mass/Vol] 3.0 g/dL [facility] Hematocrit Auto (Bld) [Volum e fraction]on 03-24-2024 Hematocrit (Bld) [Volume fraction] 29.7 % Low 36.0-48.0 [facility] Hemoglobin [Mass/volume] in Bloodon 03-24-2024 Hemoglobin (Bld) [Mass/Vol] 9.2 g/dL Low 12.0-16.0 [facility] Laboratory - Chemistry and C hemistry - challengeon 03-24-2024 Albumin [Mass/Vol] 2.2 g/dL Low 3.4-5.0 [facility] ALP [Catalytic activity/Vol] 104 U/L 46-116 [facility] ALT [Catalytic activity/Vol] 29 U/L 14-59 [facility] AST [Catalytic activity/Vol] 32 U/L 15-37 [facility] Bilirubin [Mass/Vol] 0.8 mg/dL 0.2-1.0 [facility] Calcium [Mass/Vol] 7.3 mg/dL Low 8.5-10.1 [facility] Chloride [Moles/Vol] 106 mmol/L 98-107 [facility] CO2 [Moles/Vol] 20.8 mmol/L Low 21.0-32.0 [facility] Creatinine [Mass/Vol] 0.73 mg/dL 0.55-1.02 [facility] GFR/1.73 sq M.predicted MDRD (S/P/Bld) [Vol rate/Area] mL/min/{1.73_m2} >=60 [facility] Glucose [Mass/Vol] 96 mg/dL 74-106 [facility] Potassium [Moles/Vol] 3.8 mmol/L 3.5-5.1 [facility] Protein [Mass/Vol] 5.2 g/dL Low 6.4-8.2 [facility] Sodium [Moles/Vol] 138 mmol/L 136-145 [facility] Urea nitrogen [Mass/Vol] 12.0 mg/dL 7.0-18.0 [facility] Urea nitrogen/Creatinine [Mass ratio] 16.4 mg/mg [facility] Laboratory - Hematology and Cell countson 03-24-2024 Immature granulocytes/100 WBC (Bld) 0.9 % High 0.0-0.5 [facility] Leukocytes [#/volume] correc juanita for nucleated erythrocytes in Blood by Automated counon 03-24-2024 WBC corrected for nucl RBC Auto (Bld) [#/Vol] 16.8 10 3/uL High 4.0-11.0 [facility] Lymphocytes Auto (Bld) [#/Vo l]on 03-24-2024 Lymphocytes (Bld) [#/Vol] 2.0 10 3/uL 1.2-3.8 [facility] Lymphocytes/100 WBC Auto (Bl d)on 03-24-2024 Lymphocytes/100 WBC (Bld) 12.0 % Low 20.5-60.0 [facility] MCH Auto (RBC) [Entitic mass ]on 03-24-2024 MCH (RBC) [Entitic mass] 30.2 pg 26.7-34.0 [facility] MCHC Auto (RBC) [Mass/Vol]on 03-24-2024 MCHC (RBC) [Mass/Vol] 31.0 g/dL 29.9-35.2 [facility] MCV Auto (RBC) [Entitic vol] on 03-24-2024 MCV (RBC) [Entitic vol] 97.4 fL 81.0-99.0 [facility] Monocytes Auto (Bld) [#/Vol] on 03-24-2024 Monocytes (Bld) [#/Vol] 1.6 10 3/uL High 0.3-0.8 [facility] Monocytes/100 WBC Auto (Bld) on 03-24-2024 Monocytes/100 WBC (Bld) 9.7 % 1.7-12.0 [facility] Neutrophils Auto (Bld) [#/Vo l]on 03-24-2024 Neutrophils (Bld) [#/Vol] 12.9 10 3/uL High 1.4-6.5 [facility] Neutrophils/100 WBC Auto (Bl d)on 03-24-2024 Neutrophils/100 WBC (Bld) 77.1 % High 43.0-75.0 [facility] No Panel Informationon 03-24 Stool Occult Blood Negative [facility] Eosinophils # (Auto) 0.0 10 3/uL 0.0-0.7 [facility] Immature Granulocyte # (Auto) 0.15 10 3/uL High 0.00-0.03 [facility] Platelet mean volume Auto (B ld) [Entitic vol]on 03-24-2024 Platelet mean volume (Bld) [Entitic vol] 10.1 fL 9.5-13.5 [facility] Platelets Auto (Bld) [#/Vol] on 03-24-2024 Platelets (Bld) [#/Vol] 153 10 3/uL 150-450 [facility] RBC Auto (Bld) [#/Vol]on RBC (Bld) [#/Vol] 3.05 10 6/uL Low 4.20-5.40 [facility] Serum or plasma albumin/glob ulin mass ratioon 03-24-2024 Albumin/Globulin [Mass ratio] 0.7 {ratio} [facility] Serum or plasma anion gap de terminationon 03-24-2024 Anion gap [Moles/Vol] 15.0 mmol/L [facility] Basophils/100 WBC Manual cnt (Bld)on 03-23-2024 Basophils/100 WBC (Bld) 0.0 % Low 0.2-2.0 [facility] Eosinophils/100 WBC Manual c nt (Bld)on 03-23-2024 Eosinophils/100 WBC (Bld) 0.0 % Low 0.9-7.0 [facility] Erythrocyte distribution wid th Auto (RBC) [Ratio]on 03-23-2024 Erythrocyte distribution width (RBC) [Ratio] 12.0 % 11.0-15.0 [facility] Estimated glomerular filtrat ion rate (GFR) non- Americanon 03-23-2024 GFR/1.73 sq M.predicted among non-blacks MDRD (S/P/Bld) [Vol rate/Area] mL/min/{1.73_m2} >=60 [facility] Globulin Calc (S) [Mass/Vol] on 03-23-2024 Globulin (S) [Mass/Vol] 4.3 g/dL [facility] Hematocrit Auto (Bld) [Volum e fraction]on 03-23-2024 Hematocrit (Bld) [Volume fraction] 38.5 % 36.0-48.0 [facility] Hemoglobin [Mass/volume] in Bloodon 03-23-2024 Hemoglobin (Bld) [Mass/Vol] 12.7 g/dL 12.0-16.0 [facility] Laboratory - Chemistry and C hemistry - challengeon 03-23-2024 Lactate [Moles/Vol] 1.6 mmol/L 0.4-2.0 [facility] Albumin [Mass/Vol] 3.5 g/dL 3.4-5.0 [facility] ALP [Catalytic activity/Vol] 113 U/L 46-116 [facility] ALT [Catalytic activity/Vol] 19 U/L 14-59 [facility] AST [Catalytic activity/Vol] 14 U/L Low 15-37 [facility] Bilirubin [Mass/Vol] 0.7 mg/dL 0.2-1.0 [facility] Calcium [Mass/Vol] 8.9 mg/dL 8.5-10.1 [facility] Chloride [Moles/Vol] 95 mmol/L Low 98-107 [facility] CO2 [Moles/Vol] 24.4 mmol/L 21.0-32.0 [facility] Creatinine [Mass/Vol] 1.01 mg/dL 0.55-1.02 [facility] GFR/1.73 sq M.predicted MDRD (S/P/Bld) [Vol rate/Area] mL/min/{1.73_m2} >=60 [facility] Glucose [Mass/Vol] 118 mg/dL High 74-106 [facility] Lipase [Catalytic activity/Vol] 13.0 U/L Low 16.0-77.0 [facility] Potassium [Moles/Vol] 3.5 mmol/L 3.5-5.1 [facility] Protein [Mass/Vol] 7.8 g/dL 6.4-8.2 [facility] Sodium [Moles/Vol] 133 mmol/L Low 136-145 [facility] Urea nitrogen [Mass/Vol] 11.0 mg/dL 7.0-18.0 [facility] Urea nitrogen/Creatinine [Mass ratio] 10.9 mg/mg [facility] Bilirubin Ql (U) Negative NEGATIVE [facility] Glucose (U) [Mass/Vol] Negative NEGATIVE [facility] Ketones Ql (U) TRACE mg/dL Abnormal NEGATIVE [facility] pH (U) 6.0 [pH] 5.0-9.0 [facility] Specific gravity (U) [Rel density] 1.020 1.005-1.02 5 [facility] Urobilinogen Qn (U) 1.0 {Elmer'U}/dL 0.2-1.0 [facility] Laboratory - Hematology and Cell countson 03-23-2024 Lymphocytes/100 WBC (Bld) 5.0 % Low 20.5-60.0 [facility] Monocytes/100 WBC (Bld) 8.0 % 1.7-12.0 [facility] Laboratory - Microbiology an d Antimicrobial susceptibilityon 03-23-2024 S. agalactiae Org specific cx Ql (Vag fld) Not detected NOT DETECTE [facility] Laboratory - Specimen inform ationon 03-23-2024 Appearance (U) CLOUDY Abnormal CLEAR [facility] Color (U) LT. YELLOW YELLOW [facility] Laboratory - Urinalysison Leukocyte esterase Test strip Ql (U) MODERATE Abnormal NEGATIVE [facility] Mucus Ql (Urine sed) MODERATE Abnormal NONE SEEN [facility] Nitrite Ql (U) Positive Abnormal NEGATIVE [facility] Protein Ql (U) >=300 mg/dL Abnormal NEG/TRACE [facility] Leukocytes [#/volume] correc juanita for nucleated erythrocytes in Blood by Automated counon 03-23-2024 WBC corrected for nucl RBC Auto (Bld) [#/Vol] 23.3 10 3/uL High 4.0-11.0 [facility] MCH Auto (RBC) [Entitic mass ]on 03-23-2024 MCH (RBC) [Entitic mass] 30.8 pg 26.7-34.0 [facility] MCHC Auto (RBC) [Mass/Vol]on 03-23-2024 MCHC (RBC) [Mass/Vol] 33.0 g/dL 29.9-35.2 [facility] MCV Auto (RBC) [Entitic vol] on 03-23-2024 MCV (RBC) [Entitic vol] 93.4 fL 81.0-99.0 [facility] No Panel InformationOrdered By: Yosef Celeste on 03-23-2024 Blood Culture 2 [facility] Blood Culture 1 [facility] No Panel InformationOrdered By: Ragini Riley on 03-23-2024 Blood Culture 2 [facility] No Panel Informationon 03-23 A.calcoaceticus-brijesh annii cmplx PCR Not detected NOT DETECTE [facility] Bacteroides fragilis (PCR) Not detected NOT DETECTE [facility] Blood Culture Source BLOOD [facility] Amy albicans (PCR) Not detected NOT DETECTE [facility] Amy auris (PCR) Not detected NOT DETECTE [facility] Amy glabrata (PCR) Not detected NOT DETECTE [facility] Amy krusei (PCR) Not detected NOT DETECTE [facility] Amy parapsilosis (PCR) Not detected NOT DETECTE [facility] Amy tropicalis (PCR) Not detected NOT DETECTE [facility] Crypto neoformans/gattii (PCR)(LAB) Not detected NOT DETECTE [facility] CTX-M ESBL (PCR) Not detected NOT DETECTE [facility] Enterobacter cloacae complex (PCR) Not detected NOT DETECTE [facility] Enterobacterales (PCR) Detected Abnormal NOT DETECTE [facility] Comment on above: RESULTS CALLED TO Onesimo BELLA)@BY Ragini Frederick MLT at 0242 Enterococcus faecalis PCR Not detected NOT DETECTE [facility] Enterococcus faecium PCR Not detected NOT DETECTE [facility] Escherichia coli Result Detected Abnormal NOT DETECTE [facility] Comment on above: RESULTS CALLED TO Onesimo MensahRN)@BY Ragini Frederick MLT at 0242 Haemophilus influenzae DNA Not detected NOT DETECTE [facility] IMP (blaIMP) Carbap Res Gene (PCR) Not detected NOT DETECTE [facility] Klebsiella aerogenes (PCR) Not detected NOT DETECTE [facility] Klebsiella oxytoca (PCR) Not detected NOT DETECTE [facility] Klebsiella pneumoniae group (PCR) Not detected NOT DETECTE [facility] KPC (blaKPC) Detection (PCR) Not detected NOT DETECTE [facility] Listeria monocytogenes (PCR) Not detected NOT DETECTE [facility] MCR-1 Resistance Gene Not detected NOT DETECTE [facility] mecA/C & MREJ Antimicrob Resist Gen NOT APPLICABLE NOT DETECTE [facility] mecA/C-Methicillin Resistance Gene NOT APPLICABLE NOT DETECTE [facility] NDM (blaNDM) Detection (PCR) Not detected NOT DETECTE [facility] Neisseria meningitidis (PCR) Not detected NOT DETECTE [facility] Proteus species (PCR) Not detected NOT DETECTE [facility] Pseudomonas aeruginosa (PCR) Not detected NOT DETECTE [facility] Salmonella spp. (PCR) Not detected NOT DETECTE [facility] Serratia marcescens (PCR) Not detected NOT DETECTE [facility] Staphylococcus aureus (PCR)(LAB) Not detected NOT DETECTE [facility] Staphylococcus epidermidis (PCR) Not detected NOT DETECTE [facility] Staphylococcus lugdunensis (TEM-PCR Not detected NOT DETECTE [facility] Staphylococcus species (PCR) Not detected NOT DETECTE [facility] Stenotroph. maltophilia (PCR) Not detected NOT DETECTE [facility] Streptococcus pneumoniae (PCR) Not detected NOT DETECTE [facility] Streptococcus pyogenes (PCR)(LAB) Not detected NOT DETECTE [facility] Streptococcus species (PCR) Not detected NOT DETECTE [facility] Syn OXA-48-like Carb Res Gene (PCR) Not detected NOT DETECTE [facility] Shayna/B-Vancomycin Resistance Genes NOT APPLICABLE NOT DETECTE [facility] VIM (blaVIM) Carbap Res Gene (PCR) Not detected NOT DETECTE [facility] Absolute Basophils (Manual) 0.00 10 3/uL 0.00-0.10 [facility] Eosinophils # (Manual) 0.00 10 3/uL 0.00-0.70 [facility] Lymphocytes # (Manual) 1.16 10 3/uL Low 1.20-3.80 [facility] Monocytes # (Manual) 1.86 10 3/uL High 0.30-0.80 [facility] Segmented Neutrophils # (Manual) 20.27 10 3/uL High 1.4-6.5 [facility] Reference Lab Order Code See comment [facility] Comment on above: SEE SCANNED REPORT Urine Bacteria MODERATE #/HPF Abnormal NONE SEEN [facility] Urine Culture Reflexed YES [facility] Urine Microscopic Review YES [facility] Urine Occult Blood LARGE Abnormal NEGATIVE [facility] Urine Other Casts NONE SEEN #/LPF NONE SEEN [facility] Urine Other Crystals None Seen #/HPF None Seen [facility] Urine RBC 2-5 #/HPF Abnormal 0-2 [facility] Urine Squamous Epithelial Cells FEW #/LPF Abnormal NONE/RARE [facility] Urine Transitional Epithelial Cells RARE #/LPF Abnormal NONE SEEN [facility] Urine WBC >100 #/HPF Abnormal NONE SEEN [facility] Platelet mean volume Auto (B ld) [Entitic vol]on 03-23-2024 Platelet mean volume (Bld) [Entitic vol] 10.0 fL 9.5-13.5 [facility] Platelets Auto (Bld) [#/Vol] on 03-23-2024 Platelets (Bld) [#/Vol] 234 10 3/uL 150-450 [facility] RBC Auto (Bld) [#/Vol]on RBC (Bld) [#/Vol] 4.12 10 6/uL Low 4.20-5.40 [facility] Segmented neutrophils/100 WB C Manual cnt (Bld)on 03-23-2024 Segmented neutrophils/100 WBC (Bld) 87.0 % [facility] Serum or plasma albumin/glob ulin mass ratioon 03-23-2024 Albumin/Globulin [Mass ratio] 0.8 {ratio} [facility] Serum or plasma anion gap de terminationon 03-23-2024 Anion gap [Moles/Vol] 17.1 mmol/L [facility] XR CERVICAL SPINE COMPLETE 4 -5 VIEWSon 01-16-2024 XR CERVICAL SPINE COMPLETE 4-5 VIEWS FINDINGS: Normal disc space heights. No significant osteophyte formation. Mild facet arthropathy, no significant osseous neuroforaminal stenosis. IMPRESSION: 1. Mild arthritis. 2. Normal alignment. TRANSCRIBED BY: ELECTRONICALLY SIGNED BY: Feroz Wilks MD Normal Not Available COVID + FLU Quick Testingon 07-10-2023 SARS-CoV-2 (COVID-19) RNA NAKIA+probe Ql (Unsp spec) Negative [facility] [employer] Other COVID + FLU Quick Testing Negative [facility] [employer] Other Lab - Toxicology Resultson Lab - Toxicology Results [id number]#[facility] 06-04-2023 Consent Forms [id number]#1.00[facility] ED Clinical Summaryon 2022 ED Clinical Summary [facility] ? Urgent Care [address] [place], [place] [id number] Clinical Summary PERSON INFORMATION Name: JENNA SHARMA Age: 37 Years Sex: FEMALE : 1985 MRN: Acct#: Visit Reason: Medical screening exam; DORON ANDREWS Arrival: 06/03/2023 10:27:58 Discharge: 06/03/2023 11:13:00 LOS: 000 00:46 Check In: 06/03/2023 10:27:58 Checkout: 06/03/2023 11:13:00 Address: [address] [place] [id number] PCP: Ragini Riley CNP PROVIDER INFORMATION Provider [...] verbalizes understanding of instructions given Comment: Normal [facility] ED Patient Summaryon 023 ED Patient Summary [facility] ? Urgent Care [address] [place] [address] PATIENT DISCHARGE INSTRUCTIONS Patient Information Name: JENNA SHARMA Age: 37 Years Date of : 1985 Reason For Visit: Medical screening exam; DORON ANDREWS Arrival Time: 06/03/2023 10:27:58 Primary Care Physician: Ragini Riley CNP Attending Physician: Emre Guzman Comment: Patient Education Medication Information: The exam and treatment you received today in the [facility] Emergency Department were for an urgent problem and are not intended as complete care. It is important for you to follow up with a doctor, nurse practitioner, or physician?s medical practice assistant for ongoing care. If your symptoms [...] so we can reach you if necessary. [facility] Emergency Department has provided you with a complete list of medications post discharge. 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 [...] infections. Vi (more content not included)... Normal [facility] Triage Panel 10on 06-03-2023 Drug Screen Complete Collected Normal [facility] Comment on above: Performed By: #### 2 [id number] #### [facility] (DEFAULT) [address] [place] [address] Urgent Care Recordon 023 Urgent Care Record [facility] ? Urgent Care [address] [place] [address] PATIENT DISCHARGE INSTRUCTIONS Patient Information Name: JENNA SHARMA Age: 37 Years Date of : 1985 Reason For Visit: Medical screening exam; DORON ANDREWS Arrival Time: 06/03/2023 10:27:58 Primary Care Physician: Ragini Riley CNP Attending Physician: Emre Guzman Comment: Visit Diagnosis: Diagnoses This Visit Medical screening exam ([id number]) Routine medical exam (Z00.00) If you received [...] and treatment you received today in the [facility] Care were for an urgent problem and are not intended as complete care. It is important for you to follow up with a doctor, nurse practitioner, or physician?s medical practice assistant for ongoing care. If your symptoms [...] so we can reach you if necessary. [facility] Care has provided you with a complete list of medications post discharge. 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 [...] Bacteria Antib (more content not included)... Normal [facility] Calprotectin [Mass/mass] in StoolOrdered By: Luigi Schaefer on 04-23-2023 Calprotectin (Stl) [Mass/Mass] 9 ug/g 0-120 [facility] Comment on above: Concentration Interp retation Follow-Up< 5 - 50 ug/g Normal None>50 -120 ug/g Borderline Re-evaluate in 4-6 weeks >120 ug/g Abnormal Repeat as clinically indicatedPerformed at: [place] [employer] [id number] Director: Bartolo Mccurdy MD, Phone: [phone] Cryptosporidium sp Ag [Prese nce] in Stool by ImmunoassayOrdered By: Luigi Schaefer on 04-23-2023 Cryptosporidium sp Ag IA Ql (Stl) Negative Negative [facility] Comment on above: Performed at: [employer] [facility] [employer] [address] [id number] Director: Will Chapman PhD, Phone: [phone] Elastase.pancreatic [Mass/ma ss] in StoolOrdered By: Luigi Schaefer on 04-23-2023 Elastase.pancreatic (Stl) [Mass/Mass] 138 >200 [facility] Comment on above: Result Units: ug Lianna st./g Severe Pancreatic Insufficiency: <100 Moderate Pancreatic Insufficiency: 100 - 200 Normal: >200Performed at: [place] [employer] [id number] Director: Bartolo Mccurdy MD, Phone: [phone] Giardia lamblia Ag [Presence ] in Stool by ImmunoassayOrdered By: Luigi Schaefer on 04-23-2023 G. lamblia Ag IA Ql (Stl) Negative Negative [facility] Comment on above: Performed at: [employer] [address] [id number] Director: Will Chapman PhD, Phone: [phone] Stool bacteria identificatio n by cultureOrdered By: Luigi Schaefer on 04-23-2023 Bacteria identified Cx Nom (Stl) [facility] Stool lactoferrin detectionO rdered By: Luigi Schaefer on 04-23-2023 Lactoferrin Ql (Stl) [facility] Stool pH measurementOrdered By: Luigi Schaefer on 04-23-2023 pH (Stl) 7.0 7.0-7.5 [facility] Comment on above: This test was develo ped and its performance characteristicsdetermined by [employer]. It has not been cleared orapproved by the Food and Drug Administration.Performed at: [address] [id number] Director: Will Chapman PhD, Phone: [phone] XR ankle RT min 3V*on 2022 XR ankle RT min 3V* [employer] Other Urinalysis - AUTOMATEDon Appearance (U) cloudy [employer] Other Bilirubin Ql (U) Negative [employer] Other Color (U) dark yellow [employer] Other Glucose Ql (U) Negative [employer] Other Hemoglobin Ql (U) Moderate [employer] Other Ketones Ql (U) Negative [employer] Other Leukocyte esterase Test strip Ql (U) Moderate [employer] Other Nitrite Ql (U) Positive [employer] Other pH (U) 7.0 [pH] [employer] Other Protein Ql (U) 100mg [employer] Other Specific gravity (U) [Rel density] 1.025 [employer] Other Urobilinogen (U) [Mass/Vol] 0.2 mg/dL [employer] Other Urinalysis - AUTOMATED [employer] Other Urine Cultureon 02-25-2023 Bacteria identified Cx Nom (U) [employer] Other Urine culture routineOrdered By: Jyoti Jama on 02-25-2023 Bacteria identified Cx Nom (U) 2 Days [facility] COVID + FLU Quick Testingon 10-11-2022 SARS-CoV-2 (COVID-19) RNA NAKIA+probe Ql (Unsp spec) Negative [employer] Other COVID + FLU Quick Testing Negative [employer] Other XR chest 2V*on 10-11-2022 XR chest 2V* [facility] [employer] Other XR chest 2V* [facility] [employer] Other XR chest 2V* [address] [facility] [employer] Other XR chest 2V* [place] [address] [facility] [employer] Other XR chest 2V* XRay Report [employer] Other XR chest 2V* Signed [employer] Other XR chest 2V* Patient: Christina Sharma MR#: [id number] [employer] Other XR chest 2V* 003 [employer] Other XR chest 2V* : 1985 Acct:[id number] [employer] Other XR chest 2V* Age/Sex: 36 / F ADM Date: 10/11/22 [employer] Other XR chest 2V* Loc: ICXD Room: Type : [facility] [employer] Other XR chest 2V* Attending Dr: Malachi Riley APRN, DIRECTOR OF CONTENT MARKETING-C [employer] Other XR chest 2V* Copies to: Ragini Riley APRN, LALI [employer] Other XR chest 2V* Ordering Provider: Christian Riley APRN, LALI [employer] Other XR chest 2V* Date of Service: 10/11/22 [employer] Other XR chest 2V* [id number]) XR/XR chest 2V*: Fever, unspecified fever cause;Mild persistent asthma [employer] Other XR chest 2V* with e [employer] Other XR chest 2V* Chest 2 views [employer] Other XR chest 2V* CLINICAL HISTORY: Sh ortness of breath, fever, cough [employer] Other XR chest 2V* COMPARISON: None [employer] Other XR chest 2V* FINDINGS: [employer] Other XR chest 2V* Heart normal in size . Lungs are clear. No free air. [employer] Other XR chest 2V* X R/XR chest 2V* [employer] Other XR chest 2V* IMPRESSION: [employer] Other XR chest 2V* NO ACUTE CARDIOPULMO NARY ABNORMALITY. [employer] Other XR chest 2V* Impression dictated by: Feroz Werner Jr., D.OMarilyn10/11/2022 3:20 PM [employer] Other XR chest 2V* Dictation Location: [facility]- [employer] Other XR chest 2V* Transcribed By: PWS 10/11/22 [facility] [employer] Other XR chest 2V* Dictated By: Feroz Werner Jr, DO 10/11/22 [facility] [employer] Other XR chest 2V* Signed By: [employer] Other XR chest 2V* 10/11/22 [facility] [employer] Other CBC AUTO DIFFon 08-15-2022 BASO # 0.0 103/ul Normal 0.0-0.1 [facility] Comment on above: Performed By: #### C BC #### [facility] [address] [place] [address] Dr. Napoleon Best Basophils/100 WBC (Bld) 0.3 % Normal 0.2-2.0 [facility] Comment on above: Performed By: #### C BC #### [facility] [address] [place] [address] Dr. Napoleon Best EO # 0.1 103/ul Normal 0.0-0.7 [facility] Comment on above: Performed By: #### C BC #### [facility] [address] [place] [address] Dr. Napoleon Best Eosinophils/100 WBC (Bld) 0.8 % Critically low 0.9-7.0 [facility] Comment on above: Performed By: #### C BC #### [facility] [address] [place] [address] Dr. Napoleon Best Erythrocyte distribution width (RBC) [Ratio] 12.7 % Normal 11.0-15.0 [facility] Comment on above: Performed By: #### C BC #### [facility] [address] [place] [address] Dr. Napoleon Best Hematocrit (Bld) [Volume fraction] 38.0 % Normal 36.0-48.0 [facility] Comment on above: Performed By: #### C BC #### [facility] [address] [place] [address] Dr. Napoleon Best Hemoglobin (Bld) [Mass/Vol] 12.4 g/dL Normal 12.0-16.0 [facility] Comment on above: Performed By: #### C BC #### [facility] [address] [place] [address] Dr. Napoleon Best IG # 0.02 10e3/ul Normal 0.00-0.03 [facility] Comment on above: Performed By: #### C BC #### [facility] [address] [place] [address] Dr. Napoleon Best IG % 0.3 % Normal 0.0-0.5 [facility] Comment on above: Performed By: #### C BC #### [facility] [address] [place] [address] Dr. Napoleon Best LYMPH # 1.4 103/ul Normal 1.2-3.8 [facility] Comment on above: Performed By: #### C BC #### [facility] [address] [place] [address] Dr. Napoleon Best Lymphocytes/100 WBC (Bld) 17.4 % Critically low 20.5-60.0 [facility] Comment on above: Performed By: #### C BC #### [facility] [address] [place] [address] Dr. Napoleon Best MANUAL DIFF REQ NO Normal [facility] Comment on above: Performed By: #### C BC #### [facility] [address] [place] [address] Dr. Napoleon Best MCH (RBC) [Entitic mass] 30.4 pg Normal 26.7-34.0 [facility] Comment on above: Performed By: #### C BC #### [facility] [address] [place] [address] Dr. Napoleon Best MCHC (RBC) [Mass/Vol] 32.6 g/dL Normal 29.9-35.2 [facility] Comment on above: Performed By: #### C BC #### [facility] [address] [place] [address] Dr. Napoleon Best MCV (RBC) [Entitic vol] 93.1 fL Normal 81.0-99.0 [facility] Comment on above: Performed By: #### C BC #### [facility] [address] [place] [address] Dr. Napoleon Best MONO # 0.8 103/ul Normal 0.3-0.8 [facility] Comment on above: Performed By: #### C BC #### [facility] [address] [place] [address] Dr. Napoleon Best Monocytes/100 WBC (Bld) 10.8 % Normal 1.7-12.0 [facility] Comment on above: Performed By: #### C BC #### [facility] [address] [address] [address] Napoleon Best NEUT # 5.5 103/ul Normal 1.4-6.5 [facility] Comment on above: Performed By: #### C BC #### [facility] [address] [address] [address] Napoleon Best Neutrophils/100 WBC (Bld) 70.4 % Normal 43.0-75.0 [facility] Comment on above: Performed By: #### C BC #### [facility] [address] [place] [address] Dr. Napoleon Best Platelet mean volume (Bld) [Entitic vol] 9.0 fL Critically low 9.5-13.5 [facility] Comment on above: Performed By: #### C BC #### [facility] [address] [place] [address] Dr. Napoleon Best PLT 296 103/ul Normal 150-450 [facility] Comment on above: Performed By: #### C BC #### [facility] [address] [place] [address] Dr. Napoleon Best RBC 4.08 106/ul Critically low 4.20-5.40 [facility] Comment on above: Performed By: #### C BC #### [facility] [address] [place] [address] Dr. Napoleon Best WBC 7.8 103/ul Normal 4.0-11.0 [facility] Comment on above: Performed By: #### C BC #### [facility] [address] [place] [address] Dr. Napoleon Best Covid-19 PCR [facility]on SARS-CoV-2 (COVID-19) RNA NAKIA+probe Ql (Unsp spec) Not detected Normal NOT DETECTED [facility] Comment on above: Result Comment: When [...] for this test is supported by the Head Athletic Trainer of Health and Human Service's declaration that [...] used). Performed By: #### C VDTB #### [facility] [address] [place] [address] Dr. Napoleon Best INFLUENZA A AND B [facility] 08-15 [facility] SEE BELOW Normal [facility] Comment on above: Result Comment: Nega tive for Flu A protein angiten. Infection due to Flu A cannot be ruled out. Flu A angiten in the sample may be below the detection limit of the test. Performed By: #### I NFLUAB #### [facility] [address] [place] [address] Dr. Napoleon Best [facility] SEE BELOW Normal [facility] Comment on above: Result Comment: Nega tive for Flu B protein antigen. Infection due to Flu B cannot be ruled out. Flu B antigen in the sample may be below the detection limit of the test. Performed By: #### I NFLUAB #### [facility] [address] [place] [address] Dr. Napoleon Best INFLUENZA A AG Negative Normal NEGATIVE SEE COMMENT [facility] Comment on above: Performed By: #### I NFLUAB #### [facility] [address] [place] [address] Dr. Napoleon Best INFLUENZA B AG Negative Normal NEGATIVE SEE COMMENT [facility] Comment on above: Performed By: #### I NFLUAB #### [facility] [address] [place] [address] Dr. Napoleon Best INTERNAL CONTROLS Within Normal Limits Normal Wi thin Normal Limits [facility] Comment on above: Performed By: #### I NFLUAB #### [facility] [address] [address] [address] Napoleon Best LACTATE/LACTIC ACIDon 2021 Lactate [Moles/Vol] 0.9 mmol/L Normal 0.4-1.9 [facility] Comment on above: Performed By: #### L ACT #### [facility] [address] [address] [address] Napoleon Best PROF 14(COMP METB)on 022 Albumin [Mass/Vol] 4.0 g/dL Normal 3.4-5.0 [facility] Comment on above: Performed By: #### C MP ####[facility] [address] [address]DrMarilyn Best Albumin/Globulin [Mass ratio] 1.1 {ratio} Normal [facility] Comment on above: Performed By: #### C MP ####[facility] [address] [address]Dr. Napoleon Best ALP [Catalytic activity/Vol] 92 U/L Normal 46-116 [facility] Comment on above: Performed By: #### C MP ####[facility] [address] [address]Dr. Napoleon Best ALT [Catalytic activity/Vol] 23 U/L Normal 14-59 [facility] Comment on above: Performed By: #### C MP ####[facility] [address] [address]DrMarilyn Best Anion gap [Moles/Vol] 13.5 mmol/L Normal [facility] Comment on above: Performed By: #### C MP ####[facility] [address] [address]Dr. Napoleon Best AST [Catalytic activity/Vol] 16 U/L Normal 15-37 [facility] Comment on above: Performed By: #### C MP ####[facility] [address] [address]DrMarilyn Best Bilirubin [Mass/Vol] 0.2 mg/dL Normal 0.2-1.0 [facility] Comment on above: Performed By: #### C MP ####[facility] [address] [address]Dr. Napoleon Best Calcium [Mass/Vol] 8.9 mg/dL Normal 8.5-10.1 [facility] Comment on above: Performed By: #### C MP ####[facility] [address] [address]Dr. Napoleon Best Chloride [Moles/Vol] 103 mmol/L Normal 98-107 [facility] Comment on above: Performed By: #### C MP ####[facility] [address] [place], [place] [address]Dr. Napoleon Best CO2 [Moles/Vol] 28.2 mmol/L Normal 21.0-32.0 [facility] Comment on above: Performed By: #### C MP ####[facility] [address] [place], [place] [address]Dr. Napoleon Best Creatinine [Mass/Vol] 0.72 mg/dL Normal 0.55-1.02 [facility] Comment on above: Performed By: #### C MP ####[facility] [address] [place], [place] [address]Dr. Napoleon Best EGFR-AF GRENADIAN >60 Normal >=60 [facility] Comment on above: Performed By: #### C MP ####[facility] [address] [place], [place] [address]Dr. Napoleon Best EGFR-NON AF GRENADIAN >60 Normal >=60 [facility] Comment on above: Performed By: #### C MP ####[facility] [address] [place], [place] [address]Dr. Napoleon Best Globulin (S) [Mass/Vol] 3.5 g/dL Normal [facility] Comment on above: Performed By: #### C MP ####[facility] [address] [place], [place] [address]Dr. Napoleon Best Glucose [Mass/Vol] 91 mg/dL Normal 74-106 [facility] Comment on above: Performed By: #### C MP ####[facility] [address] [id number]. Napoleon Best Potassium [Moles/Vol] 3.7 mmol/L Normal 3.5-5.1 [facility] Comment on above: Performed By: #### C MP ####[facility] [address] [id number]. Napoleon Best Protein [Mass/Vol] 7.5 g/dL Normal 6.4-8.2 [facility] Comment on above: Performed By: #### C MP ####[facility] [address] [id number]. Napoleon Best Sodium [Moles/Vol] 141 mmol/L Normal 136-145 [facility] Comment on above: Performed By: #### C MP ####[facility] [address] [id number]. Napoleon Best Urea nitrogen [Mass/Vol] 7.0 mg/dL Normal 7.0-18.0 [facility] Comment on above: Performed By: #### C MP ####[facility] [address] [id number]. Napoleon Best Urea nitrogen/Creatinine [Mass ratio] 9.7 mg/mg Normal [facility] Comment on above: Performed By: #### C MP ####[facility] [address] [phone]. Napoleon Best XR CHEST 1 Von 08-15-2022 [...] Braulio CLIFFORD Date: 2022-08-15 21:31 Normal [facility] COVID Quick Testingon 2021 Result Negative [employer] Other Quick Strepon 07-09-2022 S. pyogenes Org specific cx Ql (Throat) Negative [facility] [employer] Other Quick Strep [employer] [facility] [employer] Other ER URINE PROFILEon 2 Bilirubin Ql (U) Negative Normal NEGATIVE [facility] Comment on above: Performed By: #### E RUR #### [facility] [address] [place] [address] Dr. Napoleon Best Clarity (U) CLEAR Normal CLEAR [facility] Comment on above: Performed By: #### E RUR #### [facility] [address] [place] [address] Dr. Napoleon Best Color (U) LT. YELLOW Normal YELLOW [facility] Comment on above: Performed By: #### E RUR #### [facility] [address] [place] [address] Dr. Napoleon Best ERUTERESSA A micrscopic examina tion will be performed if indicated. Normal [facility] Comment on above: Performed By: #### E RUR #### [facility] [address] [place] [address] Dr. Napoleon Best Glucose Ql (U) Negative Normal NEGATIVE [facility] Comment on above: Performed By: #### E RUR #### [facility] [address] [place] [address] Dr. Napoleon Best Hemoglobin Ql (U) Negative Normal NEGATIVE [facility] Comment on above: Performed By: #### E RUR #### [facility] [address] [address] [address] Napoleon Best Ketones Ql (U) Negative Normal NEGATIVE [facility] Comment on above: Performed By: #### E RUR #### [facility] [address] [place] [address] Dr. Napoleon Best LEUKOCYTES Negative Normal NEGATIVE [facility] Comment on above: Performed By: #### E RUR #### [facility] [address] [place] [address] Dr. Napoleon Best Nitrite Ql (U) Negative Normal NEGATIVE [facility] Comment on above: Performed By: #### E RUR #### [facility] [address] [address] [address] Napoleon Best pH (U) 7.5 [pH] Normal 5-9 [facility] Comment on above: Performed By: #### E RUR #### [facility] [address] [address] [address] Napoleon Best SPEC GRAVITY 1.020 Normal 1.005-<=1. 025 [facility] Comment on above: Performed By: #### E RUR #### [facility] [address] [address] [address] Napoleon Best UA PROTEIN Negative Normal NEGATIVE/ TRACE [facility] Comment on above: Performed By: #### E RUR #### [facility] [address] [place] [address] Dr. Napoleon Best UR MICRO IND NOT INDICATED Normal [facility] Comment on above: Performed By: #### E RUR #### [facility] [address] [address] [address] Napoleon Best Urobilinogen Qn (U) 0.2 {Elmer'U}/dL Normal 0.2 - 1. 0 [facility] Comment on above: Performed By: #### E RUR #### [facility] [address] [place] [address] Dr. Napoleon Best A1C HEMOGLOBINon 05-23-2022 HbA1c (Bld) [Mass fraction] 5.5 % [employer] Other HbA1c (Bld) [Mass fraction]o n 05-23-2022 A1C HEMOGLOBIN [facility] [employer] Other Urine culture routineOrdered By: Ragini Riley on 05-10-2022 Bacteria identified Cx Nom (U) Escherichia coli [facility] VIT D 25-OH LABCORPon 2021 Vitamin D, 25-Hydroxy 22.4 ng/mL Critically low 30.0-100.0 [facility] Comment on above: Result Comment: Arelis min D deficiency has been defined by the [place] of Medicine and an Endocrine Society practice guideline as a level of serum 25-OH vitamin D less than 20 ng/mL (1,2). The Endocrine Society went on to further define vitamin D insufficiency as a level between 21 and 29 ng/mL (2). 1. IOM ([place] of Medicine). 2010. Dietary reference intakes for calcium and D. [place]: The National Academies Press. 2. Geraldine MF, Cong MILLER, Alfred BAE, et al. Evaluation, treatment, and prevention of vitamin D deficiency: an Endocrine Society clinical practice guideline. JCEM. 2010; 96(7):1911-30. Performed By: #### V ITADLC #### [facility] [address] [place], [place] [address] Dr. Napoleon Best CBC AUTO DIFFon 05-08-2022 BASO # 0.0 103/ul Normal 0.0-0.1 [facility] Comment on above: Performed By: #### C BC ####[facility] [address] [address]Dr. Napoleon Best Basophils/100 WBC (Bld) 0.2 % Normal 0.2-2.0 [facility] Comment on above: Performed By: #### C BC ####[facility] [address] [id number]. Napoleon Best EO # 0.0 103/ul Normal 0.0-0.7 [facility] Comment on above: Performed By: #### C BC ####[facility] [address] [id number]. Napoleon Best Eosinophils/100 WBC (Bld) 0.0 % Critically low 0.9-7.0 [facility] Comment on above: Performed By: #### C BC ####[facility] [address] [phone]. Napoleon Best Erythrocyte distribution width (RBC) [Ratio] 12.6 % Normal 11.0-15.0 [facility] Comment on above: Performed By: #### C BC ####[facility] [address] [address]Dr. Napoleon Best Hematocrit (Bld) [Volume fraction] 39.4 % Normal 36.0-48.0 [facility] Comment on above: Performed By: #### C BC ####[facility] [address] [address]DrMarilyn Best Hemoglobin (Bld) [Mass/Vol] 12.4 g/dL Normal 12.0-16.0 [facility] Comment on above: Performed By: #### C BC ####[facility] [address] [place], [place] [address]DrMarilyn Best IG # 0.14 10e3/ul Critically high 0.00-0.03 [facility] Comment on above: Performed By: #### C BC ####[facility] [address] [place], [place] [address]DrMarilyn Best IG % 1.1 % Critically high 0.0-0.5 [facility] Comment on above: Performed By: #### C BC ####[facility] [address] [place], [place] [address]DrMarilyn Best LYMPH # 1.6 103/ul Normal 1.2-3.8 [facility] Comment on above: Performed By: #### C BC ####[facility] [address] [place], [place] [address]DrMarilyn Best Lymphocytes/100 WBC (Bld) 12.2 % Critically low 20.5-60.0 [facility] Comment on above: Performed By: #### C BC ####[facility] [address] [place], [place] [address]DrMarilyn Best MANUAL DIFF REQ NO Normal [facility] Comment on above: Performed By: #### C BC ####[facility] [address] [place], [place] [address]DrMarilyn Best MCH (RBC) [Entitic mass] 29.4 pg Normal 26.7-34.0 [facility] Comment on above: Performed By: #### C BC ####[facility] [address] [place], [place] [address]DrMarilyn Best MCHC (RBC) [Mass/Vol] 31.5 g/dL Normal 29.9-35.2 [facility] Comment on above: Performed By: #### C BC ####[facility] [address] [address]DrMarilyn Best MCV (RBC) [Entitic vol] 93.4 fL Normal 81.0-99.0 [facility] Comment on above: Performed By: #### C BC ####[facility] [address] [address]DrMarilyn Best MONO # 0.8 103/ul Normal 0.3-0.8 [facility] Comment on above: Performed By: #### C BC ####[facility] [address] [address]DrMarilyn Best Monocytes/100 WBC (Bld) 6.5 % Normal 1.7-12.0 [facility] Comment on above: Performed By: #### C BC ####[facility] [address] [place], [place] [address]DrMarilyn Best NEUT # 10.4 103/ul Critically high 1.4-6.5 [facility] Comment on above: Performed By: #### C BC ####[facility] [address] [place], [place] [address]DrMarilyn Best Neutrophils/100 WBC (Bld) 80.0 % Critically high 43.0-75.0 [facility] Comment on above: Performed By: #### C BC ####[facility] [address] [place], [place] [id number] Best Platelet mean volume (Bld) [Entitic vol] 9.2 fL Critically low 9.5-13.5 [facility] Comment on above: Performed By: #### C BC ####[facility] [address] [place], [place] [address]DrMarilyn Best PLT 340 103/ul Normal 150-450 [facility] Comment on above: Performed By: #### C BC ####[facility] [address] [place], [place] [address]DrMarilyn Best RBC 4.22 106/ul Normal 4.20-5.40 [facility] Comment on above: Performed By: #### C BC ####[facility] [address] [id number]. Napoleon Best WBC 13.0 103/ul Critically high 4.0-11.0 [facility] Comment on above: Performed By: #### C BC ####[facility] [address] [phone]. Napoleon Best IRON AND TIBCon 05-08-2022 % SATURATION 15.3 % Normal [facility] Comment on above: Performed By: #### V ITB12, FETIBC ####[facility] [address] [address]Dr. Napoleon Best Iron [Mass/Vol] 55.0 ug/dL Normal 50.0-170.0 [facility] Comment on above: Performed By: #### V ITB12, FETIBC ####[facility] [address] [address]Dr. Napoleon Best TIBC DIRECT 358.0 ug/dL Normal 250.0-450. 0 [facility] Comment on above: Performed By: #### V ITB12, FETIBC ####[facility] [address] [id number]. Napoleon Best LIPID PROFILEon 05-08-2022 CHOL-HDL RATIO NORM SEE BELOW Normal [facility] Comment on above: Result Comment: 3.3 - 4.4 LOW RISK 4.4 - 7.1 AVERAGE RISK 7.1 - 11.0 MODERATE RISK >11.0 HIGH RISK Performed By: #### M G, CMP, LIPID #### [facility] [address] [address] [address] Napoleon Best Cholesterol [Mass/Vol] 294 mg/dL Critically high <=200 [facility] Comment on above: Performed By: #### M G, CMP, LIPID #### [facility] [address] [address] [address] Napoleon Best Cholesterol in HDL [Mass/Vol] 72 mg/dL Critically high 40-60 [facility] Comment on above: Performed By: #### M G, CMP, LIPID #### [facility] [address] [address] [address] Napoleon Best Cholesterol in LDL [Mass/Vol] 179.8 mg/dL Normal [facility] Comment on above: Performed By: #### M G, CMP, LIPID #### [facility] [address] [address] [address] Napoleon Best Cholesterol.total/Ch olesterol in HDL [Mass ratio] 4.1 {ratio} Normal [facility] Comment on above: Performed By: #### M G, CMP, LIPID #### [facility] [address] [address] [address] Napoleon Best HDL NORMAL > or = 60 mg/dl - LO W CARDIOVASCULAR RISK <40 mg/dl - HIGH CARDIOVASCULAR RISK Normal [facility] Comment on above: Performed By: #### M G, CMP, LIPID #### [facility] [address] [address] [address] Napoleon Best LDL CALC NORMAL SEE BELOW Normal [facility] Comment on above: Result Comment: <100 mg/dl OPTIMAL 100 - 129 mg/dl NEAR OR ABOVE OPTIMAL 130 - 159 mg/dl BORDERLINE HIGH 160 - 189 mg/dl HIGH >190 mg/dl VERY HIGH Performed By: #### M G, CMP, LIPID #### [facility] [address] [address] [address] Napoleon Best Triglyceride [Mass/Vol] 211 mg/dL Critically high <=150 [facility] Comment on above: Performed By: #### M G, CMP, LIPID #### [facility] [address] [address] [address] Napoleon Best VLDL CALC 42.2 mg/dL Normal [facility] Comment on above: Performed By: #### M G, CMP, LIPID #### [facility] [address] [address] [address] Napoleon Best MAGNESIUMon 05-08-2022 Magnesium [Mass/Vol] 2.1 mg/dL Normal 1.8-2.4 [facility] Comment on above: Performed By: #### M G, CMP, LIPID #### [facility] [address] [address] [address] Napoleon Best PROF 14(COMP METB)on 022 Albumin [Mass/Vol] 3.6 g/dL Normal 3.4-5.0 [facility] Comment on above: Performed By: #### M G, CMP, LIPID #### [facility] [address] [place] [address] Dr. Napoleon Best Albumin/Globulin [Mass ratio] 1.1 {ratio} Normal [facility] Comment on above: Performed By: #### M G, CMP, LIPID #### [facility] [address] [place] [address] Dr. Napoleon Best ALP [Catalytic activity/Vol] 107 U/L Normal 46-116 [facility] Comment on above: Performed By: #### M G, CMP, LIPID #### [facility] [address] [place] [address] Dr. Napoleon Best ALT [Catalytic activity/Vol] 20 U/L Normal 14-59 [facility] Comment on above: Performed By: #### M G, CMP, LIPID #### [facility] [address] [place] [address] Dr. Napoleon Best Anion gap [Moles/Vol] 10.8 mmol/L Normal [facility] Comment on above: Performed By: #### M G, CMP, LIPID #### [facility] [address] [place] [address] Dr. Napoleon Bset AST [Catalytic activity/Vol] U/L Critically low 15-37 [facility] Comment on above: Performed By: #### M G, CMP, LIPID #### [facility] [address] [place] [address] Dr. Napoleon eBst Bilirubin [Mass/Vol] 0.1 mg/dL Critically low 0.2-1.0 [facility] Comment on above: Performed By: #### M G, CMP, LIPID #### [facility] [address] [place] [address] Dr. Napoleon Best Calcium [Mass/Vol] 8.8 mg/dL Normal 8.5-10.1 [facility] Comment on above: Performed By: #### M G, CMP, LIPID #### [facility] [address] [place] [address] Dr. Napoleon Best Chloride [Moles/Vol] 106 mmol/L Normal 98-107 [facility] Comment on above: Performed By: #### M G, CMP, LIPID #### [facility] [address] [place] [address] Dr. Napoleon Best CO2 [Moles/Vol] 28.0 mmol/L Normal 21.0-32.0 [facility] Comment on above: Performed By: #### M G, CMP, LIPID #### [facility] [address] [place] [address] Dr. Napoleon Best Creatinine [Mass/Vol] 0.68 mg/dL Normal 0.55-1.02 [facility] Comment on above: Performed By: #### M G, CMP, LIPID #### [facility] [address] [place] [address] Dr. Napoleon Best EGFR-AF GRENADIAN >60 Normal >=60 [facility] Comment on above: Performed By: #### M G, CMP, LIPID #### [facility] [address] [place] [address] Dr. Napoleon Best EGFR-NON AF GRENADIAN >60 Normal >=60 [facility] Comment on above: Performed By: #### M G, CMP, LIPID #### [facility] [address] [place] [address] Dr. Napoleon Best Globulin (S) [Mass/Vol] 3.4 g/dL Normal [facility] Comment on above: Performed By: #### M G, CMP, LIPID #### [facility] [address] [place] [address] Dr. Napoleon Best Glucose [Mass/Vol] 122 mg/dL Critically high 74-106 [facility] Comment on above: Performed By: #### M G, CMP, LIPID #### [facility] [address] [place] [address] Dr. Napoleon Best Potassium [Moles/Vol] 3.8 mmol/L Normal 3.5-5.1 [facility] Comment on above: Performed By: #### M G, CMP, LIPID #### [facility] [address] [address] [address] Napoleon Best Protein [Mass/Vol] 7.0 g/dL Normal 6.4-8.2 [facility] Comment on above: Performed By: #### M G, CMP, LIPID #### [facility] [address] [address] [address] Napoleon Best Sodium [Moles/Vol] 141 mmol/L Normal 136-145 [facility] Comment on above: Performed By: #### M G, CMP, LIPID #### [facility] [address] [address] [address] Napoleon Best Urea nitrogen [Mass/Vol] 14.0 mg/dL Normal 7.0-18.0 [facility] Comment on above: Performed By: #### M G, CMP, LIPID #### [facility] [address] [address] [address] Napoleon Best Urea nitrogen/Creatinine [Mass ratio] 20.6 mg/mg Normal [facility] Comment on above: Performed By: #### M G, CMP, LIPID #### [facility] [address] [address] [address] Napoleon Best Urinalysis - DIPSTICKon 08-3 Appearance (U) [employer] Other Bilirubin Ql (U) Negative [employer] Other Color (U) [employer] Other Glucose Ql (U) Negative [employer] Other Hemoglobin Ql (U) Trace [employer] Other Ketones Ql (U) Negative [employer] Other Leukocyte esterase Test strip Ql (U) small [employer] Other Nitrite Ql (U) Negative [employer] Other pH (U) 6.0 [pH] [employer] Other Protein Ql (U) Negative [employer] Other Specific gravity (U) [Rel density] 1.030 [employer] Other Urobilinogen (U) [Mass/Vol] 0.2 mg/dL [employer] Other Urinalysis - DIPSTICK [employer] Other VITAMIN B12on 05-08-2022 Cobalamin (Vitamin B12) [Mass/Vol] 355.0 pg/mL Normal 193.0-986. 0 [facility] Comment on above: Performed By: #### V ITB12, FETIBC ####[facility] [address] [address]Dr. Napoleon Best COVID + FLU Quick Testingon 01-16-2022 SARS-CoV-2 (COVID-19) RNA NAKIA+probe Ql (Unsp spec) Negative [employer] Other COVID + FLU [employer] Testing Negative [employer] Other XR Knee Complete Right*on XR Knee [...] signed by Cm Escamilla on 01/09/20222004 Normal [facility] Teacher COVID Quick Testingon 2020 Result Negative [employer] Other Vital Signs Date Time Vital Sign Value Performing Clinician Facility 07-20-2024 16:01-0500 Body height 148.59 cm Ragini Riley APRN Work Phone: [facility] 07-20-2024 16:01-0500 Body mass index (BMI) [Ratio] 25.2 kg/m2 Ragini Rosemary PROFESSIONAL DEVELOPMENT DIRECTOR Work Phone: [facility] 07-20-2024 16:01-0500 Body temperature 95.9 [degF] Ragini Rosemary PROFESSIONAL DEVELOPMENT DIRECTOR Work Phone: [facility] 07-20-2024 16:01-0500 Body weight 55.79 kg Ragini Rosemary PROFESSIONAL DEVELOPMENT DIRECTOR Work Phone: [facility] 07-20-2024 16:01-0500 Diastolic blood pressure 60 mm[Hg] Ragini Riley PROFESSIONAL DEVELOPMENT DIRECTOR Work Phone: [facility] 07-20-2024 16:01-0500 Heart rate 91 /min Ragini Riley PROFESSIONAL DEVELOPMENT DIRECTOR Work Phone: [facility] 07-20-2024 16:01-0500 SaO2% (BldA) [Mass fraction] 100 % Ragini Riley PROFESSIONAL DEVELOPMENT DIRECTOR Work Phone: [facility] 07-20-2024 16:01-0500 Systolic blood pressure 104 mm[Hg] Ragini Riley PROFESSIONAL DEVELOPMENT DIRECTOR Work Phone: [facility] 07-14-2024 09:42-0500 Diastolic blood pressure 64 mm[Hg] PROFESSIONAL DEVELOPMENT DIRECTOR Ragini Riley Work Phone: [facility] 07-14-2024 09:42-0500 Heart rate 81 /min PROFESSIONAL DEVELOPMENT DIRECTOR Ragini Riley Work Phone: [facility] 07-14-2024 09:42-0500 Respiratory rate 16 /min PROFESSIONAL DEVELOPMENT DIRECTOR Ragini Perkinsacher Work Phone: [facility] 07-14-2024 09:42-0500 SaO2% (BldA) [Mass fraction] 96 % PROFESSIONAL DEVELOPMENT DIRECTOR Ragini Riley Work Phone: [facility] 07-14-2024 09:42-0500 Systolic blood pressure 103 mm[Hg] GOKUL Ragini Rosemary Work Phone: [facility] 07-14-2024 09:02-0500 Inhaled oxygen flow rate 3 L/min PROFESSIONAL DEVELOPMENT DIRECTORDestiny Eid Rosemary Work Phone: [facility] 07-14-2024 08:34-0500 Body height 148.59 cm PROFESSIONAL DEVELOPMENT DIRECTORDestiny Eid Raziar Work Phone: [facility] 07-14-2024 08:34-0500 Body weight 53.52 kg PROFESSIONAL DEVELOPMENT DIRECTORDestiny Eid Rosemary Work Phone: [facility] 06-22-2024 15:47-0400 Body height 147.32 cm [facility] 06-22-2024 15:47-0400 Body mass index (BMI) [Ratio] 25 kg/m2 [facility] 06-22-2024 15:47-0400 Body temperature 96.8 [degF] [facility] 06-22-2024 15:47-0400 Body weight 54.2 kg [facility] 06-22-2024 15:47-0400 Diastolic blood pressure 78 mm[Hg] [facility] 06-22-2024 15:47-0400 Heart rate 88 /min [facility] 06-22-2024 15:47-0400 SaO2% (BldA) [Mass fraction] 99 % [facility] 06-22-2024 15:47-0400 Systolic blood pressure 118 mm[Hg] [facility] 05-27-2024 12:29-0400 Body mass index (BMI) [Ratio] 23.01 kg/m2 Ynes Arcos DIRECTOR OF CONTENT MARKETING Work Phone: [facility] 05-27-2024 12:29-0400 Body weight 50.8 kg Ynes Arcos DIRECTOR OF CONTENT MARKETING Work Phone: [facility] 05-27-2024 12:29-0400 Diastolic blood pressure 72 mm[Hg] Ynes Russpatricia DIRECTOR OF CONTENT MARKETING Work Phone: [facility] 05-27-2024 12:29-0400 Systolic blood pressure 112 mm[Hg] Ynes Arcos DIRECTOR OF CONTENT MARKETING Work Phone: [facility] 03-30-2024 14:21-0400 Body height 147.32 cm [facility] 03-30-2024 14:21-0400 Body mass index (BMI) [Ratio] 23.6 kg/m2 [facility] 03-30-2024 [id number] Body weight 51.25 kg [facility] 03-30-2024 14:21-0400 Diastolic blood pressure 64 mm[Hg] [facility] 03-30-2024 14:21-0400 Heart rate 78 /min [facility] 03-30-2024 14:21-0400 SaO2% (BldA) [Mass fraction] 98 % [facility] 03-30-2024 14:21-0400 Systolic blood pressure 114 mm[Hg] [facility] 12-17-2023 10:40-0400 Diastolic blood pressure 66 mm[Hg] GOKUL Riley Work Phone: [facility] 12-17-2023 10:40-0400 Heart rate 61 /min GOKUL Riley Work Phone: [facility] 12-17-2023 10:40-0400 Respiratory rate 16 /min GOKUL Riley Work Phone: [facility] 12-17-2023 10:40-0400 SaO2% (BldA) [Mass fraction] 100 % GOKUL Riley Work Phone: [facility] 12-17-2023 10:40-0400 Systolic blood pressure 108 mm[Hg] GOKUL Riley Work Phone: [facility] 12-17-2023 10:03-0400 Inhaled oxygen flow rate 3 L/min GOKUL Riley Work Phone: [facility] 12-17-2023 09:07-0400 Body height 147.32 cm GOKUL Riley Work Phone: [facility] 12-17-2023 09:07-0400 Body weight 54.43 kg GOKUL Riley Work Phone: [facility] 07-10-2023 13:55-0400 Body height 147.32 cm Jyoti Jama Other [employer] Other 07-10-2023 13:55-0400 Body mass index (BMI) [Ratio] 22.86 kg/m2 Jyoti Barajasmond Other [employer] Other 07-10-2023 13:55-0400 Body temperature 99.1 [degF] Jyoti Jama Other [employer] Other 07-10-2023 13:55-0400 Body weight 49.62 kg Jyoti Jama Other [employer] Other 07-10-2023 13:55-0400 Respiratory rate 18 /min Jyoti Jama Other [employer] Other 07-10-2023 13:55-0400 SaO2% (BldA) [Mass fraction] 94 % Jyoti Jama Other [employer] Other 05-27-2023 09:00-0400 Body height 147.32 cm Luigi Schaefer Other [employer] Other 05-27-2023 09:00-0400 Body mass index (BMI) [Ratio] 20.9 kg/m2 Luigi Schaefer Other [employer] Other 05-27-2023 09:00-0400 Body weight 45.36 kg Luigi Scovanner Other [employer] Other 05-27-2023 09:00-0400 Diastolic blood pressure 71 mm[Hg] Luigi Scovanner Other [employer] Other 05-27-2023 09:00-0400 Systolic blood pressure 125 mm[Hg] Luigi Scovanner Other [employer] Other 04-15-2023 14:30-0400 Body height 147.32 cm Luigi Scovanner Other [employer] Other 04-15-2023 14:30-0400 Body mass index (BMI) [Ratio] 21.94 kg/m2 Luigi Scovanner Other [employer] Other 04-15-2023 14:30-0400 Body weight 47.63 kg Luigi Scovanner Other [employer] Other 04-15-2023 14:30-0400 Diastolic blood pressure 80 mm[Hg] Luigi Scovanner Other [employer] Other 04-15-2023 14:30-0400 Systolic blood pressure 116 mm[Hg] Luigi Scovanner Other [employer] Other 03-06-2023 14:00-0400 Body height 147.32 cm Ragini Riley Other [employer] Other 03-06-2023 14:00-0400 Body mass index (BMI) [Ratio] 21.94 kg/m2 Ragini Riley Other [employer] Other 03-06-2023 14:00-0400 Body weight 47.63 kg Ragini Rosemary Other [employer] Other 03-06-2023 14:00-0400 Diastolic blood pressure 68 mm[Hg] Ragini Rosemary Other [employer] Other 03-06-2023 14:00-0400 Systolic blood pressure 110 mm[Hg] Ragini Rosemary Other [employer] Other 02-25-2023 13:20-0400 Body height 147.32 cm Jyoti Jama Other [employer] Other 02-25-2023 13:20-0400 Body mass index (BMI) [Ratio] 24.03 kg/m2 Jyoti Jama Other [employer] Other 02-25-2023 13:20-0400 Body temperature 98.1 [degF] Jyoti Jama Other [employer] Other 02-25-2023 13:20-0400 Body weight 52.16 kg Jyoti Barajasmond Other [employer] Other 02-25-2023 13:20-0400 Diastolic blood pressure 49 mm[Hg] Jyoti Barajasmond Other [employer] Other 02-25-2023 13:20-0400 Respiratory rate 18 /min Jyoti Barajasmond Other [employer] Other 02-25-2023 13:20-0400 SaO2% (BldA) [Mass fraction] 97 % Jyoti Evita Other [employer] [facility] [employer] Other 02-25-2023 13:20-0400 Systolic blood pressure 99 mm[Hg] Jyoti Evita Other [employer] Other 02-05-2023 12:23-0400 Diastolic blood pressure 75 mm[Hg] PROFESSIONAL DEVELOPMENT DIRECTORDestiny Riley Work Phone: [facility] 02-05-2023 12:23-0400 Heart rate 69 /min PROFESSIONAL DEVELOPMENT DIRECTORDestiny Riley Work Phone: [facility] 02-05-2023 12:23-0400 Respiratory rate 16 /min PROFESSIONAL DEVELOPMENT DIRECTORDestiny Perkinsacher Work Phone: [facility] 02-05-2023 12:23-0400 SaO2% (BldA) [Mass fraction] 97 % PROFESSIONAL DEVELOPMENT DIRECTORDestiny Perkinsacher Work Phone: [facility] 02-05-2023 12:23-0400 Systolic blood pressure 123 mm[Hg] PROFESSIONAL DEVELOPMENT DIRECTORDestiny Perkinsacher Work Phone: [facility] 02-05-2023 11:45-0400 Inhaled oxygen flow rate 3 L/min PROFESSIONAL DEVELOPMENT DIRECTORDestiny Randler Work Phone: [facility] 02-05-2023 10:52-0400 Body height 148.59 cm PROFESSIONAL DEVELOPMENT DIRECTORDestiny Perkinsacher Work Phone: [facility] 02-05-2023 10:52-0400 Body weight 50.8 kg GOKUL Perkinsacher Work Phone: [facility] 02-03-2023 11:30-0400 Body height 147.32 cm Jyoti Eivta Other [facility] [employer] Other 02-03-2023 11:30-0400 Body mass index (BMI) [Ratio] 23.41 kg/m2 Jyoti Jama Other [employer] Other 02-03-2023 11:30-0400 Body temperature 98.6 [degF] Jyoti Jama Other [employer] Other 02-03-2023 11:30-0400 Body weight 50.8 kg Jyoti Jama Other [employer] Other 02-03-2023 11:30-0400 Respiratory rate 18 /min Jyoti Jama Other [employer] Other 02-03-2023 11:30-0400 SaO2% (BldA) [Mass fraction] 98 % Jyoti Jama Other [employer] Other 10-23-2022 09:50-0500 Diastolic blood pressure 64 mm[Hg] GOKUL Riley Work Phone: [facility] 10-23-2022 09:50-0500 Heart rate 80 /min GOKUL Riley Work Phone: [facility] 10-23-2022 09:50-0500 Respiratory rate 16 /min GOKUL Riley Work Phone: [facility] 10-23-2022 09:50-0500 SaO2% (BldA) [Mass fraction] 96 % GOKUL Riley Work Phone: [facility] 10-23-2022 09:50-0500 Systolic blood pressure 93 mm[Hg] GOKUL Riley Work Phone: [facility] 10-23-2022 09:09-0500 Inhaled oxygen flow rate 3 L/min PROFESSIONAL DEVELOPMENT DIRECTOR Ragini Riley Work Phone: [facility] 10-23-2022 07:58-0500 Body height 148.59 cm PROFESSIONAL DEVELOPMENT DIRECTOR Ragini Riley Work Phone: [facility] 10-23-2022 07:58-0500 Body weight 53.97 kg PROFESSIONAL DEVELOPMENT DIRECTOR Ragini Riley Work Phone: [facility] 10-11-2022 11:30-0500 Body height 147.32 cm Ragini Carmonakodimeek Other [employer] Other 10-11-2022 11:30-0500 Body mass index (BMI) [Ratio] 24.45 kg/m2 Ragini Carmonalarry Other [employer] Other 10-11-2022 11:30-0500 Body weight 53.07 kg Ragini Riley Other [employer] Other 10-11-2022 11:30-0500 Diastolic blood pressure 86 mm[Hg] Ragini Rosemary Other [employer] Other 10-11-2022 11:30-0500 Systolic blood pressure 132 mm[Hg] Ragini Rosemary Other [employer] Other 07-09-2022 19:40-0400 Body height 147.32 cm Alysa Mariscal Other [employer] Other 07-09-2022 19:40-0400 Body mass index (BMI) [Ratio] 25.7 kg/m2 Alysa Mariscal Other [employer] Other 07-09-2022 19:40-0400 Body temperature 98.3 [degF] Alysa Mariscal Other [employer] Other 07-09-2022 19:40-0400 Body weight 55.79 kg Alysa Mariscal Other [employer] Other 07-09-2022 19:40-0400 Diastolic blood pressure 74 mm[Hg] Alysa Mariscal Other [employer] Other 07-09-2022 19:40-0400 Respiratory rate 16 /min Alysa Mariscal Other [employer] Other 07-09-2022 19:40-0400 SaO2% (BldA) [Mass fraction] 99 % Alysa Mariscal Other [employer] Other 07-09-2022 19:40-0400 Systolic blood pressure 128 mm[Hg] Alysa Mariscal Other [employer] Other 06-26-2022 16:00-0400 Body height 147.32 cm Paul Caroleeelie Other [employer] Other 06-19-2022 11:47-0400 Diastolic blood pressure 57 mm[Hg] GOKUL Riley Work Phone: [facility] 06-19-2022 11:47-0400 Heart rate 70 /min GOKUL Riley Work Phone: [facility] 06-19-2022 11:47-0400 Respiratory rate 16 /min GOKUL Riley Work Phone: [facility] 06-19-2022 11:47-0400 SaO2% (BldA) [Mass fraction] 99 % PROFESSIONAL DEVELOPMENT DIRECTOR Ragini Rosemary Work Phone: [facility] 06-19-2022 11:47-0400 Systolic blood pressure 103 mm[Hg] PROFESSIONAL DEVELOPMENT DIRECTOR Ragini Raziar Work Phone: [facility] 06-19-2022 11:09-0400 Inhaled oxygen flow rate 3 L/min PROFESSIONAL DEVELOPMENT DIRECTOR Ragini Rosemary Work Phone: [facility] 06-19-2022 10:32-0400 Body height 148.59 cm PROFESSIONAL DEVELOPMENT DIRECTOR Ragini Maddiedevendrar Work Phone: [facility] 06-19-2022 10:32-0400 Body weight 55.79 kg PROFESSIONAL DEVELOPMENT DIRECTOR Ragini Carmonakodiacheeddie Work Phone: [facility] 05-23-2022 09:00-0400 Body height 147.32 cm Ragini Riley Other [employer] Other 05-23-2022 09:00-0400 Body mass index (BMI) [Ratio] 24.87 kg/m2 Ragini Rosemary Other [employer] Other 05-23-2022 09:00-0400 Body weight 53.98 kg Ragini Rosemary Other [employer] Other 05-23-2022 09:00-0400 Diastolic blood pressure 86 mm[Hg] Ragini Riley Other [employer] Other 05-23-2022 09:00-0400 SaO2% (BldA) [Mass fraction] 99 % Ragini Riley Other [employer] Other 05-23-2022 09:00-0400 Systolic blood pressure 130 mm[Hg] Ragini Riley Other [employer] Other 05-08-2022 15:00-0400 Body height 147.32 cm Ragini Rosemary Other [employer] Other 05-08-2022 15:00-0400 Body mass index (BMI) [Ratio] 24.87 kg/m2 Ragini Rosemary Other [employer] Other 05-08-2022 15:00-0400 Body weight 53.98 kg Ragini Rosemary Other [employer] Other 05-08-2022 15:00-0400 Diastolic blood pressure 80 mm[Hg] Ragini Riley Other [employer] Other 05-08-2022 15:00-0400 SaO2% (BldA) [Mass fraction] 99 % Ragini Rosemary Other [employer] Other 05-08-2022 15:00-0400 Systolic blood pressure 120 mm[Hg] Ragini Riley Other [employer] Other 02-13-2022 08:27-0400 Diastolic blood pressure 66 mm[Hg] PROFESSIONAL DEVELOPMENT DIRECTOR Ragini Riley Work Phone: [facility] 02-13-2022 08:27-0400 Heart rate 76 /min PROFESSIONAL DEVELOPMENT DIRECTOR Ragini Riley Work Phone: [facility] 02-13-2022 08:27-0400 Respiratory rate 16 /min PROFESSIONAL DEVELOPMENT DIRECTORDestiny Riley Work Phone: [facility] 02-13-2022 08:27-0400 SaO2% (BldA) [Mass fraction] 97 % PROFESSIONAL DEVELOPMENT DIRECTORDestiny Riley Work Phone: [facility] 02-13-2022 08:27-0400 Systolic blood pressure 131 mm[Hg] GOKUL Correiafer Maddiedevendraeddie Work Phone: [facility] 02-13-2022 07:46-0400 Inhaled oxygen flow rate 3 L/min PROFESSIONAL DEVELOPMENT DIRECTORDestiny Riley Work Phone: [facility] 02-13-2022 07:26-0400 Body height 147.32 cm PROFESSIONAL DEVELOPMENT DIRECTORDestiny CorreiaRagini Maddiedevendraeddie Work Phone: [facility] 02-13-2022 07:26-0400 Body mass index (BMI) [Ratio] 26.5 kg/m2 GOKUL Riley Work Phone: [facility] 02-13-2022 07:26-0400 Body weight 57.6 kg GOKUL Dongnifer Maddiemeek Work Phone: [facility] 01-23-2022 16:30-0400 Body height 147.32 cm Paul eLvi Other [employer] Other 01-23-2022 16:30-0400 Body mass index (BMI) [Ratio] 26.54 kg/m2 Paul Levi Other [employer] Other 01-23-2022 16:30-0400 Body weight 57.61 kg Paul Levi Other [employer] Other 10-25-2021 16:00-0500 Body height 147.32 cm Ragini Riley Other [employer] Other 10-25-2021 16:00-0500 Body mass index (BMI) [Ratio] 26.33 kg/m2 Ragini Carmonakodidevendraeddie Other [employer] Other 10-25-2021 16:00-0500 Body temperature 99.4 [degF] Ragini Carmonakodidevendraeddie Other [employer] Other 10-25-2021 16:00-0500 Body weight 57.15 kg Ragini Carmonakodidevendraeddie Other [employer] Other 10-25-2021 16:00-0500 Diastolic blood pressure 84 mm[Hg] Ragini Carmonakodidevendraeddie Other [employer] Other 10-25-2021 16:00-0500 Respiratory rate 18 /min Ragini Rosemary Other [employer] Other 10-25-2021 16:00-0500 SaO2% (BldA) [Mass fraction] 99 % Ragini Carmonakodidevendraeddie Other [employer] Other 10-25-2021 16:00-0500 Systolic blood pressure 132 mm[Hg] Ragini Carmonakodidevendraeddie Other [employer] Other 06-05-2021 14:00-0400 Body height 147.32 cm Ragini Rosemary Other [employer] Other 06-05-2021 14:00-0400 Body mass index (BMI) [Ratio] 27.38 kg/m2 Ragini Carmonakodidevendraeddie Other [employer] Other 06-05-2021 14:00-0400 Body weight 59.42 kg Ragini Rosemray Other [employer] Other 06-05-2021 14:00-0400 Diastolic blood pressure 74 mm[Hg] Ragini Rosemary Other [employer] Other 06-05-2021 14:00-0400 Respiratory rate 16 /min Ragini Rosemary Other [employer] Other 06-05-2021 14:00-0400 SaO2% (BldA) [Mass fraction] 98 % Ragini Rosemary Other [employer] Other 06-05-2021 14:00-0400 Systolic blood pressure 116 mm[Hg] Ragini Rosemary Other [employer] Other Encounters Encounter Date Encounter Type Care Provider Facility Start: 12-09-2024 End: 12-09-2024 Patient encounter procedure Ragini Rosemary PROFESSIONAL DEVELOPMENT DIRECTOR Work Phone: [facility] [address] Closed Work Phone: Start: 12-09-2024 End: 12-09-2024 ambulatory Ragini Riley PROFESSIONAL DEVELOPMENT DIRECTOR Work Phone: [facility] Work Phone: Start: 11-17-2024 End: 11-17-2024 Patient encounter procedure Ragini Rosemary PROFESSIONAL DEVELOPMENT DIRECTOR Work Phone: [facility] Work Phone: Start: 07-28-2024 End: 07-28-2024 ambulatory Paul Zarcoer Facility:[facility] Start: 07-20-2024 End: 07-20-2024 ambulatory Ragini Riley PROFESSIONAL DEVELOPMENT DIRECTOR Work Phone: [facility] Work Phone: Start: 07-20-2024 End: 07-20-2024 Patient encounter procedure Raginidre Riley PROFESSIONAL DEVELOPMENT DIRECTOR Work Phone: [facility] Work Phone: Start: 07-14-2024 Non-patient / Non-visit PROFESSIONAL DEVELOPMENT DIRECTOR Ragini Rosemary Work Phone: [facility] Work Phone: Start: 07-14-2024 End: 07-14-2024 Admission to same day surgery center PROFESSIONAL DEVELOPMENT DIRECTOR Ragini Rosemary Work Phone: [facility] Work Phone: Start: 07-14-2024 End: 07-14-2024 ambulatory PROFESSIONAL DEVELOPMENT DIRECTOR Ragini Rosemary Work Phone: [facility] Work Phone: Start: 06-25-2024 End: 06-25-2024 ambulatory [facility] Work Phone: Start: 06-25-2024 End: 06-25-2024 Patient encounter procedure [facility] Phys[facility] Work Phone: Start: 06-24-2024 End: 06-24-2024 Bamboo flowsheet Ynes Arcos DIRECTOR OF CONTENT MARKETING Work Phone: [facility] Start: 06-24-2024 End: 06-24-2024 Bamboo flowsheet Ynes Arcos DIRECTOR OF CONTENT MARKETING Work Phone: [facility] Start: 06-22-2024 End: 06-22-2024 ambulatory [facility] Work Phone: Start: 06-22-2024 End: 06-22-2024 Patient encounter procedure [facility] Work Phone: Start: 05-27-2024 End: 05-27-2024 Bamboo flowsheet Ynes Arcos DIRECTOR OF CONTENT MARKETING Work Phone: [facility] Start: 05-27-2024 End: 05-27-2024 Bamboo flowsheet Ynes Julissa Russpatricia DIRECTOR OF CONTENT MARKETING Work Phone: [facility] Start: 05-27-2024 End: 05-27-2024 ambulatory YNES OTOOLERODY [facility] Comment on above: Carpal tunnel syndro me on right (Primary Dx) Start: 03-30-2024 End: 03-30-2024 ambulatory [facility] Work Phone: Start: 03-30-2024 End: 03-30-2024 Patient encounter procedure [facility] Work Phone: Start: 03-25-2024 Non-patient / Non-visit [facility] Work Phone: Start: 03-25-2024 Non-patient / Non-visit [facility] Work Phone: Start: 03-24-2024 Non-patient / Non-visit [facility] Work Phone: Start: 03-23-2024 Non-patient / Non-visit [facility] Work Phone: Start: 02-18-2024 End: 02-18-2024 ambulatory YNES Julissa ISRRAEL Not Available Start: 01-16-2024 End: 01-16-2024 ambulatory YNES Costa ISRRAEL Not Available Start: 01-01-2024 End: 01-01-2024 ambulatory YNES Costa ISRRAEL Not Available Start: 12-17-2023 Non-patient / Non-visit GOKUL Riley Work Phone: [facility] Phys[facility] Work Phone: Start: 12-17-2023 End: 12-17-2023 Admission to same day surgery center GOKUL Riley Work Phone: [facility] Work Phone: Start: 12-17-2023 End: 12-17-2023 ambulatory PROFESSIONAL DEVELOPMENT DIRECTOR Ragini Riley Work Phone: [facility] Work Phone: Start: 11-26-2023 End: 11-26-2023 ambulatory [facility] Work Phone: Start: 11-26-2023 End: 11-26-2023 Patient encounter procedure [facility] Work Phone: Start: 08-07-2023 End: 08-07-2023 ambulatory Paul Levi Other [employer] Other Start: 08-07-2023 Telephone encounter Paul Levi [facility] [place] Start: 07-30-2023 End: 07-30-2023 ambulatory Ragini Riley Other [employer] Other Start: 07-30-2023 Office outpatient visit 10 minutes Ragini Riley [facility] Start: 07-10-2023 End: 07-10-2023 ambulatory Jyoti Jama Other [employer] Other Start: 07-10-2023 Office outpatient visit 15 minutes Jyoti Jama [facility] Start: 07-10-2023 Telephone encounter Ragini Ahmadi [facility] Start: 06-04-2023 (Procedure) Short Paul Levi [facility] Start: 06-04-2023 End: 06-04-2023 ambulatory Paul Levi Other [employer] Other Start: 06-03-2023 End: 06-03-2023 ambulatory Emre GONZALES Facility:[facility] Start: 05-30-2023 End: 05-30-2023 ambulatory Ragini Riley Other [employer] Other Start: 05-30-2023 Telephone encounter Ragini Ahmadi her [facility] Start: 05-27-2023 End: 05-27-2023 ambulatory Luigi Schaefer Other [employer] Other Start: 05-27-2023 Office outpatient visit 15 minutes Luigi [facility] Start: 05-24-2023 End: 05-24-2023 ambulatory PROFESSIONAL DEVELOPMENT DIRECTORDestiny Riley Work Phone: [facility] Work Phone: Start: 05-24-2023 End: 05-24-2023 Patient encounter procedure GOKUL Riley Work Phone: [facility] [place] Work Phone: Start: 05-16-2023 End: 05-16-2023 ambulatory Paul Levi Other [employer] Other Start: 05-16-2023 Office outpatient visit 25 minutes Paul Levi [facility] [place] Start: 05-15-2023 End: 05-15-2023 ambulatory Ragini Riley Other [employer] Other Start: 05-15-2023 Telephone encounter Ragini Ahmadi her [facility] Start: 05-07-2023 End: 05-07-2023 ambulatory Luigi Schaefer Other [employer] Other Start: 05-07-2023 Telephone encounter Luigi [facility] Start: 04-23-2023 End: 04-23-2023 ambulatory GOKUL Riley Work Phone: [facility] Work Phone: Start: 04-23-2023 End: 04-23-2023 Patient encounter procedure PROFESSIONAL DEVELOPMENT DIRECTOR Ragini Riley Work Phone: [facility] [place] Work Phone: Start: 04-15-2023 End: 04-15-2023 ambulatory Luigi Scahefer Other [employer] Other Start: 04-15-2023 Office outpatient visit 15 minutes Luigi Schaeefr [facility] Start: 03-25-2023 End: 03-25-2023 ambulatory Paul Levi Other [employer] Other Start: 03-25-2023 Telephone encounter Paul Levi [facility] [place] Start: 03-15-2023 End: 03-15-2023 ambulatory Ragini Perkinsacher Other [employer] Other Start: 03-15-2023 Telephone encounter Ragini Carmonamorteza her [facility] Start: 03-13-2023 End: 03-13-2023 ambulatory Ragini Mathewrbacher Other [employer] Other Start: 03-13-2023 Telephone encounter Ragini Daiana her [facility] Start: 03-08-2023 End: 03-08-2023 ambulatory Ragini Perkinsacher Other [employer] Other Start: 03-08-2023 Telephone encounter Ragini Carmonamorteza her [facility] Start: 03-07-2023 End: 03-07-2023 ambulatory Ragini Carmonarbacher Other [employer] Other Start: 03-07-2023 Telephone encounter Ragini Daiana her [facility] Start: 03-06-2023 End: 03-06-2023 ambulatory Ragini Carmonarbacher Other [employer] Other Start: 03-06-2023 Office outpatient visit 25 minutes Ragini Riley [facility] Start: 02-25-2023 Office outpatient visit 15 minutes Jyoti Evita [facility] Start: 02-25-2023 End: 02-25-2023 ambulatory PROFESSIONAL DEVELOPMENT DIRECTORDestiny Riley Work Phone: [facility] Work Phone: Start: 02-25-2023 End: 02-25-2023 Departed Referred PROFESSIONAL DEVELOPMENT DIRECTOR Ragini Riley Work Phone: [facility] [place] Work Phone: Start: 02-05-2023 (Procedure) Short Paul Levi [facility] Start: 02-05-2023 End: 02-05-2023 Admission to same day surgery center PROFESSIONAL DEVELOPMENT DIRECTORDestiny Riley Work Phone: [facility] Work Phone: Start: 02-05-2023 End: 02-05-2023 ambulatory PROFESSIONAL DEVELOPMENT DIRECTORDestiny Riley Work Phone: [facility] Work Phone: Start: 02-03-2023 End: 02-03-2023 ambulatory Jyoti Jama Other [employer] Other Start: 02-03-2023 Office outpatient visit 15 minutes Jyoti Jama [facility] Start: 01-21-2023 End: 01-21-2023 ambulatory Paul Levi Other [employer] Other Start: 01-21-2023 Office outpatient visit 25 minutes Paul Levi [facility] [place] Start: 11-08-2022 End: 11-08-2022 ambulatory Ragini Riley Other [employer] Other Start: 11-08-2022 Encounter by [employer] Ragini Riley [facility] Start: 10-23-2022 (Procedure) Short Paul Levi [facility] Start: 10-23-2022 End: 10-23-2022 Admission to same day surgery center PROFESSIONAL DEVELOPMENT DIRECTOR Ragini Riley Work Phone: [facility] Work Phone: Start: 10-23-2022 End: 10-23-2022 ambulatory PROFESSIONAL DEVELOPMENT DIRECTOR Ragini Riley Work Phone: [facility] Work Phone: Start: 10-15-2022 End: 10-15-2022 ambulatory Ragini Riley Other [employer] Other Start: 10-15-2022 Encounter by [employer] Ragini Riley [facility] Start: 10-12-2022 End: 10-12-2022 ambulatory Ragini Riley Other [employer] Other Start: 10-12-2022 Telephone encounter Ragini Ahmadi her [facility] Start: 10-11-2022 End: 10-11-2022 Patient encounter procedure PROFESSIONAL DEVELOPMENT DIRECTOR Ragini Riley Work Phone: [facility] [address] Work Phone: Start: 10-11-2022 End: 10-11-2022 ambulatory Ragini Riley Other [employer] Other Start: 10-11-2022 Office outpatient visit 15 minutes Ragini Riley [facility] Start: 10-09-2022 End: 10-09-2022 ambulatory Paul Levi Other [employer] Other Start: 10-09-2022 Office outpatient visit 25 minutes Paul Levi [facility] [place] Start: 10-03-2022 End: 10-03-2022 ambulatory Paul Levi Other [employer] Other Start: 10-03-2022 Encounter by [employer] Paul Caroleeelie [facility] [place] Start: 09-11-2022 End: 09-11-2022 ambulatory Paul Amita Other [employer] Other Start: 09-11-2022 Telephone encounter Paul [facility] Start: 09-10-2022 End: 09-10-2022 ambulatory Ragini Riley Other [employer] Other Start: 09-10-2022 Encounter by [employer] Ragini Riley [facility] Start: 08-15-2022 End: 08-16-2022 ambulatory SULY CAROLINA Facility: Start: 07-12-2022 End: 07-12-2022 ambulatory Ragini Riley Other [employer] Other Start: 07-12-2022 Encounter by [employer] Ragini Riley [facility] Start: 07-09-2022 End: 07-09-2022 ambulatory Alysa Mariscal Other [employer] Other Start: 07-09-2022 Office outpatient visit 15 minutes Alysa Mariscal [facility] [place] Start: 06-26-2022 End: 06-26-2022 ambulatory Paul Caroleeelie Other [employer] Other Start: 06-26-2022 Office outpatient visit 15 minutes Paul Levi [facility] [place] Start: 06-19-2022 (Procedure) Short Paul Levi [facility] Start: 06-19-2022 Telephone encounter Paul [facility] Start: 06-19-2022 End: 06-19-2022 Admission to same day surgery center PROFESSIONAL DEVELOPMENT DIRECTOR Ragini Rosemary Work Phone: [facility] Start: 06-19-2022 End: 06-19-2022 ambulatory PROFESSIONAL DEVELOPMENT DIRECTOR Ragini Rosemary Work Phone: [facility] Work Phone: Start: 05-28-2022 End: 05-28-2022 ambulatory RAGINI RILEY Facility: Start: 05-25-2022 End: 05-25-2022 ambulatory Ragini Riley Other [employer] Other Start: 05-25-2022 Telephone encounter Ragini Daiana her [facility] [place] Start: 05-23-2022 End: 05-23-2022 ambulatory Ragini Riley Other [employer] Other Start: 05-23-2022 Office outpatient visit 15 minutes Ragini Riely [facility] [place] Start: 05-22-2022 End: 05-22-2022 ambulatory Ragini Riley Other [employer] Other Start: 05-22-2022 Encounter by lebron r sabino Riley [facility] [place] Start: 05-16-2022 End: 05-16-2022 ambulatory Ragini Riley Other [employer] Other Start: 05-16-2022 Telephone encounter Ragini Daiana her [facility] Start: 05-15-2022 End: 05-15-2022 ambulatory Ragini Riley Other [employer] Other Start: 05-15-2022 Telephone encounter Raginicharles Carmonamorteza her [facility] [place] Start: 05-10-2022 End: 05-10-2022 ambulatory Ragini Riley Other [employer] Other Start: 05-10-2022 Telephone encounter Ragini Daiana her [facility] Start: 05-08-2022 End: 05-08-2022 Departed Referred PROFESSIONAL DEVELOPMENT DIRECTOR Ragini Riley Work Phone: [facility] [place] Start: 05-08-2022 End: 05-09-2022 ambulatory RAGINI RILEY [employer] Other Start: 05-08-2022 Office outpatient visit 15 minutes Ragini Riley [facility] Start: 04-26-2022 End: 04-26-2022 ambulatory Paul Levi Other [employer] Other Start: 04-26-2022 Office outpatient visit 25 minutes Paul Levi [facility] [place] Start: 04-12-2022 End: 04-12-2022 ambulatory Ragini Riley Other [employer] Other Start: 04-12-2022 Office outpatient visit 15 minutes Ragini Riley [facility] Start: 02-20-2022 End: 02-20-2022 ambulatory Paul Levi Other [employer] Other Start: 02-20-2022 Telephone encounter Paul [facility] Start: 02-13-2022 (Procedure) Short Paul Levi [facility] Start: 02-13-2022 End: 02-13-2022 ambulatory Paul Levi Other [employer] Other Start: 02-13-2022 End: 02-13-2022 Admission to same day surgery center PROFESSIONAL DEVELOPMENT DIRECTOR Ragini Riley Work Phone: [facility] Start: 01-23-2022 End: 01-23-2022 ambulatory Paul Levi Other [employer] Other Start: 01-23-2022 Office outpatient visit 25 minutes Paul Levi [facility] [place] Start: 01-19-2022 End: 01-19-2022 ambulatory Ragini Riley Other [employer] Other Start: 01-19-2022 Telephone encounter Ragini Ahmadi her [facility] [place] Start: 01-16-2022 End: 01-16-2022 ambulatory Ragini Riley Other [employer] Other Start: 01-16-2022 Office outpatient visit 15 minutes Ragini Riley [facility] Start: 11-24-2021 End: 11-24-2021 ambulatory Paul Levi Other [employer] Other Start: 11-24-2021 Telephone encounter Paul Levi [facility] Start: 11-22-2021 End: 11-22-2021 ambulatory Ragini Riley Other [employer] Other Start: 11-22-2021 Telephone encounter Ragini Ahmadi her [facility] [place] Start: 10-25-2021 End: 10-25-2021 ambulatory Ragini Riley Other [employer] Other Start: 10-25-2021 Office outpatient visit [address] [facility] Start: 09-11-2021 End: 09-11-2021 ambulatory Paul Levi Other [employer] Other Start: 09-11-2021 Office outpatient visit [address] [facility] Start: 09-11-2021 Telephone encounter Paul Levi [facility] Start: 08-14-2021 End: 08-14-2021 ambulatory Ragini Riley Other [employer] Other Start: 08-14-2021 Telephone encounter Ragini Daiana her [facility] Start: 08-10-2021 End: 08-10-2021 ambulatory Paul Levi Other [employer] Other Start: 08-10-2021 Office outpatient visit 15 minutes Paul Levi [facility] [place] Start: 07-25-2021 End: 07-25-2021 ambulatory Ragini Riley Other [employer] Other Start: 07-25-2021 Office outpatient visit 15 minutes Ragini Riley [facility] Start: 06-30-2021 Telephone encounter Ragini Daiana her [facility] [place] Start: 06-05-2021 Office outpatient visit 15 minutes Ragini Riley [facility] Start: 06-01-2021 Office outpatient visit 25 minutes Paul Levi [facility] [place] Procedures Date Procedure Procedure Detail Performing Clinician Start: 12-09-2024 MR lumbar spine wo con Ragini Fletcher er PROFESSIONAL DEVELOPMENT DIRECTOR Work Phone: Start: 07-14-2024 Radiofrequency destruction of peripheral nerve PROFESSIONAL DEVELOPMENT DIRECTOR Ragini Riley Work Phone: Start: 06-22-2024 Quick Strep (POC) Start: 05-27-2024 H/O: section History of section Ynes Arcos DIRECTOR OF CONTENT [employer]ETING Work Phone: Start: 05-27-2024 H/O: hysterectomy S/P laparoscopic hysterectomy Ynes Arcos [employer] OF [employer] Work Phone: Start: 03-23-2024 Blood Culture 1 [...] GOKUL Riley Work Phone: H/O: section S/P PROFESSIONAL DEVELOPMENT DIRECTORDestiny Riley Work Phone: H/O: section History of C-sectio n PROFESSIONAL DEVELOPMENT DIRECTORDestiny Riley Work Phone: H/O: hysterectomy Paul Fel ter Other H/O: hysterectomy S/P laparoscop ic hysterectomy GOKUL Carmonakodidevendraeddie Work Phone: Urine culture GOKUL Riley Work Phone: Plan of Treatment Date Care Activity Detail Author Start: 03-08-2025 Influenza vaccination Influenz a Vaccine (#1) [facility] Comment on above: Postponed from 05/10 (Patient Refused) Start: 09-29-2024 Screening for malign ant neoplasm of cervix [facility] Start: 07-14-2024 [facility] Start: 07-08-2024 End: 07-08-2024 Clinical Support 07/08/2024 3:00 PM EDT Clinical Support [facility] [id number] [place] [address], [place] [address] Ynes Arcos DIRECTOR OF CONTENT MARKETING [address] [place] [address], [place] [id number] [facility] [address] Start: 06-24-2024 End: 06-24-2024 [facility] Comment on above: Arrived Start: 05-27-2024 End: 05-27-2024 Clinical Support 05/27/2024 12:30 PM EDT Clinical Support [facility] [address] [place] [address], [place] [address] Ynes Arcos DIRECTOR OF CONTENT MARKETING [address] [place] [address], [place] [address] Arrived [facility] 210 Comment on above: Arrived Start: 05-10-2024 Influenza vaccination Influenz a Vaccine (#1) [facility] Start: 2023 Screening for malign ant neoplasm of breast Mammogram [facility] Start: 12-17-2023 [facility] Start: 11-26-2023 Patient referral [facility] Work Phone: Start: 02-25-2023 Bacteria identified in Urine by Culture Urine Culture [facility] Start: 02-05-2023 [facility] Start: 10-23-2022 [facility] Start: 06-19-2022 [facility] Start: 02-13-2022 [facility] Work Phone: Start: 12-28-2004 Screening for malign ant neoplasm of cervix Pap Smear [facility] Calprotectin [Mass/m ass] in Stool [facility] Comprehensive metabo lic 2000 panel - Serum or Plasma [facility] Cryptosporidium sp A g [Presence] in Stool by Immunoassay [facility] Elastase.pancreatic [Mass/mass] in Stool [facility] Giardia lamblia Ag [Presence] in Stool by Immunoassay [facility] Patient Education [facility] Work Phone: Patient referral [facility] Work Phone: pH of Stool [facility] Immunizations Immunization Date Immunization Notes Care Provider Fa cility 01-20-2021 COVID-19 Vaccine Moderna - Documentation Purposes Only Paul Levi Other [facility] 12-23-2020 COVID-19 Vaccine Moderna - Documentation Purposes Only Paul Levi Other [facility] 12-15-2018 tetanus and diphther ia toxoids, adsorbed, preservative free, for adult use (5 Lf of tetanus toxoid and 2 Lf of diphtheria toxoid) [facility] 12-15-2018 tetanus toxoid, reduced diphtheria toxoid, and acellular pertussis vaccine, adsorbed Paul Levi Other [facility] 06-24-2015 influenza, seasonal, injectable, preservative free Ynes Arcos DIRECTOR OF CONTENT MARKETING Work Phone: [facility] 06-24-2015 influenza virus vaccine, unspecified formulation Ynes Arcos DIRECTOR OF CONTENT MARKETING Work Phone: [facility] 04-26-2011 DEPO-PROVERA Paul Levi Other [facility] Other 01-25-2011 DEPO-PROVERA Paul Levi Other [facility] Other 06-29-2010 influenza virus vaccine, split virus (incl. purified surface antigen) Paul Levi Other [employer] Other 06-29-2010 influenza virus vaccine, unspecified formulation [facility] Payers Date Payer Category Payer Self-pay [id number] 2023 Private Health Insurance [employer] [id number] 2023 Unknown [employer] [id number] 2023-Present [address] [place] [address] [id number] 2023 Unknown [id number] 1985 Unknown [id number] [id number]. 593 1983 Unknown [id number] 2.16.840.1.628011.3.579.2. 593 1983 Unknown [id number] 2.16.840.1.901606.3.579.2. 593 1983 Unknown [id number] 2.16.840.1.267823.3.579.2. 1259 1983 Unknown [id number] 2.16.840.1.936337.3.579.2. 1259 1983 Unknown [id number] 2.16.840.1.151090.3.579.2. 1259 1983 Unknown [id number] 2.16.840.1.421584.3.579.2. 1259 1983 Unknown [id number] 2.16.840.1.547423.3.579.2. 1259 1959 Unknown [id number] 2.16.840.1.487312.19 Unknown [id number] 2.16.840.1.792155.19 Unknown [id number] [id number] Unknown [id number] 2.16.840.1.878354.3.579.2. 531 Unknown [id number] 2.16.840.1.711918.3.579.2. 531 Unknown [id number] 2.16.840.1.285784.3.579.2. 531 Unknown [id number] 2.16.840.1.898444.3.579.2. 531 Social History Date Type Detail Facility Start: 02-18-2024 End: 05-27-2024 Sex Assigned At [facility] Other Start: 02-13-2022 End: 10-23-2022 Tobacco smoking status WAIS Ex-smoker (finding) [facility] Start: 1985 Sex Assigned At Female F [facility] Start: 06-19-2022 End: 07-14-2024 Tobacco smoking status WAIS Smoker (finding) [facility] Start: 01-01-2024 Tobacco smoking stat us WAIS Never smoked tobacco [facility] Start: 01-01-2024 Tobacco use and exposure Smokeless tobacco non-user [facility] Start: 02-18-2024 End: 05-27-2024 Alcoholic beverage intake Ex-drinker (finding) [facility] Start: 02-18-2024 End: 05-27-2024 History of Social function [facility] Start: 12-09-2023 Gender identity Identifies as female gender (finding) [facility] Start: 07-20-2024 End: 12-10-2024 Sex Female (finding) [facility] Goals Date Patient Goal Desired Activity /State Clinical Notes 06-01-2021 to 11-17-2024 Note Date & Type Note Facility 11-17-2024 Evaluation note Diagnosis Onset Date Resolution Other chronic pain acute November 17, 2024 3:23pm Other spondylosis with radiculopathy, lumbar region acute November 17, 2024 3:23pm [facility] Work Phone: 1(308) 160-421011-05-2024 [facility] note* Diagnosis Onset Date Resolution Status [...] 2024 3:52pm Vitamin D deficiency acute Nove [facility] 2023 3:52pm [facility] Work Phone: 1(510) 878-365609-18-2024 History of Present illness Narrative* Ynes Arcos, STIVEN - 05/27/2024 12:30 PM EDT Images from the original note were not included. CHIEF COMPLAINT REASON FOR VISIT : Neuro Injection HPI: Jenna Sharma is a 38 y.o. female who presents for right CTS injections and neck pain. She can not use right arm sometimes. 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 She reports neck pain which causes her headaches. Medications tried: tizanidine, celebrex, tylenol, Ibuprofen, lyrica, topamax, imitrex and PRN opioids Migraines occur once a week. Weather changes increase symptoms. Duration of migraines 4-6 hours. CURRENT MEDICATIONS: ALLERGIES/DISCONTINUE MEDICATIONS Current Outpatient Medications Medication Instructions atorvastatin (LIPITOR) 10 mg, Oral, Daily celecoxib (CELEBREX) 100 mg, Oral, 2 times daily Creon [id number] units capsule delayed-release particles capsule 1 capsule, [...] She is on Celebrex. [id number] [facility] note* Encounter Date Diagnosis Assessment Notes Treatment Notes Treatment Clinical Notes Jul, Lumbosacral spondylosis without myelopathy (ICD-10 - M47.817) Jul, Cervical pain (ICD-10 - M54.2) [employer] Other 11-21-2023 Evaluation note* Encounter Date Diagnosis [...] understanding and is agreeable to treatment plan. [employer] Other 11-01-2023 Evaluation note* Encounter Date Diagnosis [...] taken if symptoms of yeast infection develop. [employer] Other 09-26-2023 Note [id number]09-25-2023 NotePatient Education Materials [facility]s:[id number] Evaluation note* Encounter Date Diagnosis Assessment Notes [...] ORDER MRI TO TAKE A CLOSER LOOK. [employer] Other 09-07-2023 Evaluation note* Encounter Date Diagnosis [...] note writ ten by Wilmer Tapia MA, Director Business Management. Edited and approved by Dr. Paul Levi MD. [employer] Other 09-06-2023 Evaluation note* Encounter Date Diagnosis Assessment Notes Treatment Notes Treatment Clinical Notes May, Mild episode of recurrent major depressive disorder (ICD-10 - F33.0) [employer] Other 08-29-2023 Evaluation note* Encounter Date Diagnosis Assessment Notes Treatment Notes Treatment Clinical Notes Apr, Diarrhea (ICD-10 - R19.7) Apr, Constipation, unspecified constipation type (ICD-10 - K59.00) [employer] Other 08-07-2023 Evaluation note* Encounter Date Diagnosis [...] powder Pt advised to take a probiotic ([employer]) start one a day Pt advised to try metamucil fiber gummys, three a day Labs and imaging ordered Pt advised to drink plenty of water Pt informed of the low fod map diet Pt RTO in 6 weeks [employer] Other 07-17-2023 Evaluation note* Encounter Date Diagnosis Assessment Notes Treatment Notes Treatment Clinical Notes Mar, Lumbosacral spondylosis without myelopathy (ICD-10 - M47.817) [employer] Other 07-05-2023 Evaluation note* Encounter Date Diagnosis Assessment Notes Treatment Notes Treatment Clinical Notes Mar, Mixed hyperlipidemia (ICD-10 - E78.2) [employer] Other 06-28-2023 Evaluation note* Encounter Date Diagnosis [...] (ICD-10 - E78.2) Due for repeat labs [employer] Other 06-19-2023 Evaluation note* Encounter Date Diagnosis [...] fever or any worsening of your symptoms. [employer] Other 06-19-2023 Evaluation note* Encounter Date Diagnosis [...] nicotine dependence, tobacco product (ICD-10 - F17.290) [employer] [facility] 05-30-[facility] Encounter Date Diagnosis Assessment Notes [...] with your dentist as soon as possible [employer] Other 05-15-2023 Evaluation note* Encounter Date Diagnosis [...] note writ ten by Ida Griffith LPN, Director Business Management. Edited and approved by Dr. Paul Levi MD. [employer] Other 03-02-2023 Evaluation note* Encounter Date Diagnosis Assessment Notes Treatment Notes Treatment Clinical Notes Nov, Mild episode of recurrent major depressive disorder (ICD-10 - F33.0) [employer] Other 02-06-2023 Evaluation note* Encounter Date Diagnosis Assessment Notes Treatment Notes Treatment Clinical Notes Oct, Bronchitis (ICD-10 - J40) [employer] Other 02-02-2023 Evaluation note* Encounter Date Diagnosis [...] go to the ER. Patient verbalizes understanding. [employer] Other 01-31-2023 Evaluation note* Encounter Date Diagnosis [...] note writ ten by Wilmer Tapia CMA, Director Business Management. Edited and approved by Dr. Paul Levi MD. [employer] Other 01-03-2023 Evaluation note* Encounter Date Diagnosis Assessment Notes Treatment Notes Treatment Clinical Notes Sep, Cervical radiculopathy at C6 (ICD-10 - M54.12) [employer] Other 10-31-2022 Evaluation note* Encounter Date Diagnosis [...] other viral communicable diseases (ICD-10 - Z20.828) [employer] Other 10-18-2022 Evaluation note* Encounter Date Diagnosis [...] note writ ten by Wilmer Tapia CMA, Director Business Management. Edited and approved by Dr. Paul Levi MD. [employer] Other 10-11-2022 Evaluation note* Encounter Date Diagnosis Assessment Notes Treatment Notes Treatment Clinical Notes Jun, Low back pain (ICD-1 0 - M54.5) Jun, Cervical radiculopathy at C7 (ICD-10 - M54.12) Jun, Cervical radiculopathy at C6 (ICD-10 - M54.12) [employer] Other 10-11-2022 [facility]* Encounter Date Diagnosis Assessment Notes [...] care will repeat labs in 3 months. [employer] Other 09-06-2022 Evaluation note* Encounter Date Diagnosis Assessment Notes Treatment Notes Treatment Clinical Notes May, Mild episode of recurrent major depressive disorder (ICD-10 - F33.0) [employer] Other 08-30-2022 Evaluation note* Encounter Date Diagnosis [...] to the ER if this would occur. [employer] Other 08-18-2022 Evaluation note* Encounter Date Diagnosis [...] note writ ten by Wilmer Tapia CMA, Director Business Management. Edited and approved by Dr. Paul Levi MD. [employer] Other 08-04-2022 Evaluation note* Encounter Date Diagnosis [...] of iron deficiency anemia (ICD-10 - Z86.2) [employer] Other 06-14-2022 Evaluation note* Encounter Date Diagnosis Assessment Notes Treatment Notes Treatment Clinical Notes Feb, Low back pain (ICD-10 - M54.5) [employer] Other 05-17-2022 Evaluation note* Encounter Date Diagnosis [...] note writ ten by Wilmer Tapia CMA, Director Business Management. Edited and approved by Dr. Paul Levi MD. [employer] Other 05-13-2022 Evaluation note* Encounter Date Diagnosis Assessment Notes Treatment Notes Treatment Clinical Notes January, Acute non-recurrent maxillary sinusitis (ICD-10 - J01.00) [employer] Other 05-10-2022 Evaluation note* Encounter Date Diagnosis [...] understanding and is agreeable to treatment plan. [employer] Other 03-18-2022 Evaluation note* Encounter Date Diagnosis Assessment Notes Treatment Notes Treatment Clinical Notes Nov, Low back pain (ICD-10 - M54.5) [employer] Other 02-16-2022 Evaluation note* Encounter Date Diagnosis [...] Oct, Mixed hyperlipidemia (ICD-10 - E78.2) [facility] [employer] Other 01-03-2022 Evaluation note* Encounter Date Diagnosis Assessment Notes Treatment Notes Treatment Clinical Notes Sep, Low back pain (ICD-10 - M54.5) [employer] Other 01-03-2022 Evaluation note* Encounter Date Diagnosis [...] difficulty breathing, chest pain, palpitations, fever less [id number], persistent fevers not reduced by antipyretic, severe headache, neck pain/stiffness, abdominal pain, persistent N/V, severe dehydration. Patient verbalizes understanding and is agreeable to treatment plan. Sep, Cough (ICD-10 - R05.9) Sep, Other The patient was seen per video virtual visit through [employer] platform and my location (provider) is in the office setting. The specifics of the virtual visit were discussed with patient. This video call is considered video virtual visit, which is to help assess current healthcare needs and to determine the appropriate care patient may require. This visit is a billable service through patient insurance [employer]. Patient is in agreement to have their insurance billed for this video virtual visit and consents to video virtual visit. The staff involved in visit was myself, Ragini Riley DNP, PROFESSIONAL DEVELOPMENT DIRECTOR, DIRECTOR OF FUNDRAISING (provider). Time spent with patient was approximately 15 minutes. [employer] Other 12-06-2021 Evaluation note* Encounter Date Diagnosis Assessment Notes Treatment Notes Treatment Clinical Notes Aug, Mixed hyperlipidemia (ICD-10 - E78.2) [employer] Other 12-02-2021 Evaluation note* Encounter Date Diagnosis [...] note writ ten by Desiree Cano CMA, Director Business Management. Edited and approved by Dr. Paul Levi MD [employer] Other 11-16-2021 Evaluation note* Encounter Date Diagnosis [...] understanding and is agreeable to treatment plan. [employer] Other 10-22-2021 Evaluation note* Encounter Date Diagnosis Assessment Notes Treatment Notes Treatment Clinical Notes Jun, Mild episode of recurrent major depressive disorder (ICD-10 - F33.0) [employer] Other 09-27-2021 Evaluation note* Encounter Date Diagnosis [...] verbalizes understanding and agrees to treatment plan. [employer] Other 09-23-2021 Evaluation note* Encounter Date Diagnosis [...] Above note writ ten by Karina BARBOUR, Director Business Management. Edited and approved by Dr. Paul Levi MD [employer] Other Evaluation noteNo InformationNort [employer] Other Evaluation noteNo assessment information available [facility] Work Phone: [email or web address] note* Diagnosis Onset Date Resolution Status Cervical radiculopathy acute DJD (degenerative joint disease), lumbosacral acute Other chronic pain acute Other spondylosis with radiculopathy, lumbar region acute [facility] Work Phone: evaluation note* Diagnosis Onset Date Resolution Status Arthritis of lumbosacral spine acute Numbness and tingling in right hand acute Other chronic pain acute Other spondylosis with radiculopathy, lumbar region acute [facility] Work Phone: evaluation note* Diagnosis Onset Date Resolution Status Hospital discharge follow-up acute Sepsis acute UTI (urinary tract infection) [facility] Work Phone: evaluation note* Diagnosis Onset Date Resolution Status Hospital discharge follow-up acute Sepsis acute UTI (urinary tract infection) acute Otitis media acute [facility] Work Phone: evaluation note* Diagnosis Onset Date Resolution Status Hospital discharge follow-up acute Sepsis acute UTI (urinary tract infection) acute Maxillary sinusitis acute Otitis media acute Arthritis of lumbosacral spine acute Numbness and tingling in right hand acute Other chronic pain acute Other spondylosis with radiculopathy, lumbar region acute [facility] Work Phone: evaluation note* Diagnosis Onset Date Resolution Status Maxillary sinusitis acute Otitis media acute Arthritis of lumbosacral spine acute Other chronic pain acute Other spondylosis with radiculopathy, lumbar region acute [facility] Work Phone: evaluhyaku note* Diagnosis Carpal tunnel syndrome on right- [...] 01/2020 Hospitalization History 2006 Hospitalization History 2006 [employer] Other History general Narrative - Reported* Type [...] 01/2020 Hospitalization History 2005 Hospitalization History 2006 [employer] Other Summary Purpose Family History No Family [...] Diarrhea, unspecifie d type (R19.7) Referral Organization [facility] [place] Referring Provider First Name Ragini Referring Provider Last Name Maddieacheeddie Referring Provider Specialty Nurse Pract itioner Referred Organization [facility] Gastroenterolo gy Referred Provider Halle London Referred Address [address] ,[facility] [address] ,[place], [place],[address] Referred Provider Specialty Gastroentero logy Referral Priority Routine General Notes HarjitNico delgadilloya 04:39:42 PM >received today, sent P2P Reason *FU 05/03 [facility] OF B LE Diagnosis 1 Other spondylosis wi th radiculopathy, lumbar region (M47.26) Referral Organization [facility] Referring Provider First Name Paul Referring Provider Last Name Amita Referring Provider Specialty Pain Medici ne Referred Organization [facility] Referred Provider Cm Terry Referred Address [address],[place], [place],[address] Referred Provider Specialty Neurology Referral Priority Routine [...] section and content) DATE CREATED AUTHOR 01/11/2022 [facility] dical Specialist DATE CREATED AUTHOR AUTHOR'S ORGANIZ ATION 08/18/2022 [facility] DATE CREATED AUTHOR AUTHOR'S ORGANIZ ATION 06/21/2023 [facility] DATE CREATED AUTHOR AUTHOR'S ORGANIZ ATION 06/26/2024 [facility] Specialists EPIC DATE CREATED AUTHOR AUTHOR'S ORGANIZ ATION 12/12/2024 [facility] REASON FOR VISIT (unrecogniz ed section and content) MRI RESULTS6 month Follow up No InformationDOXIMITY [phone] SORE THROAT, COUGH, EAR PAINPROCEDURE FUREFILLNo InformationDoximity [phone] month Follow upNo InformationBP COVID + issues 3 weeks Out)elie hood updoximity [phone] cough, sinus congestion will be coming to office for testingNo InformationRIGHT LUMBAR FACET RFA L3 L4 L5/DSF/U LUMBARRefillsNo Informationdoximity [phone] discuss potassium and vit d levelsFOLLOW UP [...] Member Role Status Dates Ragini Riley APRN DIRECTOR OF CONTENT MARKETING-Patric Primary Care Provider Active Team Status: Inactive Member Role Status Dates Ragini Riley APRN DIRECTOR OF CONTENT MARKETING-C Primary Care Provider Active Paul Levi MD [...] Status: Inactive Member Role Status Dates Luigi Schafeer APRN Attending Provider Active Ragini Riley APRN DIRECTOR OF CONTENT MARKETING-C Primary Care Provider Active Team Status: Inactive Member Role Status Dates Rgaini Riley APRN DIRECTOR OF CONTENT MARKETING-C Primary Care Provider Active Start: November 26, 2023 End: November 26, 2023 Paul Levi MD Attending Provider Active Sta rt: November 26, 2023 End: November 26, 2023 Team Status: Inactive Member Role Status Dates Ragini Riley APRN DIRECTOR OF CONTENT MARKETING-C Primary Care Provider Active Start: December 17, 2023 End: December 17, 2023 Paul Levi MD Attending Provider Active Sta rt: December 17, 2023 End: December 17, 2023 Team Status: Active Member Role Status Dates Ragini Riley APRN DIRECTOR OF CONTENT MARKETING-C Primary Care Provider Active Start: December 17, 2023 Paul Levi MD Attending Provider, Other Provider Active Start: December 17, 2023 Team Status: Active Member Role Status Dates Ragini Riley APRN DIRECTOR OF CONTENT MARKETING-C Primary Care Provider, Attending Provider Active Start: March 23, 2024 Team Status: Active Member Role Status Dates Ragini Riley APRN DIRECTOR OF CONTENT MARKETING-C Primary Care Provider Active Start: March 24, 2024 Yosef Celeste MD Attending Provider Active Sta rt: March 24, 2024 Team Status: Active Member Role Status Dates Ragini Riley APRN DIRECTOR OF CONTENT MARKETING-C Primary Care Provider Active Start: March 25, 2024 Yosef Celeste MD Attending Provider Active Sta rt: March 25, 2024 Team Status: Active Member Role Status Dates Ragini Riley APRN DIRECTOR OF CONTENT MARKETING-C Primary Care Provider Active Start: March 25, 2024 Jina Waters LPN Attending Provider Active St art: March 25, 2024 Team Status: Inactive Member Role Status Dates Ragini Riley APRN DIRECTOR OF CONTENT MARKETING-C Primary Care Provider, Attending Provider Active Start: March 30, 2024 End: March 30, 2024 Team Status: Inactive Member Role Status Dates Ragini Riley APRN DIRECTOR OF CONTENT MARKETING-C Primary Care Provider, Attending Provider Active Start: June 22, 2024 End: June 22, 2024 Kiln Remover Relationship Specialty Start Date End Date Ragini Riley NP [address] [place] [id number] PCP - General Family Medicine 05/27/24 Team Status: Inactive Member Role Status Dates Ragini Riley APRN DIRECTOR OF CONTENT MARKETING-C Primary Care Provider Active Start: June End: June 25, 2024 Paul Levi MD Attending Provider Active Sta rt: June 25, 2024 End: June 25, 2024 Team Status: Inactive Member Role Status Dates Ragini Riley APRN DIRECTOR OF CONTENT MARKETING-C Primary Care Provider Active Start: July End: July 14, 2024 Paul Levi MD Attending Provider Active Sta rt: July 14, 2024 End: July 14, 2024 Team Status: Active Member Role Status Dates Ragini Riley APRN DIRECTOR OF CONTENT MARKETING-C Primary Care Provider Active Start: July Paul Levi MD Attending Provider, Other Provider Active Start: July 14, 2024 Team Status: Inactive Member Role Status Dates Ragini Riley APRN DIRECTOR OF CONTENT MARKETING-C Primary Care Provider, Attending Provider Active Start: July 20, 2024 End: July 20, 2024 Kiln Remover Relationship Specialty Start Date End Date Ynes Arcos NP [address] [place] [id number] PCP - Medical [employer] 09/09/23 09/08/99 Kiln Remover Relationship Specialty Start Date End Date Ynes Arcos NP [address] [place] [id number] PCP - Medical [employer] 09/09/23 09/08/99 Ragini Riley NP [address] [place] [id number] PCP - General Family Medicine 05/27/24 Team [...] BE BASED ON THE PRIMARY CLINICAL RECORDS. [facility]. provides no warranty or guarantee of the accuracy or completeness of information in this document.
--- NOTE | 2024-12-22 19:43 | ED_ITS ---
HPI - Dental/Oral General Chief complaint: Dental/Oral Stated complaint: oral pain Time Seen by Provider: 12/22/24 19:36 Source: patient Mode of arrival: walk-in Limitations: no limitations History of Present Illness HPI Narrative: seen here 3 days ago for dental abscess and prescribed Clindamycin. States the pain is worse. Has been using Ibuprofen and Tylenol for pain without relief. Does have a past history of opiate abuse and has avoided opiates for years. No headache. Does have left jaw pain and feels her face is swelling some. No fever Related Data Home Medications ?Medication ?Instructions ?Recorded ?Confirmed tizanidine 2 mg capsule 2 mg PO Q6H PRN muscle spasticity 04/26/23 12/22/24 gwskct-peuzbjch-cbtzcbh 2 cap PO TIDWM 03/23/24 12/19/24 36,000-114,000-180,000 unit capsule,delay rel (Creon) venlafaxine 37.5 mg 37.5 mg PO DAILY 03/23/24 12/22/24 capsule,extended release 24 hr meloxicam 15 mg tablet mg 12/22/24 Previous Rx's ?Medication ?Instructions ?Recorded levofloxacin 750 mg tablet 750 mg PO DAILY 10 days #10 tabs 03/25/24 clindamycin HCl 150 mg capsule 450 mg (3 x 150 mg) PO TID 7 days 12/19/24 #63 caps Allergies Allergy/AdvReac Type Severity Reaction Status Date / Time topiramate (From Topamax) Allergy Migraines Verified 12/22/24 19:37 pregabalin (From Lyrica) AdvReac Mild lethargic Verified 12/22/24 19:37 Review of Systems ROS Status of ROS 10 or more systems reviewed and unremark able except as noted in history and below [facility] Medical History (Updated 12/22/24 @ 20:31 by Zhen Tapia MD) Pyelonephritis ?N12 - Tubulo-interstitial nephritis, not specified as acute or chronic (ICD- 10) Sepsis ?A41.9 - Sepsis, unspecified organism (ICD-10) Depression ?F32.A - Depression, unspecified (ICD-10) Social History Smoking status: Current every day smoker Highest level of school completed/degree received: high school graduate Little interest or pleasure in doing things: not at all Feeling down, depressed, or hopeless: not at all Exam Constitutional Vital Signs, click to edit/add: Last Vital Signs Temp 97.8 F 12/22/24 19:31 Pulse 86 12/22/24 19:31 Resp 18 12/22/24 19:31 BP 154/89 H 12/22/24 19:31 Pulse Ox 99 12/22/24 19:31 Common normals: average body habitus, oriented x3, no limitations, healthy appearing, alert and well nourished [facility] Common normals: normocephalic and head/scalp atraumatic Other: left lower molar dental caries. no obvious peridental swelling but does have mild adjoining facial swelling. No obvious submandibular nodes but area is tender. Oral pharynx clear Eye Common normals: PERRL, EOMs intact bilaterally and conjunctivae normal Respiratory Common normals: normal respiratory effort, no retractions, no use of accessory muscles and clear to auscultation bilaterally Cardio Common normals: regular rate, regular rhythm, S1 normal heart sound and S2 normal heart sound Extremity Common normals: normal to inspection and full ROM Neuro Common normals: oriented x3, CN's II-XII intact bilaterally and moves all extremities Psych Appearance: grossly normal Course Vital Signs Vital signs: Vital Signs Temperature 97.8 F 12/22/24 19:31 Pulse Rate 86 12/22/24 19:31 Respiratory Rate 18 12/22/24 19:31 Blood Pressure 154/89 H 12/22/24 19:31 Pulse Oximetry 99 12/22/24 19:31 Temperature 97.8 F 12/22/24 19:31 Pulse Rate 86 12/22/24 19:31 Respiratory Rate 18 12/22/24 19:31 Blood Pressure 154/89 H 12/22/24 19:31 Pulse Oximetry 99 12/22/24 19:31 MDM - Dental/Oral MDM Narrative Medical decision making narrative: patient presents with increasing pain related to abscess left lower molar. Was on clindamycin but only got worse. Exam with sl. swelling of her face. oral pharynx clear Patient treated in the department with IM Rocephin, Prednisone 40mg and given one time dose of percocet 5/325( 2 pills). Has past history of opiate substance abuse. Discharged with a prescription of Augmentin 875 bid 10d and prednisone 40mg qd 3d advised to follow up with her dentist Discharge Plan Discharge Chief Complaint: Dental/Oral Clinical Impression: Dental abscess Patient Disposition: Home, Self-Care Prescriptions / Home Meds: No Action tizanidine 2 mg capsule 2 mg PO Q6H PRN (Reason: muscle spasticity) venlafaxine 37.5 mg capsule,extended release 24hr 37.5 mg PO DAILY Creon 36,000-114,000- 180,000 unit capsule,delayed release(DR/EC) 2 cap PO TIDWM Patient Comments: and one capsule with snacks - total of 5 times a day levofloxacin 750 mg tablet 750 mg PO DAILY 10 Days Qty: 10 0RF clindamycin HCl 150 mg capsule 450 mg PO TID 7 Days Qty: 63 0RF meloxicam 15 mg tablet Print Language: Japanese Instructions: Dental Abscess (ED) Additional Instructions: follow up with your dentist. Return to ER if increasing pain or swelling Referrals: [facility] [Primary Care Provider] - 1 week
[2024-12-22] MEDS: PREDNISONE 20 MG TABLET 60 MG PO (20:00)
[2024-12-22] MEDS: CEFTRIAXONE 1000 MG IM (20:02)
[2024-12-22] MEDS: WATER FOR INJECTION STERILE IM (20:02)
--- NOTE | 2024-12-22 20:17 | PC.NURSE ---
patient was here over the weekend with dental pain was started on antibiotics she states the pain has increased since being here she was given dental analgesia which did help some until Saturday night She is now having pain up into the left side of her face she states that when she was here over the weekend, she declined any pain medications due to being a previous drug abuser, but today she is asking for something for pain I asked her twice before requesting something from Dr. Tapia, and when he questioned the request, I asked her again. She states that she has taken opioids since her addiction and been okay, she just tries to avoid them if possible. Today she does not feel it is possible any longer. I pass this information along to Dr. Tapia.
[2024-12-22] MEDS: OXYCODONE HCL/ACETAMINOPHEN 5MG/325MG 2 TAB PO (20:27)
[2024-12-22] MEDS: LIDOCAINE HCL 1% PF 50 MG/5 ML VIAL INJ (20:44)
== END 2024-12-22 20:47 | disposition home or self-care (01) ==
PROVIDERS: Emergency Provider Internal Medicine; PCP Nurse Practitioner Family
DX: K04.7 Periapical abscess without sinus (principal); F11.11 Opioid abuse, in remission; F17.200 Nicotine dependence, unspecified, uncomplicated
CPT/HCPCS: 96372; 99284; J0696; J7512

== ENCOUNTER 2025-05-08 09:51 | Outpatient (OUT) | payer OTHER, SELFPAY ==
--- OUTSIDE RECORDS SUMMARY | 2025-05-08 09:57 | XMS_ITS | CCD ---
Author Organization [facility]ini[facility] Care Team Providers Care Career Development Manager Name Role Phone Paul Levi Unavailable Ragini Riley Unavailable [phone] GOKUL Riley Primary Care Provider MD Paul Levi Attending Provider GOKUL Riley Attending Provider [phone] GOKUL Riley Primary Care Provider MD Paul [...] Consulting Unavailable RAGINI RILEY Primary Care Unavailab le KRISTIN CLIFFORD Consulting Unavailable SULY CAROLINA Consulting Unavailable GOKUL Riley Primary Care Provider GOKUL Riley Attending Provider [phone] MD Paul Levi Attending Provider Jyoti Jama Unavailable GOKUL Riley Primary Care Provider MD Paul Levi Attending Provider ANGEL Jama Attending Provider [phone] Luigi Schaefer Unavailable ANGEL Jama Attending Provider [phone] NON STAFF Primary Care Provider Unavailabl GOKUL Terry Attending Provider Mathewrbmeek, HEALTH CARE MANAGER [facility] Primary Care Provider Emre Guzman Attending Unavaila ble Emre Guzman Admitting Unavaila ble Mathewrbacher, [facility] Primary Care Unavailable Rohrbacher, HEALTH CARE MANAGER [facility] Primary Care Provider MD Paul Levi Attending Provider Rosemary SALEEM, Ragini Ponce Primary Care Provider YNES ARCOS Attending Unavailab YNES Hendricks Referring Unavailab YNES Hendricks Referring Unavailab YNES Hendricks Attending Unavailab YNES Hendricks Attending Unavailab le Rohrbacher, HEALTH CARE MANAGER [facility] Primary Care Provider MD Paul Levi Attending Provider [phone] Rohrbroxyr [facility] Paul Levi MD Attending Provider Ynes Arcos NP Unavailable Rohrbacher HEALTH CARE MANAGER, [facility] Primary Care Provider Paul Levi MD Attending Provider Paul Levi Attending Unavailable Paul Levi Admitting Unavailable Rohrbacher, Ragini Primary Care Unavailable Paul Levi Attending Unavailable Paul Levi Admitting Unavailable Rohrbacher, Ragini Primary Care Unavailable Paul Levi Attending Unavailable Paul Levi Admitting Unavailable Rohrbacher, Ragini Primary Care Unavailable Paul Levi Attending Unavailable Rohrbacher, Ragini Primary Care Unavailable Paul Levi Admitting Unavailable Rohrbacher HEALTH CARE MANAGER, [facility] Primary Care Provider Paul Levi MD Attending Provider [phone] Paul Levi MD Other Provider Ragini Riley APRN Attending Provider Allergies Allergy Classification Reported Allergen(s) Allergy Type Date of Onset Reaction(s) Facility Anti-Epileptic Agents (1 source) topiramate Drug Allergy 4 Fatigued [facility] pregabalin (1 source) pregabalin Drug Allergy 4 Fatigued, dizziness/ headache [facility] (20 sources) celecoxib; Translations: [celecoxib] Drug Allergy 3 Unknown, Unknown Reaction [facility] (20 sources) pregabalin Drug Allergy 1 dizziness/ headache, Difficulty Breathing, Fatigued, Fatigued, dizziness/ headache [facility] (20 sources) topiramate Drug Allergy 1 Unknown, Shakiness, Fatigued [facility] (2 sources) pregabalin; Translations: [Lyrica] Drug Allergy 2 [facility] (2 sources) topiramate; Translations: [Topamax] Drug Allergy 2 [facility] (1 source) flu vaccines; Translations: [flu vaccines] Propensity to adverse reactions to drug (disorder) [facility] Rep[facility] (3 sources) Pregabalin Propensity to adverse reactions 7 Swelling [facility] Work Phone: (3 sources) Topiramate Propensity to adverse reactions 7 [facility] (1 source) pregabalin Drug Allergy 5 [facility] Repository (1 source) topiramate Drug Allergy 5 [facility] Repository Medications Current Medications Medication Drug Class(es) Dates Sig (Normalized) Sig (Original) [id number] 200 actuat albuterol 0.09 mg/actuat metered dose [...] Shortness Of Breath November 10, 2020 1:00am Complies with drug therapy Start: 08-08-2020 Albuterol Sulf ate HFA 108 [...] 12 hrs for 10 day(s) January, Active ciprofloxacin 500 mg oral tablet (2 sources) Quinolone Antimicrobial Start: 02-25-2023 take 1 tablet by mouth every twelve hours Cipro 500 MG 1 tablet Orally every 12 hrs for 5 day(s) Feb, Active fluconazole 150 mg oral tablet (2 sources) Azole Antifungal Start: 07-10-2023 Diflucan 150 MG 1 tablet Orally once for 2 days Take the first tablet at the first onset of symptoms of vaginal yeast infection. Take the second tablet in 3 days. Jul, Active Iron (20 sources) Iron Active meloxicam 15 mg oral tablet (20 sources) Nonsteroidal Anti-inflammatory Drug Start: 11-17-2024 take 1 tablet by mouth once daily Meloxicam 15 mg tablet Active 15 MG PO Daily November 17, 2024 12:00am Complies with drug therapy Start: 04-10-2021 End: 06-26-2021 take 1 tablet [...] 01/14/2024 01/13/2025 Active tiZANidine 2 mg oral tablet (20 sources) Central alpha-2 Adrenergic Agonist Start: 01-25-2025 take 1 tablet by mouth three times daily as needed Tizanidine 2 mg tablet Active 2 MG PO Three times daily as needed for muscle spasticity January 25, 2025 12:00am Complies with drug therapy Start: 12-11-2023 End: 01-25-2025 take 1 capsule by mouth three times daily as needed Tizanidine 2 mg capsule Discontinued 2 MG PO Three times daily as needed for muscle spasticity January 22, 2025 9:36am January 25, 2025 9:35am Start: 10-03-2020 End: 06-19-2022 take 1 tablet by mouth twice daily as needed for muscle spasms Tizanidine 4 mg tablet Discontinued 4 MG PO Twice daily as needed for Muscle Spasm October 03, 2020 1:00am June 19, 2022 10:33am Start: 04-27-2020 take 1 capsule by mo ut every eight hours tiZANidine HCl 2 MG [...] Serotonin and Norepinephrine Reuptake Inhibitor Start: 11-11-2024 End: 04-20-2025 take 1 capsule by mouth once daily Venlafaxine 37.5 mg capsule,extended release 24hr Active 0 .ROUTE .COMPLEX 90 April 20, 2025 3:50pm TAKE 1 CAPSULE BY MOUTH ONCE DAILY Complies with drug therapy Start: 11-11-2024 take 1 capsule by mo uth once daily Venlafaxine 37.5 mg capsule,extended release 24hr Active 0 .ROUTE .COMPLEX November 11, 2024 4:11pm TAKE 1 CAPSULE BY MOUTH ONCE DAILY Start: 04-10-2021 End: 11-11-2024 take 1 capsule by mouth once daily Venlafaxine 37.5 mg capsule,extended release 24hr Discontinued 37.5 MG PO Daily May 18, 2024 2:19pm November 11, 2024 [...] / codeine phosphate 30 mg oral tablet (18 sources) Opioid Agonist Start: 01-26-2020 End: 10-03-2020 take 1 tablet by mouth every four to six hours as needed for pain Acetaminophen-Codeine (Tylenol-Codeine #3) 300-30 mg tablet Discontinued 1 TAB PO EVERY 4-6 HOURS as needed for pain 30 January 26, 2020 12:00am October 03, 2020 2:04pm acetaminophen 325 mg / HYDROcodone bitartrate 5 mg oral tablet (18 sources) Opioid Agonist Start: 12-16-2018 End: 01-20-2020 take 1 tablet by mouth every four to six hours as needed for pain Hydrocodone-Acetaminophen ([place]) 5-325 mg tablet Discontinued 1 TAB PO EVERY 4-6 HOURS as needed for pain 07 04December 16, 2018 January 20, 2020 10:43am amylase [id number] unt / lipase 18357 unt / protease 192938 unt delayed release oral capsule (20 sources) Start: 07-07-2024 End: 02-16-2025 Hxifyr-Pzltwthw-Dssgqtq (Creon) 36,000-114,000- 180,000 unit capsule,delayed release(DR/EC) Discontinued 21664 CAP PO .COMPLEX 240 July 07, 2024 2:12pm February 16, 2025 8:58am 36,000 caps orally take 2 with meals and 1 with snacks; Start: 02-09-2024 Creon 49264-64 4000 units capsule delayed-release particles capsule Take 1 capsule by mouth if needed 02/09/2024 Active Start: 06-04-2023 End: 07-07-2024 take 05460-095327 capsules by mouth five times daily Edhbda-Qnhbrlkl-Ohapsgn (Creon) 36,000-114,000- 180,000 unit capsule,delayed release(DR/EC) Discontinued 98445 CAP PO 5 times per day June 04, 2023 12:00am July 07, 2024 2:11pm Start: 05-27-2023 End: 06-04-2023 Fptggn-Omcdpppt-Agumzri (Cre on) 36,000-114,000- 180,000 unit capsule,delayed release(DR/EC) Discontinued CAP PO June 04, 2023 12:00am June 04, 2023 9:08am atorvastatin 10 mg oral tablet (20 sources) HMG-CoA Reductase Inhibitor Start: 02-17-2021 End: 02-16-2025 take 1 tablet by mouth once daily Atorvastatin 10 mg tablet Discontinued 10 MG PO Daily April 10, 2021 12:00am February 16, 2025 8:57am benzonatate 200 mg oral capsule (20 sources) Non-narcotic Antitussive Start: 10-11-2022 take 1 capsule by mouth three times daily as needed Benzonatate 200 MG 1 capsule Orally Three times a day as needed for 10 day(s) Oct, Not-Taking Start: 01-16-2022 take 1 capsule by mo [facility] three times daily as needed Benzonatate [...] 8:12am Start: 05-10-2021 take 1 tablet by [facility] every twenty-four hours busPIRone HCl 5 MG 1 tablet Orally daily for 30 days May, Active take 1 tablet by [facility] every twelve hours busPIRone HCl 10 MG 1 tablet Orally Twice a day for 90 day(s) PRN Active take 1 tablet by [facility] every twelve hours busPIRone HCl 15 MG 1 tablet Orally Twice a day for 30 day(s) Active take 1 tablet by [facility] every twelve hours busPIRone HCl 5 MG 1 tablet Orally Twice a day for 30 day(s) Active cefdinir 300 mg oral capsule (8 sources) Cephalosporin Antibacterial Start: 06-22-2024 End: 07-14-2024 take 1 capsule by mouth twice daily Cefdinir 300 mg capsule Discontinued 300 MG PO Twice daily 28 06June 22, 2024 12:00am July 14, 2024 9:38am [...] 26, 2020 7:45am October 03, 2020 2:04pm doxycycline monohydrate 100 mg oral capsule (12 sources) Tetracycline-class Drug Start: 12-23-2024 End: 02-16-2025 take 1 capsule by mouth twice daily Doxycycline Monohydrate 100 mg capsule Discontinued 100 MG PO Twice daily December 23, 2024 12:00am February 16, 2025 8:58am Start: 10-15-2022 take 1 tablet by glen th every twelve hours Doxycycline Monohydrate 100 MG 1 tablet Orally Twice a day for 10 day(s) Oct, Active escitalopram 20 mg oral tablet (18 sources) Serotonin Reuptake Inhibitor Start: 01-20-2020 End: 10-03-2020 take 1 tablet by mouth once daily at bedtime Escitalopram Oxalate 20 mg tablet Discontinued 20 MG PO Daily at bedtime January 20, 2020 12:00am October 03, 2020 2:04pm fluticasone propionate 0.05 mg/actuat metered dose nasal spray (20 sources) Corticosteroid Start: 06-22-2024 End: 02-16-2025 take 1 spray(s) nasal route every twelve hours Fluticasone Propionate (Flonase Allergy Relief) 50 mcg/actuation spray,suspension Discontinued 1 SPRAY INTRANASAL Every 12 hours June 22, 2024 12:00am February 16, 2025 8:58am administer into each nostril Start: 03-19-2024 End: [...] a day for 30 day(s) January, Active ibuprofen 600 mg oral tablet (20 sources) [...] 150mg/ ml methocarbamol 750 mg oral tablet (20 sources) Muscle Relaxant Start: 06-05-2022 End: 06-04-2023 [...] 2020 7:44am ondansetron 4 mg oral tablet (18 sources) Serotonin-3 Receptor Antagonist Start: 12-14-2018 End: 01-20-2020 Ondansetron Hcl (Zofran) 4 mg Tablet Discontinued 4 MG PO 2-3 TIMES PER DAY as needed for Nausea And Vomiting December 14, 2018 12:00am January 20, 2020 10:44am Vit No.037-Csgy-Rdyae ( Vitamin) 27 mg iron- 800 mcg Tablet (18 sources) Start: 11-10-2020 End: 11-14-2020 take 1 tablet by mouth once daily Vit No.311-Gpav-Otwgq ( Vitamin) 27 mg iron- 800 mcg Tablet Discontinued 1 TAB PO Daily November 10, 2020 12:00am November 14, 2020 12:29pm Start: 11-10-2020 End: 11-14-2020 take 1 tablet by mouth once daily Vit No.032-Zpxw-Qvfpv ( Vitamin) 27 mg iron- 800 mcg Tablet Discontinued 1 TAB PO Daily November 10, 2020 1:00am November 14, 2020 1:29pm raNITIdine 150 mg oral tablet (18 sources) Histamine-2 Receptor Antagonist Start: 12-14-2018 End: [...] Chronic Conditions associated with dizziness or vertigo (6 sources) Dizziness; Translations: [Dizziness and giddiness] 07-20-2024 [...] UNSPEC] Onset: 2 Episodic Malaise and fatigue (7 sources) Other fatigue; Translations: [Fatigue] Onset: 2 [...] 2 Episodic Other aftercare (1 source) Other mcfp (current) drug therapy; Translations: [OTH HALF-WAY CURRENT DRUG THERAPY] Onset: 2 Episodic Other aftercare (11 sources) Post-discharge follow-up; Translations: [Encounter for follow-up examination after completed treatment for conditions other than malignant neoplasm] Onset: 4 03-30-2024 Episodic Other aftercare (3 sources) Encounter for follow-up examination after completed treatment for conditions other than malignant neoplasm; Translations: [Other follow-up examination] 03-30-2024 Episodic Other connective tissue disease (3 sources) Muscle pain; Translations: [Myalgia, unspecified site] 01-12-2025 Episodic Other connective tissue disease (2 sources) Myalgia, unspecified site; Translations: [Myalgia and myositis, unspecified] 01-12-2025 Episodic Other gastrointestinal disorders (3 sources) Diarrhea, [...] 4 11-14-2023 Chronic Other nervous system disorders (19 sources) Other chronic pain; Translations: [Other chronic pain] Onset: 1 Resolved: 2 Chronic Other nervous system disorders (4 sources) Carpal tunnel syndrome of right wrist; Translations: [Carpal tunnel syndrome, right upper limb] Onset: 4 01-16-2024 Chronic Other nervous system disorders (13 sources) Paresthesia of hand ; Translations: [Anesthesia [...] loss Episodic Other and delivery including normal (20 sources) Finding of length of gestation; Translations: [36 to 37 weeks gestation of ] Onset: 4 2018 Episodic Other upper respiratory disease (20 sources) Nasal congestion; Translations: [Nasal congestion] Episodic Other upper respiratory infections (10 sources) Maxillary sinusitis; Translations: [Chronic maxillary sinusitis] 06-23-2024 Chronic Other upper respiratory infections (4 sources) Acute maxillary sinusitis, unspecified; Translations: [Acute upper respiratory infection, unspecified] Onset: 1 Resolved: 2 Episodic Otitis media and related conditions (12 sources) Otitis media; Translations: [Otitis media, unspecified, unspecified ear] 06-22-2024 Episodic Pancreatic disorders (not diabetes) (8 sources) Exocrine pancreatic insufficiency; Translations: [Exocrine pancreatic insufficiency] Episodic Polyhydramnios and other problems of amniotic cavity (20 sources) Amniotic membrane finding; Translations: [Rupture of membranes with clear amniotic fluid] Onset: 4 2018 Episodic Screening and history of mental health and substance abuse codes (1 source) Personal history of nicotine dependence; Translations: [PERSONAL HISTORY OF NICOTINE DEPEND] Onset: 2 Episodic Septicemia (except in labor) (14 sources) Sepsis; Translations: [Sepsis, unspecified organism] Onset: [...] Translations: [LOW BACK PAIN, UNSPECIFIED] Onset: 2 Unclassified (1 source) Call Dr. Moreno office to schedule a follow up appointment if you do not already have one scheduled Urinary tract infections (17 sources) Acute cystitis with hematuria; Translations: [Urinary [...] Reference Range Facility MR lumbar spine wo [facility] MR lumbar spine wo [facility] [place] [address] MRI Report Signed Patient: Jenna Mora MR#: [id number] : 1985 Acct:[id number] Age/Sex: 38 / F ADM Date: 12/09/24 [facility]: Type: [facility] Attending Dr: Paul Levi MD Copies to: [...] La Vega M.D.12/09/2024 3:57 PM Dictation Location: [place] [address] Transcribed By: [facility] 12/09/24 1557 Dictated By: Danny De La Vega MD 12/09/24 1550 Signed By: 12/09/24 155 Normal [facility] Magnetic resonance imaging r eportOrdered By: Danny De La Vega on 12-09-2024 Study report [facility] [place] [address] MRI Report Signed Patient: Jenna Mora MR#: [id number] : 1985 Acct:[id number] Age/Sex: 38 / F ADM Date: 5 Loc: [facility] Room: Type: [facility] Attending Dr: Paul Levi MD Copies to: [...] La Vega M.D.12/09/2024 3:57 PM Dictation Location: [place] [address] Transcribed By: [facility] 12/09/241556 Dictated By: Danny De La Vega MD 12/09/241549 Signed By: 12/09/241556 [facility] Work Phone: No Panel InformationOrdered By: Ragini Riley on 06-22-2024 Quick Strep [facility]POC) [facility] Quick Strep (POC) [facility] Basophils Auto (Bld) [#/Vol] on 03-30-2024 Basophils (Bld) [#/Vol] 0.0 10 3/uL 0.0-0.1 [facility] Basophils/100 WBC Auto (Bld) on 03-30-2024 Basophils/100 WBC (Bld) 0.4 % 0.2-2.0 [facility] Eosinophils/100 WBC Auto (Bl d)on 03-30-2024 Eosinophils/100 WBC (Bld) 1.6 % 0.9-7.0 [facility] Erythrocyte distribution wid th Auto (RBC) [Ratio]on 03-30-2024 Erythrocyte distribution width (RBC) [Ratio] 12.6 % 11.0-15.0 [facility] Estimated glomerular filtrat ion rate (GFR) non- Americanon 03-30-2024 GFR/1.73 sq M.predicted among non-blacks MDRD (S/P/Bld) [Vol rate/Area] mL/min/{1.73_m2} >=60 [facility] Globulin Calc (S) [Mass/Vol] on 03-30-2024 Globulin (S) [Mass/Vol] 3.7 g/dL [facility] Hematocrit Auto (Bld) [Volum e fraction]on 03-30-2024 Hematocrit (Bld) [Volume fraction] 35.7 % Low 36.0-48.0 [facility] Hemoglobin [Mass/volume] in Bloodon 03-30-2024 Hemoglobin (Bld) [Mass/Vol] 11.5 g/dL Low 12.0-16.0 [facility] Laboratory - Chemistry and C hemistry - challengeon 03-30-2024 Albumin [Mass/Vol] 3.4 g/dL 3.4-5.0 [facility] ALP [Catalytic activity/Vol] 106 U/L 46-116 [facility] ALT [Catalytic activity/Vol] 29 U/L 14-59 [facility] AST [Catalytic activity/Vol] 16 U/L 15-37 [facility] Bilirubin [Mass/Vol] 0.3 mg/dL 0.2-1.0 [facility] Calcium [Mass/Vol] 9.2 mg/dL 8.5-10.1 [facility] Chloride [Moles/Vol] 102 mmol/L 98-107 [facility] CO2 [Moles/Vol] 30.9 mmol/L 21.0-32.0 [facility] Creatinine [Mass/Vol] 0.72 mg/dL 0.55-1.02 [facility] GFR/1.73 sq M.predicted MDRD (S/P/Bld) [Vol rate/Area] mL/min/{1.73_m2} >=60 [facility] Glucose [Mass/Vol] 74 mg/dL 74-106 [facility] Potassium [Moles/Vol] 4.1 mmol/L 3.5-5.1 [facility] Protein [Mass/Vol] 7.1 g/dL 6.4-8.2 [facility] Sodium [Moles/Vol] 140 mmol/L 136-145 [facility] Urea nitrogen [Mass/Vol] 13.0 mg/dL 7.0-18.0 [facility] Urea nitrogen/Creatinine [Mass ratio] 18.1 mg/mg [facility] Laboratory - Hematology and Cell countson 03-30-2024 Immature granulocytes/100 WBC (Bld) 2.2 % High 0.0-0.5 [facility] Leukocytes [#/volume] correc juanita for nucleated erythrocytes in Blood by Automated counon 03-30-2024 WBC corrected for nucl RBC Auto (Bld) [#/Vol] 9.8 10 3/uL 4.0-11.0 [facility] Lymphocytes Auto (Bld) [#/Vo l]on 03-30-2024 Lymphocytes (Bld) [#/Vol] 2.8 10 3/uL 1.2-3.8 [facility] Lymphocytes/100 WBC Auto (Bl d)on 03-30-2024 Lymphocytes/100 WBC (Bld) 28.9 % 20.5-60.0 [facility] MCH Auto (RBC) [Entitic mass ]on 03-30-2024 MCH (RBC) [Entitic mass] 30.6 pg 26.7-34.0 [facility] MCHC Auto (RBC) [Mass/Vol]on 03-30-2024 MCHC (RBC) [Mass/Vol] 32.2 g/dL 29.9-35.2 [facility] MCV Auto (RBC) [Entitic vol] on 03-30-2024 MCV (RBC) [Entitic vol] 94.9 fL 81.0-99.0 [facility] Monocytes Auto (Bld) [#/Vol] on 03-30-2024 Monocytes (Bld) [#/Vol] 1.0 10 3/uL High 0.3-0.8 [facility] Monocytes/100 WBC Auto (Bld) on 03-30-2024 Monocytes/100 WBC (Bld) 10.3 % 1.7-12.0 [facility] Neutrophils Auto (Bld) [#/Vo l]on 03-30-2024 Neutrophils (Bld) [#/Vol] 5.5 10 3/uL 1.4-6.5 [facility] Neutrophils/100 WBC Auto (Bl d)on 03-30-2024 Neutrophils/100 WBC (Bld) 56.6 % 43.0-75.0 [facility] No Panel Informationon 03-30 Eosinophils # (Auto) 0.2 10 3/uL 0.0-0.7 [facility] Immature Granulocyte # (Auto) 0.22 10 3/uL High 0.00-0.03 [facility] Platelet mean volume Auto (B ld) [Entitic vol]on 03-30-2024 Platelet mean volume (Bld) [Entitic vol] 8.3 fL Low 9.5-13.5 [facility] Platelets Auto (Bld) [#/Vol] on 03-30-2024 Platelets (Bld) [#/Vol] 449 10 3/uL 150-450 [facility] RBC Auto (Bld) [#/Vol]on RBC (Bld) [#/Vol] 3.76 10 6/uL Low 4.20-5.40 [facility] Serum or plasma albumin/glob ulin mass ratioon 03-30-2024 Albumin/Globulin [Mass ratio] 0.9 {ratio} [facility] Serum or plasma anion gap de terminationon 03-30-2024 Anion gap [Moles/Vol] 11.2 mmol/L [facility] Basophils Auto (Bld) [#/Vol] on 03-25-2024 Basophils (Bld) [#/Vol] 0.0 10 3/uL 0.0-0.1 [facility] Basophils/100 WBC Auto (Bld) on 03-25-2024 Basophils/100 WBC (Bld) 0.3 % 0.2-2.0 [facility] Eosinophils/100 WBC Auto (Bl d)on 03-25-2024 Eosinophils/100 WBC (Bld) 0.4 % Low 0.9-7.0 [facility] Erythrocyte distribution wid th Auto (RBC) [Ratio]on 03-25-2024 Erythrocyte distribution width (RBC) [Ratio] 12.4 % 11.0-15.0 [facility] Estimated glomerular filtrat ion rate (GFR) non- Americanon 03-25-2024 GFR/1.73 sq M.predicted among non-blacks MDRD (S/P/Bld) [Vol rate/Area] mL/min/{1.73_m2} >=60 [facility] Globulin Calc (S) [Mass/Vol] on 03-25-2024 Globulin (S) [Mass/Vol] 3.5 g/dL [facility] Hematocrit Auto (Bld) [Volum e fraction]on 03-25-2024 Hematocrit (Bld) [Volume fraction] 31.7 % Low 36.0-48.0 [facility] Hemoglobin [Mass/volume] in Bloodon 03-25-2024 Hemoglobin (Bld) [Mass/Vol] 9.7 g/dL Low 12.0-16.0 [facility] Laboratory - Chemistry and C hemistry - challengeon 03-25-2024 Albumin [Mass/Vol] 2.2 g/dL Low 3.4-5.0 [facility] ALP [Catalytic activity/Vol] 125 U/L High 46-116 [facility] ALT [Catalytic activity/Vol] 39 U/L 14-59 [facility] AST [Catalytic activity/Vol] 26 U/L 15-37 [facility] Bilirubin [Mass/Vol] 0.4 mg/dL 0.2-1.0 [facility] Calcium [Mass/Vol] 7.7 mg/dL Low 8.5-10.1 [facility] Chloride [Moles/Vol] 110 mmol/L High 98-107 [facility] CO2 [Moles/Vol] 23.9 mmol/L 21.0-32.0 [facility] Creatinine [Mass/Vol] 0.74 mg/dL 0.55-1.02 [facility] GFR/1.73 sq M.predicted MDRD (S/P/Bld) [Vol rate/Area] mL/min/{1.73_m2} >=60 [facility] Glucose [Mass/Vol] 83 mg/dL 74-106 [facility] Potassium [Moles/Vol] 3.3 mmol/L Low 3.5-5.1 [facility] Protein [Mass/Vol] 5.7 g/dL Low 6.4-8.2 [facility] Sodium [Moles/Vol] 140 mmol/L 136-145 [facility] Urea nitrogen [Mass/Vol] 9.0 mg/dL 7.0-18.0 [facility] Urea nitrogen/Creatinine [Mass ratio] 12.2 mg/mg [facility] Laboratory - Hematology and Cell countson 03-25-2024 Immature granulocytes/100 WBC (Bld) 0.7 % High 0.0-0.5 [facility] Leukocytes [#/volume] correc juanita for nucleated erythrocytes in Blood by Automated counon 03-25-2024 WBC corrected for nucl RBC Auto (Bld) [#/Vol] 10.9 10 3/uL 4.0-11.0 [facility] Lymphocytes Auto (Bld) [#/Vo l]on 03-25-2024 Lymphocytes (Bld) [#/Vol] 1.6 10 3/uL 1.2-3.8 [facility] Lymphocytes/100 WBC Auto (Bl d)on 03-25-2024 Lymphocytes/100 WBC (Bld) 14.4 % Low 20.5-60.0 [facility] MCH Auto (RBC) [Entitic mass ]on 03-25-2024 MCH (RBC) [Entitic mass] 30.2 pg 26.7-34.0 [facility] MCHC Auto (RBC) [Mass/Vol]on 03-25-2024 MCHC (RBC) [Mass/Vol] 30.6 g/dL 29.9-35.2 [facility] MCV Auto (RBC) [Entitic vol] on 03-25-2024 MCV (RBC) [Entitic vol] 98.8 fL 81.0-99.0 [facility] Monocytes Auto (Bld) [#/Vol] on 03-25-2024 Monocytes (Bld) [#/Vol] 1.2 10 3/uL High 0.3-0.8 [facility] Monocytes/100 WBC Auto (Bld) on 03-25-2024 Monocytes/100 WBC (Bld) 10.7 % 1.7-12.0 [facility] Neutrophils Auto (Bld) [#/Vo l]on 03-25-2024 Neutrophils (Bld) [#/Vol] 8.0 10 3/uL High 1.4-6.5 [facility] Neutrophils/100 WBC Auto (Bl d)on 03-25-2024 Neutrophils/100 WBC (Bld) 73.5 % 43.0-75.0 [facility] No Panel Informationon 03-25 Eosinophils # (Auto) 0.0 10 3/uL 0.0-0.7 [facility] Immature Granulocyte # (Auto) 0.08 10 3/uL High 0.00-0.03 [facility] Platelet mean volume Auto (B ld) [Entitic vol]on 03-25-2024 Platelet mean volume (Bld) [Entitic vol] 9.9 fL 9.5-13.5 [facility] Platelets Auto (Bld) [#/Vol] on 03-25-2024 Platelets (Bld) [#/Vol] 208 10 3/uL 150-450 [facility] RBC Auto (Bld) [#/Vol]on RBC (Bld) [#/Vol] 3.21 10 6/uL Low 4.20-5.40 [facility] Serum or plasma albumin/glob ulin mass ratioon 03-25-2024 Albumin/Globulin [Mass ratio] 0.6 {ratio} [facility] Serum or plasma anion gap de terminationon 03-25-2024 Anion gap [Moles/Vol] 9.4 mmol/L [facility] Basophils Auto (Bld) [#/Vol] on 03-24-2024 Basophils (Bld) [#/Vol] 0.0 10 3/uL 0.0-0.1 [facility] Basophils/100 WBC Auto (Bld) on 03-24-2024 Basophils/100 WBC (Bld) 0.2 % 0.2-2.0 [facility] Eosinophils/100 WBC Auto (Bl d)on 03-24-2024 Eosinophils/100 WBC (Bld) 0.1 % Low 0.9-7.0 [facility] Erythrocyte distribution wid th Auto (RBC) [Ratio]on 03-24-2024 Erythrocyte distribution width (RBC) [Ratio] 12.2 % 11.0-15.0 [facility] Estimated glomerular filtrat ion rate (GFR) non- Americanon 03-24-2024 GFR/1.73 sq M.predicted among non-blacks MDRD (S/P/Bld) [Vol rate/Area] mL/min/{1.73_m2} >=60 [facility] Globulin Calc (S) [Mass/Vol] on 03-24-2024 Globulin (S) [Mass/Vol] 3.0 g/dL [facility] Hematocrit Auto (Bld) [Volum e fraction]on 03-24-2024 Hematocrit (Bld) [Volume fraction] 29.7 % Low 36.0-48.0 [facility] Hemoglobin [Mass/volume] in Bloodon 03-24-2024 Hemoglobin (Bld) [Mass/Vol] 9.2 g/dL Low 12.0-16.0 [facility] Laboratory - Chemistry and C hemistry - challengeon 03-24-2024 Albumin [Mass/Vol] 2.2 g/dL Low 3.4-5.0 [facility] ALP [Catalytic activity/Vol] 104 U/L 46-116 [facility] ALT [Catalytic activity/Vol] 29 U/L 14-59 [facility] AST [Catalytic activity/Vol] 32 U/L 15-37 [facility] Bilirubin [Mass/Vol] 0.8 mg/dL 0.2-1.0 [facility] Calcium [Mass/Vol] 7.3 mg/dL Low 8.5-10.1 [facility] Chloride [Moles/Vol] 106 mmol/L 98-107 [facility] CO2 [Moles/Vol] 20.8 mmol/L Low 21.0-32.0 [facility] Creatinine [Mass/Vol] 0.73 mg/dL 0.55-1.02 [facility] GFR/1.73 sq M.predicted MDRD (S/P/Bld) [Vol rate/Area] mL/min/{1.73_m2} >=60 [facility] Glucose [Mass/Vol] 96 mg/dL 74-106 [facility] Potassium [Moles/Vol] 3.8 mmol/L 3.5-5.1 [facility] Protein [Mass/Vol] 5.2 g/dL Low 6.4-8.2 [facility] Sodium [Moles/Vol] 138 mmol/L 136-145 [facility] Urea nitrogen [Mass/Vol] 12.0 mg/dL 7.0-18.0 [facility] Urea nitrogen/Creatinine [Mass ratio] 16.4 mg/mg [facility] Laboratory - Hematology and Cell countson 03-24-2024 Immature granulocytes/100 WBC (Bld) 0.9 % High 0.0-0.5 [facility] Leukocytes [#/volume] correc juanita for nucleated erythrocytes in Blood by Automated counon 03-24-2024 WBC corrected for nucl RBC Auto (Bld) [#/Vol] 16.8 10 3/uL High 4.0-11.0 [facility] Lymphocytes Auto (Bld) [#/Vo l]on 03-24-2024 Lymphocytes (Bld) [#/Vol] 2.0 10 3/uL 1.2-3.8 [facility] Lymphocytes/100 WBC Auto (Bl d)on 03-24-2024 Lymphocytes/100 WBC (Bld) 12.0 % Low 20.5-60.0 [facility] MCH Auto (RBC) [Entitic mass ]on 03-24-2024 MCH (RBC) [Entitic mass] 30.2 pg 26.7-34.0 [facility] MCHC Auto (RBC) [Mass/Vol]on 03-24-2024 MCHC (RBC) [Mass/Vol] 31.0 g/dL 29.9-35.2 [facility] MCV Auto (RBC) [Entitic vol] on 03-24-2024 MCV (RBC) [Entitic vol] 97.4 fL 81.0-99.0 [facility] Monocytes Auto (Bld) [#/Vol] on 03-24-2024 Monocytes (Bld) [#/Vol] 1.6 10 3/uL High 0.3-0.8 [facility] Monocytes/100 WBC Auto (Bld) on 03-24-2024 Monocytes/100 WBC (Bld) 9.7 % 1.7-12.0 [facility] Neutrophils Auto (Bld) [#/Vo l]on 03-24-2024 Neutrophils (Bld) [#/Vol] 12.9 10 3/uL High 1.4-6.5 [facility] Neutrophils/100 WBC Auto (Bl d)on 03-24-2024 Neutrophils/100 WBC (Bld) 77.1 % High 43.0-75.0 [facility] No Panel Informationon 03-24 Stool Occult Blood Negative [facility] Eosinophils # (Auto) 0.0 10 3/uL 0.0-0.7 [facility] Immature Granulocyte # (Auto) 0.15 10 3/uL High 0.00-0.03 [facility] Platelet mean volume Auto (B ld) [Entitic vol]on 03-24-2024 Platelet mean volume (Bld) [Entitic vol] 10.1 fL 9.5-13.5 [facility] Platelets Auto (Bld) [#/Vol] on 03-24-2024 Platelets (Bld) [#/Vol] 153 10 3/uL 150-450 [facility] RBC Auto (Bld) [#/Vol]on RBC (Bld) [#/Vol] 3.05 10 6/uL Low 4.20-5.40 [facility] Serum or plasma albumin/glob ulin mass ratioon 03-24-2024 Albumin/Globulin [Mass ratio] 0.7 {ratio} [facility] Serum or plasma anion gap de terminationon 03-24-2024 Anion gap [Moles/Vol] 15.0 mmol/L [facility] Basophils/100 WBC Manual cnt (Bld)on 03-23-2024 Basophils/100 WBC (Bld) 0.0 % Low 0.2-2.0 [facility] Eosinophils/100 WBC Manual c nt (Bld)on 03-23-2024 Eosinophils/100 WBC (Bld) 0.0 % Low 0.9-7.0 [facility] Erythrocyte distribution wid th Auto (RBC) [Ratio]on 03-23-2024 Erythrocyte distribution width (RBC) [Ratio] 12.0 % 11.0-15.0 [facility] Estimated glomerular filtrat ion rate (GFR) non- Americanon 03-23-2024 GFR/1.73 sq M.predicted among non-blacks MDRD (S/P/Bld) [Vol rate/Area] mL/min/{1.73_m2} >=60 [facility] Globulin Calc (S) [Mass/Vol] on 03-23-2024 Globulin (S) [Mass/Vol] 4.3 g/dL [facility] Hematocrit Auto (Bld) [Volum e fraction]on 03-23-2024 Hematocrit (Bld) [Volume fraction] 38.5 % 36.0-48.0 [facility] Hemoglobin [Mass/volume] in Bloodon 03-23-2024 Hemoglobin (Bld) [Mass/Vol] 12.7 g/dL 12.0-16.0 [facility] Laboratory - Chemistry and C hemistry - challengeon 03-23-2024 Lactate [Moles/Vol] 1.6 mmol/L 0.4-2.0 [facility] Albumin [Mass/Vol] 3.5 g/dL 3.4-5.0 [facility] ALP [Catalytic activity/Vol] 113 U/L 46-116 [facility] ALT [Catalytic activity/Vol] 19 U/L 14-59 [facility] AST [Catalytic activity/Vol] 14 U/L Low 15-37 [facility] Bilirubin [Mass/Vol] 0.7 mg/dL 0.2-1.0 [facility] Calcium [Mass/Vol] 8.9 mg/dL 8.5-10.1 [facility] Chloride [Moles/Vol] 95 mmol/L Low 98-107 [facility] CO2 [Moles/Vol] 24.4 mmol/L 21.0-32.0 [facility] Creatinine [Mass/Vol] 1.01 mg/dL 0.55-1.02 [facility] GFR/1.73 sq M.predicted MDRD (S/P/Bld) [Vol rate/Area] mL/min/{1.73_m2} >=60 [facility] Glucose [Mass/Vol] 118 mg/dL High 74-106 [facility] Lipase [Catalytic activity/Vol] 13.0 U/L Low 16.0-77.0 [facility] Potassium [Moles/Vol] 3.5 mmol/L 3.5-5.1 [facility] Protein [Mass/Vol] 7.8 g/dL 6.4-8.2 [facility] Sodium [Moles/Vol] 133 mmol/L Low 136-145 [facility] Urea nitrogen [Mass/Vol] 11.0 mg/dL 7.0-18.0 [facility] Urea nitrogen/Creatinine [Mass ratio] 10.9 mg/mg [facility] Bilirubin Ql (U) Negative NEGATIVE [facility] Glucose (U) [Mass/Vol] Negative NEGATIVE [facility] Ketones Ql (U) TRACE mg/dL Abnormal NEGATIVE [facility] pH (U) 6.0 [pH] 5.0-9.0 [facility] Specific gravity (U) [Rel density] 1.020 1.005-1.02 5 [facility] Urobilinogen Qn (U) 1.0 {Elmer'U}/dL 0.2-1.0 [facility] Laboratory - Hematology and Cell countson 03-23-2024 Lymphocytes/100 WBC (Bld) 5.0 % Low 20.5-60.0 [facility] Monocytes/100 WBC (Bld) 8.0 % 1.7-12.0 [facility] Laboratory - Microbiology an d Antimicrobial susceptibilityon 03-23-2024 S. agalactiae Org specific cx Ql (Vag fld) Not detected NOT DETECTE [facility] Laboratory - Specimen inform ationon 03-23-2024 Appearance (U) CLOUDY Abnormal CLEAR [facility] Color (U) LT. YELLOW YELLOW [facility] Laboratory - Urinalysison Leukocyte esterase Test strip Ql (U) MODERATE Abnormal NEGATIVE [facility] Mucus Ql (Urine sed) MODERATE Abnormal NONE SEEN [facility] Nitrite Ql (U) Positive Abnormal NEGATIVE [facility] Protein Ql (U) >=300 mg/dL Abnormal NEG/TRACE [facility] Leukocytes [#/volume] correc juanita for nucleated erythrocytes in Blood by Automated counon 03-23-2024 WBC corrected for nucl RBC Auto (Bld) [#/Vol] 23.3 10 3/uL High 4.0-11.0 [facility] MCH Auto (RBC) [Entitic mass ]on 03-23-2024 MCH (RBC) [Entitic mass] 30.8 pg 26.7-34.0 [facility] MCHC Auto (RBC) [Mass/Vol]on 03-23-2024 MCHC (RBC) [Mass/Vol] 33.0 g/dL 29.9-35.2 [facility] MCV Auto (RBC) [Entitic vol] on 03-23-2024 MCV (RBC) [Entitic vol] 93.4 fL 81.0-99.0 [facility] No Panel InformationOrdered By: Yosef Celeste on 03-23-2024 Blood Culture 2 [facility] Blood Culture 1 [facility] No Panel InformationOrdered By: Ragini Riley on 03-23-2024 Blood Culture 2 [facility] No Panel Informationon 03-23 A.calcoaceticus-brijesh annii cmplx PCR Not detected NOT DETECTE [facility] Bacteroides fragilis (PCR) Not detected NOT DETECTE [facility] Blood Culture Source BLOOD [facility] Amy albicans (PCR) Not detected NOT DETECTE [facility] Amy auris (PCR) Not detected NOT DETECTE [facility] Amy glabrata (PCR) Not detected NOT DETECTE [facility] Amy krusei (PCR) Not detected NOT DETECTE [facility] Amy parapsilosis (PCR) Not detected NOT DETECTE [facility] Amy tropicalis (PCR) Not detected NOT DETECTE [facility] Crypto neoformans/gattii (PCR)(LAB) Not detected NOT DETECTE [facility] CTX-M ESBL (PCR) Not detected NOT DETECTE [facility] Enterobacter cloacae complex (PCR) Not detected NOT DETECTE [facility] Enterobacterales (PCR) Detected Abnormal NOT DETECTE [facility] Comment on above: RESULTS CALLED TO Onesimo MensahRN)@BY Ragini Frederick MLT at 0242 Enterococcus faecalis PCR Not detected NOT DETECTE [facility] Enterococcus faecium PCR Not detected NOT DETECTE [facility] Escherichia coli Result Detected Abnormal NOT DETECTE [facility] Comment on above: RESULTS CALLED TO Onesimo MensahRN)@BY Ragini Frederick MLT at 0242 Haemophilus influenzae DNA Not detected NOT DETECTE [facility] IMP (blaIMP) Carbap Res Gene (PCR) Not detected NOT DETECTE [facility] Klebsiella aerogenes (PCR) Not detected NOT DETECTE [facility] Klebsiella oxytoca (PCR) Not detected NOT DETECTE [facility] Klebsiella pneumoniae group (PCR) Not detected NOT DETECTE [facility] KPC (blaKPC) Detection (PCR) Not detected NOT DETECTE [facility] Listeria monocytogenes (PCR) Not detected NOT DETECTE [facility] MCR-1 Resistance Gene Not detected NOT DETECTE [facility] mecA/C & MREJ Antimicrob Resist Gen NOT APPLICABLE NOT DETECTE [facility] mecA/C-Methicillin Resistance Gene NOT APPLICABLE NOT DETECTE [facility] NDM (blaNDM) Detection (PCR) Not detected NOT DETECTE [facility] Neisseria meningitidis (PCR) Not detected NOT DETECTE [facility] Proteus species (PCR) Not detected NOT DETECTE [facility] Pseudomonas aeruginosa (PCR) Not detected NOT DETECTE [facility] Salmonella spp. (PCR) Not detected NOT DETECTE [facility] Serratia marcescens (PCR) Not detected NOT DETECTE [facility] Staphylococcus aureus (PCR)(LAB) Not detected NOT DETECTE [facility] Staphylococcus epidermidis (PCR) Not detected NOT DETECTE [facility] Staphylococcus lugdunensis (TEM-PCR Not detected NOT DETECTE [facility] Staphylococcus species (PCR) Not detected NOT DETECTE [facility] Stenotroph. maltophilia (PCR) Not detected NOT DETECTE [facility] Streptococcus pneumoniae (PCR) Not detected NOT DETECTE [facility] Streptococcus pyogenes (PCR)(LAB) Not detected NOT DETECTE [facility] Streptococcus species (PCR) Not detected NOT DETECTE [facility] Syn OXA-48-like Carb Res Gene (PCR) Not detected NOT DETECTE [facility] Shayna/B-Vancomycin Resistance Genes NOT APPLICABLE NOT DETECTE [facility] VIM (blaVIM) Carbap Res Gene (PCR) Not detected NOT DETECTE [facility] Absolute Basophils (Manual) 0.00 10 3/uL 0.00-0.10 [facility] Eosinophils # (Manual) 0.00 10 3/uL 0.00-0.70 [facility] Lymphocytes # (Manual) 1.16 10 3/uL Low 1.20-3.80 [facility] Monocytes # (Manual) 1.86 10 3/uL High 0.30-0.80 [facility] Segmented Neutrophils # (Manual) 20.27 10 3/uL High 1.4-6.5 [facility] Reference Lab Order Code See comment [facility] Comment on above: SEE SCANNED REPORT Urine Bacteria MODERATE #/HPF Abnormal NONE SEEN [facility] Urine Culture Reflexed YES [facility] Urine Microscopic Review YES [facility] Urine Occult Blood LARGE Abnormal NEGATIVE [facility] Urine Other Casts NONE SEEN #/LPF NONE SEEN [facility] Urine Other Crystals None Seen #/HPF None Seen [facility] Urine RBC 2-5 #/HPF Abnormal 0-2 [facility] Urine Squamous Epithelial Cells FEW #/LPF Abnormal NONE/RARE [facility] Urine Transitional Epithelial Cells RARE #/LPF Abnormal NONE SEEN [facility] Urine WBC >100 #/HPF Abnormal NONE SEEN [facility] Platelet mean volume Auto (B ld) [Entitic vol]on 03-23-2024 Platelet mean volume (Bld) [Entitic vol] 10.0 fL 9.5-13.5 [facility] Platelets Auto (Bld) [#/Vol] on 03-23-2024 Platelets (Bld) [#/Vol] 234 10 3/uL 150-450 [facility] RBC Auto (Bld) [#/Vol]on RBC (Bld) [#/Vol] 4.12 10 6/uL Low 4.20-5.40 [facility] Segmented neutrophils/100 WB C Manual cnt (Bld)on 03-23-2024 Segmented neutrophils/100 WBC (Bld) 87.0 % [facility] Serum or plasma albumin/glob ulin mass ratioon 03-23-2024 Albumin/Globulin [Mass ratio] 0.8 {ratio} [facility] Serum or plasma anion gap de terminationon 03-23-2024 Anion gap [Moles/Vol] 17.1 mmol/L [facility] XR CERVICAL SPINE COMPLETE 4 -5 VIEWSon 05-09-2024 XR CERVICAL SPINE COMPLETE 4-5 VIEWS FINDINGS: Normal disc space heights. No significant osteophyte formation. Mild facet arthropathy, no significant osseous neuroforaminal stenosis. IMPRESSION: 1. Mild arthritis. 2. Normal alignment. TRANSCRIBED BY: ELECTRONICALLY SIGNED BY: Feroz Wilks MD Normal Not Available COVID + FLU Quick Testingon 07-10-2023 SARS-CoV-2 (COVID-19) RNA NAKIA+probe Ql (Unsp spec) Negative [facility] Other COVID + FLU Quick Testing Negative [facility] [facility] Other Lab - Toxicology Resultson 1 Lab - Toxicology Results [id number]-04-2023 Consent Forms [id number][facility] Clinical Summaryon 2022 ED Clinical Summary [facility] ? Urgent Care [address] [place], [place] [id number] Clinical Summary PERSON INFORMATION Name: JENNA SHARMA Age: 37 Years Sex: FEMALE : 1985 MRN: Acct#: Visit Reason: Medical screening exam; DORON ANDREWS Arrival: 06/03/2023 10:27:58 Discharge: 06/03/2023 11:13:00 LOS: 000 00:46 Check In: 06/03/2023 10:27:58 Checkout: 06/03/2023 11:13:00 Address: [address] [place] [id number] PCP: Ragnii Riley CNP PROVIDER INFORMATION Provider Role Assigned [...] verbalizes understanding of instructions given Comment: Normal [facility] ED Patient Summaryon 023 ED Patient Summary [facility] ? Urgent Care [address] [place] [address] PATIENT DISCHARGE INSTRUCTIONS Patient Information Name: JENNA SHARMA Age: 37 Years Date of : 1985 Reason For Visit: Medical screening exam; DORON ANDREWS Arrival Time: 06/03/2023 10:27:58 Primary Care Physician: Ragini Riley CNP Attending Physician: Emre Guzman Comment: Patient Education Medication Information: The exam and treatment you received today in the [facility] were for an urgent problem and are not intended as complete care. It is important for you to follow up with a doctor, nurse practitioner, or physician?s study assistant for ongoing care. If your symptoms [...] so we can reach you if necessary. [facility] Emergency Department has provided you with a complete list of medications post discharge. 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 [...] infections. Vi (more content not included)... Normal [facility] Triage Panel 10on 06-03-2023 Drug Screen Complete Collected Normal [facility] Comment on above: Performed By: #### 2 [id number] #### [facility] (DEFAULT) [address] [place] [address] Urgent Care [place] 023 Urgent Care Record [facility] ? Urgent Care [address] [place] [address] PATIENT DISCHARGE INSTRUCTIONS Patient Information Name: JENNA SHARMA Age: 37 Years Date of : 1985 Reason For Visit: Medical screening exam; DORON ANDREWS Arrival Time: 06/03/2023 10:27:58 Primary Care Physician: Ragini Riley CNP Attending Physician: Emre Guzman Comment: Visit Diagnosis: Diagnoses This Visit Medical screening exam ([id number]) Routine medical exam (Z00.00) If you received [...] and treatment you received today in the [facility] were for an urgent problem and are not intended as complete care. It is important for you to follow up with a doctor, nurse practitioner, or physician?s study assistant for ongoing care. If your symptoms [...] so we can reach you if necessary. [facility] has provided you with a complete list of medications post discharge. 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 [...] Bacteria Antib (more content not included)... Normal [facility] Calprotectin [Mass/mass] in StoolOrdered By: Luigi Schaefer on 04-23-2023 Calprotectin (Stl) [Mass/Mass] 9 ug/g 0-120 [facility] Comment on above: Concentration Interp retation Follow-Up< 5 - 50 ug/g Normal None>50 -120 ug/g Borderline Re-evaluate in 4-6 weeks >120 ug/g Abnormal Repeat as clinically indicatedPerformed at: - [facility] [address] [id number] Director: Bartolo Mccurdy MD, Phone: [phone] Cryptosporidium sp Ag [Prese nce] in Stool by ImmunoassayOrdered By: Luigi Schaefer on 04-23-2023 Cryptosporidium sp Ag IA Ql (Stl) Negative Negative [facility] Comment on above: Performed at: [employer] [address] [id number] Director: Will Chapman PhD, Phone: [phone] Elastase.pancreatic [Mass/ma ss] in StoolOrdered By: Luigi Schaefer on 04-23-2023 Elastase.pancreatic (Stl) [Mass/Mass] 138 >200 [facility] Comment on above: Result Units: ug [address]ian[address] st./g Severe Pancreatic Insufficiency: <100 Moderate Pancreatic Insufficiency: 100 - 200 Normal: >200Performed at: [facility] [id number] Director: Bartolo Mccurdy MD, Phone: [phone] Giardia lamblia Ag [Presence ] in Stool by ImmunoassayOrdered By: Luigi Schaefer on 04-23-2023 G. lamblia Ag IA Ql (Stl) Negative Negative [facility] Comment on above: Performed at: [employer] [address] [id number] Director: Will Chapman PhD, Phone: [phone] Stool bacteria identificatio n by cultureOrdered By: Luigi Schaefer on 04-23-2023 Bacteria identified Cx Nom (Stl) [facility] Stool lactoferrin detectionO rdered By: Luigi Schaefer on 04-23-2023 Lactoferrin Ql (Stl) [facility] Stool pH measurementOrdered By: Luigi Schaefer on 04-23-2023 pH (Stl) 7.0 7.0-7.5 [facility] Comment on above: This test was develo ped and its performance characteristicsdetermined by [employer]. It has not been cleared orapproved by the Food and Drug Administration.Performed at: [employer] [facility] [id number] Director: Will Chapman PhD, Phone: [phone] XR ankle RT min 3V*on 2022 XR ankle RT min 3V* [employer] Other Urinalysis - AUTOMATEDon Appearance (U) cloudy [employer] Other Bilirubin Ql (U) Negative [employer] Other Color (U) dark yellow [employer] Other Glucose Ql (U) Negative [employer] Other Hemoglobin Ql (U) Moderate [employer] Other Ketones Ql (U) Negative [employer] Other Leukocyte esterase Test strip Ql (U) Moderate [employer] Other Nitrite Ql (U) Positive [employer] Other pH (U) 7.0 [pH] [employer] Other Protein Ql (U) 100mg [employer] Other Specific gravity (U) [Rel density] 1.025 [employer] Other Urobilinogen (U) [Mass/Vol] 0.2 mg/dL [employer] Other Urinalysis - AUTOMATED [employer] Other Urine Cultureon 02-25-2023 Bacteria identified Cx Nom (U) [employer] Other Urine culture routineOrdered By: Jyoti Jama on 02-25-2023 Bacteria identified Cx Nom (U) 2 Days [facility] COVID + FLU Quick Testingon 10-11-2022 SARS-CoV-2 (COVID-19) RNA NAKIA+probe Ql (Unsp spec) Negative [employer] Other COVID + FLU Quick Testing Negative [employer] Other XR chest 2V*on 10-11-2022 XR chest 2V* [facility] [employer] Other XR chest 2V* [facility] [employer] Other XR chest 2V* [address] [facility] [place] Other XR chest 2V* [place] [address] [facility] [place] Other XR chest 2V* XRay Report [facility] [place] Other XR chest 2V* Signed [facility] [place] Other XR chest 2V* Patient: Christina Sharma MR#: [id number] [facility] [place] Other XR chest 2V* 003 [facility] [place] Other XR chest 2V* : 1985 Acct:[id number] [facility] [place] Other XR chest 2V* Age/Sex: 36 / F ADM Date: 10/11/22 [facility] [place] Other XR chest 2V* Loc: ICXD Room: Type : [facility] [place] Other XR chest 2V* Attending Dr: Malachi Riley APRN, ANGEL [place] [employer] Other XR chest 2V* Copies to: Ragini Riley APRN, LALI [place] [employer] Other XR chest 2V* Ordering Provider: Christian Riley APRN, [facility] [employer] Other XR chest 2V* Date of Service: 10/11/22 [place] [employer] Other XR chest 2V* [id number]) XR/XR chest 2V*: Fever, unspecified fever cause;Mild persistent asthma [employer] Other XR chest 2V* with e [employer] Other XR chest 2V* Chest 2 views [facility] [place] Other XR chest 2V* CLINICAL HISTORY: Sh ortness of breath, fever, cough [employer] Other XR chest 2V* COMPARISON: None [employer] Other XR chest 2V* FINDINGS: [employer] Other XR chest 2V* Heart normal in size . Lungs are clear. No free air. [employer] Other XR chest 2V* X R/XR chest 2V* [employer] Other XR chest 2V* IMPRESSION: [employer] Other XR chest 2V* NO ACUTE CARDIOPULMO NARY ABNORMALITY. [employer] Other XR chest 2V* Impression dictated by: Feroz Werner Jr., D.OMarilyn10/11/2022 3:20 PM [employer] Other XR chest 2V* Dictation Location: RADIO-PC-14 [employer] Other XR chest 2V* Transcribed By: LUCRECIA 10/11/22 [facility] Other XR chest 2V* Dictated By: Feroz Werner Jr, DO 10/11/22 [facility] [place] [facility] Other XR chest 2V* Signed By: [employer] Other XR chest 2V* 10/11/22 [facility] [place] [employer] [facility] Other CBC AUTO DIFFon 08-15-2022 BASO # 0.0 103/ul Normal 0.0-0.1 [facility] Comment on above: Performed By: #### C BC #### [facility] [address] [address] [address] Napoleon Best Basophils/100 WBC (Bld) 0.3 % Normal 0.2-2.0 [facility] Comment on above: Performed By: #### C BC #### [facility] [address] [place] [address] Dr. Napoleon Best EO # 0.1 103/ul Normal 0.0-0.7 [facility] Comment on above: Performed By: #### C BC #### [facility] [address] [place] [address] Dr. Napoleon Best Eosinophils/100 WBC (Bld) 0.8 % Critically low 0.9-7.0 [facility] Comment on above: Performed By: #### C BC #### [facility] [address] [place] [address] Dr. Napoleon Best Erythrocyte distribution width (RBC) [Ratio] 12.7 % Normal 11.0-15.0 [facility] Comment on above: Performed By: #### C BC #### [facility] [address] [place] [address] Dr. Napoleon Best Hematocrit (Bld) [Volume fraction] 38.0 % Normal 36.0-48.0 [facility] Comment on above: Performed By: #### C BC #### [facility] [address] [place] [address] Dr. Napoleon Best Hemoglobin (Bld) [Mass/Vol] 12.4 g/dL Normal 12.0-16.0 [facility] Comment on above: Performed By: #### C BC #### [facility] [address] [place] [address] Dr. Napoleon Best IG # 0.02 10e3/ul Normal 0.00-0.03 [facility] Comment on above: Performed By: #### C BC #### [facility] [address] [place] [address] Dr. Napoleon Best IG % 0.3 % Normal 0.0-0.5 [facility] Comment on above: Performed By: #### C BC #### [facility] [address] [place] [address] Dr. Napoleon Best LYMPH # 1.4 103/ul Normal 1.2-3.8 [facility] Comment on above: Performed By: #### C BC #### [facility] [address] [place] [address] Dr. Napoleon Best Lymphocytes/100 WBC (Bld) 17.4 % Critically low 20.5-60.0 [facility] Comment on above: Performed By: #### C BC #### [facility] [address] [place] [address] Dr. Napoleon Best MANUAL DIFF REQ NO Normal [facility] Comment on above: Performed By: #### C BC #### [facility] [address] [place] [address] Dr. Napoleon Best MCH (RBC) [Entitic mass] 30.4 pg Normal 26.7-34.0 [facility] Comment on above: Performed By: #### C BC #### [facility] [address] [place] [address] Dr. Napoleon Best MCHC (RBC) [Mass/Vol] 32.6 g/dL Normal 29.9-35.2 [facility] Comment on above: Performed By: #### C BC #### [facility] [address] [place] [address] Dr. Napoleon Best MCV (RBC) [Entitic vol] 93.1 fL Normal 81.0-99.0 [facility] Comment on above: Performed By: #### C BC #### [facility] [address] [place] [address] Dr. Napoleon Best MONO # 0.8 103/ul Normal 0.3-0.8 [facility] Comment on above: Performed By: #### C BC #### [facility] [address] [place] [address] Dr. Napoleon Best Monocytes/100 WBC (Bld) 10.8 % Normal 1.7-12.0 [facility] Comment on above: Performed By: #### C BC #### [facility] [address] [place] [address] Dr. Napoleon Best NEUT # 5.5 103/ul Normal 1.4-6.5 [facility] Comment on above: Performed By: #### C BC #### [facility] [address] [place] [address] Dr. Napoleon Best Neutrophils/100 WBC (Bld) 70.4 % Normal 43.0-75.0 [facility] Comment on above: Performed By: #### C BC #### [facility] [address] [place] [address] Dr. Napoleon Best Platelet mean volume (Bld) [Entitic vol] 9.0 fL Critically low 9.5-13.5 [facility] Comment on above: Performed By: #### C BC #### [facility] [address] [place] [address] Dr. Napoleon Best PLT 296 103/ul Normal 150-450 [facility] Comment on above: Performed By: #### C BC #### [facility] [address] [place] [address] Dr. Napoleon Best RBC 4.08 106/ul Critically low 4.20-5.40 [facility] Comment on above: Performed By: #### C BC #### [facility] [address] [place] [address] Dr. Napoleon Best WBC 7.8 103/ul Normal 4.0-11.0 [facility] Comment on above: Performed By: #### C BC #### [facility] [address] [place] [address] Dr. Napoleon Best Covid-19 PCR ([facility])on SARS-CoV-2 (COVID-19) RNA NAKIA+probe Ql (Unsp spec) Not detected Normal NOT DETECTED [facility] Comment on above: Result Comment: When [...] for this test is supported by the Middleware Developer of Health and Human Service's declaration that [...] used). Performed By: #### C VDTB #### [facility] [address] [place] [address] Dr. Napoleon Best INFLUENZA A AND B AGon 08-[facility] Normal [facility] Comment on above: Result Comment: Nega tive for Flu A protein angiten. Infection due to Flu A cannot be ruled out. Flu A angiten in the sample may be below the detection limit of the test. Performed By: #### I NFLUAB #### [facility] [address] [place] [address] Dr. Napoleon [facility] SEE BELOW Normal [facility] Comment on above: Result Comment: Nega tive for Flu B protein antigen. Infection due to Flu B cannot be ruled out. Flu B antigen in the sample may be below the detection limit of the test. Performed By: #### I NFLUAB #### [facility] [address] [place] [address] Dr. Napoleon Best INFLUENZA A AG Negative Normal NEGATIVE SEE COMMENT [facility] Comment on above: Performed By: #### I NFLUAB #### [facility] [address] [place] [address] Dr. Napoleon Best INFLUENZA B AG Negative Normal NEGATIVE SEE COMMENT [facility] Comment on above: Performed By: #### I NFLUAB #### [facility] [address] [place] [address] Dr. Napoleon Best INTERNAL CONTROLS Within Normal Limits Normal Wi thin Normal Limits [facility] Comment on above: Performed By: #### I NFLUAB #### [facility] [address] [place] [address] Dr. Napoleon Best LACTATE/LACTIC ACIDon 2021 Lactate [Moles/Vol] 0.9 mmol/L Normal 0.4-1.9 [facility] Comment on above: Performed By: #### L ACT #### [facility] [address] [place], [place] [address] Dr. Napoleon Best PROF 14(COMP METB)on 022 Albumin [Mass/Vol] 4.0 g/dL Normal 3.4-5.0 [facility] Comment on above: Performed By: #### C MP ####[facility] [address] [address]Dr. Napoleon Best Albumin/Globulin [Mass ratio] 1.1 {ratio} Normal [facility] Comment on above: Performed By: #### C MP ####[facility] [address] [address]Dr. Napoleon Best ALP [Catalytic activity/Vol] 92 U/L Normal 46-116 [facility] Comment on above: Performed By: #### C MP ####[facility] [address] [address]Dr. Napoleon Best ALT [Catalytic activity/Vol] 23 U/L Normal 14-59 [facility] Comment on above: Performed By: #### C MP ####[facility] [address] [address]Dr. Napoleon Best Anion gap [Moles/Vol] 13.5 mmol/L Normal [facility] Comment on above: Performed By: #### C MP ####[facility] [address] [address]Dr. Napoleon Best AST [Catalytic activity/Vol] 16 U/L Normal 15-37 [facility] Comment on above: Performed By: #### C MP ####[facility] [address] [address]Dr. Napoleon Best Bilirubin [Mass/Vol] 0.2 mg/dL Normal 0.2-1.0 [facility] Comment on above: Performed By: #### C MP ####[facility] [address] [address]Dr. Napoleon Best Calcium [Mass/Vol] 8.9 mg/dL Normal 8.5-10.1 [facility] Comment on above: Performed By: #### C MP ####[facility] [address] [phone]. Napoleon Best Chloride [Moles/Vol] 103 mmol/L Normal 98-107 [facility] Comment on above: Performed By: #### C MP ####[facility] [address] [phone]. Napoleon Best CO2 [Moles/Vol] 28.2 mmol/L Normal 21.0-32.0 [facility] Comment on above: Performed By: #### C MP ####[facility] [address] [address]Dr. Napoleon Best Creatinine [Mass/Vol] 0.72 mg/dL Normal 0.55-1.02 [facility] Comment on above: Performed By: #### C MP ####[facility] [address] [address]Dr. Napoleon Best EGFR-AF BURKINAN >60 Normal >=60 [facility] Comment on above: Performed By: #### C MP ####[facility] [address] [address]Dr. Napoleon Best EGFR-NON AF BURKINAN >60 Normal >=60 [facility] Comment on above: Performed By: #### C MP ####[facility] [address] [address]Dr. Napoleon Nasir Globulin (S) [Mass/Vol] 3.5 g/dL Normal [facility] Comment on above: Performed By: #### C MP ####[facility] [address] [address]Dr. Napoleon Nasir Glucose [Mass/Vol] 91 mg/dL Normal 74-106 [facility] Comment on above: Performed By: #### C MP ####[facility] [address] [place], [place] [address]Dr. Napoleon Best Potassium [Moles/Vol] 3.7 mmol/L Normal 3.5-5.1 [facility] Comment on above: Performed By: #### C MP ####[facility] [address] [place], [place] [address]Dr. Napoleon Best Protein [Mass/Vol] 7.5 g/dL Normal 6.4-8.2 [facility] Comment on above: Performed By: #### C MP ####[facility] [address] [place], [place] [address]Om. Napoleon Best Sodium [Moles/Vol] 141 mmol/L Normal 136-145 [facility] Comment on above: Performed By: #### C MP ####[facility] [address] [place], [place] [address]Jw. Napoleon Best Urea nitrogen [Mass/Vol] 7.0 mg/dL Normal 7.0-18.0 [facility] Comment on above: Performed By: #### C MP ####[facility] [address] [place], [place] [address]Np. Napoleon Best Urea nitrogen/Creatinine [Mass ratio] 9.7 mg/mg Normal [facility] Comment on above: Performed By: #### C MP ####[facility] [address] [place], [place] [address]Da. Napoleon Best XR CHEST 1 Von 08-15-2022 [...] Braulio CLIFFORD Date: 2022-08-15 21:31 Normal [facility] COVID Quick Testingon 2021 Result Negative [employer] [facility] Other Quick Strepon 07-09-2022 S. pyogenes Org specific cx Ql (Throat) Negative [employer] Other Quick Strep [employer] [facility] Other ER URINE PROFILEon 2 Bilirubin Ql (U) Negative Normal NEGATIVE [facility] Comment on above: Performed By: #### E RUR #### [facility] [address] [place] [address] Dr. Napoleon Best Clarity (U) CLEAR Normal CLEAR [facility] Comment on above: Performed By: #### E RUR #### [facility] [address] [place] [address] Dr. Napoleon Best Color (U) LT. YELLOW Normal YELLOW [facility] Comment on above: Performed By: #### E RUR #### [facility] [address] [place] [address] Dr. Napoleon Best ERUAHD A micrscopic examina tion will be performed if indicated. Normal [facility] Comment on above: Performed By: #### E RUR #### [facility] [address] [place] [address] Dr. Napoleon Best Glucose Ql (U) Negative Normal NEGATIVE [facility] Comment on above: Performed By: #### E RUR #### [facility] [address] [place] [address] Dr. Napoleon Best Hemoglobin Ql (U) Negative Normal NEGATIVE [facility] Comment on above: Performed By: #### E RUR #### [facility] [address] [place] [address] Dr. Napoleon Best Ketones Ql (U) Negative Normal NEGATIVE [facility] Comment on above: Performed By: #### E RUR #### [facility] [address] [place] [address] Dr. Napoleon Best LEUKOCYTES Negative Normal NEGATIVE [facility] Comment on above: Performed By: #### E RUR #### [facility] [address] [place] [address] Dr. Napoleon Best Nitrite Ql (U) Negative Normal NEGATIVE [facility] Comment on above: Performed By: #### E RUR #### [facility] [address] [place] [address] Dr. Napoleon Best pH (U) 7.5 [pH] Normal 5-9 [facility] Comment on above: Performed By: #### E RUR #### [facility] [address] [place] [address] Dr. Napoleon Best SPEC GRAVITY 1.020 Normal 1.005-<=1. 025 [facility] Comment on above: Performed By: #### E RUR #### [facility] [address] [address] [address] Napoleon Best UA PROTEIN Negative Normal NEGATIVE/ TRACE [facility] Comment on above: Performed By: #### E RUR #### [facility] [address] [address] [address] Napoleon Best UR MICRO IND NOT INDICATED Normal [facility] Comment on above: Performed By: #### E RUR #### [facility] [address] [address] [address] Napoleon Best Urobilinogen Qn (U) 0.2 {[place]mer'U}/dL Normal 0.2 - 1. 0 [facility] Comment on above: Performed By: #### E RUR #### [facility] [address] [address] [address] Napoleon Best A1C HEMOGLOBINon 05-23-2022 HbA1c (Bld) [Mass fraction] 5.5 % [employer] Other HbA1c (Bld) [Mass fraction]o n 05-23-2022 A1C HEMOGLOBIN [employer] [facility] Other Urine culture routineOrdered By: Ragini Riley on 05-10-2022 Bacteria identified Cx Nom (U) Escherichia coli [facility] VIT D 25-OH LABCORPon 2021 Vitamin D, 25-Hydroxy 22.4 ng/mL Critically low 30.0-100.0 [facility] Comment on above: Result Comment: Arelis min D deficiency has been defined by the [place] of Medicine and an Endocrine Society practice guideline as a level of serum 25-OH vitamin D less than 20 ng/mL (1,2). The Endocrine Society went on to further define vitamin D insufficiency as a level between 21 and 29 ng/mL (2). 1. IOM ([place] of [employer]). 2010. Dietary reference intakes for calcium and D. [place]: The National Academies Press. 2. Geraldine ROWLEY, Cong MILLER, Alfred BAE, et al. Evaluation, treatment, and prevention of vitamin D deficiency: an Endocrine Society clinical practice guideline. JCEM. 2010; 96(7):1911-30. Performed By: #### V ITADLC #### [facility] [address] [place], [place] [address] Dr. Napoleon Best CBC AUTO DIFFon 05-08-2022 BASO # 0.0 103/ul Normal 0.0-0.1 [facility] Comment on above: Performed By: #### C BC ####[facility] [address] [id number] Best Basophils/100 WBC (Bld) 0.2 % Normal 0.2-2.0 [facility] Comment on above: Performed By: #### C BC ####[facility] [address] [phone]. Napoleon Best EO # 0.0 103/ul Normal 0.0-0.7 [facility] Comment on above: Performed By: #### C BC ####[facility] [address] [phone] Best Eosinophils/100 WBC (Bld) 0.0 % Critically low 0.9-7.0 [facility] Comment on above: Performed By: #### C BC ####[facility] [address] [phone] Best Erythrocyte distribution width (RBC) [Ratio] 12.6 % Normal 11.0-15.0 [facility] Comment on above: Performed By: #### C BC ####[facility] [address] [phone] Best Hematocrit (Bld) [Volume fraction] 39.4 % Normal 36.0-48.0 [facility] Comment on above: Performed By: #### C BC ####[facility] [address] [address]DrMarilyn Best Hemoglobin (Bld) [Mass/Vol] 12.4 g/dL Normal 12.0-16.0 [facility] Comment on above: Performed By: #### C BC ####[facility] [address] [phone]. Napoleon Best IG # 0.14 10e3/ul Critically high 0.00-0.03 [facility] Comment on above: Performed By: #### C BC ####[facility] [address] [phone]. Napoleon Best IG % 1.1 % Critically high 0.0-0.5 [facility] Comment on above: Performed By: #### C BC ####[facility] [address] [address]Dr. Napoleon Best LYMPH # 1.6 103/ul Normal 1.2-3.8 [facility] Comment on above: Performed By: #### C BC ####[facility] [address] [address]Dr. Napoleon Best Lymphocytes/100 WBC (Bld) 12.2 % Critically low 20.5-60.0 [facility] Comment on above: Performed By: #### C BC ####[facility] [address] [address]Dr. Napoleon Best MANUAL DIFF REQ NO Normal [facility] Comment on above: Performed By: #### C BC ####[facility] [address] [address]Dr. Napoleon Best MCH (RBC) [Entitic mass] 29.4 pg Normal 26.7-34.0 [facility] Comment on above: Performed By: #### C BC ####[facility] [address] [place], [place] [address]Dr. Napoleon Best MCHC (RBC) [Mass/Vol] 31.5 g/dL Normal 29.9-35.2 [facility] Comment on above: Performed By: #### C BC ####[facility] [address] [place], [place] [address]Dr. Napoleon Best MCV (RBC) [Entitic vol] 93.4 fL Normal 81.0-99.0 [facility] Comment on above: Performed By: #### C BC ####[facility] [address] [phone]. Napoleon Best MONO # 0.8 103/ul Normal 0.3-0.8 [facility] Comment on above: Performed By: #### C BC ####[facility] [address] [phone]. Napoleon Best Monocytes/100 WBC (Bld) 6.5 % Normal 1.7-12.0 [facility] Comment on above: Performed By: #### C BC ####[facility] [address] [phone]. Napoleon Best NEUT # 10.4 103/ul Critically high 1.4-6.5 [facility] Comment on above: Performed By: #### C BC ####[facility] [address] [place], [place] [address]Dr. Napoleon Best Neutrophils/100 WBC (Bld) 80.0 % Critically high 43.0-75.0 [facility] Comment on above: Performed By: #### C BC ####[facility] [address] [address]Dr. Napoleon Best Platelet mean volume (Bld) [Entitic vol] 9.2 fL Critically low 9.5-13.5 [facility] Comment on above: Performed By: #### C BC ####[facility] [address] [place], [place] [address]Dr. Napoleon Best PLT 340 103/ul Normal 150-450 [facility] Comment on above: Performed By: #### C BC ####[facility] [address] [place], [place] [address]Dr. Napoleon Best RBC 4.22 106/ul Normal 4.20-5.40 [facility] Comment on above: Performed By: #### C BC ####[facility] [address] [phone]. Napoleon Best WBC 13.0 103/ul Critically high 4.0-11.0 [facility] Comment on above: Performed By: #### C BC ####[facility] [address] [place], [place] [address]Az. Napoleon Best IRON AND TIBCon 05-08-2022 % SATURATION 15.3 % Normal [facility] Comment on above: Performed By: #### V ITB12, FETIBC ####[facility] [address] [place], [place] [address]Vl. Napoleon Best Iron [Mass/Vol] 55.0 ug/dL Normal 50.0-170.0 [facility] Comment on above: Performed By: #### V ITB12, FETIBC ####[facility] [address] [place], [place] [address]Cw. Napoleon Best TIBC DIRECT 358.0 ug/dL Normal 250.0-450. 0 [facility] Comment on above: Performed By: #### V ITB12, FETIBC ####[facility] [address] [place], [place] [address]No. Napoleon Best LIPID PROFILEon 05-08-2022 CHOL-HDL RATIO NORM SEE BELOW Normal [facility] Comment on above: Result Comment: 3.3 - 4.4 LOW RISK 4.4 - 7.1 AVERAGE RISK 7.1 - 11.0 MODERATE RISK >11.0 HIGH RISK Performed By: #### M G, CMP, LIPID #### [facility] [address] [address] [address] Napoleon Best Cholesterol [Mass/Vol] 294 mg/dL Critically high <=200 [facility] Comment on above: Performed By: #### M G, CMP, LIPID #### [facility] [address] [address] [address] Napoleon Best Cholesterol in HDL [Mass/Vol] 72 mg/dL Critically high 40-60 [facility] Comment on above: Performed By: #### M G, CMP, LIPID #### [facility] [address] [address] [address] Napoleon Best Cholesterol in LDL [Mass/Vol] 179.8 mg/dL Normal [facility] Comment on above: Performed By: #### M G, CMP, LIPID #### [facility] [address] [place] [address] Dr. Napoleon Best Cholesterol.total/Ch olesterol in HDL [Mass ratio] 4.1 {ratio} Normal [facility] Comment on above: Performed By: #### M Kt, CMP, LIPID #### [facility] [address] [place] [address] Dr. Napoleon Best HDL NORMAL > or = 60 mg/dl - LO W CARDIOVASCULAR RISK <40 mg/dl - HIGH CARDIOVASCULAR RISK Normal [facility] Comment on above: Performed By: #### M G, CMP, LIPID #### [facility] [address] [place] [address] Dr. Napoleon Best LDL CALC NORMAL SEE BELOW Normal [facility] Comment on above: Result Comment: <100 mg/dl OPTIMAL 100 - 129 mg/dl NEAR OR ABOVE OPTIMAL 130 - 159 mg/dl BORDERLINE HIGH 160 - 189 mg/dl HIGH >190 mg/dl VERY HIGH Performed By: #### M Kt, CMP, LIPID #### [facility] [address] [place] [address] Dr. Napoleon Best Triglyceride [Mass/Vol] 211 mg/dL Critically high <=150 [facility] Comment on above: Performed By: #### M Kt CMP, LIPID #### [facility] [address] [place] [address] Dr. Napoleon Best VLDL CALC 42.2 mg/dL Normal [facility] Comment on above: Performed By: #### M Kt CMP, LIPID #### [facility] [address] [place] [address] Dr. Napoleon Best MAGNESIUMon 05-08-2022 Magnesium [Mass/Vol] 2.1 mg/dL Normal 1.8-2.4 [facility] Comment on above: Performed By: #### M Kt CMP, LIPID #### [facility] [address] [place] [address] Dr. Napoleon Best PROF 14(COMP METB)on 022 Albumin [Mass/Vol] 3.6 g/dL Normal 3.4-5.0 [facility] Comment on above: Performed By: #### M G, CMP, LIPID #### [facility] [address] [address] [address] Napoleon Best Albumin/Globulin [Mass ratio] 1.1 {ratio} Normal [facility] Comment on above: Performed By: #### M G, CMP, LIPID #### [facility] [address] [address] [address] Napoleon Best ALP [Catalytic activity/Vol] 107 U/L Normal 46-116 [facility] Comment on above: Performed By: #### M G, CMP, LIPID #### [facility] [address] [address] [address] Napoleon Best ALT [Catalytic activity/Vol] 20 U/L Normal 14-59 [facility] Comment on above: Performed By: #### M G, CMP, LIPID #### [facility] [address] [address] [address] Napoleon Best Anion gap [Moles/Vol] 10.8 mmol/L Normal [facility] Comment on above: Performed By: #### M G, CMP, LIPID #### [facility] [address] [address] [address] Napoleon Best AST [Catalytic activity/Vol] U/L Critically low 15-37 [facility] Comment on above: Performed By: #### M G, CMP, LIPID #### [facility] [address] [address] [address] Naploeon Best Bilirubin [Mass/Vol] 0.1 mg/dL Critically low 0.2-1.0 [facility] Comment on above: Performed By: #### M G, CMP, LIPID #### [facility] [address] [address] [address] Napoleon Best Calcium [Mass/Vol] 8.8 mg/dL Normal 8.5-10.1 [facility] Comment on above: Performed By: #### M G, CMP, LIPID #### [facility] [address] [address] [address] Napoleon Best Chloride [Moles/Vol] 106 mmol/L Normal 98-107 [facility] Comment on above: Performed By: #### M G, CMP, LIPID #### [facility] [address] [address] [address] Napoleon Best CO2 [Moles/Vol] 28.0 mmol/L Normal 21.0-32.0 [facility] Comment on above: Performed By: #### M G, CMP, LIPID #### [facility] [address] [address] [address] Naopleon Best Creatinine [Mass/Vol] 0.68 mg/dL Normal 0.55-1.02 [facility] Comment on above: Performed By: #### M G, CMP, LIPID #### [facility] [address] [address] [address] Napoleon Best EGFR-AF BURKINAN >60 Normal >=60 [facility] Comment on above: Performed By: #### M G, CMP, LIPID #### [facility] [address] [address] [address] Napoleon Best EGFR-NON AF BURKINAN >60 Normal >=60 [facility] Comment on above: Performed By: #### M G, CMP, LIPID #### [facility] [address] [address] [address] Napoleon Best Globulin (S) [Mass/Vol] 3.4 g/dL Normal [facility] Comment on above: Performed By: #### M G, CMP, LIPID #### [facility] [address] [address] [address] Napoleon Best Glucose [Mass/Vol] 122 mg/dL Critically high 74-106 [facility] Comment on above: Performed By: #### M G, CMP, LIPID #### [facility] [address] [address] [address] Napoleon Best Potassium [Moles/Vol] 3.8 mmol/L Normal 3.5-5.1 [facility] Comment on above: Performed By: #### M G, CMP, LIPID #### [facility] [address] [address] [address] Napoleon Best Protein [Mass/Vol] 7.0 g/dL Normal 6.4-8.2 [facility] Comment on above: Performed By: #### M G, CMP, LIPID #### [facility] [address] [address] [address] Napoleon Best Sodium [Moles/Vol] 141 mmol/L Normal 136-145 [facility] Comment on above: Performed By: #### M G, CMP, LIPID #### [facility] [address] [address] [address] Napoleon Best Urea nitrogen [Mass/Vol] 14.0 mg/dL Normal 7.0-18.0 [facility] Comment on above: Performed By: #### M G, CMP, LIPID #### [facility] [address] [address] [address] Napoleon Best Urea nitrogen/Creatinine [Mass ratio] 20.6 mg/mg Normal [facility] Comment on above: Performed By: #### M G, CMP, LIPID #### [facility] [address] [address] [address] Napoleon Best Urinalysis - DIPSTICKon 3 Appearance (U) [employer] Other Bilirubin Ql (U) Negative [employer] Other Color (U) [employer] Other Glucose Ql (U) Negative [employer] Other Hemoglobin Ql (U) Trace [employer] Other Ketones Ql (U) Negative [employer] Other Leukocyte esterase Test strip Ql (U) small [employer] Other Nitrite Ql (U) Negative [employer] Other pH (U) 6.0 [pH] [employer] Other Protein Ql (U) Negative [employer] Other Specific gravity (U) [Rel density] 1.030 [employer] Other Urobilinogen (U) [Mass/Vol] 0.2 mg/dL [employer] Other Urinalysis - DIPSTICK [employer] Other VITAMIN B12on 05-08-2022 Cobalamin (Vitamin B12) [Mass/Vol] 355.0 pg/mL Normal 193.0-986. 0 [facility] Comment on above: Performed By: #### V ITB12, FETIBC ####[facility] [id number] [place], [place] [id number]. 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 2020 Result Negative [employer] Other Vital Signs Date Time Vital Sign Value Performing Clinician Facility 04-20-2025 15:040 Body height 148.59 cm Ragini Riley APRN Work Phone: [facility] 04-20-2025 15:0400 Body mass index (BMI) [Ratio] 24.2 kg/m2 Ragini Riley APRN Work Phone: [facility] 04-20-2025 [id number] Body temperature 96.3 [degF] Ragini Riley APRN Work Phone: [facility] 04-20-2025 15:21-0400 Body weight 53.52 kg Ragini Carmonalarry HEALTH CARE MANAGER Work Phone: [facility] 04-20-2025 15:21-0400 Diastolic blood pressure 62 mm[Hg] Ragini Raziar HEALTH CARE MANAGER Work Phone: [facility] 04-20-2025 15:21-0400 Heart rate 78 /min Ragini Rosemary HEALTH CARE MANAGER Work Phone: [facility] 04-20-2025 15:21-0400 SaO2% (BldA) [Mass fraction] 99 % Ragini Rosemary HEALTH CARE MANAGER Work Phone: [facility] 04-20-2025 15:21-0400 Systolic blood pressure 112 mm[Hg] Ragini Rosemary HEALTH CARE MANAGER Work Phone: [facility] 02-16-2025 10:40-0400 Diastolic blood pressure 76 mm[Hg] Ragini Rosemary HEALTH CARE MANAGER Work Phone: [facility] 02-16-2025 10:40-0400 Heart rate 69 /min Ragini Carmonalarry HEALTH CARE MANAGER Work Phone: [facility] 02-16-2025 10:40-0400 Respiratory rate 16 /min Ragini Rosemary HEALTH CARE MANAGER Work Phone: [facility] 02-16-2025 10:40-0400 SaO2% (BldA) [Mass fraction] 100 % Ragini Rosemary HEALTH CARE MANAGER Work Phone: [facility] 02-16-2025 10:40-0400 Systolic blood pressure 112 mm[Hg] Ragini Rosemary HEALTH CARE MANAGER Work Phone: [facility] 02-16-2025 10:03-0400 Inhaled oxygen flow rate 3 L/min Ragini Rosemary HEALTH CARE MANAGER Work Phone: [facility] 02-16-2025 08:53-0400 Body height 148.59 cm Ragini Rosemary HEALTH CARE MANAGER Work Phone: [facility] 02-16-2025 08:53-0400 Body weight 55.79 kg Ragini Randleeddie HEALTH CARE MANAGER Work Phone: [facility] 07-20-2024 16:01-0500 Body height 148.59 cm Ragini Carmonalarry HEALTH CARE MANAGER Work Phone: [facility] 07-20-2024 16:01-0500 Body mass index (BMI) [Ratio] 25.2 kg/m2 Ragini Rosemary HEALTH CARE MANAGER Work Phone: [facility] 07-20-2024 16:01-0500 Body temperature 95.9 [degF] Ragini Riley HEALTH CARE MANAGER Work Phone: [facility] 07-20-2024 16:01-0500 Body weight 55.79 kg Ragini Carmonalarry HEALTH CARE MANAGER Work Phone: [facility] 07-20-2024 16:01-0500 Diastolic blood pressure 60 mm[Hg] Ragini Rosemary HEALTH CARE MANAGER Work Phone: [facility] 07-20-2024 16:01-0500 Heart rate 91 /min Ragini Rosemary HEALTH CARE MANAGER Work Phone: [facility] 07-20-2024 16:01-0500 SaO2% (BldA) [Mass fraction] 100 % Ragini Rosemary HEALTH CARE MANAGER Work Phone: [facility] 07-20-2024 16:01-0500 Systolic blood pressure 104 mm[Hg] Ragini Riley HEALTH CARE MANAGER Work Phone: [facility] 07-14-2024 09:42-0500 Diastolic blood pressure 64 mm[Hg] HEALTH CARE MANAGER Ragini Riley Work Phone: [facility] 07-14-2024 09:42-0500 Heart rate 81 /min HEALTH CARE MANAGERDestiny Eid Maddiemeek Work Phone: [facility] 07-14-2024 09:42-0500 Respiratory rate 16 /min HEALTH CARE MANAGERDestiny Perkinsacher Work Phone: [facility] 07-14-2024 09:42-0500 SaO2% (BldA) [Mass fraction] 96 % HEALTH CARE MANAGER Ragini Mathewwaqasr Work Phone: [facility] 07-14-2024 09:42-0500 Systolic blood pressure 103 mm[Hg] HEALTH CARE MANAGERDestiny Edi Maddieroxyeddie Work Phone: [facility] 07-14-2024 09:02-0500 Inhaled oxygen flow rate 3 L/min HEALTH CARE MANAGERDestiny Riley Work Phone: [facility] 07-14-2024 08:34-0500 Body height 148.59 cm HEALTH CARE MANAGERDestiny Riley Work Phone: [facility] 07-14-2024 08:34-0500 Body weight 53.52 kg HEALTH CARE MANAGERDestiny Riley Work Phone: [facility] 06-22-2024 15:47-0400 Body height 147.32 cm [facility] 06-22-2024 15:47-0400 Body mass index (BMI) [Ratio] 25 kg/m2 [facility] 06-22-2024 15:47-0400 Body temperature 96.8 [degF] [facility] 06-22-2024 15:47-0400 Body weight 54.2 kg [facility] 06-22-2024 15:47-0400 Diastolic blood pressure 78 mm[Hg] [facility] 06-22-2024 15:47-0400 Heart rate 88 /min [facility] 06-22-2024 15:47-0400 SaO2% (BldA) [Mass fraction] 99 % [facility] 06-22-2024 15:47-0400 Systolic blood pressure 118 mm[Hg] [facility] 05-27-2024 12:29-0400 Body mass index (BMI) [Ratio] 23.01 kg/m2 Ynes Russi CARE TRANSITIONS MANAGER Work Phone: [facility] 05-27-2024 12:29-0400 Body weight 50.8 kg Ynes Russi CARE TRANSITIONS MANAGER Work Phone: [facility] 05-27-2024 12:29-0400 Diastolic blood pressure 72 mm[Hg] Ynes Russi CARE TRANSITIONS MANAGER Work Phone: [facility] 05-27-2024 12:29-0400 Systolic blood pressure 112 mm[Hg] Ynes Russi CARE TRANSITIONS MANAGER Work Phone: [facility] 03-30-2024 14:21-0400 Body height 147.32 cm [facility] 03-30-2024 14:21-0400 Body mass index (BMI) [Ratio] 23.6 kg/m2 [facility] 03-30-2024 14:21-0400 Body weight 51.25 kg [facility] 03-30-2024 14:21-0400 Diastolic blood pressure 64 mm[Hg] [facility] 03-30-2024 14:21-0400 Heart rate 78 /min [facility] 03-30-2024 14:21-0400 SaO2% (BldA) [Mass fraction] 98 % [facility] 03-30-2024 14:21-0400 Systolic blood pressure 114 mm[Hg] [facility] 12-17-2023 10:40-0400 Diastolic blood pressure 66 mm[Hg] GOKUL Riley Work Phone: [facility] 12-17-2023 10:40-0400 Heart rate 61 /min GOKUL Riley Work Phone: [facility] 12-17-2023 10:40-0400 Respiratory rate 16 /min GOKUL Riley Work Phone: [facility] 12-17-2023 10:40-0400 SaO2% (BldA) [Mass fraction] 100 % HEALTH CARE MANAGERDestiny Riley Work Phone: [facility] 12-17-2023 10:40-0400 Systolic blood pressure 108 mm[Hg] GOKUL Riley Work Phone: [facility] 12-17-2023 10:03-0400 Inhaled oxygen flow rate 3 L/min HEALTH CARE MANAGERDestiny Riley Work Phone: [facility] 12-17-2023 09:07-0400 Body height 147.32 cm HEALTH CARE MANAGERDestiny Riley Work Phone: [facility] 12-17-2023 09:07-0400 Body weight 54.43 kg GOKUL Riley Work Phone: [facility] 07-10-2023 13:55-0400 Body height 147.32 cm Jyoti Barajasmond Other [employer] Other 07-10-2023 13:55-0400 Body mass index (BMI) [Ratio] 22.86 kg/m2 Jyoti Barajasmond Other [employer] Other 07-10-2023 13:55-0400 Body temperature 99.1 [degF] Jyoti Evita Other [employer] Other 07-10-2023 13:55-0400 Body weight 49.62 kg Jyoti Barajasmond Other [employer] Other 07-10-2023 13:55-0400 Respiratory rate 18 /min Jyoti Evita Other [employer] Other 07-10-2023 13:55-0400 SaO2% (BldA) [Mass fraction] 94 % Jyoti Jama Other [employer] Other 05-27-2023 09:00-0400 Body height 147.32 cm Luigi Scovanner Other [employer] Other 05-27-2023 09:00-0400 Body mass index (BMI) [Ratio] 20.9 kg/m2 Luigi Scovanner Other [employer] Other 05-27-2023 09:00-0400 Body weight 45.36 kg Luigi Scovanner Other [employer] Other 05-27-2023 09:00-0400 Diastolic blood pressure 71 mm[Hg] Luigi Scovanner Other [employer] Other 05-27-2023 09:00-0400 Systolic blood pressure 125 mm[Hg] Luigi Scovanner Other [employer] Other 04-15-2023 14:30-0400 Body height 147.32 cm Luigi Scovanner Other [employer] Other 04-15-2023 14:30-0400 Body mass index (BMI) [Ratio] 21.94 kg/m2 Luigi Scovanner Other [employer] Other 04-15-2023 14:30-0400 Body weight 47.63 kg Luigi Scovanner Other [employer] Other 04-15-2023 14:30-0400 Diastolic blood pressure 80 mm[Hg] Luigi Scovanner Other [employer] Other 04-15-2023 14:30-0400 Systolic blood pressure 116 mm[Hg] Luigi Schaefer Other [employer] Other 03-06-2023 14:00-0400 Body height 147.32 cm Ragini Rosemary Other [employer] Other 03-06-2023 14:00-0400 Body mass index (BMI) [Ratio] 21.94 kg/m2 Ragini Riley Other [employer] Other 03-06-2023 14:00-0400 Body weight 47.63 kg Ragini Rosemary Other [employer] Other 03-06-2023 14:00-0400 Diastolic blood pressure 68 mm[Hg] Ragini Riley Other [employer] Other 03-06-2023 14:00-0400 Systolic blood pressure 110 mm[Hg] Ragini Rosemary Other [employer] Other 02-25-2023 13:20-0400 Body height 147.32 cm Jyoti Jama Other [employer] Other 02-25-2023 13:20-0400 Body mass index (BMI) [Ratio] 24.03 kg/m2 Jyoti Jama Other [employer] Other 02-25-2023 13:20-0400 Body temperature 98.1 [degF] Jyoti Jama Other [employer] Other 02-25-2023 13:20-0400 Body weight 52.16 kg Jyoti Jama Other [employer] Other 02-25-2023 13:20-0400 Diastolic blood pressure 49 mm[Hg] Jyoti Jama Other [employer] Other 02-25-2023 13:20-0400 Respiratory rate 18 /min Jyoti Jama Other [employer] Other 02-25-2023 13:20-0400 SaO2% (BldA) [Mass fraction] 97 % Jyoti Jama Other [employer] Other 02-25-2023 13:20-0400 Systolic blood pressure 99 mm[Hg] Jyoti Jama Other [employer] Other 02-05-2023 12:23-0400 Diastolic blood pressure 75 mm[Hg] GOKUL Riley Work Phone: [facility] 02-05-2023 12:23-0400 Heart rate 69 /min GOKUL Riley Work Phone: [facility] 02-05-2023 12:23-0400 Respiratory rate 16 /min GOKUL Perkinsacher Work Phone: [facility] 02-05-2023 12:23-0400 SaO2% (BldA) [Mass fraction] 97 % GOKUL Riley Work Phone: [facility] 02-05-2023 12:23-0400 Systolic blood pressure 123 mm[Hg] GOKUL Riley Work Phone: [facility] 02-05-2023 11:45-0400 Inhaled oxygen flow rate 3 L/min GOKUL Riley Work Phone: [facility] 02-05-2023 10:52-0400 Body height 148.59 cm GOKUL Riley Work Phone: [facility] 02-05-2023 10:52-0400 Body weight 50.8 kg GOKUL Riley Work Phone: [facility] 02-03-2023 11:30-0400 Body height 147.32 cm Jyoti Barajasmond Other [employer] Other 02-03-2023 11:30-0400 Body mass index (BMI) [Ratio] 23.41 kg/m2 Jyoti Evita Other [employer] Other 02-03-2023 11:30-0400 Body temperature 98.6 [degF] Jyoti Barajasmond Other [employer] Other 02-03-2023 11:30-0400 Body weight 50.8 kg Jyoti Jama Other [employer] Other 02-03-2023 11:30-0400 Respiratory rate 18 /min Jyoti Barajasmond Other [employer] Other 02-03-2023 11:30-0400 SaO2% (BldA) [Mass fraction] 98 % Jyoti Barajasmond Other [employer] Other 10-23-2022 09:50-0500 Diastolic blood pressure 64 mm[Hg] GOKUL Riley Work Phone: [facility] 10-23-2022 09:50-0500 Heart rate 80 /min GOKUL Riley Work Phone: [facility] 10-23-2022 09:50-0500 Respiratory rate 16 /min GOKUL Riley Work Phone: [facility] 10-23-2022 09:50-0500 SaO2% (BldA) [Mass fraction] 96 % HEALTH CARE MANAGER Ragini Maddieacher Work Phone: [facility] 10-23-2022 09:50-0500 Systolic blood pressure 93 mm[Hg] HEALTH CARE MANAGER Ragini Rosemary Work Phone: [facility] 10-23-2022 09:09-0500 Inhaled oxygen flow rate 3 L/min HEALTH CARE MANAGER Ragini Maddieacher Work Phone: [facility] 10-23-2022 07:58-0500 Body height 148.59 cm HEALTH CARE MANAGER Ragini Carmonakodiacher Work Phone: [facility] 10-23-2022 07:58-0500 Body weight 53.97 kg HEALTH CARE MANAGER Ragini Maddieroxyr Work Phone: [facility] 10-11-2022 11:30-0500 Body height 147.32 cm Ragini Riley Other [employer] Other 10-11-2022 11:30-0500 Body mass index (BMI) [Ratio] 24.45 kg/m2 Ragini Riley Other [employer] Other 10-11-2022 11:30-0500 Body weight 53.07 kg Ragini Raziar Other [employer] Other 10-11-2022 11:30-0500 Diastolic blood pressure 86 mm[Hg] Ragini Randler Other [employer] Other 10-11-2022 11:30-0500 Systolic blood pressure 132 mm[Hg] Ragini Riley Other [employer] Other 07-09-2022 19:40-0400 Body height 147.32 cm Alysa Mariscal Other [employer] Other 07-09-2022 19:40-0400 Body mass index (BMI) [Ratio] 25.7 kg/m2 Alysa Mariscal Other [employer] Other 07-09-2022 19:40-0400 Body temperature 98.3 [degF] Alysa Mariscal Other [employer] Other 07-09-2022 19:40-0400 Body weight 55.79 kg Alysa Mariscal Other [employer] Other 07-09-2022 19:40-0400 Diastolic blood pressure 74 mm[Hg] Alysa Mariscal Other [employer] Other 07-09-2022 19:40-0400 Respiratory rate 16 /min Alysa Mariscal Other [employer] Other 07-09-2022 19:40-0400 SaO2% (BldA) [Mass fraction] 99 % Alysa Mariscal Other [employer] Other 07-09-2022 19:40-0400 Systolic blood pressure 128 mm[Hg] Alysa Mariscal Other [employer] Other 06-26-2022 16:00-0400 Body height 147.32 cm Paul Levi Other [employer] Other 06-19-2022 11:47-0400 Diastolic blood pressure 57 mm[Hg] GOKUL Riley Work Phone: [facility] 06-19-2022 11:47-0400 Heart rate 70 /min HEALTH CARE MANAGERDestiny Randler Work Phone: [facility] 06-19-2022 11:47-0400 Respiratory rate 16 /min HEALTH CARE MANAGERDestiny Perkinsacher Work Phone: [facility] 06-19-2022 11:47-0400 SaO2% (BldA) [Mass fraction] 99 % HEALTH CARE MANAGERDestiny Perkinsacher Work Phone: [facility] 06-19-2022 11:47-0400 Systolic blood pressure 103 mm[Hg] GOKUL Perkinsacher Work Phone: [facility] 06-19-2022 11:09-0400 Inhaled oxygen flow rate 3 L/min HEALTH CARE MANAGER Ragini Riley Work Phone: [facility] 06-19-2022 10:32-0400 Body height 148.59 cm HEALTH CARE MANAGER Ragini Randler Work Phone: [facility] 06-19-2022 10:32-0400 Body weight 55.79 kg HEALTH CARE MANAGERDestiny Riley Work Phone: [facility] 05-23-2022 09:00-0400 Body height 147.32 cm Ragini Riley Other [facility] Other 05-23-2022 09:00-0400 Body mass index (BMI) [Ratio] 24.87 kg/m2 Ragini Riley Other [employer] Other 05-23-2022 09:00-0400 Body weight 53.98 kg Ragini Riley Other [employer] Other 05-23-2022 09:00-0400 Diastolic blood pressure 86 mm[Hg] Ragini Perkinsacher Other [employer] Other 05-23-2022 09:00-0400 SaO2% (BldA) [Mass fraction] 99 % Ragini Carmonarbacher Other [employer] Other 05-23-2022 09:00-0400 Systolic blood pressure 130 mm[Hg] Ragini Perkinsacher Other [employer] Other 05-08-2022 15:00-0400 Body height 147.32 cm Ragini Perkinsacher Other [employer] Other 05-08-2022 15:00-0400 Body mass index (BMI) [Ratio] 24.87 kg/m2 Ragini Perkinsacher Other [employer] Other 05-08-2022 15:00-0400 Body weight 53.98 kg Ragini Perkinsacher Other [employer] Other 05-08-2022 15:00-0400 Diastolic blood pressure 80 mm[Hg] Ragini Carmonakodiacher Other [employer] Other 05-08-2022 15:00-0400 SaO2% (BldA) [Mass fraction] 99 % Ragini Carmonakodiacher Other [employer] Other 05-08-2022 15:00-0400 Systolic blood pressure 120 mm[Hg] Ragini Carmonarbacher Other [employer] Other 02-13-2022 08:27-0400 Diastolic blood pressure 66 mm[Hg] GOKUL Riley Work Phone: [facility] 02-13-2022 08:27-0400 Heart rate 76 /min HEALTH CARE MANAGERDestiny Riley Work Phone: [facility] 02-13-2022 08:27-0400 Respiratory rate 16 /min HEALTH CARE MANAGERDestiny Riley Work Phone: [facility] 02-13-2022 08:27-0400 SaO2% (BldA) [Mass fraction] 97 % HEALTH CARE MANAGERDestiny Riley Work Phone: [facility] 02-13-2022 08:27-0400 Systolic blood pressure 131 mm[Hg] GOKUL Riley Work Phone: [facility] 02-13-2022 07:46-0400 Inhaled oxygen flow rate 3 L/min HEALTH CARE MANAGERDestiny Riley Work Phone: [facility] 02-13-2022 07:26-0400 Body height 147.32 cm GOKUL Riley Work Phone: [facility] 02-13-2022 07:26-0400 Body mass index (BMI) [Ratio] 26.5 kg/m2 HEALTH CARE MANAGERDestiny Riley Work Phone: [facility] 02-13-2022 07:26-0400 Body weight 57.6 kg HEALTH CARE MANAGERDestiny Riley Work Phone: [facility] 01-23-2022 16:30-0400 Body height 147.32 cm Paul Levi Other [employer] Other 01-23-2022 16:30-0400 Body mass index (BMI) [Ratio] 26.54 kg/m2 Paul Levi Other [employer] Other 01-23-2022 16:30-0400 Body weight 57.61 kg Paul Levi Other [employer] Other 10-25-2021 16:00-0500 Body height 147.32 cm Ragini Riley Other [employer] Other 10-25-2021 16:00-0500 Body mass index (BMI) [Ratio] 26.33 kg/m2 Ragini Riley Other [employer] Other 10-25-2021 16:00-0500 Body temperature 99.4 [degF] Ragini Riley Other [employer] Other 10-25-2021 16:00-0500 Body weight 57.15 kg Ragini Riley Other [employer] Other 10-25-2021 16:00-0500 Diastolic blood pressure 84 mm[Hg] Ragini Riley Other [employer] Other 10-25-2021 16:00-0500 Respiratory rate 18 /min Ragini Riley Other [employer] Other 10-25-2021 16:00-0500 SaO2% (BldA) [Mass fraction] 99 % Ragini Riley Other [employer] Other 10-25-2021 16:00-0500 Systolic blood pressure 132 mm[Hg] Ragini Riley Other [employer] Other 06-05-2021 14:00-0400 Body height 147.32 cm Ragini Randler Other [employer] Other 06-05-2021 14:00-0400 Body mass index (BMI) [Ratio] 27.38 kg/m2 Ragini Carmonalarry Other [employer] Other 06-05-2021 14:00-0400 Body weight 59.42 kg Ragini Rosemary Other [employer] Other 06-05-2021 14:00-0400 Diastolic blood pressure 74 mm[Hg] Ragini Rosemary Other [employer] Other 06-05-2021 14:00-0400 Respiratory rate 16 /min Ragini Rosemary Other [employer] Other 06-05-2021 14:00-0400 SaO2% (BldA) [Mass fraction] 98 % Ragini Rosemary Other [employer] Other 06-05-2021 14:00-0400 Systolic blood pressure 116 mm[Hg] Ragini Rosemary Other [employer] Other Encounters Encounter Date Encounter Type Care Provider Facility Start: 04-20-2025 Patient encounter status Raginidaniella Riley APRN Work Phone: [facility] Start: 04-20-2025 End: 04-20-2025 ambulatory Ragini Riley APRN Work Phone: [facility] Work Phone: Start: 04-20-2025 End: 04-20-2025 Patient encounter procedure Ragini Riley APRN [facility] Work Phone: Start: 02-16-2025 Non-patient / Non-visit Ragini Rosemary HEALTH CARE MANAGER Work Phone: [facility] Physician [facility] Work Phone: Start: 02-16-2025 End: 02-16-2025 Admission to same day surgery center Ragini Rosemary HEALTH CARE MANAGER Work Phone: [facility] Work Phone: Start: 02-16-2025 End: 02-16-2025 ambulatory Ragini Rosemary HEALTH CARE MANAGER Work Phone: [facility] Work Phone: Start: 01-12-2025 End: 01-12-2025 ambulatory Ragini Rosemary HEALTH CARE MANAGER Work Phone: [facility] Work Phone: Start: 01-12-2025 End: 01-12-2025 Patient encounter procedure Ragini Rosemary HEALTH CARE MANAGER Work Phone: [facility] Work Phone: Start: 12-21-2024 Non-patient / Non-visit Ragini Rosemary HEALTH CARE MANAGER Work Phone: [facility] Work Phone: Start: 12-09-2024 End: 12-09-2024 Patient encounter procedure Ragini Rosemary HEALTH CARE MANAGER Work Phone: [facility] [address] Closed Work Phone: Start: 12-09-2024 End: 12-09-2024 ambulatory Ragini Rosemary HEALTH CARE MANAGER Work Phone: [facility] Work Phone: Start: 11-17-2024 End: 11-17-2024 Patient encounter procedure Ragini Rosemary HEALTH CARE MANAGER Work Phone: [facility] Work Phone: Start: 07-28-2024 End: 07-28-2024 ambulatory Paul Zarcoer Facility:[facility] Start: 07-20-2024 End: 07-20-2024 ambulatory Ragini Riley APRN Work Phone: [facility] Work Phone: Start: 07-20-2024 End: 07-20-2024 Patient encounter procedure Ragini Riley HEALTH CARE MANAGER Work Phone: [facility] Work Phone: Start: 07-14-2024 Non-patient / Non-visit HEALTH CARE MANAGERDestiny Riley Work Phone: [facility] Work Phone: Start: 07-14-2024 End: 07-14-2024 Admission to same day surgery center HEALTH CARE MANAGER Ragini Riley Work Phone: [facility] Work Phone: Start: 07-14-2024 End: 07-14-2024 ambulatory HEALTH CARE MANAGER Ragini Riley Work Phone: [facility] Work Phone: Start: 06-25-2024 End: 06-25-2024 ambulatory [facility] Work Phone: Start: 06-25-2024 End: 06-25-2024 Patient encounter procedure [facility] Work Phone: Start: 06-24-2024 End: 06-24-2024 Bamboo flowsheet Ynes Arcos CARE TRANSITIONS MANAGER Work Phone: [facility] Start: 06-24-2024 End: 06-24-2024 Bamboo flowsheet Ynes Arcos CARE TRANSITIONS MANAGER Work Phone: [facility] Start: 06-22-2024 End: 06-22-2024 ambulatory [facility] Work Phone: Start: 06-22-2024 End: 06-22-2024 Patient encounter procedure [facility] Physician [facility] Work Phone: Start: 05-27-2024 End: 05-27-2024 Bamboo flowsheet Ynes Arcos CARE TRANSITIONS MANAGER Work Phone: [facility] Start: 05-27-2024 End: 05-27-2024 Bamboo flowsheet Ynes Arcos CARE TRANSITIONS MANAGER Work Phone: [facility] Start: 05-27-2024 End: 05-27-2024 ambulatory YNES ARCOS [facility] Comment on above: Carpal tunnel syndro me on right (Primary Dx) Start: 03-30-2024 End: 03-30-2024 ambulatory [facility] Work Phone: Start: 03-30-2024 End: 03-30-2024 Patient encounter procedure [facility] Work Phone: Start: 03-25-2024 Non-patient / Non-visit [facility] Work Phone: Start: 03-25-2024 Non-patient / Non-visit [facility] Work Phone: Start: 03-24-2024 Non-patient / Non-visit [facility] Work Phone: Start: 03-23-2024 Non-patient / Non-visit [facility] Work Phone: Start: 02-18-2024 End: 02-18-2024 ambulatory YNES ARCOS Not Available Start: 01-16-2024 End: 01-16-2024 ambulatory YNES ARCOS Not Available Start: 01-01-2024 End: 01-01-2024 ambulatory YNES ARCOS Not Available Start: 12-17-2023 Non-patient / Non-visit HEALTH CARE MANAGER Ragini Riley Work Phone: [facility] Work Phone: Start: 12-17-2023 End: 12-17-2023 Admission to same day surgery center HEALTH CARE MANAGER Ragini Riley Work Phone: [facility] Work Phone: Start: 12-17-2023 End: 12-17-2023 ambulatory HEALTH CARE MANAGER Ragini Rosemary Work Phone: [facility] Work Phone: Start: 11-26-2023 End: 11-26-2023 ambulatory [facility] Work Phone: Start: 11-26-2023 End: 11-26-2023 Patient encounter procedure [facility] Work Phone: Start: 08-07-2023 End: 08-07-2023 ambulatory Paul Levi Other [employer] Other Start: 08-07-2023 Telephone encounter [facility] Start: 07-30-2023 End: 07-30-2023 ambulatory Ragini Riley Other [employer] Other Start: 07-30-2023 Office outpatient visit 10 minutes Ragini Riley [facility] Start: 07-10-2023 End: 07-10-2023 ambulatory Jyoti Jama Other [employer] Other Start: 07-10-2023 Office outpatient visit 15 minutes Jyoti Jama [facility] Start: 07-10-2023 Telephone encounter Ragini tolbert [facility] Start: 06-04-2023 (Procedure) Short Paul Levi [facility] Start: 06-04-2023 End: 06-04-2023 ambulatory Paul Levi Other [employer] Other Start: 06-03-2023 End: 06-03-2023 ambulatory Emre GONZALES Facility:[facility] Start: 05-30-2023 End: 05-30-2023 ambulatory Ragini Riley Other [employer] Other Start: 05-30-2023 Telephone encounter Ragini Ahmadi her [facility] [place] Start: 05-27-2023 End: 05-27-2023 ambulatory Luigi Schaefer Other [employer] Other Start: 05-27-2023 Office outpatient visit 15 minutes Luigi Schaefer [facility] Start: 05-24-2023 End: 05-24-2023 ambulatory HEALTH CARE MANAGERDestiny Riley Work Phone: [facility] Work Phone: Start: 05-24-2023 End: 05-24-2023 Patient encounter procedure HEALTH CARE MANAGERDestiny Riley Work Phone: [facility] [place] Work Phone: Start: 05-16-2023 End: 05-16-2023 ambulatory Paul Levi Other [employer] Other Start: 05-16-2023 Office outpatient visit 25 minutes Paul Levi [facility] [place] Start: 05-15-2023 End: 05-15-2023 ambulatory Ragini Riley Other [employer] Other Start: 05-15-2023 Telephone encounter Ragini Ahmadi her [facility] Start: 05-07-2023 End: 05-07-2023 ambulatory Luigi Schaefer Other [employer] Other Start: 05-07-2023 Telephone encounter Luigi Ramsey [facility] Start: 04-23-2023 End: 04-23-2023 ambulatory HEALTH CARE MANAGER Ragini Riley Work Phone: [facility] Work Phone: Start: 04-23-2023 End: 04-23-2023 Patient encounter procedure HEALTH CARE MANAGER Ragini Riley Work Phone: [facility] [place] Work Phone: Start: 04-15-2023 End: 04-15-2023 ambulatory Luigi Schaefer Other [employer] Other Start: 04-15-2023 Office outpatient visit 15 minutes Luigi Schaefer [facility] Start: 03-25-2023 End: 03-25-2023 ambulatory Paul Levi Other [employer] Other Start: 03-25-2023 Telephone encounter Paul Levi [facility] [place] Start: 03-15-2023 End: 03-15-2023 ambulatory Ragini Riley Other [employer] Other Start: 03-15-2023 Telephone encounter Ragini Ahmadi her [employer] Start: 03-13-2023 End: 03-13-2023 ambulatory Ragini Riley Other [employer] Other Start: 03-13-2023 Telephone encounter Ragini Ahmadi her [facility] [place] Start: 03-08-2023 End: 03-08-2023 ambulatory Ragini Riley Other [employer] Other Start: 03-08-2023 Telephone encounter Ragini Ahmadi her [employer] [facility] Start: 03-07-2023 End: 03-07-2023 ambulatory Ragnii Riley Other [employer] Other Start: 03-07-2023 Telephone encounter Ragini tolbert [facility] [place] Start: 03-06-2023 End: 03-06-2023 ambulatory Ragini Riley Other [employer] Other Start: 03-06-2023 Office outpatient visit 25 minutes Ragini Riley [facility] Start: 02-25-2023 Office outpatient visit 15 minutes Jyotilianna Jama [facility] Start: 02-25-2023 End: 02-25-2023 ambulatory HEALTH CARE MANAGERDestiny Rilye Work Phone: [facility] Work Phone: Start: 02-25-2023 End: 02-25-2023 Departed Referred HEALTH CARE MANAGER Ragini Riley Work Phone: [facility] [place] Work Phone: Start: 02-05-2023 (Procedure) Ghassan Levi [facility] Start: 02-05-2023 End: 02-05-2023 Admission to same day surgery center HEALTH CARE MANAGERDestiny Riley Work Phone: [facility] Work Phone: Start: 02-05-2023 End: 02-05-2023 ambulatory HEALTH CARE MANAGERDestiny Riley Work Phone: [facility] Work Phone: Start: 02-03-2023 End: 02-03-2023 ambulatory Jyoti Jama Other [employer] Other Start: 02-03-2023 Office outpatient visit 15 minutes Jyotilianna Jama [facility] Start: 01-21-2023 End: 01-21-2023 ambulatory Paul Levi Other [employer] Other Start: 01-21-2023 Office outpatient visit 25 minutes Paul Levi [facility] [place] Start: 11-08-2022 End: 11-08-2022 ambulatory Ragini Riley Other [employer] Other Start: 11-08-2022 Encounter by eMithilaHaat r link Ragini Riley [facility] Start: 10-23-2022 (Procedure) Short Paul Levi [facility] Start: 10-23-2022 End: 10-23-2022 Admission to same day surgery center HEALTH CARE MANAGERDestiny Riley Work Phone: [facility] Work Phone: Start: 10-23-2022 End: 10-23-2022 ambulatory GOKUL Riley Work Phone: [facility] Work Phone: Start: 10-15-2022 End: 10-15-2022 ambulatory Ragini Riley Other [employer] Other Start: 10-15-2022 Encounter by eMithilaHaat r link Ragini Riley [facility] Start: 10-12-2022 End: 10-12-2022 ambulatory Ragini Riley Other [employer] Other Start: 10-12-2022 Telephone encounter Ragini Ahmadi her [employer] Start: 10-11-2022 End: 10-11-2022 Patient encounter procedure HEALTH CARE MANAGER Ragini Riley Work Phone: [facility] [address] Work Phone: Start: 10-11-2022 End: 10-11-2022 ambulatory Ragini Riley Other [employer] Other Start: 10-11-2022 Office outpatient visit 15 minutes Ragini Riley [facility] Start: 10-09-2022 End: 10-09-2022 ambulatory Paul Levi Other [employer] Other Start: 10-09-2022 Office outpatient visit 25 minutes Paul Levi [facility] [place] Start: 10-03-2022 End: 10-03-2022 ambulatory Paul Levi Other [employer] Other Start: 10-03-2022 Encounter by [employer] Paul Levi [facility] [place] Start: 09-11-2022 End: 09-11-2022 ambulatory Paul Levi Other [employer] Other Start: 09-11-2022 Telephone encounter Paul Levi [facility] Start: 09-10-2022 End: 09-10-2022 ambulatory Ragini Riley Other [employer] Other Start: 09-10-2022 Encounter by [employer] Ragini Riley [facility] Start: 08-15-2022 End: 08-16-2022 ambulatory SULY CAROLINA Facility: Start: 07-12-2022 End: 07-12-2022 ambulatory Ragini Riley Other [employer] Other Start: 07-12-2022 Encounter by eMithilaHaat r [employer] Ragini Riley [facility] Start: 07-09-2022 End: 07-09-2022 ambulatory Alysa Mariscal Other [employer] Other Start: 07-09-2022 Office outpatient visit 15 minutes Alysa Mariscal [facility] [place] Start: 06-26-2022 End: 06-26-2022 ambulatory Paul Levi Other [employer] Other Start: 06-26-2022 Office outpatient visit 15 minutes Paul Levi [facility] [place] Start: 06-19-2022 (Procedure) Short Paul Levi [facility] Start: 06-19-2022 Telephone encounter Paul Amita [facility] Start: 06-19-2022 End: 06-19-2022 Admission to same day surgery center HEALTH CARE MANAGERDestiny Riley Work Phone: [facility] Start: 06-19-2022 End: 06-19-2022 ambulatory GOKUL Riley Work Phone: [facility] Work Phone: Start: 05-28-2022 End: 05-28-2022 ambulatory RAGINI RILEY Facility: Start: 05-25-2022 End: 05-25-2022 ambulatory Ragini Riley Other [employer] Other Start: 05-25-2022 Telephone encounter Ragini tolbert [facility] Start: 05-23-2022 End: 05-23-2022 ambulatory Ragini Riley Other [employer] Other Start: 05-23-2022 Office outpatient visit 15 minutes Ragini Riley [facility] Start: 05-22-2022 End: 05-22-2022 ambulatory Ragini Riley Other [employer] Other Start: 05-22-2022 Encounter by lebron Riley [facility] Start: 05-16-2022 End: 05-16-2022 ambulatory Ragini Riley Other [employer] Other Start: 05-16-2022 Telephone encounter Ragini Ahmadi her [employer] Start: 05-15-2022 End: 05-15-2022 ambulatory Ragini Carmonakodimeek Other [employer] Other Start: 05-15-2022 Telephone encounter Ragini Ahmadi her [facility] Start: 05-10-2022 End: 05-10-2022 ambulatory Ragini Rosemary Other [employer] Other Start: 05-10-2022 Telephone encounter Ragini Ahmadi her [employer] Start: 05-08-2022 End: 05-08-2022 Departed Referred HEALTH CARE MANAGER Ragini Rosemary Work Phone: [facility] [place] Start: 05-08-2022 End: 05-09-2022 ambulatory RAGINI A MADDIEROXYEddie Easton [employer] Other Start: 05-08-2022 Office outpatient visit 15 minutes Ragini Riley [facility] Start: 04-26-2022 End: 04-26-2022 ambulatory Paul Levi Other [employer] Other Start: 04-26-2022 Office outpatient visit 25 minutes Paul Levi [facility] [place] Start: 04-12-2022 End: 04-12-2022 ambulatory Ragini Riley Other [employer] Other Start: 04-12-2022 Office outpatient visit 15 minutes Ragini Riley [facility] Start: 02-20-2022 End: 02-20-2022 ambulatory Paul Levi Other [employer] Other Start: 02-20-2022 Telephone encounter Paul [facility] Start: 02-13-2022 (Procedure) Short Paul Levi [facility] Start: 02-13-2022 End: 02-13-2022 ambulatory Paul Levi Other [employer] Other Start: 02-13-2022 End: 02-13-2022 Admission to same day surgery center HEALTH CARE MANAGER Ragini Riley Work Phone: [facility] Start: 01-23-2022 End: 01-23-2022 ambulatory Paul Levi Other [employer] Other Start: 01-23-2022 Office outpatient visit 25 minutes Paul Levi [facility] [place] Start: 01-19-2022 End: 01-19-2022 ambulatory Ragini Riley Other [employer] Other Start: 01-19-2022 Telephone encounter Ragini Ahmadi her [facility] Start: 01-16-2022 End: 01-16-2022 ambulatory Ragini Riley Other [employer] Other Start: 01-16-2022 Office outpatient visit 15 minutes Ragini Riley [facility] Start: 11-24-2021 End: 11-24-2021 ambulatory Paul Amita Other [employer] Other Start: 11-24-[address] [facility] Start: 11-22-2021 End: 11-22-2021 ambulatory Ragini Riley Other [employer] Other Start: 11-22-2021 Telephone encounter Ragini Ahmadi her [facility] Start: 10-25-2021 End: 10-25-2021 ambulatory Ragini Riley Other [employer] Other Start: 10-25-2021 Office outpatient visit 15 minutes Ragini Riley [facility] Start: 09-11-2021 End: 09-11-2021 ambulatory Paul Amita Other [employer] Other Start: 09-11-2021 Office outpatient visit 15 minutes Ragini Riley [facility] Start: 09-11-2021 Telephone encounter Paul Meraz [facility] Start: 08-14-2021 End: 08-14-2021 ambulatory Ragini Riley Other [employer] Other Start: 08-14-2021 Telephone encounter Ragini Daiana her [facility] Start: 08-10-2021 End: 08-10-2021 ambulatory Paul Levi Other [employer] Other Start: 08-10-2021 Office outpatient visit 15 minutes Paul Levi [facility] [place] Start: 07-25-2021 End: 07-25-2021 ambulatory Ragini Riley Other [employer] Other Start: 07-25-2021 Office outpatient visit 15 minutes Ragini Riley [facility] Start: 06-30-2021 Telephone encounter Ragini Ahmadi her [facility] Start: 06-05-2021 Office outpatient visit 15 minutes Ragini Riley [facility] Start: 06-01-2021 Office outpatient visit 25 minutes Paul Levi [facility] [place] Procedures Date Procedure Procedure Detail Performing Clinician Start: 02-16-2025 DH Nerve Radio Frequency (Bilateral) Ragini Riley HEALTH CARE MANAGER Work Phone: Start: 12-09-2024 MR lumbar spine wo con Ragini Fletcher er HEALTH CARE MANAGER Work Phone: Start: 07-14-2024 Radiofrequency destruction of peripheral nerve GOKUL Randler Work Phone: Start: 06-22-2024 Quick Strep (POC) Start: 05-27-2024 H/O: section History of section Ynes Arcos CARE TRANSITIONS MANAGER Work Phone: Start: 05-27-2024 H/O: hysterectomy S/P laparoscopic hysterectomy Ynes Arcos CARE TRANSITIONS MANAGER Work Phone: Start: 03-23-2024 Blood Culture 1 Start: 03-23-2024 Blood Culture 2 Start: 12-17-2023 Radiofrequency destruction of peripheral nerve GOKUL Randler Work Phone: Start: 05-24-2023 Computed tomography of abdomen and pelvis with contrast GOKUL [facility] Work Phone: Start: 04-23-2023 Lactoferrin measurement HEALTH CARE MANAGERDestiny Carmonakod[employer]ek Work Phone: Start: 04-23-2023 Stool culture for bacteria GOKUL Riley Work Phone: Start: 02-25-2023 Urine culture GOKUL Riley Work Phone: Start: 02-05-2023 Radiofrequency destruction of peripheral nerve GOKUL Randler Work Phone: Start: 10-23-2022 Epidural injection of lumbar spine using fluoroscopic guidance GOKUL Randler Work Phone: Start: 10-11-2022 Plain chest X-ray GOKUL Riley Work Phone: Start: 06-19-2022 Epidural injection of lumbar spine using fluoroscopic guidance GOKUL Randler Work Phone: Start: 02-13-2022 Radiofrequency destruction of peripheral nerve GOKUL Randler Work Phone: H/O: section S/P HEALTH CARE MANAGERDestiny Riley Work Phone: H/O: section History of C-sectio n HEALTH CARE MANAGER Ragini Rosemary Work Phone: H/O: hysterectomy Paul stephens Other H/O: hysterectomy S/P laparoscop ic hysterectomy GOKUL Eid Rosemary Work Phone: Urine culture HEALTH CARE MANAGERDestiny Eid Rosemary Work Phone: Plan of Treatment Date Care Activity Detail Author Start: 03-08-2025 Influenza vaccination Influenz a Vaccine (#1) [facility] Comment on above: Postponed from 05/10 (Patient Refused) Start: 02-16-2025 [facility] Start: 09-29-2024 Screening for malign ant neoplasm of cervix [facility] Start: 07-14-2024 [facility] Start: 07-08-2024 End: 07-08-2024 Clinical Support 07/08/2024 3:00 PM EDT Clinical Support [facility] [id number] [place] [address], [place] [id number] Yens Arcos CARE TRANSITIONS MANAGER [address] [facility] [place] [address] [facility] [address] Start: 06-24-2024 End: 06-24-2024 Telemedicine consultation with patient [facility] Comment on above: Arrived Start: 05-27-2024 End: 05-27-2024 Clinical Support 05/27/2024 12:30 PM EDT Clinical Support [facility] [address] ALEJANDRO [facility] [place] [address] Ynes Arcos CARE TRANSITIONS MANAGER [address] [facility] [place] [address] Arrived [facility] Comment on above: Arrived Start: 05-10-2024 Influenza vaccination Influenz a Vaccine (#1) [facility] Start: 2023 Screening for malign ant neoplasm of breast Mammogram [facility] Start: 12-17-2023 [facility] Start: 11-26-2023 Patient referral [facility] Work Phone: Start: 02-25-2023 Bacteria identified in Urine by Culture Urine Culture [facility] Start: 02-05-2023 [facility] Start: 10-23-2022 [facility] Start: 06-19-2022 [facility] Start: 02-13-2022 [facility] Work Phone: Start: 12-28-2004 Screening for malign ant neoplasm of cervix Pap Smear [facility] Calprotectin [Mass/m ass] in Stool [facility] Comprehensive metabo lic 1999 panel - Serum or Plasma [facility] Comprehensive metabo lic 1999 panel - Serum or Plasma [facility] Cryptosporidium sp A g [Presence] in Stool by Immunoassay [facility] Elastase.pancreatic [Mass/mass] in Stool [facility] Giardia lamblia Ag [Presence] in Stool by Immunoassay [facility] Patient Education [facility] Work Phone: Patient referral [facility] Work Phone: pH of Stool [facility] Immunizations Immunization Date Immunization Notes Care Provider López jorge 01-20-2021 COVID-19 Vaccine Moderna - Documentation Purposes Only Paul Levi Other [facility] 12-23-2020 COVID-19 Vaccine Moderna - Documentation Purposes Only Paul Levi Other [facility] 12-15-2018 tetanus and diphther ia toxoids, adsorbed, preservative free, for adult use (5 Lf of tetanus toxoid and 2 Lf of diphtheria toxoid) [facility] 12-15-2018 tetanus toxoid, reduced diphtheria toxoid, and acellular pertussis vaccine, adsorbed Paul Levi Other [facility] 06-24-2015 influenza, seasonal, injectable, preservative free Ynes Russpatricia CARE TRANSITIONS MANAGER Work Phone: [facility] 06-24-2015 influenza virus vaccine, unspecified formulation Ynes [employer] CARE TRANSITIONS MANAGER Work Phone: [facility] 04-26-2011 DEPO-PROVERA Paul Levi Other [facility] Other 01-25-2011 DEPO-PROVERA Paul Levi Other [facility] Other 06-29-2010 influenza virus vaccine, split virus (incl. purified surface antigen) Paul Levi Other [facility] Other 06-29-2010 influenza virus vaccine, unspecified formulation [facility] Payers Date Payer Category Payer Self-pay [id number] 2023 Private Health Insurance [employer] [id number] 2023 Unknown [employer] [id number] 2023-Present [address] [place] [address] [id number] 2023 Unknown [id number] 1983 Unknown [id number] 2.16.840.1.410685.3.579.2. 593 1983 Unknown [id number] 2.16.840.1.769523.3.579.2. 593 1983 Unknown [id number] 2.16.840.1.524228.3.579.2. 593 1983 Unknown [id number] 2.16.840.1.568670.3.579.2. 1259 1983 Unknown [id number] 2.16.840.1.303867.3.579.2. 1259 1983 Unknown [id number] 2.16.840.1.847427.3.579.2. 1259 1983 Unknown [id number] 2.16.840.1.117466.3.579.2. 1259 1983 Unknown [id number] 2.16.840.1.677310.3.579.2. 1259 1959 Unknown [id number] 2.16.840.1.173229.19 Unknown [id number] 2.16.840.1.563326.19 Unknown [id number] 2.16.840.1.045500.19 Unknown [id number] 2.16.840.1.887987.3.579.2. 531 Unknown [id number] 2.16.840.1.647415.3.579.2. 531 Unknown [id number] 2.16.840.1.601185.3.579.2. 531 Unknown [id number] 2.16.840.1.773361.3.579.2. 531 Social History Date Type Detail Facility Start: 02-18-2024 End: 05-27-2024 Sex Assigned At [facility] Other Start: 02-13-2022 End: 10-23-2022 Tobacco smoking status OKIS Ex-smoker (finding) [facility] Start: 1985 Sex Assigned At Female [facility] Start: 06-19-2022 End: 07-14-2024 Tobacco smoking status NHIS Smoker (finding) [facility] Start: 01-01-2024 Tobacco smoking stat NHIS Never smoked tobacco [facility] Start: 01-01-2024 Tobacco use and exposure Smokeless tobacco non-user [facility] Start: 02-18-2024 End: 05-27-2024 Alcoholic beverage intake Ex-drinker (finding) [facility] Start: 02-18-2024 End: 05-27-2024 History of Social function [facility] Start: 12-09-2023 Gender identity Identifies as female gender (finding) [facility] Start: 07-20-2024 End: 02-16-2025 Sex Female (finding) [facility] Start: 07-14-2024 [facility] Goals Date Patient Goal Desired Activity /State Clinical Notes 06-01-2021 to 02-16-2025 Note Date & Type Note Facility 02-16-2025 Procedure note [facility] 01-12-2025 Evaluation note Diagnosis Onset Date Resolution Arthritis of lumbosacral spine acute January 12, 2025 3:00pm Cervical muscle pain acute January 12, 2025 3:00pm Myalgia acute January 12, 2025 3:00pm Other chronic pain acute January 3:00pm [facility] Work Phone: 1(578) 156-686003-11-2025 Evaluation note* Diagnosis Onset Date Resolution Status Admit Date Other chronic pain acute November 17, 2024 3:23pm Other spondylosis with radiculopathy, lumbar region acute [facility] 2024 3:23pm [facility] Work Phone: 1(266) 955-216303-11-2025 Evaluation note* Diagnosis Onset Date Resolution Status Admit Date Other chronic pain acute November 17, 2024 3:23pm Other spondylosis with radiculopathy, lumbar region acute Mar 2024 3:23pm Arthritis of lumbosacral spine acute January 12, 2025 3:00pm Cervical muscle pain acute January 12, 2025 3:00pm Myalgia acute January 12, 2025 3:00pm Other chronic pain acute January 3:00pm [facility] Work Phone: 1(403) 130-184811-05-2024 [facility] note* Diagnosis Onset Date Resolution Status [...] 2024 3:52pm Vitamin D deficiency [facility] 2023 3:52pm [facility] Work Phone: 1(705) 521-336209-18-2024 History of Present illness Narrative* Ynes Arcos, STIVEN - 05/27/2024 12:30 PM EDT Images from the original note were not included. CHIEF COMPLAINT REASON FOR VISIT : Neuro Injection HPI: Jenna Sharma is a 38 y.o. female who presents for right CTS injections and neck pain. She can not use right arm sometimes. 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 She reports neck pain which causes her headaches. Medications tried: tizanidine, celebrex, tylenol, Ibuprofen, lyrica, topamax, imitrex and PRN opioids Migraines occur once a week. Weather changes increase symptoms. Duration of migraines 4-6 hours. CURRENT MEDICATIONS: ALLERGIES/DISCONTINUE MEDICATIONS Current Outpatient Medications Medication Instructions atorvastatin (LIPITOR) 10 mg, Oral, Daily celecoxib (CELEBREX) 100 mg, Oral, 2 times daily Creon [id number] units capsule delayed-release particles capsule 1 capsule, [...] She is on Celebrex. documented in this encounterAl[facility]. [facility] [id number] [facility] Evaluation note* Encounter Date Diagnosis Assessment Notes Treatment Notes Treatment Clinical Notes Jul, Lumbosacral spondylosis without myelopathy (ICD-10 - M47.817) Jul, Cervical pain (ICD-10 - M54.2) [facility] Other 11-21-2023 Evaluation note* Encounter Date Diagnosis [...] understanding and is agreeable to treatment plan. [facility] Other 11-01-2023 Evaluation note* Encounter Date Diagnosis [...] taken if symptoms of yeast infection develop. [facility] Other 09-26-2023 Note [id number]09-25-2023 NotePatient Education Materials Follows:[id number] Evaluation note* Encounter Date Diagnosis Assessment Notes [...] ORDER MRI TO TAKE A CLOSER LOOK. [facility] Other 09-07-2023 Evaluation note* Encounter Date Diagnosis [...] note writ ten by Wilmer Tapia MA, Waiter/Waitress Head. Edited and approved by Dr. Paul Levi MD. [facility] Other 09-06-2023 Evaluation note* Encounter Date Diagnosis Assessment Notes Treatment Notes Treatment Clinical Notes May, Mild episode of recurrent major depressive disorder (ICD-10 - F33.0) [facility] Other 08-29-2023 Evaluation note* Encounter Date Diagnosis Assessment Notes Treatment Notes Treatment Clinical Notes Apr, Diarrhea (ICD-10 - R19.7) Apr, Constipation, unspecified constipation type (ICD-10 - K59.00) [facility] Other 08-07-2023 Evaluation note* Encounter Date Diagnosis [...] powder Pt advised to take a probiotic (TeleDNA) start one a day Pt advised to try metamucil fiber gummys, three a day Labs and imaging ordered Pt advised to drink plenty of water Pt informed of the low fod map diet Pt RTO in 6 weeks [facility] Other 07-17-2023 Evaluation note* Encounter Date Diagnosis Assessment Notes Treatment Notes Treatment Clinical Notes Mar, Lumbosacral spondylosis without myelopathy (ICD-10 - M47.817) [facility] Other 07-05-2023 Evaluation note* Encounter Date Diagnosis Assessment Notes Treatment Notes Treatment Clinical Notes Mar, Mixed hyperlipidemia (ICD-10 - E78.2) [facility] Other 06-28-2023 Evaluation note* Encounter Date Diagnosis [...] (ICD-10 - E78.2) Due for repeat labs [facility] Other 06-19-2023 Evaluation note* Encounter Date Diagnosis [...] fever or any worsening of your symptoms. [facility] Other 06-19-2023 Evaluation note* Encounter Date Diagnosis [...] nicotine dependence, tobacco product (ICD-10 - F17.290) [facility] Other 05-30-2023 [facility]20[facility] Evaluation note* Encounter Date Diagnosis Assessment Notes [...] with your dentist as soon as possible [facility] Other 05-15-2023 Evaluation note* Encounter Date Diagnosis [...] note writ ten by Ida Griffith LPN, Waiter/Waitress Head. Edited and approved by Dr. Paul Levi MD. [facility] Other 03-02-2023 Evaluation note* Encounter Date Diagnosis Assessment Notes Treatment Notes Treatment Clinical Notes Nov, Mild episode of recurrent major depressive disorder (ICD-10 - F33.0) [facility] Other 02-06-2023 Evaluation note* Encounter Date Diagnosis Assessment Notes Treatment Notes Treatment Clinical Notes Oct, Bronchitis (ICD-10 - J40) [facility] Other 02-02-2023 Evaluation note* Encounter Date Diagnosis [...] go to the ER. Patient verbalizes understanding. [facility] Other 01-31-2023 Evaluation note* Encounter Date Diagnosis [...] note writ ten by Wilmer Tapia CMA, Waiter/Waitress Head. Edited and approved by Dr. Paul Levi MD. [facility] Other 01-03-2023 Evaluation note* Encounter Date Diagnosis Assessment Notes Treatment Notes Treatment Clinical Notes Sep, Cervical radiculopathy at C6 (ICD-10 - M54.12) [facility] Other 10-31-2022 Evaluation note* Encounter Date Diagnosis [...] other viral communicable diseases (ICD-10 - Z20.828) [facility] Other 10-18-2022 Evaluation note* Encounter Date Diagnosis [...] note writ ten by Wilmer Tapia CMA, Waiter/Waitress Head. Edited and approved by Dr. Paul Levi MD. [facility] Other 10-11-2022 Evaluation note* Encounter Date Diagnosis Assessment Notes Treatment Notes Treatment Clinical Notes Jun, Low back pain (ICD-1 0 - M54.5) Jun, Cervical radiculopathy at C7 (ICD-10 - M54.12) Jun, Cervical radiculopathy at C6 (ICD-10 - M54.12) [facility] Other 10-11-2022 [facility] Evaluation note* Encounter Date Diagnosis Assessment Notes [...] care will repeat labs in 3 months. [facility] Other 09-06-2022 Evaluation note* Encounter Date Diagnosis Assessment Notes Treatment Notes Treatment Clinical Notes May, Mild episode of recurrent major depressive disorder (ICD-10 - F33.0) [facility] Other 08-30-2022 Evaluation note* Encounter Date Diagnosis [...] to the ER if this would occur. [facility] Other 08-18-2022 Evaluation note* Encounter Date Diagnosis [...] note writ ten by Wilmer Tapia CMA, Waiter/Waitress Head. Edited and approved by Dr. Paul Levi MD. [facility] Other 08-04-2022 Evaluation note* Encounter Date Diagnosis [...] of iron deficiency anemia (ICD-10 - Z86.2) [facility] Other 06-14-2022 Evaluation note* Encounter Date Diagnosis Assessment Notes Treatment Notes Treatment Clinical Notes Feb, Low back pain (ICD-10 - M54.5) [facility] Other 05-17-2022 Evaluation note* Encounter Date Diagnosis [...] note writ ten by Wilmer Tapia CMA, Waiter/Waitress Head. Edited and approved by Dr. Paul Levi MD. [facility] Other 05-13-2022 Evaluation note* Encounter Date Diagnosis Assessment Notes Treatment Notes Treatment Clinical Notes January, Acute non-recurrent maxillary sinusitis (ICD-10 - J01.00) [facility] Other 05-10-2022 Evaluation note* Encounter Date Diagnosis [...] understanding and is agreeable to treatment plan. [facility] Other 03-18-2022 Evaluation note* Encounter Date Diagnosis Assessment Notes Treatment Notes Treatment Clinical Notes Nov, Low back pain (ICD-10 - M54.5) [facility] Other 02-16-2022 Evaluation note* Encounter Date Diagnosis [...] Oct, Mixed hyperlipidemia (ICD-10 - E78.2) Stable [facility] Other 01-03-2022 Evaluation note* Encounter Date Diagnosis Assessment Notes Treatment Notes Treatment Clinical Notes Sep, Low back pain (ICD-10 - M54.5) [facility] Other 01-03-2022 Evaluation note* Encounter Date Diagnosis [...] difficulty breathing, chest pain, palpitations, fever less [id number], persistent fevers not reduced by antipyretic, severe headache, neck pain/stiffness, abdominal pain, persistent N/V, severe dehydration. Patient verbalizes understanding and is agreeable to treatment plan. Sep, Cough (ICD-10 - R05.9) Sep, Other The patient was seen per video virtual visit through [employer] platform and my location (provider) is in the office setting. The specifics of the virtual visit were discussed with patient. This video call is considered video virtual visit, which is to help assess current healthcare needs and to determine the appropriate care patient may require. This visit is a billable service through patient insurance company. Patient is in agreement to have their insurance billed for this video virtual visit and consents to video virtual visit. The staff involved in visit was myself, Ragini Riley DNP, HEALTH CARE MANAGER, SHIP BOAT OR BARGE MATE (provider). Time spent with patient was approximately 15 minutes. [facility] Other 12-06-2021 Evaluation note* Encounter Date Diagnosis Assessment Notes Treatment Notes Treatment Clinical Notes Aug, Mixed hyperlipidemia (ICD-10 - E78.2) [facility] Other 12-02-2021 Evaluation note* Encounter Date Diagnosis [...] note writ ten by Desiree Cano CMA, Waiter/Waitress Head. Edited and approved by Dr. Paul Levi MD [facility] Other 11-16-2021 Evaluation note* Encounter Date Diagnosis [...] understanding and is agreeable to treatment plan. [facility] Other 10-22-2021 Evaluation note* Encounter Date Diagnosis Assessment Notes Treatment Notes Treatment Clinical Notes Jun, Mild episode of recurrent major depressive disorder (ICD-10 - F33.0) [facility] Other 09-27-2021 Evaluation note* Encounter Date Diagnosis [...] verbalizes understanding and agrees to treatment plan. [facility] Other 09-23-2021 Evaluation note* Encounter Date Diagnosis [...] Above note writ ten by Karina BARBOUR, Waiter/Waitress Head. Edited and approved by Dr. Paul Levi MD [facility] Other Evaluation noteNo InformationNort [employer] Other Evaluation noteNo assessment information available [facility] Work Phone: Evaluation note* Diagnosis Onset Date Resolution Status Cervical radiculopathy acute DJD (degenerative joint disease), lumbosacral acute Other chronic pain acute Other spondylosis with radiculopathy, lumbar region acute [facility] Work Phone: Evaluation note* Diagnosis Onset Date Resolution Status Arthritis of lumbosacral spine acute Numbness and tingling in right hand acute Other chronic pain acute Other spondylosis with radiculopathy, lumbar region acute [facility] Work Phone: Evaluation note* Diagnosis Onset Date Resolution Status Hospital discharge follow-up acute Sepsis acute UTI (urinary tract infection) acute [facility] Work Phone: Evaluation note* Diagnosis Onset Date Resolution Status Hospital discharge follow-up acute Sepsis acute UTI (urinary tract infection) acute Otitis media [facility] Work Phone: Evaluation note* Diagnosis Onset Date Resolution Status Hospital discharge follow-up acute Sepsis acute UTI (urinary tract infection) acute Maxillary sinusitis acute Otitis media acute Arthritis of lumbosacral spine acute Numbness and tingling in right hand acute Other chronic pain acute Other spondylosis with radiculopathy, lumbar region acute [facility] Work Phone: Evaluation note* Diagnosis Onset Date Resolution Status Maxillary sinusitis acute Otitis media acute Arthritis of lumbosacral spine acute Other chronic pain acute Other spondylosis with radiculopathy, lumbar region acute [facility] Work Phone: Evaluation note* Diagnosis Carpal tunnel syndrome on right- Primary Carpal tunnel syndrome documented [facility] Diagnosis Onset Date Resolution Status Admit Date Vitamin B 12 deficiency acute A ugust 2024 3:14pm Vitamin D deficiency acute Augu st 2024 3:14pm [facility] Work Phone: Hishjin general Narrative - Reported* Type Description Date [...] 01/2020 Hospitalization History 2006 Hospitalization History 2006 [facility] Other History general Narrative - Reported* Type [...] 01/2020 Hospitalization History 2006 Hospitalization History 2006 [facility] Other Summary Purpose Family History Relationship Condition [...] disease Unknown Unknown grandparent Unknown Advance Directives Advance Directive Response Recorded Date/ Time Advance Directives No January 06 11:36am Advance Directive Response Recorded Date/ Time Advance Directives No January 06 10:36am Reason for Referral Reason *Waiting for appt evaluate Diagnosis 1 Rectal bleeding (K62 .5) Diagnosis 2 Diarrhea, unspecifie d type (R19.7) Referral Organization [facility] Family Medicin e [place] Referring Provider First Name Ragini Referring Provider Last Name Mathewrbacher Referring Provider Specialty Nurse Pract itioner Referred Organization [facility] Gastroenterolo gy Referred Provider Halle London Referred Address [address] ,[place], [place],[address] Referred Provider Specialty Gastroentero logy Referral Priority Routine General Notes Mony Madrigal 04:39:42 PM >received today, sent P2P Reason *FU 05/03 EMG OF B LE Diagnosis 1 Other spondylosis wi th radiculopathy, lumbar region (M47.26) Referral Organization [facility] Referring Provider First Name Paul Referring Provider Last Name Amita Referring Provider Specialty Pain Medici ne Referred Organization [facility] Referred Provider Cm Terry Referred Address [address],[place], [place],[address] Referred Provider Specialty Neurology Referral Priority Routine General Notes Bern Rosenbergfer 09:29:11 AM >attached OTTO referral form, p2p [...] thaddeus mbar region November 17, 2024 3:23pm Chief Complaint Admit Date OP/SP BACK PAIN November 17, 2024 3:2 3pm M47.26 December 09, 2024 3:01 pm Amb Documentation December 21, 2024 1:4 4pm MRI RESULTS January 12, 2025 3:00pm Reason for Visit Admit Date Other chronic pain November 17, 2024 3:2 3pm Other spondylosis with radiculopathy, thaddeus mbar region November 17, 2024 3:23pm Arthritis of lumbosacral spine January 12, 2025 3:00pm Cervical muscle pain January 12, 2025 3:00p m Myalgia January 12, 2025 3:00pm Other chronic pain January 12, 2025 3:00pm Chief Complaint Admit Date M47.26 December 09, 2024 3:01 pm Amb Documentation December 21, 2024 1:4 4pm MRI RESULTS January 12, 2025 3:00pm LUMBAR PAIN February 16, 2025 8:40 am LUMBAR PAIN February 16, 2025 9:45 am Reason for Visit Admit Date Arthritis of lumbosacral spine January 12, 2025 3:00pm Cervical muscle pain January 12, 2025 3:00p m Myalgia January 12, 2025 3:00pm Other chronic pain January 12, 2025 3:00pm Chief Complaint Admit Date LUMBAR PAIN February 16, 2025 8:40 am LUMBAR PAIN February 16, 2025 9:45 am Wellness April 20, 2025 3: 14pm Reason for Visit Admit Date Vitamin B 12 deficiency April 20 3:14pm Vitamin D deficiency April 20, 2025 3 :14pm Additional Source Comments INFORMATION SOURCE (unrecogn ized section and content) DATE CREATED AUTHOR 01/11/2022 [facility] dical Specialist DATE CREATED AUTHOR AUTHOR'S ORGANIZ ATION 08/18/2022 [facility] DATE CREATED AUTHOR AUTHOR'S ORGANIZ ATION 06/21/2023 [facility] DATE CREATED AUTHOR AUTHOR'S ORGANIZ ATION 06/26/2024 [facility] dical Specialists EPIC DATE CREATED AUTHOR AUTHOR'S ORGANIZ ATION 02/24/2025 [facility] REASON FOR VISIT (unrecogniz ed section and content) MRI RESULTS6 month Follow up No InformationDOXIMITY [phone] SORE THROAT, COUGH, EAR PAINPROCEDURE FUREFILLNo InformationDoximity [phone] month Follow upNo InformationBP COVID + issues 3 weeks Out)er folllow updoximity [phone] cough, sinus congestion will be coming to office for testingNo InformationRIGHT LUMBAR FACET RFA L3 L4 L5/DSF/U LUMBARRefillsNo Informationdoximity [phone] discuss potassium and vit d levelsFOLLOW UP [...] Member Role Status Dates Ragini Riley APRN CARE TRANSITIONS MANAGER-C Primary Care Provider Active Team Status: Inactive Member Role Status Dates Ragini Riley APRN CARE TRANSITIONS MANAGER-C Primary Care Provider Active Paul Levi MD Attending Provider Active Team Status: Inactive Member Role Status Dates Ragini Riley APRN CARE TRANSITIONS MANAGER-C Primary Care Provider, Attending Provider Active Team Status: Inactive Member Role Status Dates ANGEL Pedraza Attending Provider Active Team Status: Inactive Member Role Status Dates ANGEL Pedraza Attending Provider Active NON STAFF Primary Care Provider Active Team Status: Inactive Member Role Status Dates Ragini Riley APRN CARE TRANSITIONS MANAGER-C Primary Care Provider Active Luigi Schaefer APRN Attending Provider Active Team Status: Inactive Member Role Status Dates Luigi Schaefer APRN Attending Provider Active Ragini Riley APRN CARE TRANSITIONS MANAGER-C Primary Care Provider Active Team Status: Inactive Member Role Status Dates Ragini Riley APRN CARE TRANSITIONS MANAGER-C Primary Care Provider Active Start: November 26, 2023 End: November 26, 2023 Paul Levi MD Attending Provider Active Sta rt: November 26, 2023 End: November 26, 2023 Team Status: Inactive Member Role Status Dates Ragini Riley APRN NP-C Primary Care Provider Active Start: December 17, 2023 End: December 17, 2023 Paul Levi MD Attending Provider Active Sta rt: December 17, 2023 End: December 17, 2023 Team Status: Active Member Role Status Dates Ragini Riley APRN CARE TRANSITIONS MANAGER-C Primary Care Provider Active Start: December 17, 2023 Paul Levi MD Attending Provider, Other Provider Active Start: December 17, 2023 Team Status: Active Member Role Status Dates Ragini Riley APRN CARE TRANSITIONS MANAGER-C Primary Care Provider, Attending Provider Active Start: March 23, 2024 Team Status: Active Member Role Status Dates Ragini Riley APRN CARE TRANSITIONS MANAGER-C Primary Care Provider Active Start: March 24, 2024 Yosef Celeste MD Attending Provider Active Sta rt: March 24, 2024 Team Status: Active Member Role Status Dates Ragini Riley APRN CARE TRANSITIONS MANAGER-C Primary Care Provider Active Start: March 25, 2024 Yosef Celeste MD Attending Provider Active Sta rt: March 25, 2024 Team Status: Active Member Role Status Dates Ragini Riley APRN CARE TRANSITIONS MANAGER-C Primary Care Provider Active Start: March 25, 2024 Jina Waters LPN Attending Provider Active St art: March 25, 2024 Team Status: Inactive Member Role Status Dates Ragini Riley APRN CARE TRANSITIONS MANAGER-C Primary Care Provider, Attending Provider Active Start: March 30, 2024 End: March 30, 2024 Team Status: Inactive Member Role Status Dates Ragini Riley APRN CARE TRANSITIONS MANAGER-C Primary Care Provider, Attending Provider Active Start: June 22, 2024 End: June 22, 2024 Career Development Manager Relationship Specialty Start Date End Date Ragini Riley NP [address] [place], [place] [id number] PCP - General Family Medicine 05/27/24 Team Status: Inactive Member Role Status Dates Ragini Riley APRN CARE TRANSITIONS MANAGER-C Primary Care Provider Active Start: June End: June 25, 2024 Paul Levi MD Attending Provider Active Sta rt: June 25, 2024 End: June 25, 2024 Team Status: Inactive Member Role Status Dates Ragini Riley APRN CARE TRANSITIONS MANAGER-C Primary Care Provider Active Start: July End: July 14, 2024 Paul Levi MD Attending Provider Active Sta rt: July 14, 2024 End: July 14, 2024 Team Status: Active Member Role Status Dates Ragini Riley APRN CARE TRANSITIONS MANAGER-C Primary Care Provider Active Start: July Paul Levi MD Attending Provider, Other Provider Active Start: July 14, 2024 Team Status: Inactive Member Role Status Dates Ragini Riley APRN CARE TRANSITIONS MANAGER-C Primary Care Provider, Attending Provider Active Start: July 20, 2024 End: July 20, 2024 Career Development Manager Relationship Specialty Start Date End Date Ynes Arcos CARE TRANSITIONS MANAGER [address] [facility] [address] [place] [address], [place] [address] PCP - Medical [employer] 09/09/23 09/08/99 Career Development Manager Relationship Specialty Start Date End Date Ynes Arcos CARE TRANSITIONS MANAGER [address] [facility] [address] [place] [id number] PCP - Medical [employer] 09/09/23 09/08/99 Ragini Riley NP [address] [place] [address] PCP - General [facility] 05/27/24 Team Status: Inactive Member Role Status Dates Ragini Riley APRN CARE TRANSITIONS MANAGER-C Primary Care Provider Active Start: November 17, 2024 End: November 17, 2024 Paul Levi MD Attending Provider Active Sta rt: November 17, 2024 End: November 17, 2024 Team Status: Inactive Member Role Status Dates Ragini Riley APRN CARE TRANSITIONS MANAGER-C Primary Care Provider Active Start: December 09, 2024 End: December 09, 2024 Paul Levi MD Attending Provider Active Sta rt: December 09, 2024 End: December 09, 2024 Team Status: Active Member Role Status Dates Ragini Riley APRN CARE TRANSITIONS MANAGER-C Primary Care Provider Active Start: December 21, 2024 Desiree Tabares CMA Attending Provider Active Start: December 21, 2024 Team Status: Inactive Member Role Status Dates Ragini Riley APRN CARE TRANSITIONS MANAGER-C Primary Care Provider Active Start: January 12, 2025 End: January 12, 2025 Paul Levi MD Attending Provider Active Sta rt: January 12, 2025 End: January 12, 2025 Team Status: Inactive Member Role Status Dates Ragini Riley APRN CARE TRANSITIONS MANAGER-C Primary Care Provider Active Start: February 16, 2025 End: February 16, 2025 Paul Levi MD Attending Provider Active Sta rt: February 16, 2025 End: February 16, 2025 Team Status: Active Member Role Status Dates Ragini Riley APRN CARE TRANSITIONS MANAGER-C Primary Care Provider Active Start: February 16, 2025 Paul Levi MD Attending Provider, Other Provider Active Start: February 16, 2025 Team Status: Active Member Role Status Dates Ragini Riley APRN CARE TRANSITIONS MANAGER-C Primary Care Provider Active Start: February 16, 2025 Paul Levi MD Attending Provider Active Sta rt: February 16, 2025 Paul Levi MD Other Provider Active Start: February 16, 2025 Team Status: Inactive Member Role Status Dates Ragini Riley APRN CARE TRANSITIONS MANAGER-C Primary Care Provider Active Start: April 20, 2025 End: April 20, 2025 Ragini Riley APRN CARE TRANSITIONS MANAGER-C Attending Provider Act antolin Start: April 20, 2025 End: April 20, 2025 Goals (unrecognized section and content) Goals may [...] BE BASED ON THE PRIMARY CLINICAL RECORDS. [employer] [facility]. provides no warranty or guarantee of the accuracy or completeness of information in this document.
[2025-05-08 10:41] LABS: Hematocrit 38.9 % (36.0-48.0); Hemoglobin 12.7 g/dL (12.0-16.0); Immature Granulocytes Abs Auto 0.02 10^3/uL (0.00-0.03); Immature Granulocytes Pct Auto 0.3 % (0.0-0.5); Lymphocytes Absolute Auto 2.1 10^3/uL (1.2-3.8); Mean Corpuscular HGB Conc 32.6 g/dL (29.9-35.2); Mean Corpuscular Hemoglobin 30.6 pg (26.7-34.0); Mean Corpuscular Volume 93.7 fL (81.0-99.0); Platelet Count 300 10^3/uL (150-450); Red Blood Count 4.15 10^6/uL (4.20-5.40); White Blood Count 6.7 10^3/uL (4.0-11.0)
[2025-05-08 11:27] LABS: Alanine Aminotransferase 26 U/L (14-59); Albumin Globulin Ratio 1.0; Albumin Level 3.9 g/dL (3.4-5.0); Alkaline Phosphatase 100 U/L (46-116); Anion Gap 12.1; Aspartate Amino Transferase 19 U/L (15-37); Blood Urea Nitrogen 7.0 mg/dL (7.0-18.0); Calcium 9.1 mg/dL (8.5-10.1); Carbon Dioxide 28.0 mmol/L (21.0-32.0); Chloride 106 mmol/L (98-107); Cholesterol 239 mg/dL (<=200); Estimated GFR (African America >60 (>=60 mL/min/1.73m^2); Estimated GFR (Non-African Ame >60 (>=60 mL/min/1.73m^2); Globulin 3.8 g/dL; Glucose 87 mg/dL (74-106); HDL Cholesterol 59 mg/dL (40-60); Potassium 4.1 mmol/L (3.5-5.1); Sodium 142 mmol/L (136-145); Total Protein 7.7 g/dL (6.4-8.2); Triglycerides 109 mg/dL (<=150); VLDL CHOLESTEROL 21.8 mg/dL
[2025-05-09 08:08] LABS: Vitamin B12 627 pg/mL (232-1245)
== END 2025-05-08 09:52 | disposition home or self-care (01) ==
PROVIDERS: PCP Nurse Practitioner Family; Visit Provider Nurse Practitioner Family
DX: Z00.00 Encounter for general adult medical examination without abnormal findings (principal); E53.8 Deficiency of other specified B group vitamins; E55.9 Vitamin D deficiency, unspecified
CPT/HCPCS: 36415; 80053; 80061; 82306; 82607; 85025